=== PATIENT | female | born 1935 | race Caucasian/White ===

== ENCOUNTER 2018-05-24 20:20 | Inpatient (IN) | payer MEDICARE, OTHER ==
[~2018-05-24] VITALS: Ht 170.2 cm; Wt 75.3 kg
[~2018-05-24 20:20] MED LIST: ACET500T33 PO; ACIDOPHILUS PROB1 MG PO; CHOL10003 PO; COLE1TAB2 PO; CYAN10002 PO; CYAN10005 PO; DIVA500T2 PO; DONE10TA61 PO; EFIN4SOL TP; FAMO20TA5 PO; HYDR-963 PO; HYDR4TAB45 PO; LEXAPRO20 MG PO; MAG30ORA2 PO; MAGN2400 PO; MENT1ADH29 TP; METH57CR8 TP; MULT-471 PO; ONDA4TAB10 PO; ONDA4TAB7 PO; QUET50TA5 PO; SERT25TA PO; TRAZ-85 PO; VIT1TABL8 PO
[2018-05-24] MEDS ORDERED: MAG HYDROX/AL HYDROX/SIMETH 30 ML ORAL.SUSP PO PRN (21:45)
[2018-05-24] MEDS ORDERED: MAGNESIUM HYDROXIDE 2,400 MG/30 ML ORAL.SUSP. PO PRN ×2 (21:45→22:15)
[2018-05-24] MEDS ORDERED: ACETAMINOPHEN 325 MG TABLET PO PRN (21:45)
[2018-05-24 21:52] VITALS: BP 129/81
[2018-05-24] MEDS ORDERED: MEMA7CAP PO (22:02)
[2018-05-24] MEDS ORDERED: RIVA1PAT23 TD (22:02)
[2018-05-24] MEDS ORDERED: CLON0.5T PO (22:02)
[2018-05-24] MEDS ORDERED: MAGN400O7 PO (22:02)
[2018-05-24] MEDS ORDERED: LACT1TAB18 PO (22:02)
[2018-05-24 22:14] LABS: BASO % 0 % (0-3); EOS # 0.2 x10^3/uL (0.0-0.7); EOS % 2 % (0-3); HEMATOCRIT 35.5 % (36.0-47.0); HEMOGLOBIN 11.7 g/dL (12.0-15.5); LYMPH # 2.4 x10^3/uL (1.0-4.8); LYMPH % 24 % (24-48); MEAN CORPUSCULAR HEMOGLOBIN 28 pg (25-35); MEAN CORPUSCULAR HGB CONC 33 g/dL (31-37); MEAN CORPUSCULAR VOLUME 83 fL (79-100); MONO # 0.7 x10^3/uL (0.0-1.1); MONO % 7 % (0-9); NEUT # 6.7 x10^3uL (1.8-7.7); NEUT % 67 % (31-73); PLATELET COUNT 292 x10^3/uL (140-400); RED BLOOD COUNT 4.26 x10^6/uL (3.50-5.40); RED CELL DISTRIBUTION WIDTH 15.5 % (11.5-14.5)
[2018-05-24] MEDS ORDERED: ACETAMINOPHEN 500 MG TABLET PO PRN (22:15)
[2018-05-24] MEDS ORDERED: METHYL SALICYLATE/MENTHOL TOPICAL OINTMENT 29GM TUBE. TP PRN (22:15)
[2018-05-24 22:38] LABS: ALBUMIN 2.8 g/dL (3.4-5.0); ALBUMIN/GLOBULIN RATIO 0.8 (1.0-1.7); CALCIUM 8.2 mg/dL (8.5-10.1); CREATININE 1.2 mg/dL (0.6-1.0); GFR 42.9; MAGNESIUM 1.9 mg/dL (1.8-2.4); POTASSIUM 4.2 mmol/L (3.5-5.1); TOTAL BILIRUBIN 0.3 mg/dL (0.2-1.0); TOTAL PROTEIN 6.5 g/dL (6.4-8.2)
--- NOTE | 2018-05-25 01:47 | NUR ---
Admission Note with Justification for Admission to [facility] Patient admitted to [facility] for protective oversight for emergency stabilization of acute psychiatric crisis. Pt admitted from: SNF Mode of arrival: EMS Accompanied By: EMS Precipitating behaviors that initiated intake and admission:Threatening to harm others, verbally abusive, resistive to cares Description of failure of out patient attempts at stabilization in previous setting list behavior and medication trials:Med changes Behaviors and assessment findings upon admission: Patient arrived on unit with EMS. Patient calm and cooperative with assessment and vital signs. Patient pleasant during interaction. Patient drowsy upon arrival. Patient alert and oriented to self and that she is in [facility] only. Patient belongings inventoried. Patient lung sounds clear, heart regular and bowels active. Skin assessment shows no wounds or rashes upon admission. Skin turgor is elastic. Patient currently in patient room. Plan: Admit for protective oversight for adjustment and stabilization of medications, behaviors and mood. Intense treatment regimen including groups, medication adjustments, therapy, consistent regimen for ADL's, self care, and sleep hygiene. Daily monitoring by Inpatient staff, Psychiatry, and Medical Physician.
[2018-05-25 06:19] VITALS: BP 151/64
--- NOTE | 2018-05-25 08:00 | NUR ---
Per conversation last night prior to patient's admission, the DPOA has the following requests and conditions: -No pain medications except Tylenol -Call before changing any medications -Call before adding any medications -Call before discharging patient -Med changes need to be explained to DPOA by a qualified psychiatrist at time of change -No Depakote, patient has reacted badly before -No NSAIDs, Aspirin, narcotics, or tramadol
[2018-05-25] MEDS ORDERED: SERTRALINE 25 MG TABLET. PO SCH (09:00)
[2018-05-25] MEDS: LACTOBACILLUS RHAMNOSUS GG 1 CAPSULE. PO SCH ×2 (09:03→20:26)
[2018-05-25] MEDS: MEMANTINE 5 MG TABLET. PO SCH (09:03)
[2018-05-25] MEDS: RIVASTIGMINE 9.5MG PATCH. TD SCH (09:04)
--- NOTE | 2018-05-25 09:26 | NUR ---
Met with Usha to support related to recent admit and to complete psychosocial assessment. Usha was sitting in the day room. She was calm and without s/s of distress. She was pleasant and agreeable to visit with this worker. Usha is alert and oriented to herself. She was confused to year, month, day of week, and place. Usha is verbal and able to make her needs and preferences known. Usha was born and raised in [place]. She was the oldest of two children. Her brother Bon lives in [place], [place]. 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 Usha Guilherme Talley and had three children. Usha's daughters Kayla and Kelly are living. She reported that her son Guilherme at 16 years old of pneumonia. Lisa has enjoyed playing [employer], card games, country music, and gardening. She is of the Islam becca. Usha has lived at [facility] for the past couple years and reports she likes it there. 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 Call placed to Kayla, daughter/POA, to invite to participate in treatment team meeting on 05/31/19. Voice message left, awaiting return phone call.
--- NOTE | 2018-05-25 10:21 | EKG ---
[address] [address] Test Date: 2018-05-25 Test Time: 09:45:53 Pat Name: JOSÉ MIGUEL COLINDRES Department: Room: [address] [place] [address] Gender: F Certified Medical Transcriptionist: : 1935 Requested By: DUGLAS SMALL Order Number: [id number] Reading MD: Ryan Jones MD Measurements Intervals [place] Rate: 71 P: 23 MD: 166 QRS: -13 QRSD: 70 T: 28 QT: 356 QTc: 391 Interpretive Statements SINUS RHYTHM Electronically Signed On 05-29-2018 11:15:30 CDT by Ryan Jones MD
[2018-05-25 12:30] LABS: THYROID STIM HORMONE (TSH) 3.825 uIU/mL (0.358-3.740)
--- NOTE | 2018-05-25 12:40 | NUR ---
Pt has been up in Day Room sitting quietly, watching TV. She has been pleasant & cooperative all morning. Compliant with meds taken whole with water. When asked, she stated that she "doesn't need anything." She is currently sitting up in the lunch room earing lunch. No signs of hallucinations or delusions noted. No inappropriate behaviors so far this shift. Will continue to monitor and assist pt toward reaching her treatment plan goals.
--- NOTE | 2018-05-25 13:55 | NUR ---
Kayla, daughter, returned this worker's phone call. She provided additional psychosocial information including Usha's highest level of education being 10th grade as Usha dropped out of school to get . Usha's first marriage ended in an annulment after six months. She then Guilherme. Usha's son Guilherme at age 32 from AIDS. Usha is a former smoker and family reports she has been addicted to prescription pain pills in the past. Family expressed they feel that Usha may have some type of undiagnosed personality disorder. Kayla accepted invite to participate by phone in the treatment team meeting to be held on 05/31/18.
[2018-05-25] MEDS: CHOLECALCIFEROL (VITAMIN D3) 50,000 UNIT CAPSULE PO SCH (15:44)
[2018-05-25 16:48] VITALS: BP 143/81
[2018-05-25] MEDS: clonazePAM 0.5 MG TABLET PO SCH (20:26)
[2018-05-25 21:13] LABS: THYROXINE 7.3 ug/dL (4.5-12.0)
--- NOTE | 2018-05-25 22:55 | CONS ---
DATE OF CONSULTATION: 05/25/2018 REASON FOR CONSULTATION: Consult for medical management. HISTORY OF PRESENT ILLNESS: The patient is an 82-year-old female patient who apparently was admitted on account of threatening other residents, refusing care, verbally abusive. All this on a background of vascular dementia. She is here for inpatient psychiatric stabilization. Apparently, she did threaten other residents last night and refused her medication, but has been very cooperative and compliant with care and medication today and denied any complaint. PAST MEDICAL HISTORY: Significant for gastroesophageal reflux disease, chronic constipation, anemia, chronic kidney disease. PAST SURGICAL HISTORY: Significant for appendectomy, cholecystectomy, total abdominal hysterectomy, bilateral salpingo-oophorectomy. ALLERGIES: She is allergic to NONSTEROIDAL ANTI-INFLAMMATORY MEDICATION. MEDICATIONS: She is currently on the following medications: Rivastigmine for Exelon 9.5 mg at 24 hours transdermal patch once a day, Bengay ultra strength cream applied topically to 4 times a day, Tylenol 500 mg every 4 hours, clonazepam 0.5 mg at bedtime, sertraline 25 mg daily, trazodone 50 mg at bedtime, Namenda XR 7 mg daily, lactobacillus acidophilus 1 twice a day, and magnesium hydroxide for milk of magnesia 30 mL p.o. daily p.r.n. for constipation. FAMILY HISTORY: Unremarkable. 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 She currently lives at [facility]. She has two daughters and one son. She has never smoked, does not drink alcohol or use recreational drugs. REVIEW OF SYSTEMS: As per history of present illness. PHYSICAL EXAMINATION GENERAL: When I examined her, she was sitting comfortably in her chair in no apparent respiratory distress, slightly pale, no jaundice, cyanosis, or thyromegaly. No jugular venous distension. No lower limb edema. VITAL SIGNS: Her heart rate was 70, blood pressure was 151/64, temperature was 98.2, respiratory rate was 16, and oxygen saturation was 98% on room air. HEAD, EYES, EARS, NOSE, AND THROAT: Showed normocephalic, atraumatic. NECK: Supple. HEART: Showed normal first and second heart sounds. No gallop, rub, or murmur. CHEST: Clear to auscultation. No crepitation or rhonchi. ABDOMEN: Distended, soft, nontender. No guarding or rigidity. No organomegaly. All hernial orifice intact. Bowel sounds normal. NEUROLOGIC: She was awake, alert, responding appropriately. Cranial nerves intact. EXTREMITIES: She moves extremities without difficulty. She ambulates with a walker. LABORATORY DATA: Her lab work this morning showed a white cell count of 10,000, hemoglobin 11.7, hematocrit 35.5, MCV 83, and platelet count of 292,000 with normal manual differential. Her chemistry showed a serum sodium 139, potassium 4.2, chloride 103, bicarbonate 27, anion gap of 9, BUN 18, creatinine 1.2, estimated GFR was 42 mL per minute. Her glucose was 92, calcium was 8.2, magnesium was 1.9. Her serum iron was 54, TIBC was and percent saturation was 16%. Her total bilirubin, AST, ALT, alkaline phosphatase were normal. Total protein 6.5, albumin was 2.8. Her serum triglycerides 142, total cholesterol was 200, LDL cholesterol was 119, VLDL was 28, HDL was 53, and the ratio was 3. Her vitamin B12 was 205 pg/mL, 25-hydroxyvitamin D3 was 13.6 and TSH was slightly high at 3.825. Her treponema pallidum antibodies were nonreactive. IMPRESSION: So in summary, this is an 82-year-old female patient, a resident at [facility], who was admitted on account of threatening other residents, refusing care, verbally abusive. All this in a background of vascular dementia and she is here for inpatient psychiatric stabilization. Medically, she has multiple medical problems including vitamin B12 deficiency, vitamin D deficiency, hypothyroidism, chronic kidney disease, hypochromic microcytic anemia, gastroesophageal reflux disease, and chronic constipation. PLAN: My plan is to replenish her vitamin B12, vitamin D, and given her elevated TIBC, I will start her on some ferrous sulfate and ascorbic acid. I will also check her T3, T4, free T4 as her TSH slightly elevated to make sure that she has compensated hypothyroidism. Thank you Dr. Arriaga for allowing me to participate in the care of this patient. DAV THAYER MD DR: EPI/anna JOB#: [id number] / [id number]
--- NOTE | 2018-05-25 23:11 | PDOC ---
Exam Note: Carlos Note: Please also refer to the separate dictated note~for this date of service dictated separately.~Patient seen individually. Discussed the patient with Nursing staff reviewed the chart.~Reviewed interim history and current functioning. Reviewed vital signs,~Labs/ Radiology~and current medications noted below. Continue current treatment with the changes noted in the dictated addendum note Assessment: Vital Signs: Vital Signs Date Time Temp Pulse Resp B/P (MAP) Pulse Ox O2 Delivery O2 Flow Rate FiO2 05/25/18 16:48 98.0 68 20 143/81 (101) 95 I&O Intake and Output 05/25/18 07:00 Intake Total 200 ml Balance 200 ml Intake Oral 200 ml Current Medications: Meds: Current Medications Acetaminophen (Tylenol) 650 mg PRN Q6HRS PRN PO PAIN / TEMP; Start 05/24/18 at 21:45; Stop 05/24/18 at 22:14; Status DC Al Hydroxide/Mg Hydroxide (Mylanta Plus Xs) 15 ml PRN AFTMEALHC PRN PO DYSPEPSIA; Start 05/24/18 at 21:45 Magnesium Hydroxide (Milk Of Magnesia) 2,400 mg PRN QHS PRN PO CONSTIPATION; Start 05/24/18 at 21:45; Stop 05/24/18 at 22:13; Status DC Clonazepam (KlonoPIN) 0.25 mg QHS PO Last administered on 05/25/18at 20:26; Start 05/25/18 at 21:00 Memantine (Namenda) 5 mg DAILY PO Last administered on 05/25/18at 09:03; Start 05/25/18 at 09:00 Rivastigmine (Exelon) 1 patch DAILY TD Last administered on 05/25/18at 09:04; Start 05/25/18 at 09:00 Sertraline HCl (Zoloft) 25 mg DAILY PO Last administered on 05/25/18at 09:03; Start 05/25/18 at 09:00; Stop 05/25/18 at 18:41; Status DC Trazodone HCl (Desyrel) 50 mg PRN QHS PRN PO INSOMNIA; Start 05/24/18 at 22:30 Magnesium Hydroxide (Milk Of Magnesia) 800 mg PRN QHS PRN PO DIARRHEA; Start at 22:15 Acetaminophen (Tylenol) 500 mg PRN Q4HRS PRN PO PAIN / TEMP; Start 05/24/18 at 22:15 Lactobacillus Rhamnosus (Culturelle) 1 cap BID PO Last administered on at 20:26; Start 05/25/18 at 09:00 Multi-Ingredient Ointment (Analgesic [place]) 1 hector PRN QID PRN TP MUSCLE PAIN; Start 05/24/18 at 22:15 Olanzapine (ZyPREXA ZYDIS) 2.5 mg PRN Q2HR PRN PO PSYCHOSIS; Start 05/25/18 at 03:00 Vitamin D (Vitamin D3) 50,000 unit WEEKLY PO Last administered on 05/25/18at 15: 44; Start 05/25/18 at 15:30 Cyanocobalamin (Vitamin B-12) 1,000 mcg WEEKLY IM ; Start 06/01/18 at 09:00 Ferrous Sulfate (Feosol) 325 mg DAILYWBKFT PO ; Start 05/26/18 at 08:00 Ascorbic Acid (Vitamin C) 500 mg DAILY PO ; Start 05/26/18 at 09:00 Sertraline HCl (Zoloft) 50 mg DAILY PO ; Start 05/26/18 at 09:00 Active Scripts Active Reported Namenda Xr (Memantine Hcl) 7 Mg Cap.spr.24 7 Mg PO DAILY Klonopin (Clonazepam) 0.5 Mg Tablet 0.25 Mg PO QHS Acidophilus (Lactobacillus Acidophilus) 1 Each Tablet 1 Each PO BID EXELON 9.5mg/24hr (Rivastigmine) 1 Each Patch.td24 1 Patch TD DAILY Milk Of Magnesia (Magnesium Hydroxide) 400 Mg/5 Ml Oral.susp 800 Mg PO PRN QHS PRN Bengay Ultra Strength Crm (Methyl Salicylate/Menth/Camph) 57 Gm Cream..g. 1 Applic TP PRN QID PRN Trazodone Hcl 50 Mg Tablet 50 Mg PO PRN QHS PRN Zoloft (Sertraline Hcl) 25 Mg Tablet 25 Mg PO DAILY Tylenol Extra Strength (Acetaminophen) 500 Mg Tablet 500 Mg PO PRN Q4HRS PRN Max Acetaminophen dose is 4000mg/24 hours from all sources for adults I have reviewed the current psychotropics carefully including drug interactions. Risk benefit ratio favors no change other than as noted in my dictated progress note. Diagnosis: Problems: (1) Dementia with behavioral disturbance (2) Dementia (3) Impulse control disorder (4) Dementia, vascular, with depression (5) Anxiety disorder DUGLAS SMALL MD May 25, 2018 23:11
[2018-05-25 23:13] LABS: HEMOGLOBIN A1C 5.4 % (4.8-5.6)
[2018-05-26] MEDS: traZODone 50 MG TABLET. PO PRN ×2 (01:51→19:56)
--- NOTE | 2018-05-26 02:23 | NUR ---
Nursing Note Patient located in day room for shift assessment and medication pass. Patient alert and oriented to self and that she is in the hospital. Patient interactive and pleasant during assessment. Patient took medications whole. Patient is currently in day room area talking with staff. Patient requested PRN medication for insomnia and was given PRN Trazodone at 0151.
[2018-05-26 05:53] VITALS: BP 116/63
[2018-05-26] MEDS: MEMANTINE 5 MG TABLET. PO SCH (09:05)
[2018-05-26] MEDS: LACTOBACILLUS RHAMNOSUS GG 1 CAPSULE. PO SCH ×2 (09:06→19:56)
[2018-05-26] MEDS: RIVASTIGMINE 9.5MG PATCH. TD SCH (09:06)
[2018-05-26] MEDS: ASCORBIC ACID 500 MG TABLET PO SCH (09:12)
[2018-05-26] MEDS: FERROUS SULFATE 325 MG TABLET. PO SCH (09:12)
[2018-05-26] MEDS: SERTRALINE 50 MG TABLET. PO SCH (09:12)
--- NOTE | 2018-05-26 09:30 | NUR ---
Behavior Intervention Response and Plan: BIRP Note: Behavior: Assumed Care of patient, patient located in Patient Room at shift change. Patient exhibited the following behavior Calm, Disorganized, Withdrawn. Brief assessment on rounds of vital signs, medication needs, lab studies, and pain. Treatment plan problems 1 & 2. Intervention: Patient assessed and the following interventions initiated safety checks 15 Minute Checks Cognitive Assessment , Head to toe Assessment , Medications. Response: After interactions and interventions patient responded in the following manner, Calm , Appropriate ,Compliant. Continue to assess behaviors and condition will continue to monitor throughout the shift as needed. Patient educated on ADL's, and hand hygiene. Plan: Continue to monitor Master Treatment Plan for patient's progress toward short term goals of Decreased Agitation, Medication Compliance, juvenile officer goals to return to previous living setting vs placement. Continue to assess patient for changes in above assessment. Monitor for medication needs, pain, and safety concerns. Hourly rounding performed to ensure safe environment.
[2018-05-26 16:02] VITALS: BP 137/77
--- NOTE | 2018-05-26 18:44 | HP ---
ADMIT DATE: 05/25/2018 The patient is being admitted by her power of assistant county attorney. This is a late entry 05/25/2018, covers the elements not covered in my initial note, SUBJECTIVE: I met with the patient evening of 05/25/2018, had previously discussed with nursing staff on 2 or 3 occasions on 05/24/2018, and earlier on 05/25/2018, to evaluate the referral back from [facility] from a primary care physician on account of the patient threatening other residents, refusing care, being verbally abusive within the context of her vascular dementia with delusion, depression, and behavioral disturbance. The patient has been an inpatient here in the past and has failed outpatient psychiatric interventions. CHIEF COMPLAINT: "I do not do those things." HISTORY OF PRESENT ILLNESS: The patient has a history of major neurocognitive disorder, vascular with delusion, depression. She has been an inpatient here with us in the past, but for quite some time, she has been back at [facility] doing reasonably well. Over the last few days, she has been increasingly agitated, threatening other residents, refusing cares. Her behaviors have been deemed dangerous, unmanageable resulting in this referral back to us. No clear history of bipolar disorder, suicidal or homicidal ideation. The patient was admitted 05/24/2018, and the night of 05/24/2018, she was threatening staff and quite agitated, aggressive and delusional here after she arrived at the hospital. PAST PSYCHIATRIC HISTORY: As above. MEDICAL HISTORY: Positive for hyperkalemia, vascular dementia, psychosis, GERD. DIET: Regular. CODE STATUS: Full code. ALLERGIES: NONSTEROIDAL ANTI-INFLAMMATORY MEDICATIONS. CURRENT PSYCHOTROPICS: Exelon patch 9.5 mg a day, Zoloft 25 mg a day, Klonopin 0.25 mg at bedtime, Namenda XR 7 mg daily. We will change to Namenda 5 mg b.i.d. along with trazodone 50 mg at bedtime p.r.n. FAMILY HISTORY: Noncontributory. SOCIAL HISTORY: No history of alcohol, drug abuse, physical, sexual or elder abuse. Not known to be a perpetrator. REACTION TO HOSPITALIZATION: The patient accepting of it. MENTAL STATUS EXAM: The patient was seen individually the evening of 05/24/2018. She was seen in her room, oriented to herself, and felt she had been here about "5 days." She said she remembered me from the past, but as I questioned her closely, she did not in fact remember me, might have had some recognition. Otherwise, with me, she was cooperative, pleasant, smiling. Insight, judgment, recent memory is impaired. Language function intact. Attention span short. Mood and affect remain somewhat anxious, labile, and somewhat paranoid. No active suicidal or homicidal ideation. LABORATORY DATA: Reviewed. IMPRESSION: Major neurocognitive disorder, vascular with delusion, depression, behavioral disturbance; anxiety disorder, unspecified; impulse control disorder, unspecified. Rest as above. PLAN: Admit to Geropsychiatry Unit at [facility]. I will see the patient daily individually from a psychiatric standpoint, medical followup per Dr. Butterfield/Dr. Chan. Continue current psychotropics, increase Zoloft to 50 mg a day. Consider adding low-dose Seroquel as a mood stabilizer. Estimated length of stay 10-12 days. DISPOSITION: Plans back to [place], [place]. MAN Tonie SMALL MD DR: NICKI/anna JOB#: [id number] / [id number]
[2018-05-26] MEDS: clonazePAM 0.5 MG TABLET PO SCH (19:56)
--- NOTE | 2018-05-26 23:06 | PDOC ---
Exam Note: Carlos Note: Please also refer to the separate dictated note~for this date of service dictated separately.~Patient seen individually. Discussed the patient with Nursing staff reviewed the chart.~Reviewed interim history and current functioning. Reviewed vital signs,~Labs/ Radiology~and current medications noted below. Continue current treatment with the changes noted in the dictated addendum note Assessment: Vital Signs: Vital Signs Date Time Temp Pulse Resp B/P (MAP) Pulse Ox O2 Delivery O2 Flow Rate FiO2 05/26/18 16:02 98.1 64 18 137/77 (97) 98 I&O Intake and Output 05/26/18 06:59 Intake Total 920 ml Balance 920 ml Intake Oral 920 ml # Voids 1 Current Medications: Meds: Current Medications Acetaminophen (Tylenol) 650 mg PRN Q6HRS PRN PO PAIN / TEMP; Start 05/24/18 at 21:45; Stop 05/24/18 at 22:14; Status DC Al Hydroxide/Mg Hydroxide (Mylanta Plus Xs) 15 ml PRN AFTMEALHC PRN PO DYSPEPSIA; Start 05/24/18 at 21:45 Magnesium Hydroxide (Milk Of Magnesia) 2,400 mg PRN QHS PRN PO CONSTIPATION; Start 05/24/18 at 21:45; Stop 05/24/18 at 22:13; Status DC Clonazepam (KlonoPIN) 0.25 mg QHS PO Last administered on 05/26/18at 19:56; Start 05/25/18 at 21:00 Memantine (Namenda) 5 mg DAILY PO Last administered on 05/26/18at 09:05; Start 05/25/18 at 09:00 Rivastigmine (Exelon) 1 patch DAILY TD Last administered on 05/26/18at 09:06; Start 05/25/18 at 09:00 Sertraline HCl (Zoloft) 25 mg DAILY PO Last administered on 05/25/18at 09:03; Start 05/25/18 at 09:00; Stop 05/25/18 at 18:41; Status DC Trazodone HCl (Desyrel) 50 mg PRN QHS PRN PO INSOMNIA Last administered on 05/26at 19:56; Start 05/24/18 at 22:30 Magnesium Hydroxide (Milk Of Magnesia) 800 mg PRN QHS PRN PO DIARRHEA; Start at 22:15 Acetaminophen (Tylenol) 500 mg PRN Q4HRS PRN PO PAIN / TEMP; Start 05/24/18 at 22:15 Lactobacillus Rhamnosus (Culturelle) 1 cap BID PO Last administered on at 19:56; Start 05/25/18 at 09:00 Multi-Ingredient Ointment (Analgesic [place]) 1 hector PRN QID PRN TP MUSCLE PAIN; Start 05/24/18 at 22:15 Olanzapine (ZyPREXA ZYDIS) 2.5 mg PRN Q2HR PRN PO PSYCHOSIS; Start 05/25/18 at 03:00 Vitamin D (Vitamin D3) 50,000 unit WEEKLY PO Last administered on 05/25/18at 15: 44; Start 05/25/18 at 15:30 Cyanocobalamin (Vitamin B-12) 1,000 mcg WEEKLY IM ; Start 06/01/18 at 09:00 Ferrous Sulfate (Feosol) 325 mg DAILYWBKFT PO Last administered on 05/26/18at 09 :12; Start 05/26/18 at 08:00 Ascorbic Acid (Vitamin C) 500 mg DAILY PO Last administered on 05/26/18at 09:12 ; Start 05/26/18 at 09:00 Sertraline HCl (Zoloft) 50 mg DAILY PO Last administered on 05/26/18at 09:12; Start 05/26/18 at 09:00 Melatonin 3 mg QHS PO ; Start 05/27/18 at 21:00 Active Scripts Active Reported Namenda Xr (Memantine Hcl) 7 Mg Cap.spr.24 7 Mg PO DAILY Klonopin (Clonazepam) 0.5 Mg Tablet 0.25 Mg PO QHS Acidophilus (Lactobacillus Acidophilus) 1 Each Tablet 1 Each PO BID EXELON 9.5mg/24hr (Rivastigmine) 1 Each Patch.td24 1 Patch TD DAILY Milk Of Magnesia (Magnesium Hydroxide) 400 Mg/5 Ml Oral.susp 800 Mg PO PRN QHS PRN Bengay Ultra Strength Crm (Methyl Salicylate/Menth/Camph) 57 Gm Cream..g. 1 Applic TP PRN QID PRN Trazodone Hcl 50 Mg Tablet 50 Mg PO PRN QHS PRN Zoloft (Sertraline Hcl) 25 Mg Tablet 25 Mg PO DAILY Tylenol Extra Strength (Acetaminophen) 500 Mg Tablet 500 Mg PO PRN Q4HRS PRN Max Acetaminophen dose is 4000mg/24 hours from all sources for adults I have reviewed the current psychotropics carefully including drug interactions. Risk benefit ratio favors no change other than as noted in my dictated progress note. Diagnosis: Problems: (1) Dementia with behavioral disturbance (2) Dementia (3) Impulse control disorder (4) Dementia, vascular, with depression (5) Anxiety disorder DUGLAS SMALL MD May 26, 2018 23:06
--- NOTE | 2018-05-26 23:16 | NUR ---
Nursing Note Patient located in hallway and day room for shift assessment and medication pass. patient is alert and oriented to self and hospital. Patient is calm and cooperative with assessment and medications. Patient took medications whole. Patient withdrawn but appropriate during interaction. Patient is located in patient room laying in bed.
[2018-05-27 05:57] VITALS: BP 127/38
[2018-05-27] MEDS: LACTOBACILLUS RHAMNOSUS GG 1 CAPSULE. PO SCH ×2 (08:28→19:47)
[2018-05-27] MEDS: MEMANTINE 5 MG TABLET. PO SCH (08:28)
[2018-05-27] MEDS: FERROUS SULFATE 325 MG TABLET. PO SCH (08:28)
[2018-05-27] MEDS: ASCORBIC ACID 500 MG TABLET PO SCH (08:29)
[2018-05-27] MEDS: SERTRALINE 50 MG TABLET. PO SCH (08:29)
[2018-05-27] MEDS: RIVASTIGMINE 9.5MG PATCH. TD SCH (08:29)
--- NOTE | 2018-05-27 14:16 | NUR ---
Pt has been pleasant & cooperative so far this shift. Compliant with meds taken whole with water. No inappropriate behaviors noted. No signs of hallucinations or delusions noted. Pt napped earlier this shift - currently sitting up in the Day Room, socializing appropriately with other patients & staff. No needs voiced at this time. Will continue to monitor and assist pt towards reaching treatment goals.
[2018-05-27 16:04] VITALS: BP 100/66
--- NOTE | 2018-05-27 17:58 | PN ---
DATE: 05/26/2018 PSYCHIATRIC PROGRESS NOTE This is a late entry 05/26/2018, covers elements not covered in my initial note of 05/26/2018. SUBJECTIVE: I met with the patient in the evening. The patient slept 2-3/4 hours previous evening, was quite irritable in the morning, better in the evening. REVIEW OF SYSTEMS: Complains of feeling cold. In fact, her room temperature was set at 71.5 and nursing staff did get her extra blankets and will raise the temperature on the thermostat as well at my request, No CV, , pulmonary, eye, ENT system symptoms on review. Reliability poor. MENTAL STATUS EXAM: Oriented to herself. Insight, judgment, recent and remote memory, attention, concentration, fund of knowledge poor, consistent with her diagnoses. IMPRESSION: Major neurocognitive disorder, Alzheimer, vascular with delusion, depression, behavioral disturbance. Rest unchanged. PLAN: Continue psychotropics from initial note, start melatonin 3 mg at bedtime to help with insomnia. Continue trazodone p.r.n., may need to increase this. Maintain Zoloft 50 mg a day, Klonopin 0.25 mg at bedtime, but we will try and taper this. DUGLAS SMALL MD DR: NICKI/nana JOB#: [id number] / [id number]
[2018-05-27] MEDS: traZODone 50 MG TABLET. PO PRN (19:47)
[2018-05-27] MEDS: MELATONIN 3 MG TABLET PO SCH (19:50)
[2018-05-27] MEDS: clonazePAM 0.5 MG TABLET PO SCH (19:50)
--- NOTE | 2018-05-27 21:02 | PDOC ---
Exam Note: Carlos Note: Please also refer to the separate dictated note~for this date of service dictated separately.~Patient seen individually. Discussed the patient with Nursing staff reviewed the chart.~Reviewed interim history and current functioning. Reviewed vital signs,~Labs/ Radiology~and current medications noted below. Continue current treatment with the changes noted in the dictated addendum note Assessment: Vital Signs: Vital Signs Date Time Temp Pulse Resp B/P (MAP) Pulse Ox O2 Delivery O2 Flow Rate FiO2 05/27/18 16:04 98.1 85 16 100/66 (77) 97 I&O Intake and Output 05/27/18 06:59 Intake Total 960 ml Balance 960 ml Intake Oral 960 ml # Voids 1 # Bowel Movements 1 Current Medications: Meds: Current Medications Acetaminophen (Tylenol) 650 mg PRN Q6HRS PRN PO PAIN / TEMP; Start 05/24/18 at 21:45; Stop 05/24/18 at 22:14; Status DC Al Hydroxide/Mg Hydroxide (Mylanta Plus Xs) 15 ml PRN AFTMEALHC PRN PO DYSPEPSIA; Start 05/24/18 at 21:45 Magnesium Hydroxide (Milk Of Magnesia) 2,400 mg PRN QHS PRN PO CONSTIPATION; Start 05/24/18 at 21:45; Stop 05/24/18 at 22:13; Status DC Clonazepam (KlonoPIN) 0.25 mg QHS PO Last administered on 05/27/18at 19:50; Start 05/25/18 at 21:00 Memantine (Namenda) 5 mg DAILY PO Last administered on 05/27/18at 08:28; Start 05/25/18 at 09:00 Rivastigmine (Exelon) 1 patch DAILY TD Last administered on 05/27/18at 08:29; Start 05/25/18 at 09:00 Sertraline HCl (Zoloft) 25 mg DAILY PO Last administered on 05/25/18at 09:03; Start 05/25/18 at 09:00; Stop 05/25/18 at 18:41; Status DC Trazodone HCl (Desyrel) 50 mg PRN QHS PRN PO INSOMNIA Last administered on 05/27at 19:47; Start 05/24/18 at 22:30 Magnesium Hydroxide (Milk Of Magnesia) 800 mg PRN QHS PRN PO DIARRHEA; Start at 22:15 Acetaminophen (Tylenol) 500 mg PRN Q4HRS PRN PO PAIN / TEMP; Start 05/24/18 at 22:15 Lactobacillus Rhamnosus (Culturelle) 1 cap BID PO Last administered on at 19:47; Start 05/25/18 at 09:00 Multi-Ingredient Ointment (Analgesic [place]) 1 hector PRN QID PRN TP MUSCLE PAIN; Start 05/24/18 at 22:15 Olanzapine (ZyPREXA ZYDIS) 2.5 mg PRN Q2HR PRN PO PSYCHOSIS; Start 05/25/18 at 03:00 Vitamin D (Vitamin D3) 50,000 unit WEEKLY PO Last administered on 05/25/18at 15: 44; Start 05/25/18 at 15:30 Cyanocobalamin (Vitamin B-12) 1,000 mcg WEEKLY IM ; Start 06/01/18 at 09:00 Ferrous Sulfate (Feosol) 325 mg DAILYWBKFT PO Last administered on 05/27/18at 08 :28; Start 05/26/18 at 08:00 Ascorbic Acid (Vitamin C) 500 mg DAILY PO Last administered on 05/27/18at 08:29 ; Start 05/26/18 at 09:00 Sertraline HCl (Zoloft) 50 mg DAILY PO Last administered on 05/27/18at 08:29; Start 05/26/18 at 09:00 Melatonin 3 mg QHS PO Last administered on 05/27/18at 19:50; Start 05/27/18 at 21:00 Active Scripts Active Reported Namenda Xr (Memantine Hcl) 7 Mg Cap.spr.24 7 Mg PO DAILY Klonopin (Clonazepam) 0.5 Mg Tablet 0.25 Mg PO QHS Acidophilus (Lactobacillus Acidophilus) 1 Each Tablet 1 Each PO BID EXELON 9.5mg/24hr (Rivastigmine) 1 Each Patch.td24 1 Patch TD DAILY Milk Of Magnesia (Magnesium Hydroxide) 400 Mg/5 Ml Oral.susp 800 Mg PO PRN QHS PRN [place] Ultra Strength Crm (Methyl Salicylate/Menth/Camph) 57 Gm Cream..g. 1 Applic TP PRN QID PRN Trazodone Hcl 50 Mg Tablet 50 Mg PO PRN QHS PRN Zoloft (Sertraline Hcl) 25 Mg Tablet 25 Mg PO DAILY Tylenol Extra Strength (Acetaminophen) 500 Mg Tablet 500 Mg PO PRN Q4HRS PRN Max Acetaminophen dose is 4000mg/24 hours from all sources for adults I have reviewed the current psychotropics carefully including drug interactions. Risk benefit ratio favors no change other than as noted in my dictated progress note. Diagnosis: Problems: (1) Dementia with behavioral disturbance (2) Dementia (3) Impulse control disorder (4) Dementia, vascular, with depression (5) Anxiety disorder DUGLAS SMALL MD May 27, 2018 21:02
[2018-05-28 06:13] VITALS: BP 139/83
[2018-05-28] MEDS ORDERED: MEMANTINE 5 MG TABLET. PO SCH (09:00)
[2018-05-28] MEDS: SERTRALINE 50 MG TABLET. PO SCH (10:29)
[2018-05-28] MEDS: FERROUS SULFATE 325 MG TABLET. PO SCH (10:29)
[2018-05-28] MEDS: LACTOBACILLUS RHAMNOSUS GG 1 CAPSULE. PO SCH ×2 (10:29→19:23)
[2018-05-28] MEDS: ASCORBIC ACID 500 MG TABLET PO SCH (10:29)
[2018-05-28] MEDS: QUEtiapine 25 MG TABLET. PO SCH ×2 (10:29→17:27)
[2018-05-28] MEDS: RIVASTIGMINE 9.5MG PATCH. TD SCH (10:29)
[2018-05-28] MEDS: MEMANTINE 5 MG TABLET. PO SCH ×2 (10:31→17:27)
--- NOTE | 2018-05-28 10:35 | NUR ---
Behavior Intervention Response and Plan: BIRP Note: Behavior: Assumed Care of patient, patient located in Patient Room at shift change. Patient exhibited the following behavior Withdrawn, Disorganized, Interactive. Brief assessment on rounds of vital signs, medication needs, lab studies, and pain. Treatment plan problems 1 & 2. Intervention: Patient assessed and the following interventions initiated safety checks 15 Minute Checks Cognitive Assessment , Head to toe Assessment , Medications. Response: After interactions and interventions patient responded in the following manner, Calm , Appropriate ,Compliant. Continue to assess behaviors and condition will continue to monitor throughout the shift as needed. Patient educated on ADL's, and hand hygiene. 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 Continue to assess patient for changes in above assessment. Monitor for medication needs, pain, and safety concerns. Hourly rounding performed to ensure safe environment.
--- NOTE | 2018-05-28 13:45 | NUR ---
ACTIVITY THERAPY ASSESSMENT Completed based on observation and interview. Pt. was agreeable and pleasant to talk to. She was able to recall the name of the hospital and facts about her leisure interest and some about her family. She stated she is from [place] and lives next door to her daughter. She enjoys Bingo, reading, poker, napping, coffee with neighbors/ friends and gossiping. Pt. stated she was here because she has problems with her back and the disks. She denied trouble/ issues with depression/ anxiety. She spends most of her time in her room, resting and occasionally sits in the day room with others but has little interaction with them. [employer] discussed goal setting with Pt. and suggested Pt. participate in at least three groups per week or one a day. Pt. agreed with one group per day. Initial goal aimed to increase socialization and engagement: Pt. will participate in at least one group per day.
[2018-05-28 16:06] VITALS: BP 135/56
[2018-05-28] MEDS: MELATONIN 3 MG TABLET PO SCH (19:23)
[2018-05-28] MEDS: clonazePAM 0.5 MG TABLET PO SCH (19:25)
--- NOTE | 2018-05-28 19:40 | NUR ---
Phoned patient's DPOA per MD orders. No answer to call, voicemail message left to call for updates. Will report to oncoming shift.
--- NOTE | 2018-05-28 20:31 | PDOC ---
Exam Note: Carlos Note: Please also refer to the separate dictated note~for this date of service dictated separately.~Patient seen individually. Discussed the patient with Nursing staff reviewed the chart.~Reviewed interim history and current functioning. Reviewed vital signs,~Labs/ Radiology~and current medications noted below. Continue current treatment with the changes noted in the dictated addendum note Assessment: Vital Signs: Vital Signs Date Time Temp Pulse Resp B/P (MAP) Pulse Ox O2 Delivery O2 Flow Rate FiO2 05/28/18 16:06 97.1 85 18 135/56 (82) 98 05/28/18 06:13 Room Air I&O Intake and Output 05/28/18 06:59 Intake Total 480 ml Balance 480 ml Intake Oral 480 ml # Bowel Movements 2 Current Medications: Meds: Current Medications Acetaminophen (Tylenol) 650 mg PRN Q6HRS PRN PO PAIN / TEMP; Start 05/24/18 at 21:45; Stop 05/24/18 at 22:14; Status DC Al Hydroxide/Mg Hydroxide (Mylanta Plus Xs) 15 ml PRN AFTMEALHC PRN PO DYSPEPSIA; Start 05/24/18 at 21:45 Magnesium Hydroxide (Milk Of Magnesia) 2,400 mg PRN QHS PRN PO CONSTIPATION; Start 05/24/18 at 21:45; Stop 05/24/18 at 22:13; Status DC Clonazepam (KlonoPIN) 0.25 mg QHS PO Last administered on 05/28/18at 19:25; Start 05/25/18 at 21:00 Memantine (Namenda) 5 mg DAILY PO Last administered on 05/27/18at 08:28; Start 05/25/18 at 09:00; Stop 05/27/18 at 22:47; Status DC Rivastigmine (Exelon) 1 patch DAILY TD Last administered on 05/28/18at 10:29; Start 05/25/18 at 09:00 Sertraline HCl (Zoloft) 25 mg DAILY PO Last administered on 05/25/18at 09:03; Start 05/25/18 at 09:00; Stop 05/25/18 at 18:41; Status DC Trazodone HCl (Desyrel) 50 mg PRN QHS PRN PO INSOMNIA Last administered on 05/27at 19:47; Start 05/24/18 at 22:30 Magnesium Hydroxide (Milk Of Magnesia) 800 mg PRN QHS PRN PO DIARRHEA; Start at 22:15 Acetaminophen (Tylenol) 500 mg PRN Q4HRS PRN PO PAIN / TEMP; Start 05/24/18 at 22:15 Lactobacillus Rhamnosus (Culturelle) 1 cap BID PO Last administered on at 19:23; Start 05/25/18 at 09:00 Multi-Ingredient Ointment (Analgesic [place]) 1 hector PRN QID PRN TP MUSCLE PAIN; Start 05/24/18 at 22:15 Olanzapine (ZyPREXA ZYDIS) 2.5 mg PRN Q2HR PRN PO PSYCHOSIS; Start 05/25/18 at 03:00 Vitamin D (Vitamin D3) 50,000 unit WEEKLY PO Last administered on 05/25/18at 15: 44; Start 05/25/18 at 15:30 Cyanocobalamin (Vitamin B-12) 1,000 mcg WEEKLY IM ; Start 06/01/18 at 09:00 Ferrous Sulfate (Feosol) 325 mg DAILYWBKFT PO Last administered on 05/28/18at 10 :29; Start 05/26/18 at 08:00 Ascorbic Acid (Vitamin C) 500 mg DAILY PO Last administered on 05/28/18at 10:29 ; Start 05/26/18 at 09:00 Sertraline HCl (Zoloft) 50 mg DAILY PO Last administered on 05/28/18at 10:29; Start 05/26/18 at 09:00 Melatonin 3 mg QHS PO Last administered on 05/28/18at 19:23; Start 05/27/18 at 21:00 Memantine (Namenda) 5 mg BID PO ; Start 05/28/18 at 09:00; Stop 05/28/18 at 09: 00; Status DC Quetiapine Fumarate (SEROquel) 25 mg BID94 PO Last administered on 05/28/18at 17 :27; Start 05/28/18 at 09:00 Memantine (Namenda) 5 mg BID@0900,1700 PO Last administered on 05/28/18at 17:27 ; Start 05/28/18 at 09:00 Active Scripts Active Reported Namenda Xr (Memantine Hcl) 7 Mg Cap.spr.24 7 Mg PO DAILY Klonopin (Clonazepam) 0.5 Mg Tablet 0.25 Mg PO QHS Acidophilus (Lactobacillus Acidophilus) 1 Each Tablet 1 Each PO BID EXELON 9.5mg/24hr (Rivastigmine) 1 Each Patch.td24 1 Patch TD DAILY Milk Of Magnesia (Magnesium Hydroxide) 400 Mg/5 Ml Oral.susp 800 Mg PO PRN QHS PRN [place] Ultra Strength Crm (Methyl Salicylate/Menth/Camph) 57 Gm Cream..g. 1 Applic TP PRN QID PRN Trazodone Hcl 50 Mg Tablet 50 Mg PO PRN QHS PRN Zoloft (Sertraline Hcl) 25 Mg Tablet 25 Mg PO DAILY Tylenol Extra Strength (Acetaminophen) 500 Mg Tablet 500 Mg PO PRN Q4HRS PRN Max Acetaminophen dose is 4000mg/24 hours from all sources for adults I have reviewed the current psychotropics carefully including drug interactions. Risk benefit ratio favors no change other than as noted in my dictated progress note. Diagnosis: Problems: (1) Dementia with behavioral disturbance (2) Dementia (3) Impulse control disorder (4) Dementia, vascular, with depression (5) Anxiety disorder DUGLAS SMALL MD May 28, 2018 20:31
--- NOTE | 2018-05-28 20:47 | PN ---
DATE: 05/27/2018 PSYCHIATRIC PROGRESS NOTE This is a late entry 05/27/2018, covers elements not covered in my initial note. SUBJECTIVE: I met with the patient in the evening. The patient slept 6-1/4 hours previous evening, was quite irritable in the morning, vitamin D is low, we started supplements. Need a UA which will be repeated, then she may need to be straight catheterized. REVIEW OF SYSTEMS: No CV, , pulmonary, eye, ENT system symptoms on review. MENTAL STATUS EXAM: Oriented to herself. Insight, judgment, recent and remote memory, fund of knowledge poor, consistent with her diagnosis mentioned in my initial note. IMPRESSION: Major neurocognitive disorder, Alzheimer, vascular with delusion, depression, behavioral disturbance; anxiety disorder, unspecified; impulse control disorder, unspecified. PLAN: We will start Seroquel 12.5 mg 9 a.m., 5 p.m. as a mood stabilizer, antianxiety medication. Namenda is at 5 mg twice a day and we are increasing that to reach a therapeutic level, adjust further as clinically indicated. Rest unchanged. MAN Tonie SMALL MD DR: NICKI/anna JOB#: [id number] / [id number]
--- NOTE | 2018-05-29 00:19 | NUR ---
Pt withdrawn to room at shift change this evening. Pt A/O to self, , place, time with confusion to situation noted. Pt calm, cooperative, and pleasant, compliant with medications taken whole.
[2018-05-29 06:36] VITALS: BP 163/59
[2018-05-29] MEDS: FERROUS SULFATE 325 MG TABLET. PO SCH (08:21)
[2018-05-29] MEDS: MEMANTINE 5 MG TABLET. PO SCH ×2 (08:22→15:51)
[2018-05-29] MEDS: QUEtiapine 25 MG TABLET. PO SCH ×2 (08:22→15:50)
[2018-05-29] MEDS: LACTOBACILLUS RHAMNOSUS GG 1 CAPSULE. PO SCH ×2 (08:22→20:22)
[2018-05-29] MEDS: ASCORBIC ACID 500 MG TABLET PO SCH (08:22)
[2018-05-29] MEDS: RIVASTIGMINE 9.5MG PATCH. TD SCH (08:23)
[2018-05-29] MEDS: SERTRALINE 50 MG TABLET. PO SCH (08:23)
--- NOTE | 2018-05-29 10:40 | NUR ---
Pt has been pleasant & cooperative so far this shift. She was compliant with AM meds taken whole with water. Was up in dining room, quiet & withdrawn. Is currently sleeping in bed. No inappropriate behaviors, hallucinations or delusions noted. Will continue to monitor and assist pt towards reaching her treatment plan goals.
[2018-05-29 16:54] VITALS: BP 123/77
[2018-05-29 19:09] LABS: BILIRUBIN,URINE NEG (NEG); CLARITY,URINE CLEAR; COLOR,URINE YELLOW; GLUCOSE,URINE NEG (NEG)
[2018-05-29 19:10] LABS: BACTERIA,URINE 0 /HPF (0-FEW); NITRITE,URINE NEG (NEG); SQUAMOUS EPITHELIAL CELL,UR MANY /LPF; UROBILINOGEN,URINE 2 mg/dL (0.2 mg/dL)
--- NOTE | 2018-05-29 19:53 | PN ---
DATE: 05/28/2018 PSYCHIATRIC PROGRESS NOTE This is a late entry for 05/28/2018, covers elements not covered in my initial note. SUBJECTIVE: I met with the patient in the evening. The patient slept 7-1/2 hours previous evening. The patient refused lunch and dinner, did have some breakfast. She is quite withdrawn to her room. REVIEW OF SYSTEMS: Positive for low back pain. No CV, , pulmonary, eye system symptoms on review. MENTAL STATUS EXAM: Oriented to herself and situation. Speech has some latency, coherent. Abstraction fair, computation impaired, language function intact, attention span short. Mood and affect remain somewhat withdrawn. LABORATORY DATA: Reviewed. IMPRESSION: Major neurocognitive disorder, vascular with depression, delusions. Rest unchanged. PLAN: Continue psychotropics mentioned in my initial note. We may consider changing Zoloft to Wellbutrin as an activating antidepressant. Maintain Exelon patch, Klonopin, Namenda, melatonin along with Seroquel and trazodone as p.r.n. for insomnia. MAN Tonie SMALL MD DR: NICKI/anna JOB#: [id number] / [id number]
[2018-05-29] MEDS: MELATONIN 3 MG TABLET PO SCH (20:22)
[2018-05-29] MEDS: clonazePAM 0.5 MG TABLET PO SCH (20:25)
--- NOTE | 2018-05-29 21:02 | PDOC ---
Exam Note: Carlos Note: Please also refer to the separate dictated note~for this date of service dictated separately.~Patient seen individually. Discussed the patient with Nursing staff reviewed the chart.~Reviewed interim history and current functioning. Reviewed vital signs,~Labs/ Radiology~and current medications noted below. Continue current treatment with the changes noted in the dictated addendum note Assessment: Vital Signs: Vital Signs Date Time Temp Pulse Resp B/P (MAP) Pulse Ox O2 Delivery O2 Flow Rate FiO2 05/29/18 16:54 97.6 75 18 123/77 (92) 95 05/28/18 06:13 Room Air I&O Intake and Output 05/29/18 06:59 Intake Total 240 ml Balance 240 ml Intake Oral 240 ml Labs: Laboratory Tests Test 05/29/18 17:25 Urine Collection Type Unknown Urine Color Yellow Urine Clarity Clear Urine pH 6.0 Urine Specific [place] 1.015 Urine Protein Neg (NEG-TRACE) Urine Glucose (UA) Neg mg/dL (NEG) Urine Ketones (Stick) Neg mg/dL (NEG) Urine Blood Neg (NEG) Urine Nitrite Neg (NEG) Urine Bilirubin Neg (NEG) Urine Urobilinogen Dipstick 2 mg/dL (0.2 mg/dL) Urine Leukocyte Esterase Neg (NEG) Urine RBC 1-2 /HPF (0-2) Urine WBC 1-4 /HPF (0-4) Urine Squamous Epithelial Cells Many /LPF Urine Transitional Epithelial Cells Few /LPF Urine Bacteria 0 /HPF (0-FEW) Urine Mucus Slight /LPF Current Medications: Meds: Current Medications Acetaminophen (Tylenol) 650 mg PRN Q6HRS PRN PO PAIN / TEMP; Start 05/24/18 at 21:45; Stop 05/24/18 at 22:14; Status DC Al Hydroxide/Mg Hydroxide (Mylanta Plus Xs) 15 ml PRN AFTMEALHC PRN PO DYSPEPSIA; Start 05/24/18 at 21:45 Magnesium Hydroxide (Milk Of Magnesia) 2,400 mg PRN QHS PRN PO CONSTIPATION; Start 05/24/18 at 21:45; Stop 05/24/18 at 22:13; Status DC Clonazepam (KlonoPIN) 0.25 mg QHS PO Last administered on 05/29/18at 20:25; Start 05/25/18 at 21:00 Memantine (Namenda) 5 mg DAILY PO Last administered on 05/27/18 08:28; Start 05/25/18 at 09:00; Stop 05/27/18 at 22:47; Status DC Rivastigmine (Exelon) 1 patch DAILY TD Last administered on 05/29/18at 08:23; Start 05/25/18 at 09:00 Sertraline HCl (Zoloft) 25 mg DAILY PO Last administered on 05/25/18at 09:03; Start 05/25/18 at 09:00; Stop 05/25/18 at 18:41; Status DC Trazodone HCl (Desyrel) 50 mg PRN QHS PRN PO INSOMNIA Last administered on 05/27at 19:47; Start 05/24/18 at 22:30 Magnesium Hydroxide (Milk Of Magnesia) 800 mg PRN QHS PRN PO DIARRHEA; Start at 22:15 Acetaminophen (Tylenol) 500 mg PRN Q4HRS PRN PO PAIN / TEMP; Start 05/24/18 at 22:15 Lactobacillus Rhamnosus (Culturelle) 1 cap BID PO Last administered on at 20:22; Start 05/25/18 at 09:00 Multi-Ingredient Ointment (Analgesic [place]) 1 hector PRN QID PRN TP MUSCLE PAIN; Start 05/24/18 at 22:15 Olanzapine (ZyPREXA ZYDIS) 2.5 mg PRN Q2HR PRN PO PSYCHOSIS; Start 05/25/18 at 03:00 Vitamin D (Vitamin D3) 50,000 unit WEEKLY PO Last administered on 05/25/18at 15: 44; Start 05/25/18 at 15:30 Cyanocobalamin (Vitamin B-12) 1,000 mcg WEEKLY IM ; Start 06/01/18 at 09:00 Ferrous Sulfate (Feosol) 325 mg DAILYWBKFT PO Last administered on 05/29/18at 08 :21; Start 05/26/18 at 08:00 Ascorbic Acid (Vitamin C) 500 mg DAILY PO Last administered on 05/29/18at 08:22 ; Start 05/26/18 at 09:00 Sertraline HCl (Zoloft) 50 mg DAILY PO Last administered on 05/29/18at 08:23; Start 7/14/18 at 09:00 Melatonin 3 mg QHS PO Last administered on 05/29/18at 20:22; Start 05/27/18 at 21:00 Memantine (Namenda) 5 mg BID PO ; Start 05/28/18 at 09:00; Stop 05/28/18 at 09: 00; Status DC Quetiapine Fumarate (SEROquel) 25 mg BID94 PO Last administered on 05/29/18at 15 :50; Start 05/28/18 at 09:00 Memantine (Namenda) 5 mg BID@0900,1700 PO Last administered on 05/29/18at 15:51 ; Start 05/28/18 at 09:00 Active Scripts Active Reported Namenda Xr (Memantine Hcl) 7 Mg Cap.spr.24 7 Mg PO DAILY Klonopin (Clonazepam) 0.5 Mg Tablet 0.25 Mg PO QHS Acidophilus (Lactobacillus Acidophilus) 1 Each Tablet 1 Each PO BID EXELON 9.5mg/24hr (Rivastigmine) 1 Each Patch.td24 1 Patch TD DAILY Milk Of Magnesia (Magnesium Hydroxide) 400 Mg/5 Ml Oral.susp 800 Mg PO PRN QHS PRN [place] Ultra Strength Crm (Methyl Salicylate/Menth/Camph) 57 Gm Cream..g. 1 Applic TP PRN QID PRN Trazodone Hcl 50 Mg Tablet 50 Mg PO PRN QHS PRN Zoloft (Sertraline Hcl) 25 Mg Tablet 25 Mg PO DAILY Tylenol Extra Strength (Acetaminophen) 500 Mg Tablet 500 Mg PO PRN Q4HRS PRN Max Acetaminophen dose is 4000mg/24 hours from all sources for adults I have reviewed the current psychotropics carefully including drug interactions. Risk benefit ratio favors no change other than as noted in my dictated progress note. Diagnosis: Problems: (1) Dementia with behavioral disturbance (2) Dementia (3) Impulse control disorder (4) Dementia, vascular, with depression (5) Anxiety disorder DUGLAS SMALL MD May 29, 2018 21:02
--- NOTE | 2018-05-30 02:58 | NUR ---
Nursing Note Patient found in day room for shift assessment and medication pass. Patient alert and oriented to self, hospital and date. Patient calm and compliant with assessment and medications. Patient took medications whole. Patient was very resistive with cares. Patient was very irritable with shower and became combative during shower. Patient currently sleeping in patient room.
[2018-05-30 06:06] VITALS: BP 122/63
[2018-05-30] MEDS: LACTOBACILLUS RHAMNOSUS GG 1 CAPSULE. PO SCH ×2 (07:36→19:38)
[2018-05-30] MEDS: FERROUS SULFATE 325 MG TABLET. PO SCH (07:36)
[2018-05-30] MEDS: RIVASTIGMINE 9.5MG PATCH. TD SCH (07:36)
[2018-05-30] MEDS: ASCORBIC ACID 500 MG TABLET PO SCH (07:37)
[2018-05-30] MEDS: SERTRALINE 50 MG TABLET. PO SCH (07:37)
[2018-05-30] MEDS: QUEtiapine 25 MG TABLET. PO SCH ×2 (07:37→16:08)
[2018-05-30] MEDS: MEMANTINE 5 MG TABLET. PO SCH ×2 (07:37→16:08)
--- NOTE | 2018-05-30 10:13 | NUR ---
Behavior Intervention Response and Plan: BIRP Note: Behavior: Assumed Care of patient, patient located in Day Room at shift change. Patient exhibited the following behavior Interactive, Calm, Disorganized. Brief assessment on rounds of vital signs, medication needs, lab studies, and pain. Treatment plan problems 1-2. Intervention: Patient assessed and the following interventions initiated safety checks 15 Minute Checks Cognitive Assessment , Head to toe Assessment , Medications. Response: After interactions and interventions patient responded in the following manner, Interactive , Calm ,Appropriate. Continue to assess behaviors and condition will continue to monitor throughout the shift as needed. Patient educated on ADL's, and hand hygiene. 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 Continue to assess patient for changes in above assessment. Monitor for medication needs, pain, and safety concerns. Hourly rounding performed to ensure safe environment.
--- NOTE | 2018-05-30 11:02 | NUR ---
Behavior Intervention Response and Plan: BIRP Note: Behavior: Assumed Care of patient, patient located in Day Room at shift change. Patient exhibited the following behavior Interactive, Calm, Appropriate. Brief assessment on rounds of vital signs, medication needs, lab studies, and pain. Treatment plan problems 1-2. Intervention: Patient assessed and the following interventions initiated safety checks 15 Minute Checks Cognitive Assessment , Head to toe Assessment , Medications. Response: After interactions and interventions patient responded in the following manner, Calm , Appropriate ,Compliant. Continue to assess behaviors and condition will continue to monitor throughout the shift as needed. Patient educated on ADL's, and hand hygiene. 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 Continue to assess patient for changes in above assessment. Monitor for medication needs, pain, and safety concerns. Hourly rounding performed to ensure safe environment.
--- NOTE | 2018-05-30 15:00 | NUR ---
WEEKLY ACTIVITY THERAPY NOTE Date of Admission: 05/25/2018 Date of AT Assessment: 05/28/2018 Goal aimed: to increase socialization and engagement Initial goal: Pt. will participate in at least one group per day. Weekly progress towards goal: did not achieve Group participation level: zero to minimal Behaviors observed: minimal interaction/ observations, Pt. is usually sleeping in her room. Spends time in the day room in the afternoons, usually sits away from group, often closing her eyes. 05/25-social time: mod Plan: remind Pt. of goal each day (Pt. set this goal herself), no change at this time.
[2018-05-30 15:55] VITALS: BP 92/53
[2018-05-30] MEDS: clonazePAM 0.5 MG TABLET PO SCH (19:38)
[2018-05-30] MEDS: MELATONIN 3 MG TABLET PO SCH (19:38)
--- NOTE | 2018-05-30 20:48 | PDOC ---
Exam Note: Carlos Note: Please also refer to the separate dictated note~for this date of service dictated separately.~Patient seen individually. Discussed the patient with Nursing staff reviewed the chart.~Reviewed interim history and current functioning. Reviewed vital signs,~Labs/ Radiology~and current medications noted below. Continue current treatment with the changes noted in the dictated addendum note Assessment: Vital Signs: Vital Signs Date Time Temp Pulse Resp B/P (MAP) Pulse Ox O2 Delivery O2 Flow Rate FiO2 05/30/18 15:55 97.8 86 20 92/53 (66) 96 05/28/18 06:13 Room Air I&O Intake and Output 05/30/18 06:59 Intake Total 840 ml Balance 840 ml Intake Oral 840 ml Current Medications: Meds: Current Medications Acetaminophen (Tylenol) 650 mg PRN Q6HRS PRN PO PAIN / TEMP; Start 05/24/18 at 21:45; Stop 05/24/18 at 22:14; Status DC Al Hydroxide/Mg Hydroxide (Mylanta Plus Xs) 15 ml PRN AFTMEALHC PRN PO DYSPEPSIA; Start 05/24/18 at 21:45 Magnesium Hydroxide (Milk Of Magnesia) 2,400 mg PRN QHS PRN PO CONSTIPATION; Start 05/24/18 at 21:45; Stop 05/24/18 at 22:13; Status DC Clonazepam (KlonoPIN) 0.25 mg QHS PO Last administered on 05/30/18at 19:38; Start 05/25/18 at 21:00 Memantine (Namenda) 5 mg DAILY PO Last administered on 05/27/18at 08:28; Start 05/25/18 at 09:00; Stop 05/27/18 at 22:47; Status DC Rivastigmine (Exelon) 1 patch DAILY TD Last administered on 05/30/18at 07:36; Start 05/25/18 at 09:00 Sertraline HCl (Zoloft) 25 mg DAILY PO Last administered on 05/25/18at 09:03; Start 05/25/18 at 09:00; Stop 05/25/18 at 18:41; Status DC Trazodone HCl (Desyrel) 50 mg PRN QHS PRN PO INSOMNIA Last administered on 05/27at 19:47; Start 05/24/18 at 22:30 Magnesium Hydroxide (Milk Of Magnesia) 800 mg PRN QHS PRN PO DIARRHEA; Start at 22:15 Acetaminophen (Tylenol) 500 mg PRN Q4HRS PRN PO PAIN / TEMP; Start 05/24/18 at 22:15 Lactobacillus Rhamnosus (Culturelle) 1 cap BID PO Last administered on at 19:38; Start 05/25/18 at 09:00 Multi-Ingredient Ointment (Analgesic [place]) 1 hector PRN QID PRN TP MUSCLE PAIN; Start 05/24/18 at 22:15 Olanzapine (ZyPREXA ZYDIS) 2.5 mg PRN Q2HR PRN PO PSYCHOSIS; Start 05/25/18 at 03:00 Vitamin D (Vitamin D3) 50,000 unit WEEKLY PO Last administered on 05/25/18at 15: 44; Start 05/25/18 at 15:30 Cyanocobalamin (Vitamin B-12) 1,000 mcg WEEKLY IM ; Start 06/01/18 at 09:00 Ferrous Sulfate (Feosol) 325 mg DAILYWBKFT PO Last administered on 05/30/18at 07 :36; Start 05/26/18 at 08:00 Ascorbic Acid (Vitamin C) 500 mg DAILY PO Last administered on 05/30/18at 07:37 ; Start 05/26/18 at 09:00 Sertraline HCl (Zoloft) 50 mg DAILY PO Last administered on 05/30/18at 07:37; Start 05/26/18 at 09:00 Melatonin 3 mg QHS PO Last administered on 05/30/18at 19:38; Start 05/27/18 at 21:00 Memantine (Namenda) 5 mg BID PO ; Start 05/28/18 at 09:00; Stop 05/28/18 at 09: 00; Status DC Quetiapine Fumarate (SEROquel) 25 mg BID94 PO Last administered on 05/30/18at 16 :08; Start 05/28/18 at 09:00 Memantine (Namenda) 5 mg BID@0900,1700 PO Last administered on 05/30/18at 16:08 ; Start 05/28/18 at 09:00 Active Scripts Active Reported Namenda Xr (Memantine Hcl) 7 Mg Cap.spr.24 7 Mg PO DAILY Klonopin (Clonazepam) 0.5 Mg Tablet 0.25 Mg PO QHS Acidophilus (Lactobacillus Acidophilus) 1 Each Tablet 1 Each PO BID EXELON 9.5mg/24hr (Rivastigmine) 1 Each Patch.td24 1 Patch TD DAILY Milk Of Magnesia (Magnesium Hydroxide) 400 Mg/5 Ml Oral.susp 800 Mg PO PRN QHS PRN [place] Ultra Strength Crm (Methyl Salicylate/Menth/Camph) 57 Gm Cream..g. 1 Applic TP PRN QID PRN Trazodone Hcl 50 Mg Tablet 50 Mg PO PRN QHS PRN Zoloft (Sertraline Hcl) 25 Mg Tablet 25 Mg PO DAILY Tylenol Extra Strength (Acetaminophen) 500 Mg Tablet 500 Mg PO PRN Q4HRS PRN Max Acetaminophen dose is 4000mg/24 hours from all sources for adults I have reviewed the current psychotropics carefully including drug interactions. Risk benefit ratio favors no change other than as noted in my dictated progress note. Diagnosis: Problems: (1) Dementia with behavioral disturbance (2) Dementia (3) Impulse control disorder (4) Dementia, vascular, with depression (5) Anxiety disorder DUGLAS SMALL MD May 30, 2018 20:48
--- NOTE | 2018-05-30 22:26 | PN ---
DATE: 05/29/2018 PSYCHIATRIC PROGRESS NOTE This is a late entry 05/29/2018, covers elements not covered in my initial note. SUBJECTIVE: I met with the patient in the evening. The patient slept 9-1/2 hours previous evening, remains somewhat confused, forgetful, but pleasant. UA has been done and we will await the results. Appetite little better. REVIEW OF SYSTEMS: No CV, , pulmonary, eye, ENT system symptoms on review. Reliability poor. MENTAL STATUS EXAM: Oriented to herself. Insight, judgment, recent and remote memory, attention, concentration, fund of knowledge poor, consistent with her diagnoses mentioned in my initial note. PLAN: Continue current psychotropics. Await UA. Adjust further as clinically indicated. MAN Tonie SMALL MD DR: NICKI/anna JOB#: [id number] / [id number]
--- NOTE | 2018-05-31 00:05 | NUR ---
Nursing Note Patient located in patient room sleeping for shift assessment and medication pass. Patient drowsy but appropriate during interaction. Patient alert to self, hospital and date. Patient took medications whole. Patient is currently eating a snack in day room area.
[2018-05-31 05:43] VITALS: BP 134/60
[2018-05-31] MEDS: FERROUS SULFATE 325 MG TABLET. PO SCH (08:50)
[2018-05-31] MEDS: LACTOBACILLUS RHAMNOSUS GG 1 CAPSULE. PO SCH ×2 (08:50→19:43)
[2018-05-31] MEDS: ASCORBIC ACID 500 MG TABLET PO SCH (08:51)
[2018-05-31] MEDS: QUEtiapine 25 MG TABLET. PO SCH ×2 (08:51→16:45)
[2018-05-31] MEDS: MEMANTINE 5 MG TABLET. PO SCH ×2 (08:51→16:45)
[2018-05-31] MEDS: RIVASTIGMINE 9.5MG PATCH. TD SCH (08:51)
[2018-05-31] MEDS: SERTRALINE 50 MG TABLET. PO SCH (08:51)
[2018-05-31 09:41] LABS: BASO % 0 % (0-3); EOS # 0.2 x10^3/uL (0.0-0.7); EOS % 2 % (0-3); HEMATOCRIT 37.3 % (36.0-47.0); HEMOGLOBIN 12.3 g/dL (12.0-15.5); LYMPH # 1.5 x10^3/uL (1.0-4.8); LYMPH % 21 % (24-48); MEAN CORPUSCULAR HEMOGLOBIN 28 pg (25-35); MEAN CORPUSCULAR HGB CONC 33 g/dL (31-37); MEAN CORPUSCULAR VOLUME 84 fL (79-100); MONO # 0.5 x10^3/uL (0.0-1.1); MONO % 8 % (0-9); NEUT # 5.1 x10^3uL (1.8-7.7); NEUT % 69 % (31-73); PLATELET COUNT 317 x10^3/uL (140-400); RED BLOOD COUNT 4.43 x10^6/uL (3.50-5.40); RED CELL DISTRIBUTION WIDTH 15.6 % (11.5-14.5); WHITE BLOOD COUNT 7.3 x10^3/uL (4.0-11.0)
[2018-05-31 09:59] LABS: ALBUMIN/GLOBULIN RATIO 0.8 (1.0-1.7); CALCIUM 8.8 mg/dL (8.5-10.1); CREATININE 1.2 mg/dL (0.6-1.0); GFR 42.9; POTASSIUM 4.6 mmol/L (3.5-5.1); TOTAL BILIRUBIN 0.3 mg/dL (0.2-1.0); TOTAL PROTEIN 6.8 g/dL (6.4-8.2)
--- NOTE | 2018-05-31 13:00 | NUR ---
assumed care of patient at 1300. Patient located in day room having just eaten lunch. Patient ate about 25% of meal. Patient states she is going to take a nap.
[2018-05-31 16:21] VITALS: BP 134/78
[2018-05-31] MEDS: MELATONIN 3 MG TABLET PO SCH (19:43)
[2018-05-31] MEDS: clonazePAM 0.5 MG TABLET PO SCH (19:45)
--- NOTE | 2018-05-31 20:44 | PDOC ---
Exam Note: Carlos Note: Please also refer to the separate dictated note~for this date of service dictated separately.~Patient seen individually. Discussed the patient with Nursing staff reviewed the chart.~Reviewed interim history and current functioning. Reviewed vital signs,~Labs/ Radiology~and current medications noted below. Continue current treatment with the changes noted in the dictated addendum note Assessment: Vital Signs: Vital Signs Date Time Temp Pulse Resp B/P (MAP) Pulse Ox O2 Delivery O2 Flow Rate FiO2 05/31/18 16:21 98.6 96 22 134/78 (96) 97 Room Air I&O Intake and Output 05/31/18 06:59 Intake Total 720 ml Balance 720 ml Intake Oral 720 ml # Voids 1 Labs: Laboratory Tests Test 05/31/18 09:32 White Blood Count 7.3 x10^3/uL (4.0-11.0) Red Blood Count 4.43 x10^6/uL (3.50-5.40) Hemoglobin 12.3 g/dL (12.0-15.5) Hematocrit 37.3 % (36.0-47.0) Mean Corpuscular Volume 84 fL (79-100) Mean Corpuscular Hemoglobin 28 pg (25-35) Mean Corpuscular Hemoglobin Concent 33 g/dL (31-37) Red Cell Distribution Width 15.6 % (11.5-14.5) H Platelet Count 317 x10^3/uL (140-400) Neutrophils (%) (Auto) 69 % (31-73) Lymphocytes (%) (Auto) 21 % (24-48) L Monocytes (%) (Auto) 8 % (0-9) Eosinophils (%) (Auto) 2 % (0-3) Basophils (%) (Auto) 0 % (0-3) Neutrophils # (Auto) 5.1 x10^3uL (1.8-7.7) Lymphocytes # (Auto) 1.5 x10^3/uL (1.0-4.8) Monocytes # (Auto) 0.5 x10^3/uL (0.0-1.1) Eosinophils # (Auto) 0.2 x10^3/uL (0.0-0.7) Basophils # (Auto) 0.0 x10^3/uL (0.0-0.2) Sodium Level 142 mmol/L (136-145) Potassium Level 4.6 mmol/L (3.5-5.1) Chloride Level 106 mmol/L (98-107) Carbon Dioxide Level 30 mmol/L (21-32) Anion Gap 6 (6-14) Blood Urea Nitrogen 19 mg/dL (7-20) Creatinine 1.2 mg/dL (0.6-1.0) H Estimated GFR (Cockcroft-Gault) 42.9 BUN/Creatinine Ratio 16 (6-20) Glucose Level 115 mg/dL (70-99) H Calcium Level 8.8 mg/dL (8.5-10.1) Total Bilirubin 0.3 mg/dL (0.2-1.0) Aspartate Amino Transferase (AST) 16 U/L (15-37) Alanine Aminotransferase (ALT) 12 U/L (14-59) L Alkaline Phosphatase 92 U/L (46-116) Total Protein 6.8 g/dL (6.4-8.2) Albumin 3.0 g/dL (3.4-5.0) L Albumin/Globulin Ratio 0.8 (1.0-1.7) L Current Medications: Meds: Current Medications Acetaminophen (Tylenol) 650 mg PRN Q6HRS PRN PO PAIN / TEMP; Start 05/24/18 at 21:45; Stop 05/24/18 at 22:14; Status DC Al Hydroxide/Mg Hydroxide (Mylanta Plus Xs) 15 ml PRN AFTMEALHC PRN PO DYSPEPSIA; Start 05/24/18 at 21:45 Magnesium Hydroxide (Milk Of Magnesia) 2,400 mg PRN QHS PRN PO CONSTIPATION; Start 05/24/18 at 21:45; Stop 05/24/18 at 22:13; Status DC Clonazepam (KlonoPIN) 0.25 mg QHS PO Last administered on 05/31/18at 19:45; Start 05/25/18 at 21:00 Memantine (Namenda) 5 mg DAILY PO Last administered on 05/27/18at 08:28; Start 05/25/18 at 09:00; Stop 05/27/18 at 22:47; Status DC Rivastigmine (Exelon) 1 patch DAILY TD Last administered on 05/31/18at 08:51; Start 05/25/18 at 09:00 Sertraline HCl (Zoloft) 25 mg DAILY PO Last administered on 05/25/18at 09:03; Start 05/25/18 at 09:00; Stop 05/25/18 at 18:41; Status DC Trazodone HCl (Desyrel) 50 mg PRN QHS PRN PO INSOMNIA Last administered on 05/27at 19:47; Start 05/24/18 at 22:30 Magnesium Hydroxide (Milk Of Magnesia) 800 mg PRN QHS PRN PO DIARRHEA; Start at 22:15 Acetaminophen (Tylenol) 500 mg PRN Q4HRS PRN PO PAIN / TEMP; Start 05/24/18 at 22:15 Lactobacillus Rhamnosus (Culturelle) 1 cap BID PO Last administered on at 19:43; Start 05/25/18 at 09:00 Multi-Ingredient Ointment (Analgesic [place]) 1 hector PRN QID PRN TP MUSCLE PAIN; Start 05/24/18 at 22:15 Olanzapine (ZyPREXA ZYDIS) 2.5 mg PRN Q2HR PRN PO PSYCHOSIS; Start 05/25/18 at 03:00; Stop 05/31/18 at 14:21; Status DC Vitamin D (Vitamin D3) 50,000 unit WEEKLY PO Last administered on 05/25/18at 15: 44; Start 05/25/18 at 15:30 Cyanocobalamin (Vitamin B-12) 1,000 mcg WEEKLY IM ; Start 06/01/18 at 09:00 Ferrous Sulfate (Feosol) 325 mg DAILYWBKFT PO Last administered on 05/31/18at 08 :50; Start 05/26/18 at 08:00 Ascorbic Acid (Vitamin C) 500 mg DAILY PO Last administered on 05/31/18at 08:51 ; Start 05/26/18 at 09:00 Sertraline HCl (Zoloft) 50 mg DAILY PO Last administered on 05/31/18at 08:51; Start 05/26/18 at 09:00 Melatonin 3 mg QHS PO Last administered on 05/31/18at 19:43; Start 05/27/18 at 21:00 Memantine (Namenda) 5 mg BID PO ; Start 05/28/18 at 09:00; Stop 05/28/18 at 09: 00; Status DC Quetiapine Fumarate (SEROquel) 25 mg BID94 PO Last administered on 05/31/18at 16 :45; Start 05/28/18 at 09:00 Memantine (Namenda) 5 mg BID@0900,1700 PO Last administered on 05/31/18at 16:45 ; Start 05/28/18 at 09:00 Olanzapine (ZyPREXA ZYDIS) 1.25 mg PRN Q2HR PRN PO PSYCHOSIS; Start 05/31/18 at 14:30 Active Scripts Active Reported Namenda Xr (Memantine Hcl) 7 Mg Cap.spr.24 7 Mg PO DAILY Klonopin (Clonazepam) 0.5 Mg Tablet 0.25 Mg PO QHS Acidophilus (Lactobacillus Acidophilus) 1 Each Tablet 1 Each PO BID EXELON 9.5mg/24hr (Rivastigmine) 1 Each Patch.td24 1 Patch TD DAILY Milk Of Magnesia (Magnesium Hydroxide) 400 Mg/5 Ml Oral.susp 800 Mg PO PRN QHS PRN [place] Ultra Strength Crm (Methyl Salicylate/Menth/Camph) 57 Gm Cream..g. 1 Applic TP PRN QID PRN Trazodone Hcl 50 Mg Tablet 50 Mg PO PRN QHS PRN Zoloft (Sertraline Hcl) 25 Mg Tablet 25 Mg PO DAILY Tylenol Extra Strength (Acetaminophen) 500 Mg Tablet 500 Mg PO PRN Q4HRS PRN Max Acetaminophen dose is 4000mg/24 hours from all sources for adults I have reviewed the current psychotropics carefully including drug interactions. Risk benefit ratio favors no change other than as noted in my dictated progress note. Diagnosis: Problems: (1) Dementia with behavioral disturbance (2) Dementia (3) Impulse control disorder (4) Dementia, vascular, with depression (5) Anxiety disorder DUGLAS SMALL MD May 31, 2018 20:44
--- NOTE | 2018-06-01 01:02 | NUR ---
Nursing Note Patient located in day room for shift assessment and medication pass. Patient is alert and oriented to self, hospital and year. Patient compliant with medications and assessment. patient resistive and combative with cares. Patient aggressive and combative with staff during shower. patient given PRN Zyprexa at 2100. Patient is currently sleeping in patient room.
[2018-06-01 06:27] VITALS: BP 100/95
[2018-06-01] MEDS: QUEtiapine 25 MG TABLET. PO SCH ×2 (07:25→16:35)
[2018-06-01] MEDS: FERROUS SULFATE 325 MG TABLET. PO SCH (07:25)
[2018-06-01] MEDS: MEMANTINE 5 MG TABLET. PO SCH ×2 (07:25→16:34)
[2018-06-01] MEDS: ASCORBIC ACID 500 MG TABLET PO SCH (07:25)
[2018-06-01] MEDS: SERTRALINE 50 MG TABLET. PO SCH (07:25)
[2018-06-01] MEDS: LACTOBACILLUS RHAMNOSUS GG 1 CAPSULE. PO SCH ×2 (07:25→19:58)
[2018-06-01] MEDS: RIVASTIGMINE 9.5MG PATCH. TD SCH (07:26)
[2018-06-01] MEDS: CHOLECALCIFEROL (VITAMIN D3) 50,000 UNIT CAPSULE PO SCH (07:28)
[2018-06-01] MEDS ORDERED: CYANOCOBALAMIN (VITAMIN B-12) 1,000 MCG/ML VIAL IM SCH (09:00)
--- NOTE | 2018-06-01 13:57 | NUR ---
Shift note The pt has been compliant all shift. Tolerated all meals well, but did not eat but maybe a few bites of lunch. The pt stated, "I'm just not hungry." Will provide snacks later this shift for the pt. The pt has been ambulating in the halls and in the day room most of the shift. Currently, the pt is in the day room watching T.V. No behaviors noted thus far in the shift. Will CTM.
[2018-06-01 15:58] VITALS: BP 123/70
[2018-06-01] MEDS: clonazePAM 0.5 MG TABLET PO SCH (19:59)
[2018-06-01] MEDS: MELATONIN 3 MG TABLET PO SCH (19:59)
--- NOTE | 2018-06-01 20:51 | PDOC ---
Exam Note: Carlos Note: Please also refer to the separate dictated note~for this date of service dictated separately.~Patient seen individually. Discussed the patient with Nursing staff reviewed the chart.~Reviewed interim history and current functioning. Reviewed vital signs,~Labs/ Radiology~and current medications noted below. Continue current treatment with the changes noted in the dictated addendum note Assessment: Vital Signs: Vital Signs Date Time Temp Pulse Resp B/P (MAP) Pulse Ox O2 Delivery O2 Flow Rate FiO2 06/01/18 15:58 97.0 67 16 123/70 (87) 98 05/31/18 16:21 Room Air I&O Intake and Output 06/01/18 07:00 Intake Total 600 ml Balance 600 ml Intake Oral 600 ml # Voids 1 Current Medications: Meds: Current Medications Acetaminophen (Tylenol) 650 mg PRN Q6HRS PRN PO PAIN / TEMP; Start 05/24/18 at 21:45; Stop 05/24/18 at 22:14; Status DC Al Hydroxide/Mg Hydroxide (Mylanta Plus Xs) 15 ml PRN AFTMEALHC PRN PO DYSPEPSIA; Start 05/24/18 at 21:45 Magnesium Hydroxide (Milk Of Magnesia) 2,400 mg PRN QHS PRN PO CONSTIPATION; Start 05/24/18 at 21:45; Stop 05/24/18 at 22:13; Status DC Clonazepam (KlonoPIN) 0.25 mg QHS PO Last administered on 06/01/18at 19:59; Start 05/25/18 at 21:00 Memantine (Namenda) 5 mg DAILY PO Last administered on 05/27/18at 08:28; Start 05/25/18 at 09:00; Stop 05/27/18 at 22:47; Status DC Rivastigmine (Exelon) 1 patch DAILY TD Last administered on 06/01/18at 07:26; Start 05/25/18 at 09:00 Sertraline HCl (Zoloft) 25 mg DAILY PO Last administered on 05/25/18at 09:03; Start 05/25/18 at 09:00; Stop 05/25/18 at 18:41; Status DC Trazodone HCl (Desyrel) 50 mg PRN QHS PRN PO INSOMNIA Last administered on 05/27at 19:47; Start 05/24/18 at 22:30 Magnesium Hydroxide (Milk Of Magnesia) 800 mg PRN QHS PRN PO DIARRHEA; Start at 22:15 Acetaminophen (Tylenol) 500 mg PRN Q4HRS PRN PO PAIN / TEMP; Start 05/24/18 at 22:15 Lactobacillus Rhamnosus (Culturelle) 1 cap BID PO Last administered on at 19:58; Start 05/25/18 at 09:00 Multi-Ingredient Ointment (Analgesic [place]) 1 hector PRN QID PRN TP MUSCLE PAIN; Start 05/24/18 at 22:15 Olanzapine (ZyPREXA ZYDIS) 2.5 mg PRN Q2HR PRN PO PSYCHOSIS; Start 05/25/18 at 03:00; Stop 05/31/18 at 14:21; Status DC Vitamin D (Vitamin D3) 50,000 unit WEEKLY PO Last administered on 06/01/18at 07: 28; Start 05/25/18 at 15:30 Cyanocobalamin (Vitamin B-12) 1,000 mcg WEEKLY IM Last administered on at 10:32; Start 06/01/18 at 09:00 Ferrous Sulfate (Feosol) 325 mg DAILYWBKFT PO Last administered on 06/01/18 07 :25; Start 05/26/18 at 08:00 Ascorbic Acid (Vitamin C) 500 mg DAILY PO Last administered on 06/01/18at 07:25 ; Start 05/26/18 at 09:00 Sertraline HCl (Zoloft) 50 mg DAILY PO Last administered on 06/01/18at 07:25; Start 05/26/18 at 09:00 Melatonin 3 mg QHS PO Last administered on 06/01/18at 19:59; Start 05/27/18 at 21:00 Memantine (Namenda) 5 mg BID PO ; Start 05/28/18 at 09:00; Stop 05/28/18 at 09: 00; Status DC Quetiapine Fumarate (SEROquel) 25 mg BID94 PO Last administered on 06/01/18at 16 :35; Start 05/28/18 at 09:00 Memantine (Namenda) 5 mg BID@0900,1700 PO Last administered on 06/01/18at 16:34 ; Start 05/28/18 at 09:00 Olanzapine (ZyPREXA ZYDIS) 1.25 mg PRN Q2HR PRN PO PSYCHOSIS Last administered on 05/31/18at 21:00; Start 05/31/18 at 14:30 Active Scripts Active Reported Namenda Xr (Memantine Hcl) 7 Mg Cap.spr.24 7 Mg PO DAILY Klonopin (Clonazepam) 0.5 Mg Tablet 0.25 Mg PO QHS Acidophilus (Lactobacillus Acidophilus) 1 Each Tablet 1 Each PO BID EXELON 9.5mg/24hr (Rivastigmine) 1 Each Patch.td24 1 Patch TD DAILY Milk Of Magnesia (Magnesium Hydroxide) 400 Mg/5 Ml Oral.susp 800 Mg PO PRN QHS PRN [place] Ultra Strength Crm (Methyl Salicylate/Menth/Camph) 57 Gm Cream..g. 1 Applic TP PRN QID PRN Trazodone Hcl 50 Mg Tablet 50 Mg PO PRN QHS PRN Zoloft (Sertraline Hcl) 25 Mg Tablet 25 Mg PO DAILY Tylenol Extra Strength (Acetaminophen) 500 Mg Tablet 500 Mg PO PRN Q4HRS PRN Max Acetaminophen dose is 4000mg/24 hours from all sources for adults I have reviewed the current psychotropics carefully including drug interactions. Risk benefit ratio favors no change other than as noted in my dictated progress note. Diagnosis: Problems: (1) Dementia with behavioral disturbance (2) Dementia (3) Impulse control disorder (4) Dementia, vascular, with depression (5) Anxiety disorder DUGLAS SMALL MD Jun 01, 2018 20:51
--- NOTE | 2018-06-01 21:06 | NUR ---
Behavior Intervention Response and Plan: BIRP Note: Behavior: Assumed Care of patient, patient located in Patient Room at shift change. Patient exhibited the following behavior Interactive, Calm, Social. Brief assessment on rounds of vital signs, medication needs, lab studies, and pain. Treatment plan problems 1. Intervention: Patient assessed and the following interventions initiated safety checks 15 Minute Checks Personal Alarm in place , Head to toe Assessment , Cognitive Assessment. Response: After interactions and interventions patient responded in the following manner, Interactive , Calm ,Social. Continue to assess behaviors and condition will continue to monitor throughout the shift as needed. Patient educated on ADL's, and hand hygiene. 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 Continue to assess patient for changes in above assessment. Monitor for medication needs, pain, and safety concerns. Hourly rounding performed to ensure safe environment.
--- NOTE | 2018-06-02 00:03 | PN ---
DATE: 05/30/2018 This late entry 05/30/2018 covers elements not covered in my initial note. SUBJECTIVE: I met with the patient in the evening. The patient is compliant with her medication, somewhat withdrawn, slept 6 hours, comes out for meals. REVIEW OF SYSTEMS: No CV, , pulmonary, eye, ENT system symptoms on review. Reliability poor. MENTAL STATUS EXAM: Oriented to herself. Insight, judgment, recent and remote memory, attention, concentration, fund of knowledge poor, consistent with her diagnosis mentioned in my initial note. PLAN: Continue current psychotropics. Adjust further as clinically indicated. MAN Tonie SMALL MD DR: NICKI/anna JOB#: [id number] / [id number]
--- NOTE | 2018-06-02 00:03 | PN ---
DATE: 05/31/2018 This is a late entry for 05/31/2018 and the covers elements not covered in my initial note. SUBJECTIVE: I met with the patient in the evening, staffed at a treatment team meeting with the entire team in the morning. The patient's daughter, Kayla, attended the conference. Lengthy discussion about the patient's progress at treatment team meeting. She likes bingo and likes to play cards. She has been withdrawn, less irritable. REVIEW OF SYSTEMS: No CV, , pulmonary, eye, ENT system symptoms on review. Reliability poor. MENTAL STATUS EXAM: Oriented to herself. Insight, judgment, recent and remote memory, attention, concentration, fund of knowledge poor, consistent with her diagnosis mentioned in my initial note. PLAN: No change from initial note. MAN Tonie SMALL MD DR: NICKI/anna JOB#: [id number] / [id number]
[2018-06-02 05:50] VITALS: BP 134/61
[2018-06-02] MEDS: LACTOBACILLUS RHAMNOSUS GG 1 CAPSULE. PO SCH ×2 (08:05→19:51)
[2018-06-02] MEDS: QUEtiapine 25 MG TABLET. PO SCH ×2 (08:05→16:48)
[2018-06-02] MEDS: FERROUS SULFATE 325 MG TABLET. PO SCH (08:05)
[2018-06-02] MEDS: MEMANTINE 5 MG TABLET. PO SCH ×2 (08:05→16:48)
[2018-06-02] MEDS: ASCORBIC ACID 500 MG TABLET PO SCH (08:06)
[2018-06-02] MEDS: SERTRALINE 50 MG TABLET. PO SCH (08:06)
[2018-06-02] MEDS: RIVASTIGMINE 9.5MG PATCH. TD SCH (08:06)
--- NOTE | 2018-06-02 10:53 | NUR ---
Pt is calm, cooperative, and compliant during breakfast. Pt is compliant with medication and assessment. During pts shower pt became aggressive-scratching staff, slapping, and yelling. 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
[2018-06-02 16:01] VITALS: BP 155/65
[2018-06-02] MEDS: MELATONIN 3 MG TABLET PO SCH (19:50)
[2018-06-02] MEDS: clonazePAM 0.5 MG TABLET PO SCH (19:56)
--- NOTE | 2018-06-02 20:51 | NUR ---
Behavior Intervention Response and Plan: BIRP Note: Behavior: Assumed Care of patient, patient located in Day Room at shift change. Patient exhibited the following behavior Interactive, Calm, Compliant. Pt is very pleasant and takes medications. Pt states, "I feel much better." Brief assessment on rounds of vital signs, medication needs, lab studies, and pain. Treatment plan problems 1. Intervention: Patient assessed and the following interventions initiated safety checks 15 Minute Checks Cognitive Assessment , Head to toe Assessment , Medications. Response: After interactions and interventions patient responded in the following manner, Interactive , Calm ,Compliant. Continue to assess behaviors and condition will continue to monitor throughout the shift as needed. Patient educated on ADL's, and hand hygiene. 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 Continue to assess patient for changes in above assessment. Monitor for medication needs, pain, and safety concerns. Hourly rounding performed to ensure safe environment.
--- NOTE | 2018-06-02 23:06 | PDOC ---
Exam Note: Carlos Note: Please also refer to the separate dictated note~for this date of service dictated separately.~Patient seen individually. Discussed the patient with Nursing staff reviewed the chart.~Reviewed interim history and current functioning. Reviewed vital signs,~Labs/ Radiology~and current medications noted below. Continue current treatment with the changes noted in the dictated addendum note Assessment: Vital Signs: Vital Signs Date Time Temp Pulse Resp B/P (MAP) Pulse Ox O2 Delivery O2 Flow Rate FiO2 06/02/18 16:01 97.3 92 17 155/65 (95) 96 Room Air I&O Intake and Output 06/02/18 06:59 Intake Total 600 ml Balance 600 ml Intake Oral 600 ml Current Medications: Meds: Current Medications Acetaminophen (Tylenol) 650 mg PRN Q6HRS PRN PO PAIN / TEMP; Start 05/24/18 at 21:45; Stop 05/24/18 at 22:14; Status DC Al Hydroxide/Mg Hydroxide (Mylanta Plus Xs) 15 ml PRN AFTMEALHC PRN PO DYSPEPSIA; Start 05/24/18 at 21:45 Magnesium Hydroxide (Milk Of Magnesia) 2,400 mg PRN QHS PRN PO CONSTIPATION; Start 05/24/18 at 21:45; Stop 05/24/18 at 22:13; Status DC Clonazepam (KlonoPIN) 0.25 mg QHS PO Last administered on 06/02/18at 19:56; Start 05/25/18 at 21:00 Memantine (Namenda) 5 mg DAILY PO Last administered on 05/27/18at 08:28; Start 05/25/18 at 09:00; Stop 05/27/18 at 22:47; Status DC Rivastigmine (Exelon) 1 patch DAILY TD Last administered on 06/02/18at 08:06; Start 05/25/18 at 09:00 Sertraline HCl (Zoloft) 25 mg DAILY PO Last administered on 05/25/18at 09:03; Start 05/25/18 at 09:00; Stop 05/25/18 at 18:41; Status DC Trazodone HCl (Desyrel) 50 mg PRN QHS PRN PO INSOMNIA Last administered on 05/27at 19:47; Start 05/24/18 at 22:30 Magnesium Hydroxide (Milk Of Magnesia) 800 mg PRN QHS PRN PO DIARRHEA; Start at 22:15 Acetaminophen (Tylenol) 500 mg PRN Q4HRS PRN PO PAIN / TEMP; Start 05/24/18 at 22:15 Lactobacillus Rhamnosus (Culturelle) 1 cap BID PO Last administered on at 19:51; Start 05/25/18 at 09:00 Multi-Ingredient Ointment (Analgesic [place]) 1 hector PRN QID PRN TP MUSCLE PAIN; Start 05/24/18 at 22:15 Olanzapine (ZyPREXA ZYDIS) 2.5 mg PRN Q2HR PRN PO PSYCHOSIS; Start 05/25/18 at 03:00; Stop 05/31/18 at 14:21; Status DC Vitamin D (Vitamin D3) 50,000 unit WEEKLY PO Last administered on 06/01/18at 07: 28; Start 05/25/18 at 15:30 Cyanocobalamin (Vitamin B-12) 1,000 mcg WEEKLY IM Last administered on at 10:32; Start 06/01/18 at 09:00 Ferrous Sulfate (Feosol) 325 mg DAILYWBKFT PO Last administered on 06/02/18at 08 :05; Start 05/26/18 at 08:00 Ascorbic Acid (Vitamin C) 500 mg DAILY PO Last administered on 06/02/18at 08:06 ; Start 05/26/18 at 09:00 Sertraline HCl (Zoloft) 50 mg DAILY PO Last administered on 06/02/18at 08:06; Start 05/26/18 at 09:00 Melatonin 3 mg QHS PO Last administered on 06/02/18at 19:50; Start 05/27/18 at 21:00 Memantine (Namenda) 5 mg BID PO ; Start 05/28/18 at 09:00; Stop 05/28/18 at 09: 00; Status DC Quetiapine Fumarate (SEROquel) 25 mg BID94 PO Last administered on 06/02/18at 16 :48; Start 05/28/18 at 09:00 Memantine (Namenda) 5 mg BID@0900,1700 PO Last administered on 06/02/18at 16:48 ; Start 05/28/18 at 09:00 Olanzapine (ZyPREXA ZYDIS) 1.25 mg PRN Q2HR PRN PO PSYCHOSIS Last administered on 05/31/18at 21:00; Start 05/31/18 at 14:30; Stop 06/02/18 at 13:51; Status DC Olanzapine (ZyPREXA ZYDIS) 2.5 mg PRN Q2HR PRN PO PSYCHOSIS; Start 06/02/18 at 14:00 Active Scripts Active Reported Namenda Xr (Memantine Hcl) 7 Mg Cap.spr.24 7 Mg PO DAILY Klonopin (Clonazepam) 0.5 Mg Tablet 0.25 Mg PO QHS Acidophilus (Lactobacillus Acidophilus) 1 Each Tablet 1 Each PO BID EXELON 9.5mg/24hr (Rivastigmine) 1 Each Patch.td24 1 Patch TD DAILY Milk Of Magnesia (Magnesium Hydroxide) 400 Mg/5 Ml Oral.susp 800 Mg PO PRN QHS PRN [place] Ultra Strength Crm (Methyl Salicylate/Menth/Camph) 57 Gm Cream..g. 1 Applic TP PRN QID PRN Trazodone Hcl 50 Mg Tablet 50 Mg PO PRN QHS PRN Zoloft (Sertraline Hcl) 25 Mg Tablet 25 Mg PO DAILY Tylenol Extra Strength (Acetaminophen) 500 Mg Tablet 500 Mg PO PRN Q4HRS PRN Max Acetaminophen dose is 4000mg/24 hours from all sources for adults I have reviewed the current psychotropics carefully including drug interactions. Risk benefit ratio favors no change other than as noted in my dictated progress note. Diagnosis: Problems: (1) Dementia with behavioral disturbance (2) Dementia (3) Impulse control disorder (4) Dementia, vascular, with depression (5) Anxiety disorder DUGLAS SMALL MD Jun 02, 2018 23:06
[2018-06-03 05:43] VITALS: BP 160/62
[2018-06-03] MEDS: MEMANTINE 5 MG TABLET. PO SCH ×2 (08:34→17:30)
[2018-06-03] MEDS: FERROUS SULFATE 325 MG TABLET. PO SCH (08:34)
[2018-06-03] MEDS: ASCORBIC ACID 500 MG TABLET PO SCH (08:34)
[2018-06-03] MEDS: SERTRALINE 50 MG TABLET. PO SCH (08:34)
[2018-06-03] MEDS: QUEtiapine 25 MG TABLET. PO SCH ×2 (08:34→17:30)
[2018-06-03] MEDS: LACTOBACILLUS RHAMNOSUS GG 1 CAPSULE. PO SCH ×2 (08:34→19:55)
[2018-06-03] MEDS: RIVASTIGMINE 9.5MG PATCH. TD SCH (08:35)
--- NOTE | 2018-06-03 10:49 | NUR ---
Pt is calm, cooperative, and compliant. Pt has had no agitation or aggression thus far this shift.
[2018-06-03 16:08] VITALS: BP 119/66
--- NOTE | 2018-06-03 17:48 | PN ---
DATE: 06/01/2018 PSYCHIATRIC PROGRESS NOTE This late entry 06/01/2018 covers elements not covered in my initial note. SUBJECTIVE: Met with the patient in the evening. Overall, the patient slept 6 hours previous evening, remains somewhat withdrawn at times, but not aggressive. REVIEW OF SYSTEMS: No CV, , pulmonary, eye, ENT system symptoms on review. Reliability poor. MENTAL STATUS EXAM: Oriented to herself, situation. Speech moderate latency, coherent. Abstraction fair, computation impaired, language function intact, attention span short. Mood and affect remain somewhat withdrawn. LABORATORY DATA: Reviewed. IMPRESSION: Unchanged from initial note. PLAN: No change from initial note for now. DUGLAS SMALL MD DR: NICKI/anna JOB#: [id number] / [id number]
--- NOTE | 2018-06-03 17:58 | PN ---
DATE: 06/02/2018 This is a late entry, 06/02/2018, covers the elements not covered in my initial note. SUBJECTIVE: I met with the patient in the afternoon. The patient slept 5-1/2 hours the previous evening, did well the previous night, was making rather sarcastic comments to a nursing staff who had some tattoos. She gets quite agitated prior to showers and was hitting at the staff. She was striking out. We will add Zyprexa 2.5 mg q.2 hours p.r.n. psychosis, agitation, max 7.5 in 24 hours and give her one dosage half hour prior to showers, to help with this. REVIEW OF SYSTEMS: No CV, , pulmonary, eye, ENT system symptoms on review. Reliability varies. MENTAL STATUS EXAM: Oriented to herself. Insight, judgment, recent and remote memory, attention, concentration, fund of knowledge poor, consistent with her diagnosis as mentioned in my initial note. PLAN: No change from a psychiatric standpoint other than above. DUGLAS SMALL MD DR: NICKI/anna JOB#: [id number] / [id number]
[2018-06-03] MEDS: clonazePAM 0.5 MG TABLET PO SCH (19:55)
[2018-06-03] MEDS: MELATONIN 3 MG TABLET PO SCH (19:55)
--- NOTE | 2018-06-03 20:16 | PDOC ---
Exam Note: Carlos Note: Please also refer to the separate dictated note~for this date of service dictated separately.~Patient seen individually. Discussed the patient with Nursing staff reviewed the chart.~Reviewed interim history and current functioning. Reviewed vital signs,~Labs/ Radiology~and current medications noted below. Continue current treatment with the changes noted in the dictated addendum note Assessment: Vital Signs: Vital Signs Date Time Temp Pulse Resp B/P (MAP) Pulse Ox O2 Delivery O2 Flow Rate FiO2 06/03/18 16:08 97.2 85 20 119/66 (83) 98 06/02/18 16:01 Room Air I&O Intake and Output 06/03/18 06:59 Intake Total 1320 ml Balance 1320 ml Intake Oral 1320 ml # Bowel Movements 1 Current Medications: Meds: Current Medications Acetaminophen (Tylenol) 650 mg PRN Q6HRS PRN PO PAIN / TEMP; Start 05/24/18 at 21:45; Stop 05/24/18 at 22:14; Status DC Al Hydroxide/Mg Hydroxide (Mylanta Plus Xs) 15 ml PRN AFTMEALHC PRN PO DYSPEPSIA; Start 05/24/18 at 21:45 Magnesium Hydroxide (Milk Of Magnesia) 2,400 mg PRN QHS PRN PO CONSTIPATION; Start 05/24/18 at 21:45; Stop 05/24/18 at 22:13; Status DC Clonazepam (KlonoPIN) 0.25 mg QHS PO Last administered on 06/03/18at 19:55; Start 05/25/18 at 21:00 Memantine (Namenda) 5 mg DAILY PO Last administered on 05/27/18at 08:28; Start 05/25/18 at 09:00; Stop 05/27/18 at 22:47; Status DC Rivastigmine (Exelon) 1 patch DAILY TD Last administered on 06/03/18at 08:35; Start 05/25/18 at 09:00 Sertraline HCl (Zoloft) 25 mg DAILY PO Last administered on 05/25/18at 09:03; Start 05/25/18 at 09:00; Stop 05/25/18 at 18:41; Status DC Trazodone HCl (Desyrel) 50 mg PRN QHS PRN PO INSOMNIA Last administered on 05/27at 19:47; Start 05/24/18 at 22:30 Magnesium Hydroxide (Milk Of Magnesia) 800 mg PRN QHS PRN PO DIARRHEA; Start at 22:15 Acetaminophen (Tylenol) 500 mg PRN Q4HRS PRN PO PAIN / TEMP; Start 05/24/18 at 22:15 Lactobacillus Rhamnosus (Culturelle) 1 cap BID PO Last administered on at 19:55; Start 05/25/18 at 09:00 Multi-Ingredient Ointment (Analgesic [place]) 1 hector PRN QID PRN TP MUSCLE PAIN; Start 05/24/18 at 22:15 Olanzapine (ZyPREXA ZYDIS) 2.5 mg PRN Q2HR PRN PO PSYCHOSIS; Start 05/25/18 at 03:00; Stop 05/31/18 at 14:21; Status DC Vitamin D (Vitamin D3) 50,000 unit WEEKLY PO Last administered on 06/01/18at 07: 28; Start 05/25/18 at 15:30 Cyanocobalamin (Vitamin B-12) 1,000 mcg WEEKLY IM Last administered on at 10:32; Start 06/01/18 at 09:00 Ferrous Sulfate (Feosol) 325 mg DAILYWBKFT PO Last administered on 06/03/18 08 :34; Start 05/26/18 at 08:00 Ascorbic Acid (Vitamin C) 500 mg DAILY PO Last administered on 06/03/18at 08:34 ; Start 05/26/18 at 09:00 Sertraline HCl (Zoloft) 50 mg DAILY PO Last administered on 06/03/18at 08:34; Start 05/26/18 at 09:00 Melatonin 3 mg QHS PO Last administered on 06/03/18 19:55; Start 05/27/18 at 21:00 Memantine (Namenda) 5 mg BID PO ; Start 05/28/18 at 09:00; Stop 05/28/18 at 09: 00; Status DC Quetiapine Fumarate (SEROquel) 25 mg BID94 PO Last administered on 06/03/18at 17 :30; Start 05/28/18 at 09:00 Memantine (Namenda) 5 mg BID@0900,1700 PO Last administered on 06/03/18at 17:30 ; Start 05/28/18 at 09:00 Olanzapine (ZyPREXA ZYDIS) 1.25 mg PRN Q2HR PRN PO PSYCHOSIS Last administered on 05/31/18at 21:00; Start 05/31/18 at 14:30; Stop 06/02/18 at 13:51; Status DC Olanzapine (ZyPREXA ZYDIS) 2.5 mg PRN Q2HR PRN PO PSYCHOSIS; Start 06/02/18 at 14:00 Active Scripts Active Reported Namenda Xr (Memantine Hcl) 7 Mg Cap.spr.24 7 Mg PO DAILY Klonopin (Clonazepam) 0.5 Mg Tablet 0.25 Mg PO QHS Acidophilus (Lactobacillus Acidophilus) 1 Each Tablet 1 Each PO BID EXELON 9.5mg/24hr (Rivastigmine) 1 Each Patch.td24 1 Patch TD DAILY Milk Of Magnesia (Magnesium Hydroxide) 400 Mg/5 Ml Oral.susp 800 Mg PO PRN QHS PRN [place] Ultra Strength Crm (Methyl Salicylate/Menth/Camph) 57 Gm Cream..g. 1 Applic TP PRN QID PRN Trazodone Hcl 50 Mg Tablet 50 Mg PO PRN QHS PRN Zoloft (Sertraline Hcl) 25 Mg Tablet 25 Mg PO DAILY Tylenol Extra Strength (Acetaminophen) 500 Mg Tablet 500 Mg PO PRN Q4HRS PRN Max Acetaminophen dose is 4000mg/24 hours from all sources for adults I have reviewed the current psychotropics carefully including drug interactions. Risk benefit ratio favors no change other than as noted in my dictated progress note. Diagnosis: Problems: (1) Dementia with behavioral disturbance (2) Dementia (3) Impulse control disorder (4) Dementia, vascular, with depression (5) Anxiety disorder DUGLAS SMALL MD Jun 03, 2018 20:16
--- NOTE | 2018-06-04 00:04 | NUR ---
Patient in bed at shift change. She denies pain and was compliant with medications taken whole with water. Pleasant and cooperative at this time.
[2018-06-04 06:22] VITALS: BP 109/61
[2018-06-04] MEDS: FERROUS SULFATE 325 MG TABLET. PO SCH (08:49)
[2018-06-04] MEDS: QUEtiapine 25 MG TABLET. PO SCH ×2 (08:49→17:13)
[2018-06-04] MEDS: ASCORBIC ACID 500 MG TABLET PO SCH (08:49)
[2018-06-04] MEDS: LACTOBACILLUS RHAMNOSUS GG 1 CAPSULE. PO SCH ×2 (08:49→19:04)
[2018-06-04] MEDS: MEMANTINE 5 MG TABLET. PO SCH ×2 (08:49→17:13)
[2018-06-04] MEDS: SERTRALINE 50 MG TABLET. PO SCH (08:49)
[2018-06-04] MEDS: RIVASTIGMINE 9.5MG PATCH. TD SCH (08:49)
--- NOTE | 2018-06-04 09:41 | NUR ---
Pt is cooperative, compliant, and requested to sleep in today.
[2018-06-04 16:06] VITALS: BP 148/72
[2018-06-04] MEDS: clonazePAM 0.5 MG TABLET PO SCH (19:04)
[2018-06-04] MEDS: MELATONIN 3 MG TABLET PO SCH (19:04)
--- NOTE | 2018-06-04 20:38 | PDOC ---
Exam Note: Carlos Note: Please also refer to the separate dictated note~for this date of service dictated separately.~Patient seen individually. Discussed the patient with Nursing staff reviewed the chart.~Reviewed interim history and current functioning. Reviewed vital signs,~Labs/ Radiology~and current medications noted below. Continue current treatment with the changes noted in the dictated addendum note Assessment: Vital Signs: Vital Signs Date Time Temp Pulse Resp B/P (MAP) Pulse Ox O2 Delivery O2 Flow Rate FiO2 06/04/18 16:06 97.1 75 18 148/72 (97) 98 06/02/18 16:01 Room Air I&O Intake and Output 06/04/18 07:00 Intake Total 845 ml Balance 845 ml Intake Oral 845 ml Current Medications: Meds: Current Medications Acetaminophen (Tylenol) 650 mg PRN Q6HRS PRN PO PAIN / TEMP; Start 05/24/18 at 21:45; Stop 05/24/18 at 22:14; Status DC Al Hydroxide/Mg Hydroxide (Mylanta Plus Xs) 15 ml PRN AFTMEALHC PRN PO DYSPEPSIA; Start 05/24/18 at 21:45 Magnesium Hydroxide (Milk Of Magnesia) 2,400 mg PRN QHS PRN PO CONSTIPATION; Start 05/24/18 at 21:45; Stop 05/24/18 at 22:13; Status DC Clonazepam (KlonoPIN) 0.25 mg QHS PO Last administered on 06/04/18at 19:04; Start 05/25/18 at 21:00 Memantine (Namenda) 5 mg DAILY PO Last administered on 05/27/18at 08:28; Start 05/25/18 at 09:00; Stop 05/27/18 at 22:47; Status DC Rivastigmine (Exelon) 1 patch DAILY TD Last administered on 06/04/18at 08:49; Start 05/25/18 at 09:00 Sertraline HCl (Zoloft) 25 mg DAILY PO Last administered on 05/25/18at 09:03; Start 05/25/18 at 09:00; Stop 05/25/18 at 18:41; Status DC Trazodone HCl (Desyrel) 50 mg PRN QHS PRN PO INSOMNIA Last administered on 05/27at 19:47; Start 05/24/18 at 22:30 Magnesium Hydroxide (Milk Of Magnesia) 800 mg PRN QHS PRN PO DIARRHEA; Start at 22:15 Acetaminophen (Tylenol) 500 mg PRN Q4HRS PRN PO PAIN / TEMP; Start 05/24/18 at 22:15 Lactobacillus Rhamnosus (Culturelle) 1 cap BID PO Last administered on at 19:04; Start 05/25/18 at 09:00 Multi-Ingredient Ointment (Analgesic [place]) 1 hector PRN QID PRN TP MUSCLE PAIN; Start 05/24/18 at 22:15 Olanzapine (ZyPREXA ZYDIS) 2.5 mg PRN Q2HR PRN PO PSYCHOSIS; Start 05/25/18 at 03:00; Stop 05/31/18 at 14:21; Status DC Vitamin D (Vitamin D3) 50,000 unit WEEKLY PO Last administered on 06/01/18at 07: 28; Start 05/25/18 at 15:30 Cyanocobalamin (Vitamin B-12) 1,000 mcg WEEKLY IM Last administered on at 10:32; Start 06/01/18 at 09:00 Ferrous Sulfate (Feosol) 325 mg DAILYWBKFT PO Last administered on 06/04/18 08 :49; Start 05/26/18 at 08:00 Ascorbic Acid (Vitamin C) 500 mg DAILY PO Last administered on 06/04/18at 08:49 ; Start 05/26/18 at 09:00 Sertraline HCl (Zoloft) 50 mg DAILY PO Last administered on 06/04/18at 08:49; Start 05/26/18 at 09:00 Melatonin 3 mg QHS PO Last administered on 06/04/18 19:04; Start 05/27/18 at 21:00 Memantine (Namenda) 5 mg BID PO ; Start 05/28/18 at 09:00; Stop 05/28/18 at 09: 00; Status DC Quetiapine Fumarate (SEROquel) 25 mg BID94 PO Last administered on 06/04/18 17 :13; Start 05/28/18 at 09:00 Memantine (Namenda) 5 mg BID@0900,1700 PO Last administered on 06/04/18 17:13 ; Start 05/28/18 at 09:00 Olanzapine (ZyPREXA ZYDIS) 1.25 mg PRN Q2HR PRN PO PSYCHOSIS Last administered on 05/31/18at 21:00; Start 05/31/18 at 14:30; Stop 06/02/18 at 13:51; Status DC Olanzapine (ZyPREXA ZYDIS) 2.5 mg PRN Q2HR PRN PO PSYCHOSIS; Start 06/02/18 at 14:00 Active Scripts Active Reported Namenda Xr (Memantine Hcl) 7 Mg Cap.spr.24 7 Mg PO DAILY Klonopin (Clonazepam) 0.5 Mg Tablet 0.25 Mg PO QHS Acidophilus (Lactobacillus Acidophilus) 1 Each Tablet 1 Each PO BID EXELON 9.5mg/24hr (Rivastigmine) 1 Each Patch.td24 1 Patch TD DAILY Milk Of Magnesia (Magnesium Hydroxide) 400 Mg/5 Ml Oral.susp 800 Mg PO PRN QHS PRN [place] Ultra Strength Crm (Methyl Salicylate/Menth/Camph) 57 Gm Cream..g. 1 Applic TP PRN QID PRN Trazodone Hcl 50 Mg Tablet 50 Mg PO PRN QHS PRN Zoloft (Sertraline Hcl) 25 Mg Tablet 25 Mg PO DAILY Tylenol Extra Strength (Acetaminophen) 500 Mg Tablet 500 Mg PO PRN Q4HRS PRN Max Acetaminophen dose is 4000mg/24 hours from all sources for adults I have reviewed the current psychotropics carefully including drug interactions. Risk benefit ratio favors no change other than as noted in my dictated progress note. Diagnosis: Problems: (1) Dementia with behavioral disturbance (2) Dementia (3) Impulse control disorder (4) Dementia, vascular, with depression (5) Anxiety disorder DUGLAS SMALL MD Jun 04, 2018 20:38
--- NOTE | 2018-06-04 21:36 | PN ---
DATE: 06/03/2018 PSYCHIATRIC PROGRESS NOTE This late entry 06/03/2018 covers elements not covered in my initial note. SUBJECTIVE: Met with the patient in the evening. She slept 6-1/2 hours. Remains somewhat withdrawn, calm, pleasant, cooperative. No aggression during showers which is an improvement. REVIEW OF SYSTEMS: No CV, , pulmonary, eye, ENT system symptoms on review. Reliability poor. MENTAL STATUS EXAM: Oriented to herself. Insight, judgment, recent, remote memory, attention, concentration, fund of knowledge is poor, consistent with her diagnoses mentioned in my initial note. PLAN: No change from a psychiatric standpoint. MAN Tonie SMALL MD DR: NICKI/anna JOB#: [id number] / [id number]
--- NOTE | 2018-06-05 01:15 | NUR ---
Nursing Note Pt was agitated with ADL's this PM. Escorted staff X2 down the storm to her room to change her pants. Fighting and arguing with staff. Was calm and cooperative before and after that. Now resting well.
[2018-06-05 05:51] VITALS: BP 131/52
[2018-06-05] MEDS: QUEtiapine 25 MG TABLET. PO SCH ×2 (08:05→17:16)
[2018-06-05] MEDS: LACTOBACILLUS RHAMNOSUS GG 1 CAPSULE. PO SCH ×2 (08:05→21:04)
[2018-06-05] MEDS: ASCORBIC ACID 500 MG TABLET PO SCH (08:05)
[2018-06-05] MEDS: SERTRALINE 50 MG TABLET. PO SCH (08:05)
[2018-06-05] MEDS: FERROUS SULFATE 325 MG TABLET. PO SCH (08:05)
[2018-06-05] MEDS: RIVASTIGMINE 9.5MG PATCH. TD SCH (08:05)
[2018-06-05] MEDS: MEMANTINE 5 MG TABLET. PO SCH ×2 (08:05→17:16)
--- NOTE | 2018-06-05 09:00 | NUR ---
Behavior Intervention Response and Plan: BIRP Note: Behavior: Assumed Care of patient, patient located in Patient Room at shift change. Patient exhibited the following behavior Disorganized, Interactive, Withdrawn. Brief assessment on rounds of vital signs, medication needs, lab studies, and pain. Treatment plan problems 1 & 2. Intervention: Patient assessed and the following interventions initiated safety checks 15 Minute Checks Cognitive Assessment , Head to toe Assessment , Medications. Response: After interactions and interventions patient responded in the following manner, Calm , Appropriate ,Compliant. Continue to assess behaviors and condition will continue to monitor throughout the shift as needed. Patient educated on ADL's, and hand hygiene. 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 Continue to assess patient for changes in above assessment. Monitor for medication needs, pain, and safety concerns. Hourly rounding performed to ensure safe environment.
--- NOTE | 2018-06-05 10:52 | NUR ---
Call placed to [facility], spoke to Rosy (executive cyber leader) as social media designer was unavailable. Provided Rosy with update and notified that Usha would be discharging from [facility] on 06/06/18. Faxed updated health records to Rosy for review. Requested Rosy phone this worker back with transport time on 06/06/18, Awaiting return phone call. Call placed to Kayla, daughter/POA, to inform of discharge plan and arrangements. Left detailed message with request for return phone call to confirm she received the message.
--- NOTE | 2018-06-05 10:58 | NUR ---
[facility] Social Work Discharge Planning Form Patient Name JOSÉ MIGUEL COLINDRES Admit Date: 05/24/2018 DISCHARGE PLAN Discharge Destination: [facility] Care Assessment: previously completed Transportation: [facility] to transport, awaiting call back with transport time. Special Instructions/Notes: Arrange for follow up with Dr. Peraza and Dr. العلي in 7-10 days. DISCHARGE TO FACILITY Facility: [facility] Address: [address] [place] [address] Contact Name: PETE Cherry Contact Name: MELISSA Celis PCP: Dr. Peraza [phone] Psychiatrist: Dr. العلي [phone]
--- NOTE | 2018-06-05 14:45 | NUR ---
[facility] [employer] [facility] will transport Usha on 06/06/18 at 11am. Reviewed with Usha who expressed that she is glad to be returning to her detention.
[2018-06-05 16:01] VITALS: BP 123/62
[2018-06-05] MEDS ORDERED: FERR325T14 PO (16:30)
[2018-06-05] MEDS ORDERED: OLAN5TAB9 PO (16:33)
[2018-06-05] MEDS ORDERED: MEMA10TA PO (16:37)
[2018-06-05] MEDS ORDERED: CYAN10002 IJ (16:39)
[2018-06-05] MEDS ORDERED: CHOL500016 PO (16:41)
[2018-06-05] MEDS ORDERED: MELA3TAB2 PO (16:44)
[2018-06-05] MEDS ORDERED: ASCO500T3 PO (16:44)
[2018-06-05] MEDS ORDERED: QUET25TA5 PO (16:45)
[2018-06-05] MEDS ORDERED: MAG30ORA PO (16:47)
[2018-06-05] MEDS: MELATONIN 3 MG TABLET PO SCH (21:04)
--- NOTE | 2018-06-05 21:21 | PDOC ---
Exam Note: Carlos Note: Please also refer to the separate dictated note~for this date of service dictated separately.~Patient seen individually. Discussed the patient with Nursing staff reviewed the chart.~Reviewed interim history and current functioning. Reviewed vital signs,~Labs/ Radiology~and current medications noted below. Continue current treatment with the changes noted in the dictated addendum note Assessment: Vital Signs: Vital Signs Date Time Temp Pulse Resp B/P (MAP) Pulse Ox O2 Delivery O2 Flow Rate FiO2 06/05/18 16:01 98.0 77 20 123/62 (82) 96 06/02/18 16:01 Room Air I&O Intake and Output 06/05/18 07:00 Intake Total 860 ml Balance 860 ml Intake Oral 860 ml # Voids 1 Current Medications: Meds: Current Medications Acetaminophen (Tylenol) 650 mg PRN Q6HRS PRN PO PAIN / TEMP; Start 05/24/18 at 21:45; Stop 05/24/18 at 22:14; Status DC Al Hydroxide/Mg Hydroxide (Mylanta Plus Xs) 15 ml PRN AFTMEALHC PRN PO DYSPEPSIA; Start 05/24/18 at 21:45 Magnesium Hydroxide (Milk Of Magnesia) 2,400 mg PRN QHS PRN PO CONSTIPATION; Start 05/24/18 at 21:45; Stop 05/24/18 at 22:13; Status DC Clonazepam (KlonoPIN) 0.25 mg QHS PO Last administered on 06/04/18at 19:04; Start 05/25/18 at 21:00; Stop 06/05/18 at 18:43; Status DC Memantine (Namenda) 5 mg DAILY PO Last administered on 05/27/18at 08:28; Start 05/25/18 at 09:00; Stop 05/27/18 at 22:47; Status DC Rivastigmine (Exelon) 1 patch DAILY TD Last administered on 06/05/18at 08:05; Start 05/25/18 at 09:00 Sertraline HCl (Zoloft) 25 mg DAILY PO Last administered on 05/25/18at 09:03; Start 05/25/18 at 09:00; Stop 05/25/18 at 18:41; Status DC Trazodone HCl (Desyrel) 50 mg PRN QHS PRN PO INSOMNIA Last administered on 05/27at 19:47; Start 05/24/18 at 22:30 Magnesium Hydroxide (Milk Of Magnesia) 800 mg PRN QHS PRN PO DIARRHEA; Start at 22:15 Acetaminophen (Tylenol) 500 mg PRN Q4HRS PRN PO PAIN / TEMP; Start 05/24/18 at 22:15 Lactobacillus Rhamnosus (Culturelle) 1 cap BID PO Last administered on at 21:04; Start 05/25/18 at 09:00 Multi-Ingredient Ointment (Analgesic [place]) 1 hector PRN QID PRN TP MUSCLE PAIN; Start 05/24/18 at 22:15 Olanzapine (ZyPREXA ZYDIS) 2.5 mg PRN Q2HR PRN PO PSYCHOSIS; Start 05/25/18 at 03:00; Stop 05/31/18 at 14:21; Status DC Vitamin D (Vitamin D3) 50,000 unit WEEKLY PO Last administered on 06/01/18at 07: 28; Start 05/25/18 at 15:30 Cyanocobalamin (Vitamin B-12) 1,000 mcg WEEKLY IM Last administered on at 10:32; Start 06/01/18 at 09:00 Ferrous Sulfate (Feosol) 325 mg DAILYWBKFT PO Last administered on 06/05/18at 08 :05; Start 05/26/18 at 08:00 Ascorbic Acid (Vitamin C) 500 mg DAILY PO Last administered on 06/05/18at 08:05 ; Start 05/26/18 at 09:00 Sertraline HCl (Zoloft) 50 mg DAILY PO Last administered on 06/05/18at 08:05; Start 05/26/18 at 09:00 Melatonin 3 mg QHS PO Last administered on 06/05/18at 21:04; Start 05/27/18 at 21:00 Memantine (Namenda) 5 mg BID PO ; Start 05/28/18 at 09:00; Stop 05/28/18 at 09: 00; Status DC Quetiapine Fumarate (SEROquel) 25 mg BID94 PO Last administered on 06/05/18at 17 :16; Start 05/28/18 at 09:00 Memantine (Namenda) 5 mg BID@0900,1700 PO Last administered on 06/05/18at 17:16 ; Start 05/28/18 at 09:00 Olanzapine (ZyPREXA ZYDIS) 1.25 mg PRN Q2HR PRN PO PSYCHOSIS Last administered on 05/31/18at 21:00; Start 05/31/18 at 14:30; Stop 06/02/18 at 13:51; Status DC Olanzapine (ZyPREXA ZYDIS) 2.5 mg PRN Q2HR PRN PO PSYCHOSIS; Start 06/02/18 at 14:00 Active Scripts Active Reported Mag-Al Plus Suspension (Mag Hydrox/Al Hydrox/Simeth) 30 Ml Oral.susp 15 Ml PO PRN QHS PRN Seroquel (Quetiapine Fumarate) 25 Mg Tablet 25 Mg PO BID94 Melatonin 3 Mg Tablet 3 Mg PO QHS Ascorbic Acid 500 Mg Tablet 500 Mg PO DAILY Vitamin D3 (Cholecalciferol (Vitamin D3)) 5,000 Unit Tablet 5,000 Unit PO WEEKLY Cyanocobalamin Injection (Cyanocobalamin (Vitamin B-12)) 1,000 Mcg/1 Ml Vial 1, 000 Mcg IJ WEEKLY Namenda (Memantine Hcl) 10 Mg Tablet 5 Mg PO BID@0900,1700 Olanzapine 5 Mg Tablet 2.5 Mg PO PRN Q2HR PRN Ferrous Sulfate 325 Mg Tablet 325 Mg PO DAILYWBKFT Namenda Xr (Memantine Hcl) 7 Mg Cap.spr.24 7 Mg PO DAILY Klonopin (Clonazepam) 0.5 Mg Tablet 0.25 Mg PO QHS Acidophilus (Lactobacillus Acidophilus) 1 Each Tablet 1 Each PO BID EXELON 9.5mg/24hr (Rivastigmine) 1 Each Patch.td24 1 Patch TD DAILY Milk Of Magnesia (Magnesium Hydroxide) 400 Mg/5 Ml Oral.susp 800 Mg PO PRN QHS PRN Bengay Ultra Strength Crm (Methyl Salicylate/Menth/Camph) 57 Gm Cream..g. 1 Applic TP PRN QID PRN Trazodone Hcl 50 Mg Tablet 50 Mg PO PRN QHS PRN Zoloft (Sertraline Hcl) 25 Mg Tablet 25 Mg PO DAILY Tylenol Extra Strength (Acetaminophen) 500 Mg Tablet 500 Mg PO PRN Q4HRS PRN Max Acetaminophen dose is 4000mg/24 hours from all sources for adults I have reviewed the current psychotropics carefully including drug interactions. Risk benefit ratio favors no change other than as noted in my dictated progress note. Diagnosis: Problems: (1) Dementia with behavioral disturbance (2) Dementia (3) Impulse control disorder (4) Dementia, vascular, with depression (5) Anxiety disorder DUGLAS SMALL MD Jun 05, 2018 21:20
--- NOTE | 2018-06-05 23:19 | PN ---
DATE: 06/04/2018 PSYCHIATRIC PROGRESS NOTE This is a late entry 06/04/2018 covers elements not covered in my initial note. SUBJECTIVE: I met with the patient in the evening. The patient slept 6-3/4 hours previous evening. She has been fairly pleasant, calm, and cooperative with medications, at times a little irritable with showers. I processed this with her individually. REVIEW OF SYSTEMS: No CV, , pulmonary, eye, ENT system symptoms on review. Reliability poor. MENTAL STATUS EXAM: Oriented to herself. Insight, judgment, recent and remote memory, attention, concentration, fund of knowledge poor, consistent with her diagnosis mentioned in my initial note. PLAN: No change from a psychiatric standpoint from initial note. MAN Tonie SMALL MD DR: NICKI/anna JOB#: [id number] / [id number]
[2018-06-05] MEDS: traZODone 50 MG TABLET. PO PRN (23:23)
[2018-06-06 06:08] VITALS: BP 155/79
[2018-06-06] MEDS: SERTRALINE 50 MG TABLET. PO SCH (08:14)
[2018-06-06] MEDS: MEMANTINE 5 MG TABLET. PO SCH (08:14)
[2018-06-06] MEDS: LACTOBACILLUS RHAMNOSUS GG 1 CAPSULE. PO SCH (08:14)
[2018-06-06] MEDS: FERROUS SULFATE 325 MG TABLET. PO SCH (08:14)
[2018-06-06] MEDS: QUEtiapine 25 MG TABLET. PO SCH (08:14)
[2018-06-06] MEDS: ASCORBIC ACID 500 MG TABLET PO SCH (08:14)
[2018-06-06] MEDS: RIVASTIGMINE 9.5MG PATCH. TD SCH (08:15)
--- NOTE | 2018-06-06 09:33 | NUR ---
Received voice mail from Kayla Briggs, Usha's daughter/POA, indicating she received this worker's message that Usha will return to [facility] this date. Kayla expressed thankfulness to the staff for the assistance provided with Usha's care.
--- NOTE | 2018-06-06 11:00 | NUR ---
Patient in good mood, states she is excited to be going back to [facility]. Patient calm, pleasant and cooperative with medications, taken whole with water. Patient returned to bed after breakfast, but then was in day room later in the morning.
--- NOTE | 2018-06-06 11:00 | NUR ---
Transition Record was faxed to follow-up provider with the following elements: Reason for admission, procedures, tests, principal diagnosis, pending studies, patient instructions, 05/06 contact information for unit, phone number to obtain pending test results, plan for follow-up care, physician follow-up, advanced directive information, and medication list with dose, duration and instructions. This information was included in the following documents: History and physical, lab results, study results, progress notes, social work planning form, DC instruction form, patient visit summary, and medication reconciliation form. Date & time record faxed: 06/06/18 1100 Record faxed to: Deep Scott Culbertson [phone] Record discussed with/ report given to: YANICK Doshi
--- NOTE | 2018-06-06 19:31 | PN ---
DATE: 06/05/2018 PSYCHIATRIC PROGRESS NOTE This late entry 06/05/2018 covers elements not covered in my initial note. SUBJECTIVE: I met with the patient in the evening in her room. The patient slept 3-1/2 hours previous evening, gets a little agitated with cares at night sometimes. During the day, she remains somewhat withdrawn, bent back to bed after breakfast. REVIEW OF SYSTEMS: No CV, , pulmonary, eye, ENT system symptoms on review. MENTAL STATUS EXAM: Oriented to herself. Insight, judgment, recent and remote memory, attention, concentration, fund of knowledge poor, consistent with her diagnosis mentioned in my initial note. PLAN: Discontinue Klonopin 0.25 mg p.o. at bedtime. Continue rest unchanged per initial note. Possible transition back to [facility] 06/06/2018. MAN Tonie SMALL MD DR: NICKI/anna JOB#: [id number] / [id number]
--- NOTE | 2018-06-07 17:20 | DS ---
DATE OF DISCHARGE: 06/06/2018 DISCHARGE SUMMARY AND PSYCHIATRIC PROGRESS NOTE This is a late entry for 06/06/2018 and covers elements not covered in my initial note. REASON FOR ADMISSION: Please refer to the admission history for details. Briefly, the patient is an 82-year-old female who is referred back to us from [facility] in [place], [place] on account of threatening other residents, worsening confusion, refusing cares, being verbally abusive. She had failed outpatient psychiatric interventions, behaviors deemed dangerous, unmanageable at the facility. SIGNIFICANT FINDINGS AND CLINICAL COURSE: Following admission, the patient was seen daily individually by myself, followed medically per Dr. Butterfield/Dr. Chan. She was quite withdrawn, anxious at times, irritable, paranoid and behaviors were much worse when she had to be showered or otherwise assisted. Adjustments were made in her psychotropics. She seemed to respond to a combination of Exelon patch 9.5 mg a day, Zoloft 50 mg a day. Klonopin was stopped, Namenda 5 mg b.i.d., trazodone 50 mg p.r.n., at bedtime, melatonin 3 mg at bedtime, Seroquel 25 mg 0900 hours and 1600 hours, Zyprexa p.r.n. and prior to shower. REVIEW OF SYSTEMS: Prior to discharge on 06/06/2018, no CV, , pulmonary, eye, ENT system symptoms on review. Reliability poor. MENTAL STATUS EXAM: Oriented to herself. Insight, judgment, recent and remote memory, attention, concentration, fund of knowledge poor, consistent with her diagnosis as mentioned in my initial note. CONDITION AT DISCHARGE: Improved. Time for discharge day management greater than 30 minutes. DISCHARGE MEDICATIONS: Please refer to the EMRAD. DISCHARGE INSTRUCTIONS: Outpatient psychiatric and medical followup at the [facility]. DUGLAS SMALL MD DR: NICKI/anna JOB#: [id number] / [id number]
--- NOTE | 2018-06-07 20:29 | PDOC ---
Exam Note: Carlos Note: Late entry for date of service June 06, 2018. Please also refer to the separate dictated note~for this date of service dictated separately.~Patient seen individually. Discussed the patient with Nursing staff reviewed the chart.~ Reviewed interim history and current functioning. Reviewed vital signs,~Labs/ Radiology~and current medications noted below. Continue current treatment with the changes noted in the dictated addendum note Assessment: Vital Signs: VS - Last 72 Hours, by Label Date Time Temp Pulse Resp B/P (MAP) Pulse Ox O2 Delivery O2 Flow Rate FiO2 06/06/18 06:08 98.2 94 22 155/79 (104) 98 06/05/18 16:01 98.0 77 20 123/62 (82) 96 06/05/18 05:51 97.0 77 18 131/52 (78) 99 Vital Signs Date Time Temp Pulse Resp B/P (MAP) Pulse Ox O2 Delivery O2 Flow Rate FiO2 06/06/18 06:08 98.2 94 22 155/79 (104) 98 06/02/18 16:01 Room Air I&O Intake and Output 06/07/18 06:59 Intake Total 360 ml Balance 360 ml Intake Oral 360 ml Current Medications: Meds: Current Medications Acetaminophen (Tylenol) 650 mg PRN Q6HRS PRN PO PAIN / TEMP; Start 05/24/18 at 21:45; Stop 05/24/18 at 22:14; Status DC Al Hydroxide/Mg Hydroxide (Mylanta Plus Xs) 15 ml PRN AFTMEALHC PRN PO DYSPEPSIA; Start 05/24/18 at 21:45; Stop 06/06/18 at 12:13; Status DC Magnesium Hydroxide (Milk Of Magnesia) 2,400 mg PRN QHS PRN PO CONSTIPATION; Start 05/24/18 at 21:45; Stop 05/24/18 at 22:13; Status DC Clonazepam (KlonoPIN) 0.25 mg QHS PO Last administered on 06/04/18at 19:04; Start 05/25/18 at 21:00; Stop 06/05/18 at 18:43; Status DC Memantine (Namenda) 5 mg DAILY PO Last administered on 05/27/18at 08:28; Start 05/25/18 at 09:00; Stop 05/27/18 at 22:47; Status DC Rivastigmine (Exelon) 1 patch DAILY TD Last administered on 06/06/18at 08:15; Start 05/25/18 at 09:00; Stop 06/06/18 at 12:13; Status DC Sertraline HCl (Zoloft) 25 mg DAILY PO Last administered on 05/25/18at 09:03; Start 05/25/18 at 09:00; Stop 05/25/18 at 18:41; Status DC Trazodone HCl (Desyrel) 50 mg PRN QHS PRN PO INSOMNIA Last administered on 06/05at 23:23; Start 05/24/18 at 22:30; Stop 06/06/18 at 12:13; Status DC Magnesium Hydroxide (Milk Of Magnesia) 800 mg PRN QHS PRN PO DIARRHEA; Start at 22:15; Stop 06/06/18 at 12:13; Status DC Acetaminophen (Tylenol) 500 mg PRN Q4HRS PRN PO PAIN / TEMP Last administered on 06/05/18at 23:23; Start 05/24/18 at 22:15; Stop 06/06/18 at 12:13; Status DC Lactobacillus Rhamnosus (Culturelle) 1 cap BID PO Last administered on at 08:14; Start 05/25/18 at 09:00; Stop 06/06/18 at 12:13; Status DC Multi-Ingredient Ointment (Analgesic [place]) 1 hector PRN QID PRN TP MUSCLE PAIN; Start 05/24/18 at 22:15; Stop 06/06/18 at 12:13; Status DC Olanzapine (ZyPREXA ZYDIS) 2.5 mg PRN Q2HR PRN PO PSYCHOSIS; Start 05/25/18 at 03:00; Stop 05/31/18 at 14:21; Status DC Vitamin D (Vitamin D3) 50,000 unit WEEKLY PO Last administered on 06/01/18at 07: 28; Start 05/25/18 at 15:30; Stop 06/06/18 at 12:13; Status DC Cyanocobalamin (Vitamin B-12) 1,000 mcg WEEKLY IM Last administered on at 10:32; Start 06/01/18 at 09:00; Stop 06/06/18 at 12:13; Status DC Ferrous Sulfate (Feosol) 325 mg DAILYWBKFT PO Last administered on 06/06/18at 08 :14; Start 05/26/18 at 08:00; Stop 06/06/18 at 12:13; Status DC Ascorbic Acid (Vitamin C) 500 mg DAILY PO Last administered on 06/06/18at 08:14 ; Start 05/26/18 at 09:00; Stop 06/06/18 at 12:13; Status DC Sertraline HCl (Zoloft) 50 mg DAILY PO Last administered on 06/06/18at 08:14; Start 05/26/18 at 09:00; Stop 06/06/18 at 12:13; Status DC Melatonin 3 mg QHS PO Last administered on 06/05/18at 21:04; Start 05/27/18 at 21:00; Stop 06/06/18 at 12:13; Status DC Memantine (Namenda) 5 mg BID PO ; Start 05/28/18 at 09:00; Stop 05/28/18 at 09: 00; Status DC Quetiapine Fumarate (SEROquel) 25 mg BID94 PO Last administered on 06/06/18at 08 :14; Start 05/28/18 at 09:00; Stop 06/06/18 at 12:13; Status DC Memantine (Namenda) 5 mg BID@0900,1700 PO Last administered on 06/06/18at 08:14 ; Start 05/28/18 at 09:00; Stop 06/06/18 at 12:13; Status DC Olanzapine (ZyPREXA ZYDIS) 1.25 mg PRN Q2HR PRN PO PSYCHOSIS Last administered on 05/31/18at 21:00; Start 05/31/18 at 14:30; Stop 06/02/18 at 13:51; Status DC Olanzapine (ZyPREXA ZYDIS) 2.5 mg PRN Q2HR PRN PO PSYCHOSIS; Start 06/02/18 at 14:00; Stop 06/06/18 at 12:13; Status DC Active Scripts Active Reported Mag-Al Plus Suspension (Mag Hydrox/Al Hydrox/Simeth) 30 Ml Oral.susp 15 Ml PO PRN QHS PRN Seroquel (Quetiapine Fumarate) 25 Mg Tablet 25 Mg PO BID94 Melatonin 3 Mg Tablet 3 Mg PO QHS Ascorbic Acid 500 Mg Tablet 500 Mg PO DAILY Vitamin D3 (Cholecalciferol (Vitamin D3)) 5,000 Unit Tablet 5,000 Unit PO WEEKLY Give weekly on Fridays. Cyanocobalamin Injection (Cyanocobalamin (Vitamin B-12)) 1,000 Mcg/1 Ml Vial 1, 000 Mcg IJ WEEKLY Give weekly for 4 weeks on Fridays. Give monthly starting June 22 and continue indefinitely. Namenda (Memantine Hcl) 10 Mg Tablet 5 Mg PO BID@0900,1700 Olanzapine 5 Mg Tablet 2.5 Mg PO PRN Q2HR PRN Ferrous Sulfate 325 Mg Tablet 325 Mg PO DAILYWBKFT Acidophilus (Lactobacillus Acidophilus) 1 Each Tablet 1 Each PO BID EXELON 9.5mg/24hr (Rivastigmine) 1 Each Patch.td24 1 Patch TD DAILY Milk Of Magnesia (Magnesium Hydroxide) 400 Mg/5 Ml Oral.susp 800 Mg PO PRN QHS PRN Bengay Ultra Strength Crm (Methyl Salicylate/Menth/Camph) 57 Gm Cream..g. 1 Applic TP PRN QID PRN Trazodone Hcl 50 Mg Tablet 50 Mg PO PRN QHS PRN Zoloft (Sertraline Hcl) 25 Mg Tablet 50 Mg PO DAILY Tylenol Extra Strength (Acetaminophen) 500 Mg Tablet 500 Mg PO PRN Q4HRS PRN Max Acetaminophen dose is 4000mg/24 hours from all sources for adults I have reviewed the current psychotropics carefully including drug interactions. Risk benefit ratio favors no change other than as noted in my dictated progress note. Diagnosis: Problems: (1) Dementia with behavioral disturbance (2) Dementia (3) Impulse control disorder (4) Dementia, vascular, with depression (5) Anxiety disorder DUGLAS SMALL MD Jun 07, 2018 20:29
== END 2018-06-06 11:15 | DRG 56 ==
LOC: GEROPSY 20:20
PROVIDERS: ADMIT Psychiatry & Neurology Psychiatry; ATTEND Psychiatry & Neurology Psychiatry
DX: G30.9 Alzheimer's disease, unspecified (principal); E43 Unspecified severe protein-calorie malnutrition; F01.51 Vascular dementia, unspecified severity, with behavioral disturbance; F02.81 Dementia in other diseases classified elsewhere, unspecified severity, with behavioral disturbance; D50.9 Iron deficiency anemia, unspecified; D63.1 Anemia in chronic kidney disease; E03.9 Hypothyroidism, unspecified; F32.9 Major depressive disorder, single episode, unspecified; F41.9 Anxiety disorder, unspecified; F63.9 Impulse disorder, unspecified; K21.9 Gastro-esophageal reflux disease without esophagitis; K59.09 Other constipation; N18.9 Chronic kidney disease, unspecified; Z79.899 Other long term (current) drug therapy; Z90.710 Acquired absence of both cervix and uterus; Z68.26 Body mass index [BMI] 26.0-26.9, adult; Z90.49 Acquired absence of other specified parts of digestive tract; Z90.722 Acquired absence of ovaries, bilateral; Z88.8 Allergy status to other drugs, medicaments and biological substances
CPT/HCPCS: 36415; 80053; 80061; 81001; 82306; 82607; 83036; 83540; 83550; 83735; 84436; 84443; 84480; 85025; 86592; 93005; J3420

== ENCOUNTER 2021-02-26 15:32 | Inpatient (IN) | payer MEDICARE, OTHER ==
[~2021-02-26] VITALS: Ht 170.2 cm; Wt 80.1 kg
[~2021-02-26 15:32] MED LIST changes: +ASCO500T3 PO; +CHOL500016 PO; +CLON0.5T PO; +CYAN-25 PO; +CYAN10002 IJ; -CYAN10005 PO; +FERR325T14 PO; +HYDR-3136 PO; -HYDR-963 PO; +LACT1TAB18 PO; +MAG30ORA PO; -MAGN2400 PO; +MAGN24003 PO; +MAGN400O7 PO; +MELA3TAB4 PO; +MEMA10TA PO; +MEMA7CAP PO; +OLAN5TAB9 PO; +QUET25TA5 PO; +RIVA1PAT23 TD; +TRAZ-120 PO; -TRAZ-85 PO
[2021-02-26] MEDS ORDERED: MIRT7.5T8 PO (19:52)
[2021-02-26] MEDS ORDERED: FAMO20TA5 PO (19:52)
[2021-02-26] MEDS ORDERED: ONDA-84 PO (19:52)
[2021-02-26] MEDS ORDERED: DOCU100C28 PO (19:52)
[2021-02-26] MEDS ORDERED: [UNRECOGNIZED DRUG - CODE] PO (19:52)
[2021-02-26] MEDS ORDERED: ENOX40DI SQ (19:52)
[2021-02-26] MEDS ORDERED: LEVO25TA4 PO (19:52)
[2021-02-26] MEDS ORDERED: GABA-585 PO (19:52)
[2021-02-26] MEDS ORDERED: HYDR12.572 PO (19:52)
[2021-02-26] MEDS ORDERED: RIVA4.5C5 PO (19:52)
[2021-02-26] MEDS ORDERED: BISA10SU4 RC (19:52)
[2021-02-26] MEDS ORDERED: ACET325T21 PO (19:52)
[2021-02-26] MEDS ORDERED: OXYC1TAB22 PO (20:00)
[2021-02-26 20:21] VITALS: BP 119/70
[2021-02-26] MEDS ORDERED: CEPH750C9 PO (21:59)
[2021-02-26] MEDS ORDERED: SIMETH PO PRN (22:00)
[2021-02-26] MEDS ORDERED: AL HYDROX PO PRN (22:00)
[2021-02-26] MEDS ORDERED: ACETAMINOPHEN 325 MG TABLET PO PRN ×2 (22:00→22:15)
[2021-02-26] MEDS ORDERED: BISACODYL 10 MG SUPP.RECT RC PRN (22:00)
[2021-02-26] MEDS ORDERED: MAG HYDROX PO PRN (22:00)
--- NOTE | 2021-02-26 22:13 | PDOC ---
Exam Note: Carlos Note: Please also refer to the separate dictated note~for this date of service dictated separately.~Patient seen individually. Discussed the patient with Nursing staff reviewed the chart.~Reviewed interim history and current functioning. Reviewed vital signs,~Labs/ Radiology~and current medications noted below. Continue current treatment with the changes noted in the dictated addendum note Assessment: Vital Signs/I&O: Vital Signs Date Time Temp Pulse Resp B/P (MAP) Pulse Ox O2 Delivery O2 Flow Rate FiO2 02/26/21 20:21 98.3 87 18 119/70 (86) 95 Current Medications: Meds: Current Medications Medications (Trade) Dose Ordered Sig/Magdalena Route PRN Reason Start Time Stop Time Status Last Admin Dose Admin Acetaminophen (Tylenol) 650 mg PRN Q6HRS PRN PO MILD PAIN / TEMP > 100.3'F 02/26/21 22:00 UNV Bisacodyl (Dulcolax Supp) 10 mg PRN DAILY PRN RC CONSTIPATION 02/26/21 22:00 UNV Docusate Sodium (Colace) 100 mg DAILY PO 02/27/21 09:00 UNV Famotidine (Pepcid) 20 mg QHS PO 02/27/21 21:00 UNV Gabapentin (Neurontin) 100 mg QHS PO 02/27/21 21:00 UNV Lactase (Lactaid) 3,000 unit TID PO 02/27/21 09:00 UNV Levothyroxine Sodium (Synthroid) 25 mcg DAILYAC PO 02/27/21 07:30 UNV Melatonin (Melatonin) 3 mg QHS PO 02/27/21 21:00 UNV Memantine (Namenda) 5 mg BID PO 02/27/21 09:00 UNV Mirtazapine (Remeron) 7.5 mg QHS PO 02/27/21 21:00 UNV Oxycodone/ Acetaminophen (Percocet 10/325) 1 tab PRN Q6HRS PRN PO PAIN 02/26/21 22:00 UNV Quetiapine Fumarate (SEROquel) 25 mg TID PO 02/27/21 09:00 UNV Non-Formulary Medication (Cephalexin (Keflex)) 250 mg TID PO 02/27/21 09:00 UNV Non-Formulary Medication (Mag Hydrox/Al Hydrox/Simeth (Mag-Al Plus Suspension)) 15 ml PRN QHS PRN PO DYSPEPSIA 02/26/21 22:00 UNV Non-Formulary Medication (Methyl Salicylate/Menth/ Camph (Bengay Ultra Strength Crm)) 1 applic PRN QID PRN TP PAIN 02/26/21 22:00 UNV Non-Formulary Medication (Ondansetron Hcl ) 4 mg PRN Q8HRS PRN PO NAUSEA 02/26/21 22:00 UNV Non-Formulary Medication (Rivastigmine Tartrate (Rivastigmine)) 4.5 mg BID PO 02/27/21 09:00 UNV Acetaminophen (Tylenol) 650 mg PRN Q6HRS PRN PO MILD PAIN / TEMP > 100.3'F 02/26/21 22:15 UNV Al Hydroxide/Mg Hydroxide (Mylanta Plus Xs) 15 ml PRN AFTMEALHC PRN PO DYSPEPSIA 02/26/21 22:15 UNV Magnesium Hydroxide (Milk Of Magnesia) 2,400 mg PRN QHS PRN PO CONSTIPATION 02/26/21 22:15 UNV I have reviewed the current psychotropics carefully including drug interactions. Risk benefit ratio favors no change other than as noted in my dictated progress note. Diagnosis: Problems: (1) Dementia with behavioral disturbance (2) Impulse control disorder (3) Dementia, vascular, with depression (4) Anxiety disorder DUGLAS SMALL MD Feb 26, 2021 22:13
[2021-02-26] MEDS ORDERED: MAG HYDROX/AL HYDROX/SIMETH 30 ML ORAL.SUSP PO PRN (22:15)
[2021-02-26] MEDS ORDERED: MAGNESIUM HYDROXIDE 2,400 MG/30 ML ORAL.SUSP. PO PRN (22:15)
[2021-02-26] MEDS ORDERED: ONDANSETRON ODT 4 MG TAB.RAPDIS PO PRN (22:30)
[2021-02-26] MEDS ORDERED: METHYL SALICYLATE/MENTHOL TOPICAL OINTMENT 57GM TUBE. TP PRN (22:30)
[2021-02-26] MEDS: oxyCODONE/APAP 10/325 1 TAB TABLET PO PRN (23:58)
[2021-02-27 06:35] VITALS: BP 123/61
[2021-02-27 07:27] LABS: BASO # 0.1 x10^3/uL (0.0-0.2); BASO % 1 % (0-3); EOS # 0.4 x10^3/uL (0.0-0.7); EOS % 3 % (0-3); HEMATOCRIT 37.4 % (36.0-47.0); HEMOGLOBIN 11.6 g/dL (12.0-15.5); LYMPH # 3.1 x10^3/uL (1.0-4.8); LYMPH % 25 % (24-48); MEAN CORPUSCULAR HEMOGLOBIN 26 pg (25-35); MEAN CORPUSCULAR HGB CONC 31 g/dL (31-37); MEAN CORPUSCULAR VOLUME 84 fL (79-100); MONO # 1.1 x10^3/uL (0.0-1.1); MONO % 9 % (0-9); NEUT # 7.6 x10^3uL (1.8-7.7); NEUT % 62 % (31-73); PLATELET COUNT 481 x10^3/uL (140-400); RED BLOOD COUNT 4.43 x10^6/uL (3.50-5.40); RED CELL DISTRIBUTION WIDTH 19.1 % (11.5-14.5); WHITE BLOOD COUNT 12.3 x10^3/uL (4.0-11.0)
[2021-02-27 07:47] LABS: ALBUMIN 2.2 g/dL (3.4-5.0); ALBUMIN/GLOBULIN RATIO 0.5 (1.0-1.7); CALCIUM 8.6 mg/dL (8.5-10.1); CREATININE 0.8 mg/dL (0.6-1.0); MAGNESIUM 1.8 mg/dL (1.8-2.4); POTASSIUM 4.5 mmol/L (3.5-5.1); TOTAL BILIRUBIN 0.4 mg/dL (0.2-1.0); TOTAL PROTEIN 6.6 g/dL (6.4-8.2)
[2021-02-27] MEDS: CEPHALEXIN 250 MG CAPSULE PO SCH ×3 (09:23→19:41)
[2021-02-27] MEDS: MEMANTINE 5 MG TABLET. PO SCH ×2 (09:23→20:23)
[2021-02-27] MEDS: LACTASE 3,000 UNIT TABLET PO SCH ×3 (09:23→20:23)
[2021-02-27] MEDS: QUEtiapine 25 MG TABLET. PO SCH ×3 (09:23→19:40)
[2021-02-27] MEDS: LEVOTHYROXINE 25 MCG TABLET. PO SCH (09:23)
[2021-02-27] MEDS: LACTOBACILLUS RHAMNOSUS GG 1 CAPSULE. PO SCH ×2 (09:23→20:23)
[2021-02-27] MEDS: DOCUSATE SODIUM 100 MG CAPSULE PO SCH (09:24)
[2021-02-27] MEDS: RIVASTIGMINE. 1.5 MG CAPSULE. PO SCH ×2 (09:28→16:49)
[2021-02-27 10:49] LABS: THYROID STIM HORMONE (TSH) 3.627 uIU/mL (0.358-3.740)
[2021-02-27 16:16] VITALS: BP 117/63
[2021-02-27] MEDS: MIRTAZAPINE 7.5 MG TABLET. PO SCH (19:40)
[2021-02-27] MEDS: traZODone 50 MG TABLET. PO PRN (19:41)
[2021-02-27] MEDS: MELATONIN 3 MG TABLET PO SCH (19:41)
[2021-02-27] MEDS: FAMOTIDINE 20 MG TABLET PO SCH (20:23)
[2021-02-27] MEDS: GABAPENTIN 100 MG CAPSULE. PO SCH (20:23)
--- NOTE | 2021-02-27 21:14 | HP ---
ADMIT DATE: 02/27/2021 PSYCHIATRIC ADMISSION HISTORY/EVALUATION I met with the patient in the evening of 02/27/2021 for this evaluation and previously discussed with nursing staff earlier in the day today and early this morning as the patient slept very poorly last night for a total of 3-1/4 hours. IDENTIFYING DATA: The patient is an 85-year-old female referred to us from [facility] with a diagnosis of major neurocognitive disorder, vascular Alzheimer's with delusion, depression, behavioral disturbance; anxiety disorder, unspecified; impulse control disorder, unspecified. Additionally, the patient has a diagnosis of bipolar disorder. Recently, she has been increasingly agitated, refusing to eat, drink or take her medications, irritable, uncooperative, labile mood, yelling out. The yelling has persisted all night and she has been loud, disruptive, persistent in her yelling, creating a significant turmoil with the entire unit here at the hospital. She does have a UTI, treated on Keflex, but has been on that for the past several days and behaviors are persisted. They have been unmanageable, extremely disruptive, and nonresponsive to treatment at the nursing facility resulting in this referral. CHIEF COMPLAINT: "I have been here 2 or 3 days. No, I don't know where I came from." HISTORY OF PRESENT ILLNESS: The patient has a history of dementia, Alzheimer's vascular in addition to a history of bipolar disorder. She has been extremely angry, irritable, labile, paranoid, yelling, screaming with sleep and appetite changes and has failed outpatient psychiatric interventions. No active suicidal or homicidal ideation. PAST PSYCHIATRIC HISTORY: As above. MEDICAL HISTORY: Positive for anemia, hypertension, hypothyroidism, GERD, COVID positive status in 10/2020. ACCU-CHEKS: None. CODE STATUS: Full code. ALLERGIES: ASPIRIN, NONSTEROIDAL ANTI-INFLAMMATORY MEDICATIONS. DIET: Mechanical soft, thin liquids. MEDICATIONS: She takes it is syringed. Ambulates with wheelchair. Does have a UTI. CURRENT PSYCHOTROPICS: Namenda 5 mg b.i.d., Seroquel 25 mg t.i.d., Remeron 7.5 mg at bedtime, Neurontin 100 mg at bedtime, Exelon capsules 4.5 mg b.i.d., melatonin 3 mg at bedtime and we have added Zyprexa 2.5 mg q. 2 hours p.r.n. psychosis, agitation, max 15 mg in 24 hours, and trazodone 50 mg at bedtime p.r.n., may repeat x 2 p.r.n. for insomnia. After the staff called me initially middle of last night and I talked to them this morning. FAMILY HISTORY: Noncontributory. SOCIAL HISTORY: No history of alcohol, drug abuse, physical, sexual or elder abuse. She is not known to be a perpetrator. REACTION TO HOSPITALIZATION: The patient reluctantly accepting of it. ASSETS: Supportive living at the above facility. REVIEW OF SYSTEMS: No CV, , pulmonary, eye, ENT system symptoms on review. MENTAL STATUS EXAMINATION: The patient is oriented to herself, situation. She was unaware of the year or the date. Speech is coherent, rapid, loud at times, but during the individual visit, she was fairly calm, smiling at me. Insight, judgment, recent memory is impaired. Language function intact. Attention span short. Mood and affect remains quite labile. LABORATORY DATA: Reviewed. IMPRESSION: Bipolar disorder, mixed with psychotic features; major neurocognitive disorder, Alzheimer, vascular with delusion, depression, behavioral disturbance; anxiety disorder, unspecified; impulse control disorder, unspecified; urinary tract infection. Rest diagnoses as above. PLAN: Admit to Geropsychiatry Unit at [facility]. I will see the patient daily individually from a psychiatric standpoint. Medical followup with Dr. Butterfield/Dr. Santa. Continue the patient on her current psychotropics. Observe baseline, add the Zyprexa p.r.n., trazodone p.r.n. Consider Depakote as a mood stabilizer, especially given a history of bipolar disorder and if symptoms persist despite resolution of UTI. Make further adjustments as clinically indicated. ESTIMATED LENGTH OF STAY: 10-12 days. DISPOSITION: Plans back to shelter when stable. MAN Tonie SMALL MD DR: NICKI/anna JOB#: [id number] / [id number]
--- NOTE | 2021-02-27 22:00 | PDOC ---
Exam Note: Carlos Note: Please also refer to the separate dictated note~for this date of service dictated separately.~Patient seen individually. Discussed the patient with Nursing staff reviewed the chart.~Reviewed interim history and current functioning. Reviewed vital signs,~Labs/ Radiology~and current medications noted below. Continue current treatment with the changes noted in the dictated addendum note Assessment: Vital Signs/I&O: Vital Signs Date Time Temp Pulse Resp B/P (MAP) Pulse Ox O2 Delivery O2 Flow Rate FiO2 02/27/21 16:16 98.1 90 20 117/63 (81) 97 Room Air I & O 02/26/21 02/26/21 02/27/21 15:00 23:00 07:00 Intake Total 0 ml Balance 0 ml Labs: Laboratory Tests Test 02/27/21 06:40 White Blood Count 12.3 x10^3/uL (4.0-11.0) H Red Blood Count 4.43 x10^6/uL (3.50-5.40) Hemoglobin 11.6 g/dL (12.0-15.5) L Hematocrit 37.4 % (36.0-47.0) Mean Corpuscular Volume 84 fL (79-100) Mean Corpuscular Hemoglobin 26 pg (25-35) Mean Corpuscular Hemoglobin Concent 31 g/dL (31-37) Red Cell Distribution Width 19.1 % (11.5-14.5) H Platelet Count 481 x10^3/uL (140-400) H Neutrophils (%) (Auto) 62 % (31-73) Lymphocytes (%) (Auto) 25 % (24-48) Monocytes (%) (Auto) 9 % (0-9) Eosinophils (%) (Auto) 3 % (0-3) Basophils (%) (Auto) 1 % (0-3) Neutrophils # (Auto) 7.6 x10^3uL (1.8-7.7) Lymphocytes # (Auto) 3.1 x10^3/uL (1.0-4.8) Monocytes # (Auto) 1.1 x10^3/uL (0.0-1.1) Eosinophils # (Auto) 0.4 x10^3/uL (0.0-0.7) Basophils # (Auto) 0.1 x10^3/uL (0.0-0.2) D-Dimer (Candace) 1.76 mg/L (0.00-0.50) H Sodium Level 137 mmol/L (136-145) Potassium Level 4.5 mmol/L (3.5-5.1) Chloride Level 104 mmol/L (98-107) Carbon Dioxide Level 25 mmol/L (21-32) Anion Gap 8 (6-14) Blood Urea Nitrogen 9 mg/dL (7-20) Creatinine 0.8 mg/dL (0.6-1.0) Estimated GFR (Cockcroft-Gault) 68.0 BUN/Creatinine Ratio 11 (6-20) Glucose Level 92 mg/dL (70-99) Calcium Level 8.6 mg/dL (8.5-10.1) Magnesium Level 1.8 mg/dL (1.8-2.4) Iron Level 24 ug/dL (50-170) L Total Iron Binding Capacity 151 ug/dL (250-450) L Iron Saturation 16 % (15-34) Total Bilirubin 0.4 mg/dL (0.2-1.0) Aspartate Amino Transferase (AST) 14 U/L (15-37) L Alanine Aminotransferase (ALT) 6 U/L (14-59) L Alkaline Phosphatase 95 U/L (46-116) Total Protein 6.6 g/dL (6.4-8.2) Albumin 2.2 g/dL (3.4-5.0) L Albumin/Globulin Ratio 0.5 (1.0-1.7) L Triglycerides Level 107 mg/dL (0-150) Cholesterol Level 141 mg/dL (0-200) LDL Cholesterol, Calculated 90 mg/dL (0-100) VLDL Cholesterol, Calculated 21 mg/dL (0-40) Non-HDL Cholesterol Calculated 111 mg/dL (0-129) HDL Cholesterol 30 mg/dL (40-60) L Cholesterol/HDL Ratio 4.0 Thyroid Stimulating Hormone (TSH) 3.627 uIU/mL (0.358-3.740) Current Medications: Meds: Current Medications Medications (Trade) Dose Ordered Sig/Magdalena Route PRN Reason Start Time Stop Time Status Last Admin Dose Admin Docusate Sodium (Colace) 100 mg DAILY PO 02/27/21 09:00 02/27/21 09:24 Lactase (Lactaid) 3,000 unit TID PO 02/27/21 09:00 02/27/21 15:29 Levothyroxine Sodium (Synthroid) 25 mcg DAILY06 PO 02/27/21 06:00 02/27/21 09:23 Melatonin (Melatonin) 3 mg QHS PO 02/27/21 21:00 02/27/21 19:41 Memantine (Namenda) 5 mg BID PO 02/27/21 09:00 02/27/21 09:23 Mirtazapine (Remeron) 7.5 mg QHS PO 02/27/21 21:00 02/27/21 19:40 Oxycodone/ Acetaminophen (Percocet 10/325) 1 tab PRN Q6HRS PRN PO PAIN 02/26/21 22:00 02/26/21 23:58 Quetiapine Fumarate (SEROquel) 25 mg TID PO 02/27/21 09:00 02/27/21 19:40 Cephalexin HCl (Keflex) 250 mg TID PO 02/27/21 09:00 02/27/21 19:41 Rivastigmine Tartrate (Exelon) 4.5 mg BIDWMEALS PO 02/27/21 08:00 02/27/21 16:49 Olanzapine (ZyPREXA ZYDIS) 2.5 mg PRN Q2HR PRN PO PSYCHOSIS 02/27/21 07:30 02/27/21 16:49 Trazodone HCl (Desyrel) 50 mg PRN QHS PRN PO INSOMNIA 02/27/21 07:30 02/27/21 19:41 Lactobacillus Rhamnosus (Culturelle) 1 cap BID PO 02/27/21 09:00 02/27/21 09:23 I have reviewed the current psychotropics carefully including drug interactions. Risk benefit ratio favors no change other than as noted in my dictated progress note. Diagnosis: Problems: (1) Bipolar disorder, current episode mixed, severe, with psychotic features (2) Major neurocognitive disorder (3) Dementia in Alzheimer's disease with delusions (4) Dementia in Alzheimer's disease with depression (5) Dementia in Alzheimer's disease with early onset with behavioral disturbance (6) Dementia, vascular, with delusions (7) Dementia, vascular, with depression (8) Anxiety disorder (9) Impulse control disorder (10) UTI (urinary tract infection) GEOVANNY,MAN M MD Feb 27, 2021 22:00
--- NOTE | 2021-02-27 22:30 | CONS ---
DATE OF CONSULTATION: 02/27/2021 ATTENDING PHYSICIAN: Dr. Arriaga; Dr. Bhatt. REASON FOR CONSULTATION: We are asked to see this patient for medical consultation. HISTORY OF PRESENT ILLNESS: The patient is an 85-year-old female who has been resident at [facility]. She has profound dementia with a longstanding history of drug abuse in the past. She has been quite agitated. She has a history of dementia, agitation, behavioral issues, screaming. She has been previously here at [facility] 3 years ago. PAST MEDICAL HISTORY: Also significant for chronic anemia, dementia, depression, hypertension, hypothyroidism, gastroesophageal reflux disease, significant drug abuse, bipolar disorder. ALLERGIES: SHE HAS ALLERGIES TO NSAIDS, EXACT REACTIONS UNCLEAR. CURRENT MEDICATIONS: Reviewed. She was taking Tylenol, cephalexin, docusate, famotidine, Neurontin, ____, Synthroid, magnesium hydroxide, melatonin, Namenda, Remeron, ondansetron, oxycodone, Seroquel and rivastigmine. SOCIAL HISTORY: She was a heavy smoker with drug use in the past, alcohol use in the past. FAMILY HISTORY: Unobtainable. REVIEW OF SYSTEMS: Unobtainable due to the patient's agitation. PHYSICAL EXAMINATION: GENERAL: When I saw her, this is an agitated female who was screaming and uncooperative. She was pleasant when I went in there. INITIAL VITAL SIGNS: Showed a blood pressure of 123/81, pulse is 80 and regular, temperature 97.3 degrees Fahrenheit, oxygen saturation 96% on room air. HEENT: Head is without trauma. Pupils are reactive. Sclerae are nonicteric. The oropharynx is clear. NECK: Supple. LUNGS: Good breath sounds. CARDIOVASCULAR: Showed regular heart tones. No gallops. ABDOMEN: Soft. EXTREMITIES: Showed degenerative arthritis, more prominent on the right knee. She is nonambulatory at this time. NEUROLOGIC: Profoundly confused with agitation. SKIN: Warm and dry. PERTINENT LABORATORY STUDIES: On admission, her hemoglobin was 11.6 g/dL with white count of 12,300. Electrolytes all within normal range. Creatinine 0.8 mg/dL. Transaminases and liver panel all within normal range. ASSESSMENT: This 85-year-old female has: 1. Profound dementia with agitation and behavioral issues. 2. She is stable from a medical standpoint. 3. Underlying agitation. 4. History of anemia. 5. Degenerative arthritis of both knees. 6. Chronic obstructive pulmonary disease features. 7. She has a history of significant drug use in the past. RECOMMENDATIONS: 1. I reviewed all the medications. We will encourage her to take these medications as schedule. She has been refusing. 2. No changes on meds. Thank you so much for asking me to see the patient for medical consultation. We should gladly follow along during her inpatient course. WILLIAM BHATT MD DR: KEESHA/anna JOB#: [id number] / [id number] DUGLAS Nuñez MD
[2021-02-28 03:09] LABS: THYROXINE 7.7 ug/dL (4.5-12.0)
[2021-02-28] MEDS: LEVOTHYROXINE 25 MCG TABLET. PO SCH (05:33)
[2021-02-28 05:39] LABS: HEMOGLOBIN A1C 5.1 % (4.8-5.6)
[2021-02-28 06:47] VITALS: BP 114/74
[2021-02-28] MEDS: CEPHALEXIN 250 MG CAPSULE PO SCH (08:13)
[2021-02-28] MEDS: RIVASTIGMINE. 1.5 MG CAPSULE. PO SCH ×2 (08:13→17:19)
[2021-02-28] MEDS: MEMANTINE 5 MG TABLET. PO SCH ×2 (08:13→19:46)
[2021-02-28] MEDS: LACTOBACILLUS RHAMNOSUS GG 1 CAPSULE. PO SCH ×2 (08:14→19:53)
[2021-02-28] MEDS: DOCUSATE SODIUM 100 MG CAPSULE PO SCH (08:14)
[2021-02-28] MEDS: LACTASE 3,000 UNIT TABLET PO SCH ×3 (08:14→19:53)
[2021-02-28] MEDS: QUEtiapine 25 MG TABLET. PO SCH ×3 (08:14→19:46)
[2021-02-28 16:09] VITALS: BP 110/69
[2021-02-28] MEDS: MELATONIN 3 MG TABLET PO SCH (19:46)
[2021-02-28] MEDS: MIRTAZAPINE 7.5 MG TABLET. PO SCH (19:46)
[2021-02-28] MEDS: traZODone 50 MG TABLET. PO PRN (19:47)
[2021-02-28] MEDS: GABAPENTIN 100 MG CAPSULE. PO SCH (19:53)
[2021-02-28] MEDS: FAMOTIDINE 20 MG TABLET PO SCH (19:53)
--- NOTE | 2021-02-28 22:05 | PDOC ---
Exam Note: Carlos Note: Please also refer to the separate dictated note~for this date of service dictated separately.~Patient seen individually. Discussed the patient with Nursing staff reviewed the chart.~Reviewed interim history and current functioning. Reviewed vital signs,~Labs/ Radiology~and current medications noted below. Continue current treatment with the changes noted in the dictated addendum note Assessment: Vital Signs/I&O: Vital Signs Date Time Temp Pulse Resp B/P (MAP) Pulse Ox O2 Delivery O2 Flow Rate FiO2 02/28/21 16:09 97.8 98 20 110/69 (83) 96 02/27/21 16:16 Room Air I & O 02/27/21 02/27/21 02/28/21 15:00 23:00 07:00 Intake Total 120 ml 120 ml Balance 120 ml 120 ml Current Medications: Meds: Current Medications Medications (Trade) Dose Ordered Sig/Magdalena Route PRN Reason Start Time Stop Time Status Last Admin Dose Admin Acetaminophen (Tylenol) 650 mg PRN Q6HRS PRN PO MILD PAIN / TEMP > 100.3'F 02/26/21 22:00 Bisacodyl (Dulcolax Supp) 10 mg PRN DAILY PRN RC CONSTIPATION 02/26/21 22:00 Docusate Sodium (Colace) 100 mg DAILY PO 02/27/21 09:00 02/28/21 08:14 Famotidine (Pepcid) 20 mg QHS PO 02/27/21 21:00 Gabapentin (Neurontin) 100 mg QHS PO 02/27/21 21:00 Lactase (Lactaid) 3,000 unit TID PO 02/27/21 09:00 02/28/21 14:31 Levothyroxine Sodium (Synthroid) 25 mcg DAILY06 PO 02/27/21 06:00 02/28/21 05:33 Melatonin (Melatonin) 3 mg QHS PO 02/27/21 21:00 02/28/21 19:46 Memantine (Namenda) 5 mg BID PO 02/27/21 09:00 02/28/21 19:46 Mirtazapine (Remeron) 7.5 mg QHS PO 02/27/21 21:00 02/28/21 19:46 Oxycodone/ Acetaminophen (Percocet 10/325) 1 tab PRN Q6HRS PRN PO PAIN 02/26/21 22:00 02/26/21 23:58 Quetiapine Fumarate (SEROquel) 25 mg TID PO 02/27/21 09:00 02/28/21 17:34 DC 02/28/21 14:31 Cephalexin HCl (Keflex) 250 mg TID PO 02/27/21 09:00 02/28/21 10:12 DC 02/28/21 08:13 Non-Formulary Medication (Mag Hydrox/Al Hydrox/Simeth (Mag-Al Plus Suspension)) 15 ml PRN QHS PRN PO DYSPEPSIA 02/26/21 22:00 UNV Multi-Ingredient Ointment (Analgesic [place]) 1 hector PRN QID PRN TP MUSCLE PAIN 02/26/21 22:30 Ondansetron HCl (Zofran Odt) 4 mg PRN Q8HRS PRN PO NAUSEA 02/26/21 22:30 Rivastigmine Tartrate (Exelon) 4.5 mg BIDWMEALS PO 02/27/21 08:00 02/28/21 17:19 Acetaminophen (Tylenol) 650 mg PRN Q6HRS PRN PO MILD PAIN / TEMP > 100.3'F 02/26/21 22:15 UNV Al Hydroxide/Mg Hydroxide (Mylanta Plus Xs) 15 ml PRN AFTMEALHC PRN PO DYSPEPSIA 02/26/21 22:15 Magnesium Hydroxide (Milk Of Magnesia) 2,400 mg PRN QHS PRN PO CONSTIPATION 02/26/21 22:15 Olanzapine (ZyPREXA ZYDIS) 2.5 mg PRN Q2HR PRN PO PSYCHOSIS 02/27/21 07:30 02/27/21 16:49 Trazodone HCl (Desyrel) 50 mg PRN QHS PRN PO INSOMNIA 02/27/21 07:30 02/28/21 19:47 Lactobacillus Rhamnosus (Culturelle) 1 cap BID PO 02/27/21 09:00 02/28/21 08:14 Quetiapine Fumarate (SEROquel) 37.5 mg TID PO 02/28/21 21:00 02/28/21 19:46 Current Medications Medications (Trade) Dose Ordered Sig/Magdalena Route PRN Reason Start Time Stop Time Status Last Admin Dose Admin Quetiapine Fumarate (SEROquel) 37.5 mg TID PO 02/28/21 21:00 02/28/21 19:46 I have reviewed the current psychotropics carefully including drug interactions. Risk benefit ratio favors no change other than as noted in my dictated progress note. Diagnosis: Problems: (1) Dementia, vascular, with delusions (2) Bipolar disorder, current episode mixed, severe, with psychotic features (3) Dementia in Alzheimer's disease with depression (4) Dementia in Alzheimer's disease with delusions (5) Major neurocognitive disorder (6) Dementia in Alzheimer's disease with early onset with behavioral disturbance (7) Impulse control disorder (8) Dementia, vascular, with depression (9) Anxiety disorder DUGLAS SMALL MD Feb 28, 2021 22:05
[2021-03-01] MEDS: LEVOTHYROXINE 25 MCG TABLET. PO SCH (05:56)
--- NOTE | 2021-03-01 06:36 | PDOC ---
Exam Note: Carlos Note: This note is a late entry for 02/28/2021 covers elements not covered in my initial note. Subjective: The patient was seen individually in the evening of 02/28/2021 with Jhoana HERNDON, discussed and reviewed the chart. The patient slept 6 hours previous night. She has had some complaints of stomach ache and quite somatic per nursing report. She was having nausea and back pain. She was yelling in the morning, calmer later in the day. Review of Systems: I met with her in her room, lying in bed, does complain the above. No eye, , pulminary, eye, ENT system symptoms on review. Mental Status Exam: The patient is oriented to herself and situation. Speech has some latency, coherent. Often response is monosyllabic. Abstraction is fair. Computation is impaired. Language function intact. Attention span is short. Mood and affect somewhat withdrawn. Laboratory Data: Reviewed. Impression: Bipolar disorder, mixed. Major neurocognitive disorder Alzheimer vascular with delusion, depression, behavioral disturbance. Impulse control disorder unspecified. Anxiety disorder unspecified. Status post UTI. Plan: Change Seroquel from 25 mg t.i.d. to 37.5 mg t.i.d. maintain Namenda 5 mg b.i.d., Remeron 7.5 mg h.s., Neurontin 100 mg h.s., Exelon capsule 4.5 mg b.i.d., melatonin 3 mg h.s., trazodone 50 mg h.s. p.r.n. Adjust further as clinically indicated. Assessment: Vital Signs/I&O: Vital Signs Date Time Temp Pulse Resp B/P (MAP) Pulse Ox O2 Delivery O2 Flow Rate FiO2 03/01/21 06:31 97.1 82 17 99 02/28/21 16:09 110/69 (83) 02/27/21 16:16 Room Air I & O 02/28/21 02/28/21 03/01/21 15:00 23:00 07:00 Intake Total 120 ml Balance 120 ml Current Medications: Meds: Current Medications Medications (Trade) Dose Ordered Sig/Magdalena Route PRN Reason Start Time Stop Time Status Last Admin Dose Admin Acetaminophen (Tylenol) 650 mg PRN Q6HRS PRN PO MILD PAIN / TEMP > 100.3'F 02/26/21 22:00 Bisacodyl (Dulcolax Supp) 10 mg PRN DAILY PRN RC CONSTIPATION 02/26/21 22:00 Docusate Sodium (Colace) 100 mg DAILY PO 02/27/21 09:00 02/28/21 08:14 Famotidine (Pepcid) 20 mg QHS PO 02/27/21 21:00 Gabapentin (Neurontin) 100 mg QHS PO 02/27/21 21:00 Lactase (Lactaid) 3,000 unit TID PO 02/27/21 09:00 02/28/21 14:31 Levothyroxine Sodium (Synthroid) 25 mcg DAILY06 PO 02/27/21 06:00 03/01/21 05:56 Melatonin (Melatonin) 3 mg QHS PO 02/27/21 21:00 02/28/21 19:46 Memantine (Namenda) 5 mg BID PO 02/27/21 09:00 02/28/21 19:46 Mirtazapine (Remeron) 7.5 mg QHS PO 02/27/21 21:00 02/28/21 19:46 Oxycodone/ Acetaminophen (Percocet 10/325) 1 tab PRN Q6HRS PRN PO PAIN 02/26/21 22:00 02/26/21 23:58 Quetiapine Fumarate (SEROquel) 25 mg TID PO 02/27/21 09:00 02/28/21 17:34 DC 02/28/21 14:31 Cephalexin HCl (Keflex) 250 mg TID PO 02/27/21 09:00 02/28/21 10:12 DC 02/28/21 08:13 Non-Formulary Medication (Mag Hydrox/Al Hydrox/Simeth (Mag-Al Plus Suspension)) 15 ml PRN QHS PRN PO DYSPEPSIA 02/26/21 22:00 UNV Multi-Ingredient Ointment (Analgesic [place]) 1 hector PRN QID PRN TP MUSCLE PAIN 02/26/21 22:30 Ondansetron HCl (Zofran Odt) 4 mg PRN Q8HRS PRN PO NAUSEA 02/26/21 22:30 Rivastigmine Tartrate (Exelon) 4.5 mg BIDWMEALS PO 02/27/21 08:00 02/28/21 17:19 Acetaminophen (Tylenol) 650 mg PRN Q6HRS PRN PO MILD PAIN / TEMP > 100.3'F 02/26/21 22:15 UNV Al Hydroxide/Mg Hydroxide (Mylanta Plus Xs) 15 ml PRN AFTMEALHC PRN PO DYSPEPSIA 02/26/21 22:15 Magnesium Hydroxide (Milk Of Magnesia) 2,400 mg PRN QHS PRN PO CONSTIPATION 02/26/21 22:15 Olanzapine (ZyPREXA ZYDIS) 2.5 mg PRN Q2HR PRN PO PSYCHOSIS 02/27/21 07:30 02/27/21 16:49 Trazodone HCl (Desyrel) 50 mg PRN QHS PRN PO INSOMNIA 02/27/21 07:30 02/28/21 19:47 Lactobacillus Rhamnosus (Culturelle) 1 cap BID PO 02/27/21 09:00 02/28/21 08:14 Quetiapine Fumarate (SEROquel) 37.5 mg TID PO 02/28/21 21:00 02/28/21 19:46 Current Medications Medications (Trade) Dose Ordered Sig/Magdalena Route PRN Reason Start Time Stop Time Status Last Admin Dose Admin Quetiapine Fumarate (SEROquel) 37.5 mg TID PO 02/28/21 21:00 02/28/21 19:46 I have reviewed the current psychotropics carefully including drug interactions. Risk benefit ratio favors no change other than as noted in my dictated progress note. Diagnosis: Problems: (1) Dementia, vascular, with delusions (2) Bipolar disorder, current episode mixed, severe, with psychotic features (3) Dementia in Alzheimer's disease with depression (4) Dementia in Alzheimer's disease with delusions (5) Major neurocognitive disorder (6) Dementia in Alzheimer's disease with early onset with behavioral disturbance (7) Dementia with behavioral disturbance (8) Impulse control disorder (9) Dementia, vascular, with depression DUGLAS SMALL MD Mar 01, 2021 06:36
[2021-03-01] MEDS: LACTOBACILLUS RHAMNOSUS GG 1 CAPSULE. PO SCH ×2 (07:59→21:45)
[2021-03-01] MEDS: LACTASE 3,000 UNIT TABLET PO SCH ×3 (07:59→21:45)
[2021-03-01] MEDS: RIVASTIGMINE. 1.5 MG CAPSULE. PO SCH ×2 (07:59→17:02)
[2021-03-01] MEDS: DOCUSATE SODIUM 100 MG CAPSULE PO SCH (08:00)
[2021-03-01] MEDS: QUEtiapine 25 MG TABLET. PO SCH ×2 (08:00→14:23)
[2021-03-01] MEDS: MEMANTINE 5 MG TABLET. PO SCH ×2 (08:00→21:45)
[2021-03-01 15:52] VITALS: BP 107/68
[2021-03-01] MEDS: MELATONIN 3 MG TABLET PO SCH (21:44)
[2021-03-01] MEDS: GABAPENTIN 100 MG CAPSULE. PO SCH (21:44)
[2021-03-01] MEDS: FAMOTIDINE 20 MG TABLET PO SCH (21:44)
[2021-03-01] MEDS: MIRTAZAPINE 7.5 MG TABLET. PO SCH (21:44)
--- NOTE | 2021-03-01 22:02 | PDOC ---
Exam Note: Carlos Note: Please also refer to the separate dictated note~for this date of service dictated separately.~Patient seen individually. Discussed the patient with Nursing staff reviewed the chart.~Reviewed interim history and current functioning. Reviewed vital signs,~Labs/ Radiology~and current medications noted below. Continue current treatment with the changes noted in the dictated addendum note Assessment: Vital Signs/I&O: Vital Signs Date Time Temp Pulse Resp B/P (MAP) Pulse Ox O2 Delivery O2 Flow Rate FiO2 03/01/21 15:52 97.5 88 16 107/68 (81) 99 02/27/21 16:16 Room Air I & O 02/28/21 02/28/21 03/01/21 15:00 23:00 07:00 Intake Total 120 ml Balance 120 ml Current Medications: Meds: Current Medications Medications (Trade) Dose Ordered Sig/Magdalena Route PRN Reason Start Time Stop Time Status Last Admin Dose Admin Acetaminophen (Tylenol) 650 mg PRN Q6HRS PRN PO MILD PAIN / TEMP > 100.3'F 02/26/21 22:00 Bisacodyl (Dulcolax Supp) 10 mg PRN DAILY PRN RC 2nd CHOICE CONSTIPATION 02/26/21 22:00 Docusate Sodium (Colace) 100 mg DAILY PO 02/27/21 09:00 03/01/21 08:00 Famotidine (Pepcid) 20 mg QHS PO 02/27/21 21:00 03/01/21 21:44 Gabapentin (Neurontin) 100 mg QHS PO 02/27/21 21:00 03/01/21 21:44 Lactase (Lactaid) 3,000 unit TID PO 02/27/21 09:00 03/01/21 21:45 Levothyroxine Sodium (Synthroid) 25 mcg DAILY06 PO 02/27/21 06:00 03/01/21 05:56 Melatonin (Melatonin) 3 mg QHS PO 02/27/21 21:00 03/01/21 21:44 Memantine (Namenda) 5 mg BID PO 02/27/21 09:00 03/01/21 21:45 Mirtazapine (Remeron) 7.5 mg QHS PO 02/27/21 21:00 03/01/21 21:44 Oxycodone/ Acetaminophen (Percocet 10/325) 1 tab PRN Q6HRS PRN PO PAIN 02/26/21 22:00 02/26/21 23:58 Quetiapine Fumarate (SEROquel) 25 mg TID PO 02/27/21 09:00 02/28/21 17:34 DC 02/28/21 14:31 Cephalexin HCl (Keflex) 250 mg TID PO 02/27/21 09:00 02/28/21 10:12 DC 02/28/21 08:13 Non-Formulary Medication (Mag Hydrox/Al Hydrox/Simeth (Mag-Al Plus Suspension)) 15 ml PRN QHS PRN PO DYSPEPSIA 02/26/21 22:00 UNV Multi-Ingredient Ointment (Analgesic [place]) 1 hector PRN QID PRN TP MUSCLE PAIN 02/26/21 22:30 Ondansetron HCl (Zofran Odt) 4 mg PRN Q8HRS PRN PO NAUSEA 02/26/21 22:30 Rivastigmine Tartrate (Exelon) 4.5 mg BIDWMEALS PO 02/27/21 08:00 03/01/21 17:02 Acetaminophen (Tylenol) 650 mg PRN Q6HRS PRN PO MILD PAIN / TEMP > 100.3'F 02/26/21 22:15 UNV Al Hydroxide/Mg Hydroxide (Mylanta Plus Xs) 15 ml PRN AFTMEALHC PRN PO DYSPEPSIA 02/26/21 22:15 Magnesium Hydroxide (Milk Of Magnesia) 2,400 mg PRN QHS PRN PO 1ST CHOICE CONSTIPATION 02/26/21 22:15 Olanzapine (ZyPREXA ZYDIS) 2.5 mg PRN Q2HR PRN PO PSYCHOSIS 02/27/21 07:30 02/27/21 16:49 Trazodone HCl (Desyrel) 50 mg PRN QHS PRN PO INSOMNIA 02/27/21 07:30 02/28/21 19:47 Lactobacillus Rhamnosus (Culturelle) 1 cap BID PO 02/27/21 09:00 03/01/21 21:45 Quetiapine Fumarate (SEROquel) 37.5 mg TID PO 02/28/21 21:00 03/01/21 19:04 DC 03/01/21 14:23 Olanzapine (ZyPREXA) 2.5 mg 0900,1300,1700 PO 03/02/21 09:00 I have reviewed the current psychotropics carefully including drug interactions. Risk benefit ratio favors no change other than as noted in my dictated progress note. Diagnosis: Problems: (1) Dementia, vascular, with delusions (2) Bipolar disorder, current episode mixed, severe, with psychotic features (3) Dementia in Alzheimer's disease with depression (4) Dementia in Alzheimer's disease with delusions (5) Major neurocognitive disorder (6) Dementia in Alzheimer's disease with early onset with behavioral disturbance (7) Impulse control disorder (8) Dementia, vascular, with depression (9) Anxiety disorder DUGLAS SMALL MD Mar 01, 2021 22:02
[2021-03-01] MEDS: traZODone 50 MG TABLET. PO PRN (22:11)
[2021-03-02] MEDS: LEVOTHYROXINE 25 MCG TABLET. PO SCH (05:57)
[2021-03-02 06:05] VITALS: BP 106/69
--- NOTE | 2021-03-02 06:50 | PDOC ---
Exam Note: Carlos Note: This note is a late entry for 03/01/2021 covers elements not covered in my initial note. Subjective: The patient was seen individually in the evening of 03/01/2021 with Jhoana HERNDON, discussed and reviewed the chart. The patient slept 8 hours previous night. She at times yells out. She does complain of ongoing pain. She has completed Keflex for her UTI. Review of Systems: No CV, , pulmonary, eye, ENT system symptoms on review. The patient does have poor appetite. Mental Status Exam: The patient is oriented to herself and situation. Speech has some latency, coherent. Abstraction is fair. Computation is impaired. Language function intact. Attention span is short. Mood and affect lability improved. Laboratory Data: Reviewed. Impression: Bipolar disorder, mixed. Major neurocognitive disorder Alzheimer vascular with delusion, depression, behavioral disturbance. Impulse control disorder unspecified. Anxiety disorder unspecified. Plan: Since the patient has poor appetite we will change the Seroquel 37.5 mg t.i.d. to Zyprexa 2.5 mg 9 a.m., 1 p.m. and 5 p.m. Continue rest of the psychotropics unchanged. Adjust further as clinically indicated. Assessment: Vital Signs/I&O: Vital Signs Date Time Temp Pulse Resp B/P (MAP) Pulse Ox O2 Delivery O2 Flow Rate FiO2 03/02/21 06:05 97.3 91 18 106/69 (81) 94 Room Air I & O 03/01/21 03/01/21 03/02/21 15:00 23:00 07:00 Intake Total 720 ml 360 ml 120 ml Balance 720 ml 360 ml 120 ml Current Medications: Meds: Current Medications Medications (Trade) Dose Ordered Sig/Magdalena Route PRN Reason Start Time Stop Time Status Last Admin Dose Admin Acetaminophen (Tylenol) 650 mg PRN Q6HRS PRN PO MILD PAIN / TEMP > 100.3'F 02/26/21 22:00 Bisacodyl (Dulcolax Supp) 10 mg PRN DAILY PRN RC 2nd CHOICE CONSTIPATION 02/26/21 22:00 Docusate Sodium (Colace) 100 mg DAILY PO 02/27/21 09:00 03/01/21 08:00 Famotidine (Pepcid) 20 mg QHS PO 02/27/21 21:00 03/01/21 21:44 Gabapentin (Neurontin) 100 mg QHS PO 02/27/21 21:00 03/01/21 21:44 Lactase (Lactaid) 3,000 unit TID PO 02/27/21 09:00 03/01/21 21:45 Levothyroxine Sodium (Synthroid) 25 mcg DAILY06 PO 02/27/21 06:00 03/02/21 05:57 Melatonin (Melatonin) 3 mg QHS PO 02/27/21 21:00 03/01/21 21:44 Memantine (Namenda) 5 mg BID PO 02/27/21 09:00 03/01/21 21:45 Mirtazapine (Remeron) 7.5 mg QHS PO 02/27/21 21:00 03/01/21 21:44 Oxycodone/ Acetaminophen (Percocet 10/325) 1 tab PRN Q6HRS PRN PO PAIN 02/26/21 22:00 02/26/21 23:58 Quetiapine Fumarate (SEROquel) 25 mg TID PO 02/27/21 09:00 02/28/21 17:34 DC 02/28/21 14:31 Cephalexin HCl (Keflex) 250 mg TID PO 02/27/21 09:00 02/28/21 10:12 DC 02/28/21 08:13 Non-Formulary Medication (Mag Hydrox/Al Hydrox/Simeth (Mag-Al Plus Suspension)) 15 ml PRN QHS PRN PO DYSPEPSIA 02/26/21 22:00 UNV Multi-Ingredient Ointment (Analgesic [place]) 1 hector PRN QID PRN TP MUSCLE PAIN 02/26/21 22:30 Ondansetron HCl (Zofran Odt) 4 mg PRN Q8HRS PRN PO NAUSEA 02/26/21 22:30 Rivastigmine Tartrate (Exelon) 4.5 mg BIDWMEALS PO 02/27/21 08:00 03/01/21 17:02 Acetaminophen (Tylenol) 650 mg PRN Q6HRS PRN PO MILD PAIN / TEMP > 100.3'F 02/26/21 22:15 UNV Al Hydroxide/Mg Hydroxide (Mylanta Plus Xs) 15 ml PRN AFTMEALHC PRN PO DYSPEPSIA 02/26/21 22:15 Magnesium Hydroxide (Milk Of Magnesia) 2,400 mg PRN QHS PRN PO 1ST CHOICE CONSTIPATION 02/26/21 22:15 Olanzapine (ZyPREXA ZYDIS) 2.5 mg PRN Q2HR PRN PO PSYCHOSIS 02/27/21 07:30 02/27/21 16:49 Trazodone HCl (Desyrel) 50 mg PRN QHS PRN PO INSOMNIA 02/27/21 07:30 03/01/21 22:11 Lactobacillus Rhamnosus (Culturelle) 1 cap BID PO 02/27/21 09:00 03/01/21 21:45 Quetiapine Fumarate (SEROquel) 37.5 mg TID PO 02/28/21 21:00 03/01/21 19:04 DC 03/01/21 14:23 Olanzapine (ZyPREXA) 2.5 mg 0900,1300,1700 PO 03/02/21 09:00 I have reviewed the current psychotropics carefully including drug interactions. Risk benefit ratio favors no change other than as noted in my dictated progress note. Diagnosis: Problems: (1) Dementia, vascular, with delusions (2) Bipolar disorder, current episode mixed, severe, with psychotic features (3) Dementia in Alzheimer's disease with depression (4) Dementia in Alzheimer's disease with delusions (5) Major neurocognitive disorder (6) Dementia in Alzheimer's disease with early onset with behavioral disturbance (7) Impulse control disorder (8) Dementia, vascular, with depression (9) Anxiety disorder DUGLAS SMALL MD Mar 02, 2021 06:50
[2021-03-02] MEDS: RIVASTIGMINE. 1.5 MG CAPSULE. PO SCH ×2 (08:00→17:05)
[2021-03-02] MEDS: DOCUSATE SODIUM 100 MG CAPSULE PO SCH (08:59)
[2021-03-02] MEDS: LACTOBACILLUS RHAMNOSUS GG 1 CAPSULE. PO SCH ×2 (08:59→19:43)
[2021-03-02] MEDS: MEMANTINE 5 MG TABLET. PO SCH ×2 (08:59→19:43)
[2021-03-02] MEDS: LACTASE 3,000 UNIT TABLET PO SCH ×3 (08:59→19:43)
[2021-03-02] MEDS: OLANZapine 2.5 MG TABLET PO SCH ×3 (08:59→17:05)
--- NOTE | 2021-03-02 15:22 | TX PLAN ---
Interdisciplinary Tx Plan Admission Information Feb 26, 2021 at 19:52 Legal Status (on Admission): Voluntary DPOA/Guardian Name: Kayla Briggs Contact Other Contact Name: MELISSA Alas Other Contact Verified Code Status: Full Code Allergies: Coded Allergies: NSAIDS (Non-Steroidal Anti-Inflamma (Verified Allergy, Intermediate, gi upset-peptic ulcer dx, 08/27/15) aspirin (Verified Allergy, Intermediate, gi upset/hx ulcers, 08/27/15) Diagnoses Primary Diagnosis: (1) Dementia, vascular, with delusions (2) Bipolar disorder, current episode mixed, severe, with psychotic features (3) Dementia in Alzheimer's disease with depression (4) Dementia in Alzheimer's disease with delusions (5) Major neurocognitive disorder (6) Dementia in Alzheimer's disease with early onset with behavioral disturbance (7) Impulse control disorder (8) Dementia, vascular, with depression (9) Anxiety disorder Reasons for Admission: Aggressive, Agitated, Sig. Change Appetite, Angry, Confusion/Disoriented, Poor impulse control Problem in Patient's Words: Per dtr/DPOA, Kayla, pt has started yelling out at her facility following her hospitalizations for UTIs. She never has had this behavior before, but she does have an extensive history in her younger days of being very attention seeking and telling multiple fabricated stories for reasons unknown. Also, per Kayla, pt has been on Tramadol and she believes that she is addicted and that it is like a narcotic to Usha. Kayla feels that Usha craves it. She would like to see her off of the Tramadol. Further, Kayla believes that pt does not drink enough water and that she has muscle spasms that could be some of the cause to her yelling out. Kayla believes that she needs to drink more water or ice chips and possibly be prescribed Quinine. Additional Admission Comments: Per intake record, pt has increased agitation, refusing to eat/drink/take medications, irritable, uncooperative, labile mood, yelling out. Problems Active Problems: Yelling out, agitation, confusion, poor impulse control, angry Inactive Problems: None noted at this time. Pt Strengths/Limitations Ability for Chitina: Poor Cognitive Functioning/Ability: Poor Communication Skills/Ability: Fair Financial Resources: Fair Insight/Judgement: Poor Intellectual Ability: Poor Physical Health: Poor Social Skills: Fair Stability in Family: Fair Stability in School/Work: Fair Verbal Skills: Fair Discharge Criteria Discharge Criteria: Adequate arrangements @DC, Verbal commit med comply, Improved behavior, Improved mood/thought Other Discharge Comments: None noted at this time. Preliminary Discharge Plan Preliminary DC Plan: Current Living Arrange. Special Precautions Fall Risk: High Initial D/C Plan Plan is to return to [facility]. Identified Discharge Needs: None noted at this time. Currently Utilized Resources Currently Utilized Resources/P: PCP is Dr. Peraza Psychiatry is Nurse Practitioner, Peter Facility is [facility] SW at [facility] is [place] Referrals Community Resources: None noted at this time. Identified Problems/Hx/Goals Objectives/Short-Term Goals Short Term Goals: Control abnormal behavior, Improved Social Skills, Medication Stabilization, Monitor Med Effects, Promote Coping Skill Short Term Goals in Patient's: To feel better. Per Jayar/Kayla FLORES, she would like for pt to be off of Tramadol. Also, Kayla states that pt has muscle spasms that could contribute to her yelling out. She feels that Quinine could possibly be beneficial, but at the minimum pt should be requested to drink plenty of water. Kayla feels that these things could help prevent her from calling out in an attention seeking way that she was doing at her facility. Interventions/Frequency Staff Interventions/Frequency&: Psychiatry to assess pt three times per week for medication maagement. Nursing to assess pt behaviors, monitor medications, and complete 15 minute checks daily. Social work to see pt at least two times weekly to aid in return to placement. Activities to encourage pt to participate in group activities daily. 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 She was then caught for extorting money from a pt and lost her job. Education: Usha dropped out of high school in the 10th grade to get . Community Follow-up PCP Psychiatry Community Provider/Family Inpu: Jayar/MARK, Kayla, is aware of pt hospitalization. Kayla provided pt inforamation and is available for further input as needed. Treatment Plan Explained Patient/Corporate Health Consultant had this treatment plan explained to him/her as indicated by the signature below and has been given the opportunity to ask questions and make suggestions: Date: Patient/Corporate Health Consultant Signature: ASIA WAY Mar 02, 2021 15:22
[2021-03-02 16:12] VITALS: BP 111/72
[2021-03-02] MEDS: FAMOTIDINE 20 MG TABLET PO SCH (19:43)
[2021-03-02] MEDS: MELATONIN 3 MG TABLET PO SCH (19:43)
[2021-03-02] MEDS: GABAPENTIN 100 MG CAPSULE. PO SCH (19:43)
[2021-03-02] MEDS: MIRTAZAPINE 7.5 MG TABLET. PO SCH (19:43)
--- NOTE | 2021-03-02 23:07 | PDOC ---
Exam Note: Carlos Note: Please also refer to the separate dictated note~for this date of service dictated separately.~Patient seen individually. Discussed the patient with Nursing staff reviewed the chart.~Reviewed interim history and current functioning. Reviewed vital signs,~Labs/ Radiology~and current medications noted below. Continue current treatment with the changes noted in the dictated addendum note Assessment: Vital Signs/I&O: Vital Signs Date Time Temp Pulse Resp B/P (MAP) Pulse Ox O2 Delivery O2 Flow Rate FiO2 03/02/21 16:12 97.8 78 16 111/72 (85) 99 03/02/21 06:05 Room Air I & O 03/01/21 03/01/21 03/02/21 15:00 23:00 07:00 Intake Total 720 ml 360 ml 120 ml Balance 720 ml 360 ml 120 ml Current Medications: Meds: Current Medications Medications (Trade) Dose Ordered Sig/Magdalena Route PRN Reason Start Time Stop Time Status Last Admin Dose Admin Acetaminophen (Tylenol) 650 mg PRN Q6HRS PRN PO MILD PAIN / TEMP > 100.3'F 02/26/21 22:00 Bisacodyl (Dulcolax Supp) 10 mg PRN DAILY PRN RC 2nd CHOICE CONSTIPATION 02/26/21 22:00 Docusate Sodium (Colace) 100 mg DAILY PO 02/27/21 09:00 03/02/21 08:59 Famotidine (Pepcid) 20 mg QHS PO 02/27/21 21:00 03/02/21 19:43 Gabapentin (Neurontin) 100 mg QHS PO 02/27/21 21:00 03/02/21 19:43 Lactase (Lactaid) 3,000 unit TID PO 02/27/21 09:00 03/02/21 19:43 Levothyroxine Sodium (Synthroid) 25 mcg DAILY06 PO 02/27/21 06:00 03/02/21 05:57 Melatonin (Melatonin) 3 mg QHS PO 02/27/21 21:00 03/02/21 19:43 Memantine (Namenda) 5 mg BID PO 02/27/21 09:00 03/02/21 19:43 Mirtazapine (Remeron) 7.5 mg QHS PO 02/27/21 21:00 03/02/21 19:43 Oxycodone/ Acetaminophen (Percocet 10/325) 1 tab PRN Q6HRS PRN PO PAIN 02/26/21 22:00 02/26/21 23:58 Quetiapine Fumarate (SEROquel) 25 mg TID PO 02/27/21 09:00 02/28/21 17:34 DC 02/28/21 14:31 Cephalexin HCl (Keflex) 250 mg TID PO 02/27/21 09:00 02/28/21 10:12 DC 02/28/21 08:13 Non-Formulary Medication (Mag Hydrox/Al Hydrox/Simeth (Mag-Al Plus Suspension)) 15 ml PRN QHS PRN PO DYSPEPSIA 02/26/21 22:00 UNV Multi-Ingredient Ointment (Analgesic [place]) 1 hector PRN QID PRN TP MUSCLE PAIN 02/26/21 22:30 Ondansetron HCl (Zofran Odt) 4 mg PRN Q8HRS PRN PO NAUSEA 02/26/21 22:30 Rivastigmine Tartrate (Exelon) 4.5 mg BIDWMEALS PO 02/27/21 08:00 03/02/21 17:05 Acetaminophen (Tylenol) 650 mg PRN Q6HRS PRN PO MILD PAIN / TEMP > 100.3'F 02/26/21 22:15 UNV Al Hydroxide/Mg Hydroxide (Mylanta Plus Xs) 15 ml PRN AFTMEALHC PRN PO DYSPEPSIA 02/26/21 22:15 Magnesium Hydroxide (Milk Of Magnesia) 2,400 mg PRN QHS PRN PO 1ST CHOICE CONSTIPATION 02/26/21 22:15 Olanzapine (ZyPREXA ZYDIS) 2.5 mg PRN Q2HR PRN PO PSYCHOSIS 02/27/21 07:30 02/27/21 16:49 Trazodone HCl (Desyrel) 50 mg PRN QHS PRN PO INSOMNIA 02/27/21 07:30 03/01/21 22:11 Lactobacillus Rhamnosus (Culturelle) 1 cap BID PO 02/27/21 09:00 03/02/21 19:43 Quetiapine Fumarate (SEROquel) 37.5 mg TID PO 02/28/21 21:00 03/01/21 19:04 DC 03/01/21 14:23 Olanzapine (ZyPREXA) 2.5 mg 0900,1300,1700 PO 03/02/21 09:00 03/02/21 17:05 Current Medications Medications (Trade) Dose Ordered Sig/Magdalena Route PRN Reason Start Time Stop Time Status Last Admin Dose Admin Olanzapine (ZyPREXA) 2.5 mg 0900,1300,1700 PO 03/02/21 09:00 03/02/21 17:05 I have reviewed the current psychotropics carefully including drug interactions. Risk benefit ratio favors no change other than as noted in my dictated progress note. Diagnosis: Problems: (1) Dementia, vascular, with delusions (2) Bipolar disorder, current episode mixed, severe, with psychotic features (3) Dementia in Alzheimer's disease with depression (4) Dementia in Alzheimer's disease with delusions (5) Major neurocognitive disorder (6) Dementia in Alzheimer's disease with early onset with behavioral disturbance (7) Impulse control disorder (8) Dementia, vascular, with depression (9) Anxiety disorder DUGLAS SMALL MD Mar 02, 2021 23:06
[2021-03-03 05:58] VITALS: BP 112/58
[2021-03-03] MEDS: LEVOTHYROXINE 25 MCG TABLET. PO SCH (06:00)
[2021-03-03] MEDS: MEMANTINE 5 MG TABLET. PO SCH (08:13)
[2021-03-03] MEDS: DOCUSATE SODIUM 100 MG CAPSULE PO SCH (08:13)
[2021-03-03] MEDS: OLANZapine 2.5 MG TABLET PO SCH ×3 (08:13→17:15)
[2021-03-03] MEDS: RIVASTIGMINE. 1.5 MG CAPSULE. PO SCH ×2 (08:13→17:15)
[2021-03-03] MEDS: LACTASE 3,000 UNIT TABLET PO SCH ×3 (08:13→21:46)
[2021-03-03] MEDS: LACTOBACILLUS RHAMNOSUS GG 1 CAPSULE. PO SCH ×2 (08:13→21:46)
[2021-03-03] MEDS: oxyCODONE/APAP 10/325 1 TAB TABLET PO PRN (13:55)
[2021-03-03 15:43] VITALS: BP 119/71
[2021-03-03] MEDS: FAMOTIDINE 20 MG TABLET PO SCH (21:45)
[2021-03-03] MEDS: MEMANTINE 10 MG TABLET. PO SCH (21:45)
[2021-03-03] MEDS: GABAPENTIN 100 MG CAPSULE. PO SCH (21:45)
[2021-03-03] MEDS: MIRTAZAPINE 7.5 MG TABLET. PO SCH (21:45)
[2021-03-03] MEDS: MELATONIN 3 MG TABLET PO SCH (21:45)
--- NOTE | 2021-03-03 22:09 | PDOC ---
Exam Note: Carlos Note: Please also refer to the separate dictated note~for this date of service dictated separately.~Patient seen individually. Discussed the patient with Nursing staff reviewed the chart.~Reviewed interim history and current functioning. Reviewed vital signs,~Labs/ Radiology~and current medications noted below. Continue current treatment with the changes noted in the dictated addendum note Assessment: Vital Signs/I&O: Vital Signs Date Time Temp Pulse Resp B/P (MAP) Pulse Ox O2 Delivery O2 Flow Rate FiO2 03/03/21 15:43 97.4 80 18 119/71 (87) 100 03/02/21 06:05 Room Air I & O 03/02/21 03/02/21 03/03/21 15:00 23:00 07:00 Intake Total 660 ml 480 ml Balance 660 ml 480 ml Current Medications: Meds: Current Medications Medications (Trade) Dose Ordered Sig/Magdalena Route PRN Reason Start Time Stop Time Status Last Admin Dose Admin Acetaminophen (Tylenol) 650 mg PRN Q6HRS PRN PO MILD PAIN / TEMP > 100.3'F 02/26/21 22:00 Bisacodyl (Dulcolax Supp) 10 mg PRN DAILY PRN RC 2nd CHOICE CONSTIPATION 02/26/21 22:00 Docusate Sodium (Colace) 100 mg DAILY PO 02/27/21 09:00 03/03/21 08:13 Famotidine (Pepcid) 20 mg QHS PO 02/27/21 21:00 03/03/21 21:45 Gabapentin (Neurontin) 100 mg QHS PO 02/27/21 21:00 03/03/21 21:45 Lactase (Lactaid) 3,000 unit TID PO 02/27/21 09:00 03/03/21 21:46 Levothyroxine Sodium (Synthroid) 25 mcg DAILY06 PO 02/27/21 06:00 03/02/21 05:57 Melatonin (Melatonin) 3 mg QHS PO 02/27/21 21:00 03/03/21 21:45 Memantine (Namenda) 5 mg BID PO 02/27/21 09:00 03/03/21 16:00 DC 03/03/21 08:13 Mirtazapine (Remeron) 7.5 mg QHS PO 02/27/21 21:00 03/03/21 21:45 Oxycodone/ Acetaminophen (Percocet 10/325) 1 tab PRN Q6HRS PRN PO PAIN 02/26/21 22:00 03/03/21 13:55 Quetiapine Fumarate (SEROquel) 25 mg TID PO 02/27/21 09:00 02/28/21 17:34 DC 02/28/21 14:31 Cephalexin HCl (Keflex) 250 mg TID PO 02/27/21 09:00 02/28/21 10:12 DC 02/28/21 08:13 Non-Formulary Medication (Mag Hydrox/Al Hydrox/Simeth (Mag-Al Plus Suspension)) 15 ml PRN QHS PRN PO DYSPEPSIA 02/26/21 22:00 UNV Multi-Ingredient Ointment (Analgesic [place]) 1 hector PRN QID PRN TP MUSCLE PAIN 02/26/21 22:30 Ondansetron HCl (Zofran Odt) 4 mg PRN Q8HRS PRN PO NAUSEA 02/26/21 22:30 Rivastigmine Tartrate (Exelon) 4.5 mg BIDWMEALS PO 02/27/21 08:00 03/03/21 17:15 Acetaminophen (Tylenol) 650 mg PRN Q6HRS PRN PO MILD PAIN / TEMP > 100.3'F 02/26/21 22:15 UNV Al Hydroxide/Mg Hydroxide (Mylanta Plus Xs) 15 ml PRN AFTMEALHC PRN PO DYSPEPSIA 02/26/21 22:15 Magnesium Hydroxide (Milk Of Magnesia) 2,400 mg PRN QHS PRN PO 1ST CHOICE CONSTIPATION 02/26/21 22:15 Olanzapine (ZyPREXA ZYDIS) 2.5 mg PRN Q2HR PRN PO PSYCHOSIS 02/27/21 07:30 02/27/21 16:49 Trazodone HCl (Desyrel) 50 mg PRN QHS PRN PO INSOMNIA 02/27/21 07:30 03/01/21 22:11 Lactobacillus Rhamnosus (Culturelle) 1 cap BID PO 02/27/21 09:00 03/03/21 21:46 Quetiapine Fumarate (SEROquel) 37.5 mg TID PO 02/28/21 21:00 03/01/21 19:04 DC 03/01/21 14:23 Olanzapine (ZyPREXA) 2.5 mg 0900,1300,1700 PO 03/02/21 09:00 03/03/21 17:15 Memantine (Namenda) 10 mg BID PO 03/03/21 21:00 03/03/21 21:45 Sertraline HCl (Zoloft) 25 mg DAILY PO 03/04/21 09:00 03/06/21 12:00 Sertraline HCl (Zoloft) 50 mg DAILY PO 03/07/21 09:00 Current Medications Medications (Trade) Dose Ordered Sig/Magdalena Route PRN Reason Start Time Stop Time Status Last Admin Dose Admin Memantine (Namenda) 10 mg BID PO 03/03/21 21:00 03/03/21 21:45 I have reviewed the current psychotropics carefully including drug interactions. Risk benefit ratio favors no change other than as noted in my dictated progress note. Diagnosis: Problems: (1) Dementia, vascular, with delusions (2) Bipolar disorder, current episode mixed, severe, with psychotic features (3) Dementia in Alzheimer's disease with depression (4) Dementia in Alzheimer's disease with delusions (5) Major neurocognitive disorder (6) Dementia in Alzheimer's disease with early onset with behavioral disturbance (7) Impulse control disorder (8) Dementia, vascular, with depression (9) Anxiety disorder DUGLAS SMALL MD Mar 03, 2021 22:09
[2021-03-04 05:48] VITALS: BP 119/62
[2021-03-04] MEDS: LEVOTHYROXINE 25 MCG TABLET. PO SCH (06:08)
[2021-03-04] MEDS: OLANZapine 2.5 MG TABLET PO SCH ×3 (12:29→17:32)
[2021-03-04] MEDS: SERTRALINE 25 MG TABLET. PO SCH (12:29)
[2021-03-04] MEDS: LACTOBACILLUS RHAMNOSUS GG 1 CAPSULE. PO SCH ×2 (12:29→20:00)
[2021-03-04] MEDS: RIVASTIGMINE. 1.5 MG CAPSULE. PO SCH ×2 (12:29→17:32)
[2021-03-04] MEDS: MEMANTINE 10 MG TABLET. PO SCH ×2 (12:30→20:00)
[2021-03-04] MEDS: LACTASE 3,000 UNIT TABLET PO SCH ×3 (12:30→20:00)
[2021-03-04] MEDS: DOCUSATE SODIUM 100 MG CAPSULE PO SCH (12:30)
[2021-03-04 16:10] VITALS: BP 120/75
[2021-03-04] MEDS: FAMOTIDINE 20 MG TABLET PO SCH (20:00)
[2021-03-04] MEDS: MIRTAZAPINE 7.5 MG TABLET. PO SCH (20:00)
[2021-03-04] MEDS: MELATONIN 3 MG TABLET PO SCH (20:00)
[2021-03-04] MEDS: GABAPENTIN 100 MG CAPSULE. PO SCH (20:01)
--- NOTE | 2021-03-04 21:56 | PDOC ---
Exam Note: Carlos Note: Please also refer to the separate dictated note~for this date of service dictated separately.~Patient seen individually. Discussed the patient with Nursing staff reviewed the chart.~Reviewed interim history and current functioning. Reviewed vital signs,~Labs/ Radiology~and current medications noted below. Continue current treatment with the changes noted in the dictated addendum note Assessment: Vital Signs/I&O: Vital Signs Date Time Temp Pulse Resp B/P (MAP) Pulse Ox O2 Delivery O2 Flow Rate FiO2 03/04/21 16:10 97.3 83 16 120/75 (90) 94 03/02/21 06:05 Room Air I & O 03/03/21 03/03/21 03/04/21 14:59 22:59 06:59 Intake Total 600 ml 360 ml Balance 600 ml 360 ml Current Medications: Meds: Current Medications Medications (Trade) Dose Ordered Sig/Magdalena Route PRN Reason Start Time Stop Time Status Last Admin Dose Admin Acetaminophen (Tylenol) 650 mg PRN Q6HRS PRN PO MILD PAIN / TEMP > 100.3'F 02/26/21 22:00 Bisacodyl (Dulcolax Supp) 10 mg PRN DAILY PRN RC 2nd CHOICE CONSTIPATION 02/26/21 22:00 Docusate Sodium (Colace) 100 mg DAILY PO 02/27/21 09:00 03/04/21 12:30 Famotidine (Pepcid) 20 mg QHS PO 02/27/21 21:00 03/04/21 20:00 Gabapentin (Neurontin) 100 mg QHS PO 02/27/21 21:00 03/04/21 20:01 Lactase (Lactaid) 3,000 unit TID PO 02/27/21 09:00 03/04/21 20:00 Levothyroxine Sodium (Synthroid) 25 mcg DAILY06 PO 02/27/21 06:00 03/04/21 06:08 Melatonin (Melatonin) 3 mg QHS PO 02/27/21 21:00 03/04/21 20:00 Memantine (Namenda) 5 mg BID PO 02/27/21 09:00 03/03/21 16:00 DC 03/03/21 08:13 Mirtazapine (Remeron) 7.5 mg QHS PO 02/27/21 21:00 03/04/21 20:00 Oxycodone/ Acetaminophen (Percocet 10/325) 1 tab PRN Q6HRS PRN PO PAIN 02/26/21 22:00 03/03/21 13:55 Quetiapine Fumarate (SEROquel) 25 mg TID PO 02/27/21 09:00 02/28/21 17:34 DC 02/28/21 14:31 Cephalexin HCl (Keflex) 250 mg TID PO 02/27/21 09:00 02/28/21 10:12 DC 02/28/21 08:13 Non-Formulary Medication (Mag Hydrox/Al Hydrox/Simeth (Mag-Al Plus Suspension)) 15 ml PRN QHS PRN PO DYSPEPSIA 02/26/21 22:00 UNV Multi-Ingredient Ointment (Analgesic [place]) 1 hector PRN QID PRN TP MUSCLE PAIN 02/26/21 22:30 Ondansetron HCl (Zofran Odt) 4 mg PRN Q8HRS PRN PO NAUSEA 02/26/21 22:30 Rivastigmine Tartrate (Exelon) 4.5 mg BIDWMEALS PO 02/27/21 08:00 03/04/21 17:32 Acetaminophen (Tylenol) 650 mg PRN Q6HRS PRN PO MILD PAIN / TEMP > 100.3'F 02/26/21 22:15 UNV Al Hydroxide/Mg Hydroxide (Mylanta Plus Xs) 15 ml PRN AFTMEALHC PRN PO DYSPEPSIA 02/26/21 22:15 Magnesium Hydroxide (Milk Of Magnesia) 2,400 mg PRN QHS PRN PO 1ST CHOICE CONSTIPATION 02/26/21 22:15 Olanzapine (ZyPREXA ZYDIS) 2.5 mg PRN Q2HR PRN PO PSYCHOSIS 02/27/21 07:30 02/27/21 16:49 Trazodone HCl (Desyrel) 50 mg PRN QHS PRN PO INSOMNIA 02/27/21 07:30 03/01/21 22:11 Lactobacillus Rhamnosus (Culturelle) 1 cap BID PO 02/27/21 09:00 03/04/21 20:00 Quetiapine Fumarate (SEROquel) 37.5 mg TID PO 02/28/21 21:00 03/01/21 19:04 DC 03/01/21 14:23 Olanzapine (ZyPREXA) 2.5 mg 0900,1300,1700 PO 03/02/21 09:00 03/04/21 17:32 Memantine (Namenda) 10 mg BID PO 03/03/21 21:00 03/04/21 20:00 Sertraline HCl (Zoloft) 25 mg DAILY PO 03/04/21 09:00 03/06/21 12:00 03/04/21 12:29 Sertraline HCl (Zoloft) 50 mg DAILY PO 03/07/21 09:00 Current Medications Medications (Trade) Dose Ordered Sig/Magdalena Route PRN Reason Start Time Stop Time Status Last Admin Dose Admin Sertraline HCl (Zoloft) 25 mg DAILY PO 03/04/21 09:00 03/06/21 12:00 03/04/21 12:29 I have reviewed the current psychotropics carefully including drug interactions. Risk benefit ratio favors no change other than as noted in my dictated progress note. Diagnosis: Problems: (1) Dementia, vascular, with delusions (2) Bipolar disorder, current episode mixed, severe, with psychotic features (3) Dementia in Alzheimer's disease with depression (4) Dementia in Alzheimer's disease with delusions (5) Major neurocognitive disorder (6) Dementia in Alzheimer's disease with early onset with behavioral disturbance (7) Impulse control disorder (8) Dementia, vascular, with depression (9) Anxiety disorder DUGLAS SMALL MD Mar 04, 2021 21:56
[2021-03-05 05:53] VITALS: BP 130/71
[2021-03-05] MEDS: LEVOTHYROXINE 25 MCG TABLET. PO SCH (06:02)
[2021-03-05 06:51] LABS: BASO # 0.2 x10^3/uL (0.0-0.2); BASO % 2 % (0-3); EOS # 0.4 x10^3/uL (0.0-0.7); EOS % 3 % (0-3); HEMATOCRIT 31.9 % (36.0-47.0); HEMOGLOBIN 10.4 g/dL (12.0-15.5); LYMPH # 3.9 x10^3/uL (1.0-4.8); LYMPH % 28 % (24-48); MEAN CORPUSCULAR HEMOGLOBIN 26 pg (25-35); MEAN CORPUSCULAR HGB CONC 33 g/dL (31-37); MEAN CORPUSCULAR VOLUME 80 fL (79-100); MONO # 0.7 x10^3/uL (0.0-1.1); MONO % 5 % (0-9); NEUT # 8.9 x10^3uL (1.8-7.7); NEUT % 63 % (31-73); PLATELET COUNT 471 x10^3/uL (140-400); RED BLOOD COUNT 3.97 x10^6/uL (3.50-5.40); RED CELL DISTRIBUTION WIDTH 18.8 % (11.5-14.5); WHITE BLOOD COUNT 14.1 x10^3/uL (4.0-11.0)
--- NOTE | 2021-03-05 06:56 | PDOC ---
Exam Note: Carlos Note: This note is a late entry for 03/02/2021 covers elements not covered in my initial note. Subjective: The patient was seen individually in the evening of 03/02/2021 with Nani HERNDON, discussed and reviewed the chart. The patient slept 5 hours previous night. She has been fairly compliant, somewhat hesitant about taking her medications at times yelling at night. She has done better during the day today. She has been in the dayroom and goes to the dining room appropriately. She did receive trazodone last night to help her sleep. The daughter does not want her to get narcotics since she gets addicted to it. Review of Systems: No CV, , pulmonary, eye, ENT system symptoms on review. S he does complain of some chronic pain. Mental Status Exam: The patient is oriented to herself and situation. Speech is coherent, has some latency. Abstraction is fair. Computation is impaired. Language function intact. Attention span is short. Mood and affect withdrawn. Laboratory Data: Reviewed. Impression: Bipolar disorder, mixed. Major neurocognitive disorder Alzheimer vascular with delusion, depression, behavioral disturbance. Impulse control disorder unspecified. Anxiety disorder unspecified. Plan: No change from initial note. Continue psychotropics mentioned in my initial note. UTI has been treated. Assessment: Vital Signs/I&O: Vital Signs Date Time Temp Pulse Resp B/P (MAP) Pulse Ox O2 Delivery O2 Flow Rate FiO2 03/05/21 05:53 97.5 92 20 130/71 (90) 96 03/02/21 06:05 Room Air I & O 03/04/21 03/04/21 03/05/21 15:00 23:00 07:00 Intake Total 0 ml 360 ml Balance 0 ml 360 ml Current Medications: Meds: Current Medications Medications (Trade) Dose Ordered Sig/Magdalena Route PRN Reason Start Time Stop Time Status Last Admin Dose Admin Acetaminophen (Tylenol) 650 mg PRN Q6HRS PRN PO MILD PAIN / TEMP > 100.3'F 02/26/21 22:00 Bisacodyl (Dulcolax Supp) 10 mg PRN DAILY PRN RC 2nd CHOICE CONSTIPATION 02/26/21 22:00 Docusate Sodium (Colace) 100 mg DAILY PO 02/27/21 09:00 03/04/21 12:30 Famotidine (Pepcid) 20 mg QHS PO 02/27/21 21:00 03/04/21 20:00 Gabapentin (Neurontin) 100 mg QHS PO 02/27/21 21:00 03/04/21 20:01 Lactase (Lactaid) 3,000 unit TID PO 02/27/21 09:00 03/04/21 20:00 Levothyroxine Sodium (Synthroid) 25 mcg DAILY06 PO 02/27/21 06:00 03/05/21 06:02 Melatonin (Melatonin) 3 mg QHS PO 02/27/21 21:00 03/04/21 20:00 Memantine (Namenda) 5 mg BID PO 02/27/21 09:00 03/03/21 16:00 DC 03/03/21 08:13 Mirtazapine (Remeron) 7.5 mg QHS PO 02/27/21 21:00 03/04/21 20:00 Oxycodone/ Acetaminophen (Percocet 10/325) 1 tab PRN Q6HRS PRN PO PAIN 02/26/21 22:00 03/03/21 13:55 Quetiapine Fumarate (SEROquel) 25 mg TID PO 02/27/21 09:00 02/28/21 17:34 DC 02/28/21 14:31 Cephalexin HCl (Keflex) 250 mg TID PO 02/27/21 09:00 02/28/21 10:12 DC 02/28/21 08:13 Non-Formulary Medication (Mag Hydrox/Al Hydrox/Simeth (Mag-Al Plus Suspension)) 15 ml PRN QHS PRN PO DYSPEPSIA 02/26/21 22:00 UNV Multi-Ingredient Ointment (Analgesic [place]) 1 hector PRN QID PRN TP MUSCLE PAIN 02/26/21 22:30 Ondansetron HCl (Zofran Odt) 4 mg PRN Q8HRS PRN PO NAUSEA 02/26/21 22:30 Rivastigmine Tartrate (Exelon) 4.5 mg BIDWMEALS PO 02/27/21 08:00 03/04/21 17:32 Acetaminophen (Tylenol) 650 mg PRN Q6HRS PRN PO MILD PAIN / TEMP > 100.3'F 02/26/21 22:15 UNV Al Hydroxide/Mg Hydroxide (Mylanta Plus Xs) 15 ml PRN AFTMEALHC PRN PO DYSPEPSIA 02/26/21 22:15 Magnesium Hydroxide (Milk Of Magnesia) 2,400 mg PRN QHS PRN PO 1ST CHOICE CONSTIPATION 02/26/21 22:15 Olanzapine (ZyPREXA ZYDIS) 2.5 mg PRN Q2HR PRN PO PSYCHOSIS 02/27/21 07:30 02/27/21 16:49 Trazodone HCl (Desyrel) 50 mg PRN QHS PRN PO INSOMNIA 02/27/21 07:30 03/01/21 22:11 Lactobacillus Rhamnosus (Culturelle) 1 cap BID PO 02/27/21 09:00 03/04/21 20:00 Quetiapine Fumarate (SEROquel) 37.5 mg TID PO 02/28/21 21:00 03/01/21 19:04 DC 03/01/21 14:23 Olanzapine (ZyPREXA) 2.5 mg 0900,1300,1700 PO 03/02/21 09:00 03/04/21 17:32 Memantine (Namenda) 10 mg BID PO 03/03/21 21:00 03/04/21 20:00 Sertraline HCl (Zoloft) 25 mg DAILY PO 03/04/21 09:00 03/06/21 12:00 03/04/21 12:29 Sertraline HCl (Zoloft) 50 mg DAILY PO 03/07/21 09:00 Current Medications Medications (Trade) Dose Ordered Sig/[place]dalena Route PRN Reason Start Time Stop Time Status Last Admin Dose Admin Sertraline HCl (Zoloft) 25 mg DAILY PO 03/04/21 09:00 03/06/21 12:00 03/04/21 12:29 I have reviewed the current psychotropics carefully including drug interactions. Risk benefit ratio favors no change other than as noted in my dictated progress note. Diagnosis: Problems: (1) Dementia, vascular, with delusions (2) Dementia in Alzheimer's disease with depression (3) Dementia in Alzheimer's disease with delusions (4) Major neurocognitive disorder (5) Dementia in Alzheimer's disease with early onset with behavioral disturbance (6) Dementia with behavioral disturbance (7) Impulse control disorder (8) Dementia, vascular, with depression (9) Anxiety disorder (10) Bipolar disorder, current episode mixed, severe, with psychotic features DUGLAS SMALL MD Mar 05, 2021 06:56
[2021-03-05 07:05] LABS: ALBUMIN 2.1 g/dL (3.4-5.0); ALBUMIN/GLOBULIN RATIO 0.5 (1.0-1.7); CREATININE 0.7 mg/dL (0.6-1.0); GFR 79.3; POTASSIUM 4.4 mmol/L (3.5-5.1); TOTAL BILIRUBIN 0.1 mg/dL (0.2-1.0)
--- NOTE | 2021-03-05 07:17 | PDOC ---
Exam Note: Carlos Note: This note is a late entry for 03/03/2021 covers elements not covered in my initial note. Subjective: The patient was seen individually in the evening of 03/03/2021 with Elaine HERNDON, discussed and reviewed the chart. The patient slept 7-1/4 hours previous night. She is resistive at times to cares but yelling at times, less than before. She is compliant with medications. Review of Systems: Ambulation impaired in wheelchair. No CV, , pulmonary, eye, ENT system symptoms on review. Mental Status Exam: The patient is oriented to herself and situation. I met with her outside the dining hallway. She was ready to enter around 5 p.m. She said she was hungry, pleasant, smiling. Speech is coherent, has some latency. Abstraction is fair. Computation is impaired. Language function intact. Attention span is short. Mood and affect withdrawn. Laboratory Data: Reviewed. Impression: Bipolar disorder, mixed. Major neurocognitive disorder Alzheimer vascular with delusion, depression, behavioral disturbance. Impulse control disorder unspecified. Anxiety disorder unspecified. Plan: No change from initial note. Increase Namenda from 5 mg b.i.d. to 10 mg b.i.d. Start Zoloft 25 mg a day for 3 days, then 50 mg a day for her mood and anxiety symptoms and should help her irritability and yelling as well. Continue rest of the psychotropics unchanged including Remeron, Exelon, melatonin, trazodone and Zyprexa p.r.n. Assessment: Vital Signs/I&O: Vital Signs Date Time Temp Pulse Resp B/P (MAP) Pulse Ox O2 Delivery O2 Flow Rate FiO2 03/05/21 05:53 97.5 92 20 130/71 (90) 96 03/02/21 06:05 Room Air I & O 03/04/21 03/04/21 03/05/21 15:00 23:00 07:00 Intake Total 0 ml 360 ml Balance 0 ml 360 ml Labs: Laboratory Tests Test 03/05/21 06:20 White Blood Count 14.1 x10^3/uL (4.0-11.0) H Red Blood Count 3.97 x10^6/uL (3.50-5.40) Hemoglobin 10.4 g/dL (12.0-15.5) L Hematocrit 31.9 % (36.0-47.0) L Mean Corpuscular Volume 80 fL (79-100) Mean Corpuscular Hemoglobin 26 pg (25-35) Mean Corpuscular Hemoglobin Concent 33 g/dL (31-37) Red Cell Distribution Width 18.8 % (11.5-14.5) H Platelet Count 471 x10^3/uL (140-400) H Neutrophils (%) (Auto) 63 % (31-73) Lymphocytes (%) (Auto) 28 % (24-48) Monocytes (%) (Auto) 5 % (0-9) Eosinophils (%) (Auto) 3 % (0-3) Basophils (%) (Auto) 2 % (0-3) Neutrophils # (Auto) 8.9 x10^3uL (1.8-7.7) H Lymphocytes # (Auto) 3.9 x10^3/uL (1.0-4.8) Monocytes # (Auto) 0.7 x10^3/uL (0.0-1.1) Eosinophils # (Auto) 0.4 x10^3/uL (0.0-0.7) Basophils # (Auto) 0.2 x10^3/uL (0.0-0.2) Platelet Estimate Pending Sodium Level 142 mmol/L (136-145) Potassium Level 4.4 mmol/L (3.5-5.1) Chloride Level 108 mmol/L (98-107) H Carbon Dioxide Level 28 mmol/L (21-32) Anion Gap 6 (6-14) Blood Urea Nitrogen 10 mg/dL (7-20) Creatinine 0.7 mg/dL (0.6-1.0) Estimated GFR (Cockcroft-Gault) 79.3 BUN/Creatinine Ratio 14 (6-20) Glucose Level 83 mg/dL (70-99) Calcium Level 8.0 mg/dL (8.5-10.1) L Total Bilirubin 0.1 mg/dL (0.2-1.0) L Aspartate Amino Transferase (AST) 12 U/L (15-37) L Alanine Aminotransferase (ALT) 9 U/L (14-59) L Alkaline Phosphatase 74 U/L (46-116) Total Protein 6.0 g/dL (6.4-8.2) L Albumin 2.1 g/dL (3.4-5.0) L Albumin/Globulin Ratio 0.5 (1.0-1.7) L Current Medications: Meds: Laboratory Tests Test 03/05/21 06:20 White Blood Count 14.1 x10^3/uL Red Blood Count 3.97 x10^6/uL Hemoglobin 10.4 g/dL Hematocrit 31.9 % Mean Corpuscular Volume 80 fL Mean Corpuscular Hemoglobin 26 pg Mean Corpuscular Hemoglobin Concent 33 g/dL Red Cell Distribution Width 18.8 % Platelet Count 471 x10^3/uL Neutrophils (%) (Auto) 63 % Lymphocytes (%) (Auto) 28 % Monocytes (%) (Auto) 5 % Eosinophils (%) (Auto) 3 % Basophils (%) (Auto) 2 % Neutrophils # (Auto) 8.9 x10^3uL Lymphocytes # (Auto) 3.9 x10^3/uL Monocytes # (Auto) 0.7 x10^3/uL Eosinophils # (Auto) 0.4 x10^3/uL Basophils # (Auto) 0.2 x10^3/uL Platelet Estimate Pending Sodium Level 142 mmol/L Potassium Level 4.4 mmol/L Chloride Level 108 mmol/L Carbon Dioxide Level 28 mmol/L Anion Gap 6 Blood Urea Nitrogen 10 mg/dL Creatinine 0.7 mg/dL Estimated GFR (Cockcroft-Gault) 79.3 BUN/Creatinine Ratio 14 Glucose Level 83 mg/dL Calcium Level 8.0 mg/dL Total Bilirubin 0.1 mg/dL Aspartate Amino Transf (AST/SGOT) 12 U/L Alanine Aminotransferase (ALT/SGPT) 9 U/L Alkaline Phosphatase 74 U/L Total Protein 6.0 g/dL Albumin 2.1 g/dL Albumin/Globulin Ratio 0.5 Current Medications Medications (Trade) Dose Ordered Sig/Magdalena Route PRN Reason Start Time Stop Time Status Last Admin Dose Admin Acetaminophen (Tylenol) 650 mg PRN Q6HRS PRN PO MILD PAIN / TEMP > 100.3'F 02/26/21 22:00 Bisacodyl (Dulcolax Supp) 10 mg PRN DAILY PRN RC 2nd CHOICE CONSTIPATION 02/26/21 22:00 Docusate Sodium (Colace) 100 mg DAILY PO 02/27/21 09:00 03/04/21 12:30 Famotidine (Pepcid) 20 mg QHS PO 02/27/21 21:00 03/04/21 20:00 Gabapentin (Neurontin) 100 mg QHS PO 02/27/21 21:00 03/04/21 20:01 Lactase (Lactaid) 3,000 unit TID PO 02/27/21 09:00 03/04/21 20:00 Levothyroxine Sodium (Synthroid) 25 mcg DAILY06 PO 02/27/21 06:00 03/05/21 06:02 Melatonin (Melatonin) 3 mg QHS PO 02/27/21 21:00 03/04/21 20:00 Memantine (Namenda) 5 mg BID PO 02/27/21 09:00 03/03/21 16:00 DC 03/03/21 08:13 Mirtazapine (Remeron) 7.5 mg QHS PO 02/27/21 21:00 03/04/21 20:00 Oxycodone/ Acetaminophen (Percocet 10/325) 1 tab PRN Q6HRS PRN PO PAIN 02/26/21 22:00 03/03/21 13:55 Quetiapine Fumarate (SEROquel) 25 mg TID PO 02/27/21 09:00 02/28/21 17:34 DC 02/28/21 14:31 Cephalexin HCl (Keflex) 250 mg TID PO 02/27/21 09:00 02/28/21 10:12 DC 02/28/21 08:13 Non-Formulary Medication (Mag Hydrox/Al Hydrox/Simeth (Mag-Al Plus Suspension)) 15 ml PRN QHS PRN PO DYSPEPSIA 02/26/21 22:00 UNV Multi-Ingredient Ointment (Analgesic [place]) 1 hector PRN QID PRN TP MUSCLE PAIN 02/26/21 22:30 Ondansetron HCl (Zofran Odt) 4 mg PRN Q8HRS PRN PO NAUSEA 02/26/21 22:30 Rivastigmine Tartrate (Exelon) 4.5 mg BIDWMEALS PO 02/27/21 08:00 03/04/21 17:32 Acetaminophen (Tylenol) 650 mg PRN Q6HRS PRN PO MILD PAIN / TEMP > 100.3'F 4/16/21 22:15 UNV Al Hydroxide/Mg Hydroxide (Mylanta Plus Xs) 15 ml PRN AFTMEALHC PRN PO DYSPEPSIA 02/26/21 22:15 Magnesium Hydroxide (Milk Of Magnesia) 2,400 mg PRN QHS PRN PO 1ST CHOICE CONSTIPATION 02/26/21 22:15 Olanzapine (ZyPREXA ZYDIS) 2.5 mg PRN Q2HR PRN PO PSYCHOSIS 02/27/21 07:30 02/27/21 16:49 Trazodone HCl (Desyrel) 50 mg PRN QHS PRN PO INSOMNIA 02/27/21 07:30 03/01/21 22:11 Lactobacillus Rhamnosus (Culturelle) 1 cap BID PO 02/27/21 09:00 03/04/21 20:00 Quetiapine Fumarate (SEROquel) 37.5 mg TID PO 02/28/21 21:00 03/01/21 19:04 DC 03/01/21 14:23 Olanzapine (ZyPREXA) 2.5 mg 0900,1300,1700 PO 03/02/21 09:00 03/04/21 17:32 Memantine (Namenda) 10 mg BID PO 03/03/21 21:00 03/04/21 20:00 Sertraline HCl (Zoloft) 25 mg DAILY PO 03/04/21 09:00 03/06/21 12:00 03/04/21 12:29 Sertraline HCl (Zoloft) 50 mg DAILY PO 03/07/21 09:00 Current Medications Medications (Trade) Dose Ordered Sig/[place] Route PRN Reason Start Time Stop Time Status Last Admin Dose Admin Sertraline HCl (Zoloft) 25 mg DAILY PO 03/04/21 09:00 03/06/21 12:00 03/04/21 12:29 I have reviewed the current psychotropics carefully including drug interactions. Risk benefit ratio favors no change other than as noted in my dictated progress note. Diagnosis: Problems: (1) Dementia, vascular, with delusions (2) Bipolar disorder, current episode mixed, severe, with psychotic features (3) Dementia in Alzheimer's disease with depression (4) Dementia in Alzheimer's disease with delusions (5) Major neurocognitive disorder (6) Dementia in Alzheimer's disease with early onset with behavioral disturbance (7) Dementia with behavioral disturbance (8) Impulse control disorder (9) Dementia, vascular, with depression (10) Anxiety disorder DUGLAS SMALL MD Mar 05, 2021 07:17
--- NOTE | 2021-03-05 07:40 | PDOC ---
Exam Note: Carlos Note: This note is a late entry for 03/04/2021 covers elements not covered in my initial note. Subjective: The patient was seen individually in the evening of 03/04/2021 with Cliff HERNDON, discussed and reviewed the chart. The patient slept 6-3/4 hours previous night. She slept reasonably previous night, slept in, this morning, resistive at times to medications, frequently wanting to be put to bed. Review of Systems: Ambulation impaired in wheelchair. No CV, , pulmonary, eye, ENT system symptoms on review. Mental Status Exam: The patient is oriented to herself and situation. Speech is coherent, has some latency. Abstraction is fair. Computation is impaired. Language function intact. Attention span is short. Mood and affect withdrawn. Laboratory Data: Reviewed. Impression: Bipolar disorder, mixed. Major neurocognitive disorder Alzheimer vascular with delusion, depression, behavioral disturbance. Impulse control disorder unspecified. Anxiety disorder unspecified. Plan: We will make further adjustments in her psychotropics as clinically indicated. Assessment: Vital Signs/I&O: Vital Signs Date Time Temp Pulse Resp B/P (MAP) Pulse Ox O2 Delivery O2 Flow Rate FiO2 03/05/21 05:53 97.5 92 20 130/71 (90) 96 03/02/21 06:05 Room Air I & O 03/04/21 03/04/21 03/05/21 15:00 23:00 07:00 Intake Total 0 ml 360 ml Balance 0 ml 360 ml Labs: Laboratory Tests Test 03/05/21 06:20 White Blood Count 14.1 x10^3/uL (4.0-11.0) H Red Blood Count 3.97 x10^6/uL (3.50-5.40) Hemoglobin 10.4 g/dL (12.0-15.5) L Hematocrit 31.9 % (36.0-47.0) L Mean Corpuscular Volume 80 fL (79-100) Mean Corpuscular Hemoglobin 26 pg (25-35) Mean Corpuscular Hemoglobin Concent 33 g/dL (31-37) Red Cell Distribution Width 18.8 % (11.5-14.5) H Platelet Count 471 x10^3/uL (140-400) H Neutrophils (%) (Auto) 63 % (31-73) Lymphocytes (%) (Auto) 28 % (24-48) Monocytes (%) (Auto) 5 % (0-9) Eosinophils (%) (Auto) 3 % (0-3) Basophils (%) (Auto) 2 % (0-3) Neutrophils # (Auto) 8.9 x10^3uL (1.8-7.7) H Lymphocytes # (Auto) 3.9 x10^3/uL (1.0-4.8) Monocytes # (Auto) 0.7 x10^3/uL (0.0-1.1) Eosinophils # (Auto) 0.4 x10^3/uL (0.0-0.7) Basophils # (Auto) 0.2 x10^3/uL (0.0-0.2) Platelet Estimate Pending Sodium Level 142 mmol/L (136-145) Potassium Level 4.4 mmol/L (3.5-5.1) Chloride Level 108 mmol/L (98-107) H Carbon Dioxide Level 28 mmol/L (21-32) Anion Gap 6 (6-14) Blood Urea Nitrogen 10 mg/dL (7-20) Creatinine 0.7 mg/dL (0.6-1.0) Estimated GFR (Cockcroft-Gault) 79.3 BUN/Creatinine Ratio 14 (6-20) Glucose Level 83 mg/dL (70-99) Calcium Level 8.0 mg/dL (8.5-10.1) L Total Bilirubin 0.1 mg/dL (0.2-1.0) L Aspartate Amino Transferase (AST) 12 U/L (15-37) L Alanine Aminotransferase (ALT) 9 U/L (14-59) L Alkaline Phosphatase 74 U/L (46-116) Total Protein 6.0 g/dL (6.4-8.2) L Albumin 2.1 g/dL (3.4-5.0) L Albumin/Globulin Ratio 0.5 (1.0-1.7) L Current Medications: Meds: Laboratory Tests Test 03/05/21 06:20 White Blood Count 14.1 x10^3/uL Red Blood Count 3.97 x10^6/uL Hemoglobin 10.4 g/dL Hematocrit 31.9 % Mean Corpuscular Volume 80 fL Mean Corpuscular Hemoglobin 26 pg Mean Corpuscular Hemoglobin Concent 33 g/dL Red Cell Distribution Width 18.8 % Platelet Count 471 x10^3/uL Neutrophils (%) (Auto) 63 % Lymphocytes (%) (Auto) 28 % Monocytes (%) (Auto) 5 % Eosinophils (%) (Auto) 3 % Basophils (%) (Auto) 2 % Neutrophils # (Auto) 8.9 x10^3uL Lymphocytes # (Auto) 3.9 x10^3/uL Monocytes # (Auto) 0.7 x10^3/uL Eosinophils # (Auto) 0.4 x10^3/uL Basophils # (Auto) 0.2 x10^3/uL Platelet Estimate Pending Sodium Level 142 mmol/L Potassium Level 4.4 mmol/L Chloride Level 108 mmol/L Carbon Dioxide Level 28 mmol/L Anion Gap 6 Blood Urea Nitrogen 10 mg/dL Creatinine 0.7 mg/dL Estimated GFR (Cockcroft-Gault) 79.3 BUN/Creatinine Ratio 14 Glucose Level 83 mg/dL Calcium Level 8.0 mg/dL Total Bilirubin 0.1 mg/dL Aspartate Amino Transf (AST/SGOT) 12 U/L Alanine Aminotransferase (ALT/SGPT) 9 U/L Alkaline Phosphatase 74 U/L Total Protein 6.0 g/dL Albumin 2.1 g/dL Albumin/Globulin Ratio 0.5 Current Medications Medications (Trade) Dose Ordered Sig/Magdalena Route PRN Reason Start Time Stop Time Status Last Admin Dose Admin Acetaminophen (Tylenol) 650 mg PRN Q6HRS PRN PO MILD PAIN / TEMP > 100.3'F 02/26/21 22:00 Bisacodyl (Dulcolax Supp) 10 mg PRN DAILY PRN 2nd CHOICE CONSTIPATION 02/26/21 22:00 Docusate Sodium (Colace) 100 mg DAILY PO 02/27/21 09:00 03/04/21 12:30 Famotidine (Pepcid) 20 mg QHS PO 02/27/21 21:00 03/04/21 20:00 Gabapentin (Neurontin) 100 mg QHS PO 02/27/21 21:00 03/04/21 20:01 Lactase (Lactaid) 3,000 unit TID PO 02/27/21 09:00 03/04/21 20:00 Levothyroxine Sodium (Synthroid) 25 mcg DAILY06 PO 02/27/21 06:00 03/05/21 06:02 Melatonin (Melatonin) 3 mg QHS PO 02/27/21 21:00 03/04/21 20:00 Memantine (Namenda) 5 mg BID PO 02/27/21 09:00 03/03/21 16:00 DC 03/03/21 08:13 Mirtazapine (Remeron) 7.5 mg QHS PO 02/27/21 21:00 03/04/21 20:00 Oxycodone/ Acetaminophen (Percocet 10/325) 1 tab PRN Q6HRS PRN PO PAIN 02/26/21 22:00 03/03/21 13:55 Quetiapine Fumarate (SEROquel) 25 mg TID PO 02/27/21 09:00 02/28/21 17:34 DC 02/28/21 14:31 Cephalexin HCl (Keflex) 250 mg TID PO 02/27/21 09:00 02/28/21 10:12 DC 02/28/21 08:13 Non-Formulary Medication (Mag Hydrox/Al Hydrox/Simeth (Mag-Al Plus Suspension)) 15 ml PRN QHS PRN PO DYSPEPSIA 02/26/21 22:00 UNV Multi-Ingredient Ointment (Analgesic [place]) 1 hector PRN QID PRN TP MUSCLE PAIN 02/26/21 22:30 Ondansetron HCl (Zofran Odt) 4 mg PRN Q8HRS PRN PO NAUSEA 02/26/21 22:30 Rivastigmine Tartrate (Exelon) 4.5 mg BIDWMEALS PO 02/27/21 08:00 03/04/21 17:32 Acetaminophen (Tylenol) 650 mg PRN Q6HRS PRN PO MILD PAIN / TEMP > 100.3'F 02/26/21 22:15 UNV Al Hydroxide/Mg Hydroxide (Mylanta Plus Xs) 15 ml PRN AFTMEALHC PRN PO DYSPEPSIA 02/26/21 22:15 Magnesium Hydroxide (Milk Of Magnesia) 2,400 mg PRN QHS PRN PO 1ST CHOICE CONSTIPATION 02/26/21 22:15 Olanzapine (ZyPREXA ZYDIS) 2.5 mg PRN Q2HR PRN PO PSYCHOSIS 02/27/21 07:30 02/27/21 16:49 Trazodone HCl (Desyrel) 50 mg PRN QHS PRN PO INSOMNIA 02/27/21 07:30 03/01/21 22:11 Lactobacillus Rhamnosus (Culturelle) 1 cap BID PO 02/27/21 09:00 03/04/21 20:00 Quetiapine Fumarate (SEROquel) 37.5 mg TID PO 02/28/21 21:00 03/01/21 19:04 DC 03/01/21 14:23 Olanzapine (ZyPREXA) 2.5 mg 0900,1300,1700 PO 03/02/21 09:00 03/04/21 17:32 Memantine (Namenda) 10 mg BID PO 03/03/21 21:00 03/04/21 20:00 Sertraline HCl (Zoloft) 25 mg DAILY PO 03/04/21 09:00 03/06/21 12:00 03/04/21 12:29 Sertraline HCl (Zoloft) 50 mg DAILY PO 03/07/21 09:00 Current Medications Medications (Trade) Dose Ordered Sig/[place]dalena Route PRN Reason Start Time Stop Time Status Last Admin Dose Admin Sertraline HCl (Zoloft) 25 mg DAILY PO 03/04/21 09:00 03/06/21 12:00 03/04/21 12:29 I have reviewed the current psychotropics carefully including drug interactions. Risk benefit ratio favors no change other than as noted in my dictated progress note. 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
[2021-03-05 07:53] LABS: PLT ESTIMATE INCREASED (ADEQUATE)
[2021-03-05 07:57] LABS: ANISOCYTOSIS SLIGHT; PLATELET CLUMP PRESENT
[2021-03-05] MEDS: LACTASE 3,000 UNIT TABLET PO SCH ×3 (08:09→21:23)
[2021-03-05] MEDS: OLANZapine 2.5 MG TABLET PO SCH ×3 (08:09→17:29)
[2021-03-05] MEDS: LACTOBACILLUS RHAMNOSUS GG 1 CAPSULE. PO SCH ×2 (08:09→21:23)
[2021-03-05] MEDS: MEMANTINE 10 MG TABLET. PO SCH ×2 (08:09→21:23)
[2021-03-05] MEDS: RIVASTIGMINE. 1.5 MG CAPSULE. PO SCH ×2 (08:09→17:29)
[2021-03-05] MEDS: DOCUSATE SODIUM 100 MG CAPSULE PO SCH (08:09)
[2021-03-05] MEDS: SERTRALINE 25 MG TABLET. PO SCH (08:09)
[2021-03-05 15:33] VITALS: BP 162/79
[2021-03-05] MEDS: MELATONIN 3 MG TABLET PO SCH (21:23)
[2021-03-05] MEDS: MIRTAZAPINE 7.5 MG TABLET. PO SCH (21:23)
[2021-03-05] MEDS: GABAPENTIN 100 MG CAPSULE. PO SCH (21:23)
[2021-03-05] MEDS: FAMOTIDINE 20 MG TABLET PO SCH (21:24)
--- NOTE | 2021-03-05 22:04 | PDOC ---
Exam Note: Carlos Note: Please also refer to the separate dictated note~for this date of service dictated separately.~Patient seen individually. Discussed the patient with Nursing staff reviewed the chart.~Reviewed interim history and current functioning. Reviewed vital signs,~Labs/ Radiology~and current medications noted below. Continue current treatment with the changes noted in the dictated addendum note Assessment: Vital Signs/I&O: Vital Signs Date Time Temp Pulse Resp B/P (MAP) Pulse Ox O2 Delivery O2 Flow Rate FiO2 03/05/21 15:33 97.6 87 19 162/79 (106) 100 Room Air I & O 03/04/21 03/04/21 03/05/21 15:00 23:00 07:00 Intake Total 0 ml 360 ml Balance 0 ml 360 ml Labs: Laboratory Tests Test 03/05/21 06:20 White Blood Count 14.1 x10^3/uL (4.0-11.0) H Red Blood Count 3.97 x10^6/uL (3.50-5.40) Hemoglobin 10.4 g/dL (12.0-15.5) L Hematocrit 31.9 % (36.0-47.0) L Mean Corpuscular Volume 80 fL (79-100) Mean Corpuscular Hemoglobin 26 pg (25-35) Mean Corpuscular Hemoglobin Concent 33 g/dL (31-37) Red Cell Distribution Width 18.8 % (11.5-14.5) H Platelet Count 471 x10^3/uL (140-400) H Neutrophils (%) (Auto) 63 % (31-73) Lymphocytes (%) (Auto) 28 % (24-48) Monocytes (%) (Auto) 5 % (0-9) Eosinophils (%) (Auto) 3 % (0-3) Basophils (%) (Auto) 2 % (0-3) Neutrophils # (Auto) 8.9 x10^3uL (1.8-7.7) H Lymphocytes # (Auto) 3.9 x10^3/uL (1.0-4.8) Monocytes # (Auto) 0.7 x10^3/uL (0.0-1.1) Eosinophils # (Auto) 0.4 x10^3/uL (0.0-0.7) Basophils # (Auto) 0.2 x10^3/uL (0.0-0.2) Platelet Estimate Increased (ADEQUATE) Platelet Clumps, EDTA Present Anisocytosis Slight Sodium Level 142 mmol/L (136-145) Potassium Level 4.4 mmol/L (3.5-5.1) Chloride Level 108 mmol/L (98-107) H Carbon Dioxide Level 28 mmol/L (21-32) Anion Gap 6 (6-14) Blood Urea Nitrogen 10 mg/dL (7-20) Creatinine 0.7 mg/dL (0.6-1.0) Estimated GFR (Cockcroft-Gault) 79.3 BUN/Creatinine Ratio 14 (6-20) Glucose Level 83 mg/dL (70-99) Calcium Level 8.0 mg/dL (8.5-10.1) L Total Bilirubin 0.1 mg/dL (0.2-1.0) L Aspartate Amino Transferase (AST) 12 U/L (15-37) L Alanine Aminotransferase (ALT) 9 U/L (14-59) L Alkaline Phosphatase 74 U/L (46-116) Total Protein 6.0 g/dL (6.4-8.2) L Albumin 2.1 g/dL (3.4-5.0) L Albumin/Globulin Ratio 0.5 (1.0-1.7) L Current Medications: Meds: Laboratory Tests Test 03/05/21 06:20 White Blood Count 14.1 x10^3/uL Red Blood Count 3.97 x10^6/uL Hemoglobin 10.4 g/dL Hematocrit 31.9 % Mean Corpuscular Volume 80 fL Mean Corpuscular Hemoglobin 26 pg Mean Corpuscular Hemoglobin Concent 33 g/dL Red Cell Distribution Width 18.8 % Platelet Count 471 x10^3/uL Neutrophils (%) (Auto) 63 % Lymphocytes (%) (Auto) 28 % Monocytes (%) (Auto) 5 % Eosinophils (%) (Auto) 3 % Basophils (%) (Auto) 2 % Neutrophils # (Auto) 8.9 x10^3uL Lymphocytes # (Auto) 3.9 x10^3/uL Monocytes # (Auto) 0.7 x10^3/uL Eosinophils # (Auto) 0.4 x10^3/uL Basophils # (Auto) 0.2 x10^3/uL Platelet Estimate Increased Platelet Clumps, EDTA Present Anisocytosis Slight Sodium Level 142 mmol/L Potassium Level 4.4 mmol/L Chloride Level 108 mmol/L Carbon Dioxide Level 28 mmol/L Anion Gap 6 Blood Urea Nitrogen 10 mg/dL Creatinine 0.7 mg/dL Estimated GFR (Cockcroft-Gault) 79.3 BUN/Creatinine Ratio 14 Glucose Level 83 mg/dL Calcium Level 8.0 mg/dL Total Bilirubin 0.1 mg/dL Aspartate Amino Transf (AST/SGOT) 12 U/L Alanine Aminotransferase (ALT/SGPT) 9 U/L Alkaline Phosphatase 74 U/L Total Protein 6.0 g/dL Albumin 2.1 g/dL Albumin/Globulin Ratio 0.5 Current Medications Medications (Trade) Dose Ordered Sig/Magdalena Route PRN Reason Start Time Stop Time Status Last Admin Dose Admin Acetaminophen (Tylenol) 650 mg PRN Q6HRS PRN PO MILD PAIN / TEMP > 100.3'F 02/26/21 22:00 Bisacodyl (Dulcolax Supp) 10 mg PRN DAILY PRN RC 2nd CHOICE CONSTIPATION 02/26/21 22:00 Docusate Sodium (Colace) 100 mg DAILY PO 02/27/21 09:00 03/05/21 08:09 Famotidine (Pepcid) 20 mg QHS PO 02/27/21 21:00 03/05/21 21:24 Gabapentin (Neurontin) 100 mg QHS PO 02/27/21 21:00 03/05/21 21:23 Lactase (Lactaid) 3,000 unit TID PO 02/27/21 09:00 03/05/21 21:23 Levothyroxine Sodium (Synthroid) 25 mcg DAILY06 PO 02/27/21 06:00 03/05/21 06:02 Melatonin (Melatonin) 3 mg QHS PO 02/27/21 21:00 03/05/21 21:23 Memantine (Namenda) 5 mg BID PO 02/27/21 09:00 03/03/21 16:00 DC 03/03/21 08:13 Mirtazapine (Remeron) 7.5 mg QHS PO 02/27/21 21:00 03/05/21 21:23 Oxycodone/ Acetaminophen (Percocet 10/325) 1 tab PRN Q6HRS PRN PO PAIN 02/26/21 22:00 03/03/21 13:55 Quetiapine Fumarate (SEROquel) 25 mg TID PO 02/27/21 09:00 02/28/21 17:34 DC 02/28/21 14:31 Cephalexin HCl (Keflex) 250 mg TID PO 02/27/21 09:00 02/28/21 10:12 DC 02/28/21 08:13 Non-Formulary Medication (Mag Hydrox/Al Hydrox/Simeth (Mag-Al Plus Suspension)) 15 ml PRN QHS PRN PO DYSPEPSIA 02/26/21 22:00 UNV Multi-Ingredient Ointment (Analgesic [place]) 1 hector PRN QID PRN TP MUSCLE PAIN 02/26/21 22:30 Ondansetron HCl (Zofran Odt) 4 mg PRN Q8HRS PRN PO NAUSEA 02/26/21 22:30 Rivastigmine Tartrate (Exelon) 4.5 mg BIDWMEALS PO 02/27/21 08:00 03/05/21 17:29 Acetaminophen (Tylenol) 650 mg PRN Q6HRS PRN PO MILD PAIN / TEMP > 100.3'F 02/26/21 22:15 UNV Al Hydroxide/Mg Hydroxide (Mylanta Plus Xs) 15 ml PRN AFTMEALHC PRN PO DYSPEPSIA 02/26/21 22:15 Magnesium Hydroxide (Milk Of Magnesia) 2,400 mg PRN QHS PRN PO 1ST CHOICE CONSTIPATION 02/26/21 22:15 Olanzapine (ZyPREXA ZYDIS) 2.5 mg PRN Q2HR PRN PO PSYCHOSIS 02/27/21 07:30 02/27/21 16:49 Trazodone HCl (Desyrel) 50 mg PRN QHS PRN PO INSOMNIA 02/27/21 07:30 03/01/21 22:11 Lactobacillus Rhamnosus (Culturelle) 1 cap BID PO 02/27/21 09:00 03/05/21 21:23 Quetiapine Fumarate (SEROquel) 37.5 mg TID PO 02/28/21 21:00 03/01/21 19:04 DC 03/01/21 14:23 Olanzapine (ZyPREXA) 2.5 mg 0900,1300,1700 PO 03/02/21 09:00 03/05/21 17:29 Memantine (Namenda) 10 mg BID PO 03/03/21 21:00 03/05/21 21:23 Sertraline HCl (Zoloft) 25 mg DAILY PO 03/04/21 09:00 03/06/21 12:00 03/05/21 08:09 Sertraline HCl (Zoloft) 50 mg DAILY PO 03/07/21 09:00 I have reviewed the current psychotropics carefully including drug interactions. Risk benefit ratio favors no change other than as noted in my dictated progress note. 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
[2021-03-06] MEDS: LEVOTHYROXINE 25 MCG TABLET. PO SCH (05:59)
[2021-03-06 06:34] VITALS: BP 126/74
[2021-03-06] MEDS: RIVASTIGMINE. 1.5 MG CAPSULE. PO SCH ×2 (08:16→17:40)
[2021-03-06] MEDS: LACTOBACILLUS RHAMNOSUS GG 1 CAPSULE. PO SCH ×2 (08:16→20:30)
[2021-03-06] MEDS: DOCUSATE SODIUM 100 MG CAPSULE PO SCH (08:16)
[2021-03-06] MEDS: SERTRALINE 25 MG TABLET. PO SCH (08:16)
[2021-03-06] MEDS: LACTASE 3,000 UNIT TABLET PO SCH ×3 (08:16→20:30)
[2021-03-06] MEDS: MEMANTINE 10 MG TABLET. PO SCH ×2 (08:16→20:30)
[2021-03-06] MEDS: OLANZapine 2.5 MG TABLET PO SCH ×3 (08:17→17:41)
[2021-03-06 15:49] VITALS: BP 136/78
[2021-03-06] MEDS: MIRTAZAPINE 7.5 MG TABLET. PO SCH (20:30)
[2021-03-06] MEDS: MELATONIN 3 MG TABLET PO SCH (20:30)
[2021-03-06] MEDS: FAMOTIDINE 20 MG TABLET PO SCH (20:30)
[2021-03-06] MEDS: GABAPENTIN 100 MG CAPSULE. PO SCH (20:30)
--- NOTE | 2021-03-06 21:55 | PDOC ---
Exam Note: Carlos Note: Please also refer to the separate dictated note~for this date of service dictated separately.~Patient seen individually. Discussed the patient with Nursing staff reviewed the chart.~Reviewed interim history and current functioning. Reviewed vital signs,~Labs/ Radiology~and current medications noted below. Continue current treatment with the changes noted in the dictated addendum note Assessment: Vital Signs/I&O: Vital Signs Date Time Temp Pulse Resp B/P (MAP) Pulse Ox O2 Delivery O2 Flow Rate FiO2 03/06/21 15:49 97.3 58 16 136/78 (97) 95 03/05/21 15:33 Room Air I & O 03/05/21 03/05/21 03/06/21 15:00 23:00 07:00 Intake Total 480 ml 240 ml 120 ml Balance 480 ml 240 ml 120 ml Current Medications: Meds: Current Medications Medications (Trade) Dose Ordered Sig/Magdalena Route PRN Reason Start Time Stop Time Status Last Admin Dose Admin Acetaminophen (Tylenol) 650 mg PRN Q6HRS PRN PO MILD PAIN / TEMP > 100.3'F 02/26/21 22:00 Bisacodyl (Dulcolax Supp) 10 mg PRN DAILY PRN RC 2nd CHOICE CONSTIPATION 02/26/21 22:00 Docusate Sodium (Colace) 100 mg DAILY PO 02/27/21 09:00 03/06/21 08:16 Famotidine (Pepcid) 20 mg QHS PO 02/27/21 21:00 03/06/21 20:30 Gabapentin (Neurontin) 100 mg QHS PO 02/27/21 21:00 03/06/21 20:30 Lactase (Lactaid) 3,000 unit TID PO 02/27/21 09:00 03/06/21 20:30 Levothyroxine Sodium (Synthroid) 25 mcg DAILY06 PO 02/27/21 06:00 03/06/21 05:59 Melatonin (Melatonin) 3 mg QHS PO 02/27/21 21:00 03/06/21 20:30 Memantine (Namenda) 5 mg BID PO 02/27/21 09:00 03/03/21 16:00 DC 03/03/21 08:13 Mirtazapine (Remeron) 7.5 mg QHS PO 02/27/21 21:00 03/06/21 20:30 Oxycodone/ Acetaminophen (Percocet 10/325) 1 tab PRN Q6HRS PRN PO PAIN 02/26/21 22:00 03/03/21 13:55 Quetiapine Fumarate (SEROquel) 25 mg TID PO 02/27/21 09:00 02/28/21 17:34 DC 02/28/21 14:31 Cephalexin HCl (Keflex) 250 mg TID PO 02/27/21 09:00 02/28/21 10:12 DC 02/28/21 08:13 Non-Formulary Medication (Mag Hydrox/Al Hydrox/Simeth (Mag-Al Plus Suspension)) 15 ml PRN QHS PRN PO DYSPEPSIA 02/26/21 22:00 UNV Multi-Ingredient Ointment (Analgesic [place]) 1 hector PRN QID PRN TP MUSCLE PAIN 02/26/21 22:30 Ondansetron HCl (Zofran Odt) 4 mg PRN Q8HRS PRN PO NAUSEA 02/26/21 22:30 Rivastigmine Tartrate (Exelon) 4.5 mg BIDWMEALS PO 02/27/21 08:00 03/06/21 17:40 Acetaminophen (Tylenol) 650 mg PRN Q6HRS PRN PO MILD PAIN / TEMP > 100.3'F 02/26/21 22:15 UNV Al Hydroxide/Mg Hydroxide (Mylanta Plus Xs) 15 ml PRN AFTMEALHC PRN PO DYSPEPSIA 02/26/21 22:15 Magnesium Hydroxide (Milk Of Magnesia) 2,400 mg PRN QHS PRN PO 1ST CHOICE CONSTIPATION 02/26/21 22:15 Olanzapine (ZyPREXA ZYDIS) 2.5 mg PRN Q2HR PRN PO PSYCHOSIS 02/27/21 07:30 02/27/21 16:49 Trazodone HCl (Desyrel) 50 mg PRN QHS PRN PO INSOMNIA 02/27/21 07:30 03/01/21 22:11 Lactobacillus Rhamnosus (Culturelle) 1 cap BID PO 02/27/21 09:00 03/06/21 20:30 Quetiapine Fumarate (SEROquel) 37.5 mg TID PO 02/28/21 21:00 03/01/21 19:04 DC 03/01/21 14:23 Olanzapine (ZyPREXA) 2.5 mg 0900,1300,1700 PO 03/02/21 09:00 03/06/21 17:41 Memantine (Namenda) 10 mg BID PO 03/03/21 21:00 03/06/21 20:30 Sertraline HCl (Zoloft) 25 mg DAILY PO 03/04/21 09:00 03/06/21 12:00 DC 03/06/21 08:16 Sertraline HCl (Zoloft) 50 mg DAILY PO 03/07/21 09:00 I have reviewed the current psychotropics carefully including drug interactions. Risk benefit ratio favors no change other than as noted in my dictated progress note. 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
[2021-03-07] MEDS: LEVOTHYROXINE 25 MCG TABLET. PO SCH (05:38)
[2021-03-07 06:14] VITALS: BP 130/82
[2021-03-07] MEDS: RIVASTIGMINE. 1.5 MG CAPSULE. PO SCH ×2 (08:08→17:13)
[2021-03-07] MEDS: LACTOBACILLUS RHAMNOSUS GG 1 CAPSULE. PO SCH ×2 (08:08→20:36)
[2021-03-07] MEDS: DOCUSATE SODIUM 100 MG CAPSULE PO SCH (08:09)
[2021-03-07] MEDS: OLANZapine 2.5 MG TABLET PO SCH ×3 (08:09→17:15)
[2021-03-07] MEDS: MEMANTINE 10 MG TABLET. PO SCH ×2 (08:09→20:36)
[2021-03-07] MEDS: LACTASE 3,000 UNIT TABLET PO SCH ×3 (08:09→20:36)
[2021-03-07] MEDS: SERTRALINE 50 MG TABLET. PO SCH (08:09)
[2021-03-07 15:54] VITALS: BP 121/77
[2021-03-07] MEDS: FAMOTIDINE 20 MG TABLET PO SCH (20:36)
[2021-03-07] MEDS: MELATONIN 3 MG TABLET PO SCH (20:36)
[2021-03-07] MEDS: MIRTAZAPINE 7.5 MG TABLET. PO SCH (20:36)
[2021-03-07] MEDS: GABAPENTIN 100 MG CAPSULE. PO SCH (20:36)
--- NOTE | 2021-03-07 22:04 | PDOC ---
Exam Note: Carlos Note: Please also refer to the separate dictated note~for this date of service dictated separately.~Patient seen individually. Discussed the patient with Nursing staff reviewed the chart.~Reviewed interim history and current functioning. Reviewed vital signs,~Labs/ Radiology~and current medications noted below. Continue current treatment with the changes noted in the dictated addendum note Assessment: Vital Signs/I&O: Vital Signs Date Time Temp Pulse Resp B/P (MAP) Pulse Ox O2 Delivery O2 Flow Rate FiO2 03/07/21 15:54 97.3 67 16 121/77 (92) 99 03/05/21 15:33 Room Air I & O 03/06/21 03/06/21 03/07/21 15:00 23:00 07:00 Intake Total 600 ml 480 ml Balance 600 ml 480 ml Current Medications: Meds: Current Medications Medications (Trade) Dose Ordered Sig/Magdalena Route PRN Reason Start Time Stop Time Status Last Admin Dose Admin Acetaminophen (Tylenol) 650 mg PRN Q6HRS PRN PO MILD PAIN / TEMP > 100.3'F 02/26/21 22:00 Bisacodyl (Dulcolax Supp) 10 mg PRN DAILY PRN RC 2nd CHOICE CONSTIPATION 02/26/21 22:00 Docusate Sodium (Colace) 100 mg DAILY PO 02/27/21 09:00 03/07/21 08:09 Famotidine (Pepcid) 20 mg QHS PO 02/27/21 21:00 03/07/21 20:36 Gabapentin (Neurontin) 100 mg QHS PO 02/27/21 21:00 03/07/21 20:36 Lactase (Lactaid) 3,000 unit TID PO 02/27/21 09:00 03/07/21 20:36 Levothyroxine Sodium (Synthroid) 25 mcg DAILY06 PO 02/27/21 06:00 03/07/21 05:38 Melatonin (Melatonin) 3 mg QHS PO 02/27/21 21:00 03/07/21 20:36 Memantine (Namenda) 5 mg BID PO 02/27/21 09:00 03/03/21 16:00 DC 03/03/21 08:13 Mirtazapine (Remeron) 7.5 mg QHS PO 02/27/21 21:00 03/07/21 20:36 Oxycodone/ Acetaminophen (Percocet 10/325) 1 tab PRN Q6HRS PRN PO PAIN 02/26/21 22:00 03/03/21 13:55 Quetiapine Fumarate (SEROquel) 25 mg TID PO 02/27/21 09:00 02/28/21 17:34 DC 02/28/21 14:31 Cephalexin HCl (Keflex) 250 mg TID PO 02/27/21 09:00 02/28/21 10:12 DC 02/28/21 08:13 Non-Formulary Medication (Mag Hydrox/Al Hydrox/Simeth (Mag-Al Plus Suspension)) 15 ml PRN QHS PRN PO DYSPEPSIA 02/26/21 22:00 UNV Multi-Ingredient Ointment (Analgesic [place]) 1 hector PRN QID PRN TP MUSCLE PAIN 02/26/21 22:30 Ondansetron HCl (Zofran Odt) 4 mg PRN Q8HRS PRN PO NAUSEA 02/26/21 22:30 Rivastigmine Tartrate (Exelon) 4.5 mg BIDWMEALS PO 02/27/21 08:00 03/07/21 17:13 Acetaminophen (Tylenol) 650 mg PRN Q6HRS PRN PO MILD PAIN / TEMP > 100.3'F 02/26/21 22:15 UNV Al Hydroxide/Mg Hydroxide (Mylanta Plus Xs) 15 ml PRN AFTMEALHC PRN PO DYSPEPSIA 02/26/21 22:15 Magnesium Hydroxide (Milk Of Magnesia) 2,400 mg PRN QHS PRN PO 1ST CHOICE CONSTIPATION 02/26/21 22:15 Olanzapine (ZyPREXA ZYDIS) 2.5 mg PRN Q2HR PRN PO PSYCHOSIS 02/27/21 07:30 02/27/21 16:49 Trazodone HCl (Desyrel) 50 mg PRN QHS PRN PO INSOMNIA 02/27/21 07:30 03/01/21 22:11 Lactobacillus Rhamnosus (Culturelle) 1 cap BID PO 02/27/21 09:00 03/07/21 20:36 Quetiapine Fumarate (SEROquel) 37.5 mg TID PO 02/28/21 21:00 03/01/21 19:04 DC 03/01/21 14:23 Olanzapine (ZyPREXA) 2.5 mg 0900,1300,1700 PO 03/02/21 09:00 03/07/21 17:15 Memantine (Namenda) 10 mg BID PO 03/03/21 21:00 03/07/21 20:36 Sertraline HCl (Zoloft) 25 mg DAILY PO 03/04/21 09:00 03/06/21 12:00 DC 03/06/21 08:16 Sertraline HCl (Zoloft) 50 mg DAILY PO 03/07/21 09:00 03/07/21 08:09 Current Medications Medications (Trade) Dose Ordered Sig/Magdalena Route PRN Reason Start Time Stop Time Status Last Admin Dose Admin Sertraline HCl (Zoloft) 50 mg DAILY PO 03/07/21 09:00 03/07/21 08:09 I have reviewed the current psychotropics carefully including drug interactions. Risk benefit ratio favors no change other than as noted in my dictated progress note. Diagnosis: Problems: (1) Dementia, vascular, with delusions (2) Bipolar disorder, current episode mixed, severe, with psychotic features (3) Dementia in Alzheimer's disease with depression (4) Dementia in Alzheimer's disease with delusions (5) Major neurocognitive disorder (6) Dementia in Alzheimer's disease with early onset with behavioral disturbance (7) Impulse control disorder (8) Dementia, vascular, with depression (9) Anxiety disorder DUGLAS SMALL MD Mar 07, 2021 22:04
[2021-03-08] MEDS: LEVOTHYROXINE 25 MCG TABLET. PO SCH (06:11)
[2021-03-08 06:31] VITALS: BP 107/66
--- NOTE | 2021-03-08 06:34 | PDOC ---
Exam Note: Carlos Note: This note is a late entry for 03/05/2021 covers elements not covered in my initial note. Subjective: The patient was seen individually in the evening of 03/05/2021 with nursing staff, discussed and reviewed the chart. The patient slept 7-1/2 hours previous night. Review of Systems: Ambulation impaired in wheelchair. No CV, , pulmonary, eye, ENT system symptoms on review. Mental Status Exam: The patient is oriented to herself and situation. I met with her in her room in the evening. She is often wanting to stay in bed, gets tired, much less irritable if she is able to do this. Speech is coherent, has some latency. Abstraction is fair. Computation is impaired. Language function intact. Attention span is short. Mood and affect withdrawn. Laboratory Data: Reviewed. Impression: Bipolar disorder, mixed. Major neurocognitive disorder Alzheimer vascular with delusion, depression, behavioral disturbance. Impulse control disorder unspecified. Anxiety disorder unspecified. Plan: We will make further adjustments in her psychotropics as clinically dillon cated. Assessment: Vital Signs/I&O: Vital Signs Date Time Temp Pulse Resp B/P (MAP) Pulse Ox O2 Delivery O2 Flow Rate FiO2 03/08/21 06:31 97.2 63 18 107/66 (80) 98 03/05/21 15:33 Room Air I & O 03/07/21 03/07/21 03/08/21 15:00 23:00 07:00 Intake Total 480 ml 720 ml Balance 480 ml 720 ml Current Medications: Meds: Current Medications Medications (Trade) Dose Ordered Sig/Magdalena Route PRN Reason Start Time Stop Time Status Last Admin Dose Admin Acetaminophen (Tylenol) 650 mg PRN Q6HRS PRN PO MILD PAIN / TEMP > 100.3'F 02/26/21 22:00 Bisacodyl (Dulcolax Supp) 10 mg PRN DAILY PRN RC 2nd CHOICE CONSTIPATION 02/26/21 22:00 Docusate Sodium (Colace) 100 mg DAILY PO 02/27/21 09:00 03/07/21 08:09 Famotidine (Pepcid) 20 mg QHS PO 02/27/21 21:00 03/07/21 20:36 Gabapentin (Neurontin) 100 mg QHS PO 02/27/21 21:00 03/07/21 20:36 Lactase (Lactaid) 3,000 unit TID PO 02/27/21 09:00 03/07/21 20:36 Levothyroxine Sodium (Synthroid) 25 mcg DAILY06 PO 02/27/21 06:00 03/08/21 06:11 Melatonin (Melatonin) 3 mg QHS PO 02/27/21 21:00 03/07/21 20:36 Memantine (Namenda) 5 mg BID PO 02/27/21 09:00 03/03/21 16:00 DC 03/03/21 08:13 Mirtazapine (Remeron) 7.5 mg QHS PO 02/27/21 21:00 03/07/21 20:36 Oxycodone/ Acetaminophen (Percocet 10/325) 1 tab PRN Q6HRS PRN PO PAIN 02/26/21 22:00 03/03/21 13:55 Quetiapine Fumarate (SEROquel) 25 mg TID PO 02/27/21 09:00 02/28/21 17:34 DC 02/28/21 14:31 Cephalexin HCl (Keflex) 250 mg TID PO 02/27/21 09:00 02/28/21 10:12 DC 02/28/21 08:13 Non-Formulary Medication (Mag Hydrox/Al Hydrox/Simeth (Mag-Al Plus Suspension)) 15 ml PRN QHS PRN PO DYSPEPSIA 02/26/21 22:00 UNV Multi-Ingredient Ointment (Analgesic [place]) 1 hector PRN QID PRN TP MUSCLE PAIN 02/26/21 22:30 Ondansetron HCl (Zofran Odt) 4 mg PRN Q8HRS PRN PO NAUSEA 02/26/21 22:30 Rivastigmine Tartrate (Exelon) 4.5 mg BIDWMEALS PO 02/27/21 08:00 03/07/21 17:13 Acetaminophen (Tylenol) 650 mg PRN Q6HRS PRN PO MILD PAIN / TEMP > 100.3'F 02/26/21 22:15 UNV Al Hydroxide/Mg Hydroxide (Mylanta Plus Xs) 15 ml PRN AFTMEALHC PRN PO DYSPEPSIA 02/26/21 22:15 Magnesium Hydroxide (Milk Of Magnesia) 2,400 mg PRN QHS PRN PO 1ST CHOICE CONSTIPATION 02/26/21 22:15 Olanzapine (ZyPREXA ZYDIS) 2.5 mg PRN Q2HR PRN PO PSYCHOSIS 02/27/21 07:30 02/27/21 16:49 Trazodone HCl (Desyrel) 50 mg PRN QHS PRN PO INSOMNIA 02/27/21 07:30 03/01/21 22:11 Lactobacillus Rhamnosus (Culturelle) 1 cap BID PO 02/27/21 09:00 03/07/21 20:36 Quetiapine Fumarate (SEROquel) 37.5 mg TID PO 02/28/21 21:00 03/01/21 19:04 DC 03/01/21 14:23 Olanzapine (ZyPREXA) 2.5 mg 0900,1300,1700 PO 03/02/21 09:00 03/07/21 17:15 Memantine (Namenda) 10 mg BID PO 03/03/21 21:00 03/07/21 20:36 Sertraline HCl (Zoloft) 25 mg DAILY PO 03/04/21 09:00 03/06/21 12:00 DC 03/06/21 08:16 Sertraline HCl (Zoloft) 50 mg DAILY PO 03/07/21 09:00 03/07/21 08:09 Current Medications Medications (Trade) Dose Ordered Sig/Magdalena Route PRN Reason Start Time Stop Time Status Last Admin Dose Admin Sertraline HCl (Zoloft) 50 mg DAILY PO 03/07/21 09:00 03/07/21 08:09 I have reviewed the current psychotropics carefully including drug interactions. Risk benefit ratio favors no change other than as noted in my dictated progress note. 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
--- NOTE | 2021-03-08 07:14 | PDOC ---
Exam Note: Carlos Note: This note is a late entry for 03/06/2021 covers elements not covered in my initial note. Subjective: The patient was seen individually in the evening of 03/06/2021 with Elaine HERNDON, discussed and reviewed the chart. The patient slept 8 hours previous night. I met with her in her room. She was lying in bed, was pleasant, smiling as I met with her. Review of Systems: Ambulation impaired in wheelchair. She needs 2-person transfer. No CV, , pulmonary, eye, ENT system symptoms on review. Mental Status Exam: The patient is oriented to herself and situation. She has not been yelling. Mood lability is better other than when she wants to get to bed and someone is not available to do it quickly for her. Speech is coherent, has some latency. Abstraction is fair. Computation is impaired. Language function intact. Attention span is short. Laboratory Data: Reviewed. Impression: Bipolar disorder, mixed. Major neurocognitive disorder Alzheimer vascular with delusion, depression, behavioral disturbance. Impulse control disorder unspecified. Anxiety disorder unspecified. Plan: Continue rest psychotropics unchanged. Assessment: Vital Signs/I&O: Vital Signs Date Time Temp Pulse Resp B/P (MAP) Pulse Ox O2 Delivery O2 Flow Rate FiO2 03/08/21 06:31 97.2 63 18 107/66 (80) 98 03/05/21 15:33 Room Air I & O 03/07/21 03/07/21 03/08/21 15:00 23:00 07:00 Intake Total 480 ml 720 ml Balance 480 ml 720 ml Current Medications: Meds: Current Medications Medications (Trade) Dose Ordered Sig/Magdalena Route PRN Reason Start Time Stop Time Status Last Admin Dose Admin Acetaminophen (Tylenol) 650 mg PRN Q6HRS PRN PO MILD PAIN / TEMP > 100.3'F 02/26/21 22:00 Bisacodyl (Dulcolax Supp) 10 mg PRN DAILY PRN RC 2nd CHOICE CONSTIPATION 02/26/21 22:00 Docusate Sodium (Colace) 100 mg DAILY PO 02/27/21 09:00 03/07/21 08:09 Famotidine (Pepcid) 20 mg QHS PO 02/27/21 21:00 03/07/21 20:36 Gabapentin (Neurontin) 100 mg QHS PO 02/27/21 21:00 03/07/21 20:36 Lactase (Lactaid) 3,000 unit TID PO 02/27/21 09:00 03/07/21 20:36 Levothyroxine Sodium (Synthroid) 25 mcg DAILY06 PO 02/27/21 06:00 03/08/21 06:11 Melatonin (Melatonin) 3 mg QHS PO 02/27/21 21:00 03/07/21 20:36 Memantine (Namenda) 5 mg BID PO 02/27/21 09:00 03/03/21 16:00 DC 03/03/21 08:13 Mirtazapine (Remeron) 7.5 mg QHS PO 02/27/21 21:00 03/07/21 20:36 Oxycodone/ Acetaminophen (Percocet 10/325) 1 tab PRN Q6HRS PRN PO PAIN 02/26/21 22:00 03/03/21 13:55 Quetiapine Fumarate (SEROquel) 25 mg TID PO 02/27/21 09:00 02/28/21 17:34 DC 02/28/21 14:31 Cephalexin HCl (Keflex) 250 mg TID PO 02/27/21 09:00 02/28/21 10:12 DC 02/28/21 08:13 Non-Formulary Medication (Mag Hydrox/Al Hydrox/Simeth (Mag-Al Plus Suspension)) 15 ml PRN QHS PRN PO DYSPEPSIA 02/26/21 22:00 UNV Multi-Ingredient Ointment (Analgesic [place]) 1 hector PRN QID PRN TP MUSCLE PAIN 02/26/21 22:30 Ondansetron HCl (Zofran Odt) 4 mg PRN Q8HRS PRN PO NAUSEA 02/26/21 22:30 Rivastigmine Tartrate (Exelon) 4.5 mg BIDWMEALS PO 02/27/21 08:00 03/07/21 17:13 Acetaminophen (Tylenol) 650 mg PRN Q6HRS PRN PO MILD PAIN / TEMP > 100.3'F 02/26/21 22:15 UNV Al Hydroxide/Mg Hydroxide (Mylanta Plus Xs) 15 ml PRN AFTMEALHC PRN PO DYSPEPSIA 02/26/21 22:15 Magnesium Hydroxide (Milk Of Magnesia) 2,400 mg PRN QHS PRN PO 1ST CHOICE CONSTIPATION 02/26/21 22:15 Olanzapine (ZyPREXA ZYDIS) 2.5 mg PRN Q2HR PRN PO PSYCHOSIS 02/27/21 07:30 02/27/21 16:49 Trazodone HCl (Desyrel) 50 mg PRN QHS PRN PO INSOMNIA 02/27/21 07:30 03/01/21 22:11 Lactobacillus Rhamnosus (Culturelle) 1 cap BID PO 02/27/21 09:00 03/07/21 20:36 Quetiapine Fumarate (SEROquel) 37.5 mg TID PO 02/28/21 21:00 03/01/21 19:04 DC 03/01/21 14:23 Olanzapine (ZyPREXA) 2.5 mg 0900,1300,1700 PO 03/02/21 09:00 03/07/21 17:15 Memantine (Namenda) 10 mg BID PO 03/03/21 21:00 03/07/21 20:36 Sertraline HCl (Zoloft) 25 mg DAILY PO 03/04/21 09:00 03/06/21 12:00 DC 03/06/21 08:16 Sertraline HCl (Zoloft) 50 mg DAILY PO 03/07/21 09:00 03/07/21 08:09 Current Medications Medications (Trade) Dose Ordered Sig/[place]dalena Route PRN Reason Start Time Stop Time Status Last Admin Dose Admin Sertraline HCl (Zoloft) 50 mg DAILY PO 03/07/21 09:00 03/07/21 08:09 I have reviewed the current psychotropics carefully including drug interactions. Risk benefit ratio favors no change other than as noted in my dictated progress note. Diagnosis: Problems: (1) Dementia, vascular, with delusions (2) Bipolar disorder, current episode mixed, severe, with psychotic features (3) Dementia in Alzheimer's disease with depression (4) Dementia in Alzheimer's disease with early onset with behavioral disturbance (5) Impulse control disorder (6) Dementia, vascular, with depression (7) Anxiety disorder DUGLAS SMALL MD Mar 08, 2021 07:14
--- NOTE | 2021-03-08 08:02 | PDOC ---
Exam Note: Carlos Note: This note is a late entry for 03/07/2021 covers elements not covered in my initial note. Subjective: The patient was seen individually in the evening of 03/07/2021 with Rebekah HERNDON, discussed and reviewed the chart. The patient slept 6-1/2 hours previous night. She has been refusing medications. At times she takes it later. I found her in her room of a male patient and she was confused, felt that was a room. I helped her down to her room and she was appreciative of this. Yelling has been better. Review of Systems: Ambulation impaired in wheelchair. No CV, , pulmonary, eye, ENT system symptoms on review. Mental Status Exam: The patient is oriented to herself and situation. Speech is coherent. Abstraction is fair. Computation is impaired. Language function intact. Attention span is short. Mood and affect withdrawn. Laboratory Data: Reviewed. Impression: Bipolar disorder, mixed. Major neurocognitive disorder Alzheimer vascular with delusion, depression, behavioral disturbance. Impulse control disorder unspecified. Anxiety disorder unspecified. Plan: Continue rest psychotropics unchanged. Assessment: Vital Signs/I&O: Vital Signs Date Time Temp Pulse Resp B/P (MAP) Pulse Ox O2 Delivery O2 Flow Rate FiO2 03/08/21 06:31 97.2 63 18 107/66 (80) 98 03/05/21 15:33 Room Air I & O 03/07/21 03/07/21 03/08/21 15:00 23:00 07:00 Intake Total 480 ml 720 ml Balance 480 ml 720 ml Current Medications: Meds: Current Medications Medications (Trade) Dose Ordered Sig/[place]dal[place] Route PRN Reason Start Time Stop Time Status Last Admin Dose Admin Acetaminophen (Tylenol) 650 mg PRN Q6HRS PRN PO MILD PAIN / TEMP > 100.3'F 02/26/21 22:00 Bisacodyl (Dulcolax Supp) 10 mg PRN DAILY PRN RC 2nd CHOICE CONSTIPATION 02/26/21 22:00 Docusate Sodium (Colace) 100 mg DAILY PO 02/27/21 09:00 03/07/21 08:09 Famotidine (Pepcid) 20 mg QHS PO 02/27/21 21:00 03/07/21 20:36 Gabapentin (Neurontin) 100 mg QHS PO 02/27/21 21:00 03/07/21 20:36 Lactase (Lactaid) 3,000 unit TID PO 02/27/21 09:00 03/07/21 20:36 Levothyroxine Sodium (Synthroid) 25 mcg DAILY06 PO 02/27/21 06:00 03/08/21 06:11 Melatonin (Melatonin) 3 mg QHS PO 02/27/21 21:00 03/07/21 20:36 Memantine (Namenda) 5 mg BID PO 02/27/21 09:00 03/03/21 16:00 DC 03/03/21 08:13 Mirtazapine (Remeron) 7.5 mg QHS PO 02/27/21 21:00 03/07/21 20:36 Oxycodone/ Acetaminophen (Percocet 10/325) 1 tab PRN Q6HRS PRN PO PAIN 02/26/21 22:00 03/03/21 13:55 Quetiapine Fumarate (SEROquel) 25 mg TID PO 02/27/21 09:00 02/28/21 17:34 DC 02/28/21 14:31 Cephalexin HCl (Keflex) 250 mg TID PO 02/27/21 09:00 02/28/21 10:12 DC 02/28/21 08:13 Non-Formulary Medication (Mag Hydrox/Al Hydrox/Simeth (Mag-Al Plus Suspension)) 15 ml PRN QHS PRN PO DYSPEPSIA 02/26/21 22:00 UNV Multi-Ingredient Ointment (Analgesic [place]) 1 hector PRN QID PRN TP MUSCLE PAIN 02/26/21 22:30 Ondansetron HCl (Zofran Odt) 4 mg PRN Q8HRS PRN PO NAUSEA 02/26/21 22:30 Rivastigmine Tartrate (Exelon) 4.5 mg BIDWMEALS PO 02/27/21 08:00 03/07/21 17:13 Acetaminophen (Tylenol) 650 mg PRN Q6HRS PRN PO MILD PAIN / TEMP > 100.3'F 02/26/21 22:15 UNV Al Hydroxide/Mg Hydroxide (Mylanta Plus Xs) 15 ml PRN AFTMEALHC PRN PO DYSPEPSIA 02/26/21 22:15 Magnesium Hydroxide (Milk Of Magnesia) 2,400 mg PRN QHS PRN PO 1ST CHOICE CONSTIPATION 02/26/21 22:15 Olanzapine (ZyPREXA ZYDIS) 2.5 mg PRN Q2HR PRN PO PSYCHOSIS 02/27/21 07:30 02/27/21 16:49 Trazodone HCl (Desyrel) 50 mg PRN QHS PRN PO INSOMNIA 02/27/21 07:30 03/01/21 22:11 Lactobacillus Rhamnosus (Culturelle) 1 cap BID PO 02/27/21 09:00 03/07/21 20:36 Quetiapine Fumarate (SEROquel) 37.5 mg TID PO 02/28/21 21:00 03/01/21 19:04 DC 03/01/21 14:23 Olanzapine (ZyPREXA) 2.5 mg 0900,1300,1700 PO 03/02/21 09:00 03/07/21 17:15 Memantine (Namenda) 10 mg BID PO 03/03/21 21:00 03/07/21 20:36 Sertraline HCl (Zoloft) 25 mg DAILY PO 03/04/21 09:00 03/06/21 12:00 DC 03/06/21 08:16 Sertraline HCl (Zoloft) 50 mg DAILY PO 03/07/21 09:00 03/07/21 08:09 Current Medications Medications (Trade) Dose Ordered Sig/[place] Route PRN Reason Start Time Stop Time Status Last Admin Dose Admin Sertraline HCl (Zoloft) 50 mg DAILY PO 03/07/21 09:00 03/07/21 08:09 I have reviewed the current psychotropics carefully including drug interactions. Risk benefit ratio favors no change other than as noted in my dictated progress note. Diagnosis: Problems: (1) Dementia, vascular, with delusions (2) Bipolar disorder, current episode mixed, severe, with psychotic features (3) Dementia in Alzheimer's disease with depression (4) Dementia in Alzheimer's disease with delusions (5) Major neurocognitive disorder (6) Dementia in Alzheimer's disease with early onset with behavioral disturbance (7) Impulse control disorder (8) Dementia, vascular, with depression (9) Anxiety disorder DUGLAS SMALL MD Mar 08, 2021 08:02
[2021-03-08] MEDS: RIVASTIGMINE. 1.5 MG CAPSULE. PO SCH ×2 (08:12→17:15)
[2021-03-08] MEDS: MEMANTINE 10 MG TABLET. PO SCH ×2 (08:13→19:58)
[2021-03-08] MEDS: LACTASE 3,000 UNIT TABLET PO SCH ×3 (08:13→19:58)
[2021-03-08] MEDS: OLANZapine 2.5 MG TABLET PO SCH ×3 (08:13→17:15)
[2021-03-08] MEDS: DOCUSATE SODIUM 100 MG CAPSULE PO SCH (08:13)
[2021-03-08] MEDS: SERTRALINE 50 MG TABLET. PO SCH (08:13)
[2021-03-08] MEDS: LACTOBACILLUS RHAMNOSUS GG 1 CAPSULE. PO SCH ×2 (08:13→19:58)
--- NOTE | 2021-03-08 13:43 | TX PLAN ---
Interdisciplinary Tx Plan Admission Information Feb 26, 2021 at 19:52 Legal Status (on Admission): Voluntary DPOA/Guardian Name: Kayla Briggs Contact Other Contact Name: MELISSA Alas Other Contact Verified Code Status: Full Code Allergies: Coded Allergies: NSAIDS (Non-Steroidal Anti-Inflamma (Verified Allergy, Intermediate, gi upset-peptic ulcer dx, 08/27/15) aspirin (Verified Allergy, Intermediate, gi upset/hx ulcers, 08/27/15) Diagnoses Primary Diagnosis: (1) Dementia, vascular, with delusions (2) Bipolar disorder, current episode mixed, severe, with psychotic features (3) Dementia in Alzheimer's disease with depression (4) Dementia in Alzheimer's disease with delusions (5) Major neurocognitive disorder (6) Dementia in Alzheimer's disease with early onset with behavioral disturbance (7) Impulse control disorder (8) Dementia, vascular, with depression (9) Anxiety disorder Reasons for Admission: Aggressive, Agitated, Sig. Change Appetite, Angry, Confusion/Disoriented, Poor impulse control Problem in Patient's Words: Per dtr/DPOA, Kayla, pt has started yelling out at her facility following her hospitalizations for UTIs. She never has had this behavior before, but she does have an extensive history in her younger days of being very attention seeking and telling multiple fabricated stories for reasons unknown. Also, per Kayla, pt has been on Tramadol and she believes that she is addicted and that it is like a narcotic to Usha. Kayla feels that Usha craves it. She would like to see her off of the Tramadol. Further, Kayla believes that pt does not drink enough water and that she has muscle spasms that could be some of the cause to her yelling out. Kayla believes that she needs to drink more water or ice chips and possibly be prescribed Quinine. Additional Admission Comments: Per intake record, pt has increased agitation, refusing to eat/drink/take medications, irritable, uncooperative, labile mood, yelling out. Problems Active Problems: Yelling out, agitation, confusion, poor impulse control, angry Inactive Problems: None noted at this time. Pt Strengths/Limitations Ability for [place]: Poor Cognitive Functioning/Ability: Poor Communication Skills/Ability: Fair Financial Resources: Fair Insight/Judgement: Poor Intellectual Ability: Poor Physical Health: Poor Social Skills: Fair Stability in Family: Fair Stability in School/Work: Fair Verbal Skills: Fair Discharge Criteria Discharge Criteria: Adequate arrangements @DC, Verbal commit med comply, Improved behavior, Improved mood/thought Other Discharge Comments: None noted at this time. Preliminary Discharge Plan Preliminary DC Plan: Current Living Arrange. Special Precautions Fall Risk: High Initial D/C Plan Plan is to return to [facility]. Identified Discharge Needs: None noted at this time. Currently Utilized Resources Currently Utilized Resources/P: PCP is Dr. Peraza Psychiatry is Nurse Practitioner, Peter Facility is [facility] at [facility] is [place] Referrals Community Resources: None noted at this time. Identified Problems/Hx/Goals Objectives/Short-Term Goals Short Term Goals: Control abnormal behavior, Improved Social Skills, Medication Stabilization, Monitor Med Effects, Promote Coping Skill Short Term Goals in Patient's: To feel better. Per Jayar/Kayla FLORES, she would like for pt to be off of Tramadol. Also, Kayla states that pt has muscle spasms that could contribute to her yelling out. She feels that Quinine could possibly be beneficial, but at the minimum pt should be requested to drink plenty of water. Kayla feels that these things could help prevent her from calling out in an attention seeking way that she was doing at her facility. Interventions/Frequency Staff Interventions/Frequency&: Psychiatry to assess pt three times per week for medication maagement. Nursing to assess pt behaviors, monitor medications, and complete 15 minute checks daily. Social work to see pt at least two times weekly to aid in return to placement. Activities to encourage pt to participate in group activities daily. 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 She was then caught for extorting money from a pt and lost her job. Education: Usha dropped out of high school in the 10th grade to get . Community Follow-up PCP Psychiatry Community Provider/Family Inpu: Jayar/MARK, Kayla, is aware of pt hospitalization. Kayla provided pt inforamation and is available for further input as needed. Treatment Plan Explained Patient/Product Grader had this treatment plan explained to him/her as indicated by the signature below and has been given the opportunity to ask questions and make suggestions: Date: Patient/Product Grader Signature: Status Update Update Pt is sleeping an average of 6.5 hours at night. She had not been eating very well initially, but there have been some slight improvements as she is now eating about 50% of her meals. Pt yells out regularly that she is hungry, but then she doesn't eat much at all. It is believed that she is a very picky eater and staff are noting things that she seems to like. It has been observed that pt seems to yell out more when she is in the hallway or in her room. She yells less if she is occupied in groups or in the dayroom. Pt has been pleasantly confused. She does engage somewhat during groups by tapping her feet and singing along. Pt does feed herself, is a two person transfer from , and tries to help a little bit when changing clothes. ASIA WAY Mar 08, 2021 13:42
[2021-03-08 15:50] VITALS: BP 148/87
[2021-03-08] MEDS: MELATONIN 3 MG TABLET PO SCH (19:58)
[2021-03-08] MEDS: FAMOTIDINE 20 MG TABLET PO SCH (19:58)
[2021-03-08] MEDS: GABAPENTIN 100 MG CAPSULE. PO SCH (19:58)
[2021-03-08] MEDS: MIRTAZAPINE 7.5 MG TABLET. PO SCH (19:58)
--- NOTE | 2021-03-08 21:57 | PDOC ---
Exam Note: Carlos Note: Please also refer to the separate dictated note~for this date of service dictated separately.~Patient seen individually. Discussed the patient with Nursing staff reviewed the chart.~Reviewed interim history and current functioning. Reviewed vital signs,~Labs/ Radiology~and current medications noted below. Continue current treatment with the changes noted in the dictated addendum note Assessment: Vital Signs/I&O: Vital Signs Date Time Temp Pulse Resp B/P (MAP) Pulse Ox O2 Delivery O2 Flow Rate FiO2 03/08/21 15:50 97.5 68 19 148/87 (107) 98 Room Air I & O 03/07/21 03/07/21 03/08/21 15:00 23:00 07:00 Intake Total 480 ml 720 ml Balance 480 ml 720 ml Current Medications: Meds: Current Medications Medications (Trade) Dose Ordered Sig/Magdalena Route PRN Reason Start Time Stop Time Status Last Admin Dose Admin Acetaminophen (Tylenol) 650 mg PRN Q6HRS PRN PO MILD PAIN / TEMP > 100.3'F 02/26/21 22:00 Bisacodyl (Dulcolax Supp) 10 mg PRN DAILY PRN RC 2nd CHOICE CONSTIPATION 02/26/21 22:00 Docusate Sodium (Colace) 100 mg DAILY PO 02/27/21 09:00 03/08/21 08:13 Famotidine (Pepcid) 20 mg QHS PO 02/27/21 21:00 03/08/21 19:58 Gabapentin (Neurontin) 100 mg QHS PO 02/27/21 21:00 03/08/21 19:58 Lactase (Lactaid) 3,000 unit TID PO 02/27/21 09:00 03/08/21 19:58 Levothyroxine Sodium (Synthroid) 25 mcg DAILY06 PO 02/27/21 06:00 03/08/21 06:11 Melatonin (Melatonin) 3 mg QHS PO 02/27/21 21:00 03/08/21 19:58 Memantine (Namenda) 5 mg BID PO 02/27/21 09:00 03/03/21 16:00 DC 03/03/21 08:13 Mirtazapine (Remeron) 7.5 mg QHS PO 02/27/21 21:00 03/08/21 19:58 Oxycodone/ Acetaminophen (Percocet 10/325) 1 tab PRN Q6HRS PRN PO PAIN 02/26/21 22:00 03/03/21 13:55 Quetiapine Fumarate (SEROquel) 25 mg TID PO 02/27/21 09:00 02/28/21 17:34 DC 02/28/21 14:31 Cephalexin HCl (Keflex) 250 mg TID PO 02/27/21 09:00 02/28/21 10:12 DC 02/28/21 08:13 Non-Formulary Medication (Mag Hydrox/Al Hydrox/Simeth (Mag-Al Plus Suspension)) 15 ml PRN QHS PRN PO DYSPEPSIA 02/26/21 22:00 UNV Multi-Ingredient Ointment (Analgesic [place]) 1 hector PRN QID PRN TP MUSCLE PAIN 02/26/21 22:30 Ondansetron HCl (Zofran Odt) 4 mg PRN Q8HRS PRN PO NAUSEA 02/26/21 22:30 Rivastigmine Tartrate (Exelon) 4.5 mg BIDWMEALS PO 02/27/21 08:00 03/08/21 17:15 Acetaminophen (Tylenol) 650 mg PRN Q6HRS PRN PO MILD PAIN / TEMP > 100.3'F 02/26/21 22:15 UNV Al Hydroxide/Mg Hydroxide (Mylanta Plus Xs) 15 ml PRN AFTMEALHC PRN PO DYSPEPSIA 02/26/21 22:15 Magnesium Hydroxide (Milk Of Magnesia) 2,400 mg PRN QHS PRN PO 1ST CHOICE CONSTIPATION 02/26/21 22:15 Olanzapine (ZyPREXA ZYDIS) 2.5 mg PRN Q2HR PRN PO PSYCHOSIS 02/27/21 07:30 02/27/21 16:49 Trazodone HCl (Desyrel) 50 mg PRN QHS PRN PO INSOMNIA 02/27/21 07:30 03/01/21 22:11 Lactobacillus Rhamnosus (Culturelle) 1 cap BID PO 02/27/21 09:00 03/08/21 19:58 Quetiapine Fumarate (SEROquel) 37.5 mg TID PO 02/28/21 21:00 03/01/21 19:04 DC 03/01/21 14:23 Olanzapine (ZyPREXA) 2.5 mg 0900,1300,1700 PO 03/02/21 09:00 03/08/21 17:15 Memantine (Namenda) 10 mg BID PO 03/03/21 21:00 03/08/21 19:58 Sertraline HCl (Zoloft) 25 mg DAILY PO 03/04/21 09:00 03/06/21 12:00 DC 03/06/21 08:16 Sertraline HCl (Zoloft) 50 mg DAILY PO 03/07/21 09:00 03/08/21 08:13 I have reviewed the current psychotropics carefully including drug interactions. Risk benefit ratio favors no change other than as noted in my dictated progress note. Diagnosis: Problems: (1) Dementia, vascular, with delusions (2) Bipolar disorder, current episode mixed, severe, with psychotic features (3) Dementia in Alzheimer's disease with depression (4) Dementia in Alzheimer's disease with delusions (5) Major neurocognitive disorder (6) Dementia in Alzheimer's disease with early onset with behavioral disturbance (7) Impulse control disorder (8) Dementia, vascular, with depression (9) Anxiety disorder DUGLAS SMALL MD Mar 08, 2021 21:57
[2021-03-09] MEDS: LEVOTHYROXINE 25 MCG TABLET. PO SCH (05:58)
[2021-03-09 06:27] VITALS: BP 133/75
[2021-03-09] MEDS: OLANZapine 2.5 MG TABLET PO SCH ×3 (09:13→16:35)
[2021-03-09] MEDS: LACTOBACILLUS RHAMNOSUS GG 1 CAPSULE. PO SCH ×2 (09:13→20:01)
[2021-03-09] MEDS: RIVASTIGMINE. 1.5 MG CAPSULE. PO SCH ×2 (09:13→16:35)
[2021-03-09] MEDS: MEMANTINE 10 MG TABLET. PO SCH ×2 (09:13→20:01)
[2021-03-09] MEDS: DOCUSATE SODIUM 100 MG CAPSULE PO SCH (09:13)
[2021-03-09] MEDS: SERTRALINE 50 MG TABLET. PO SCH (09:13)
[2021-03-09] MEDS: LACTASE 3,000 UNIT TABLET PO SCH ×3 (09:13→20:01)
[2021-03-09 15:18] VITALS: BP 131/85
[2021-03-09] MEDS: GABAPENTIN 100 MG CAPSULE. PO SCH (20:00)
[2021-03-09] MEDS: MIRTAZAPINE 7.5 MG TABLET. PO SCH (20:00)
[2021-03-09] MEDS: FAMOTIDINE 20 MG TABLET PO SCH (20:00)
[2021-03-09] MEDS: MELATONIN 3 MG TABLET PO SCH (20:01)
--- NOTE | 2021-03-09 21:49 | PDOC ---
Exam Note: Carlos Note: Please also refer to the separate dictated note~for this date of service dictated separately.~Patient seen individually. Discussed the patient with Nursing staff reviewed the chart.~Reviewed interim history and current functioning. Reviewed vital signs,~Labs/ Radiology~and current medications noted below. Continue current treatment with the changes noted in the dictated addendum note Assessment: Vital Signs/I&O: Vital Signs Date Time Temp Pulse Resp B/P (MAP) Pulse Ox O2 Delivery O2 Flow Rate FiO2 03/09/21 15:18 98.1 85 18 131/85 (100) 100 03/09/21 06:27 Room Air I & O 03/08/21 03/08/21 03/09/21 15:00 23:00 07:00 Intake Total 720 ml 240 ml Balance 720 ml 240 ml Current Medications: Meds: Current Medications Medications (Trade) Dose Ordered Sig/Magdalena Route PRN Reason Start Time Stop Time Status Last Admin Dose Admin Acetaminophen (Tylenol) 650 mg PRN Q6HRS PRN PO MILD PAIN / TEMP > 100.3'F 02/26/21 22:00 Bisacodyl (Dulcolax Supp) 10 mg PRN DAILY PRN RC 2nd CHOICE CONSTIPATION 02/26/21 22:00 Docusate Sodium (Colace) 100 mg DAILY PO 02/27/21 09:00 03/09/21 09:13 Famotidine (Pepcid) 20 mg QHS PO 02/27/21 21:00 03/09/21 20:00 Gabapentin (Neurontin) 100 mg QHS PO 02/27/21 21:00 03/09/21 20:00 Lactase (Lactaid) 3,000 unit TID PO 02/27/21 09:00 03/09/21 20:01 Levothyroxine Sodium (Synthroid) 25 mcg DAILY06 PO 02/27/21 06:00 03/09/21 05:58 Melatonin (Melatonin) 3 mg QHS PO 02/27/21 21:00 03/09/21 20:01 Memantine (Namenda) 5 mg BID PO 02/27/21 09:00 03/03/21 16:00 DC 03/03/21 08:13 Mirtazapine (Remeron) 7.5 mg QHS PO 02/27/21 21:00 03/09/21 20:00 Oxycodone/ Acetaminophen (Percocet 10/325) 1 tab PRN Q6HRS PRN PO MOD-SEV PAIN 02/26/21 22:00 03/03/21 13:55 Quetiapine Fumarate (SEROquel) 25 mg TID PO 02/27/21 09:00 02/28/21 17:34 DC 02/28/21 14:31 Cephalexin HCl (Keflex) 250 mg TID PO 02/27/21 09:00 02/28/21 10:12 DC 02/28/21 08:13 Non-Formulary Medication (Mag Hydrox/Al Hydrox/Simeth (Mag-Al Plus Suspension)) 15 ml PRN QHS PRN PO DYSPEPSIA 02/26/21 22:00 UNV Multi-Ingredient Ointment (Analgesic [place]) 1 hector PRN QID PRN TP MUSCLE PAIN 02/26/21 22:30 Ondansetron HCl (Zofran Odt) 4 mg PRN Q8HRS PRN PO NAUSEA 02/26/21 22:30 Rivastigmine Tartrate (Exelon) 4.5 mg BIDWMEALS PO 02/27/21 08:00 03/09/21 16:35 Acetaminophen (Tylenol) 650 mg PRN Q6HRS PRN PO MILD PAIN / TEMP > 100.3'F 02/26/21 22:15 UNV Al Hydroxide/Mg Hydroxide (Mylanta Plus Xs) 15 ml PRN AFTMEALHC PRN PO DYSPEPSIA 02/26/21 22:15 Magnesium Hydroxide (Milk Of Magnesia) 2,400 mg PRN QHS PRN PO 1ST CHOICE CONSTIPATION 02/26/21 22:15 Olanzapine (ZyPREXA ZYDIS) 2.5 mg PRN Q2HR PRN PO PSYCHOSIS 02/27/21 07:30 02/27/21 16:49 Trazodone HCl (Desyrel) 50 mg PRN QHS PRN PO INSOMNIA 02/27/21 07:30 03/01/21 22:11 Lactobacillus Rhamnosus (Culturelle) 1 cap BID PO 02/27/21 09:00 03/09/21 20:01 Quetiapine Fumarate (SEROquel) 37.5 mg TID PO 02/28/21 21:00 03/01/21 19:04 DC 03/01/21 14:23 Olanzapine (ZyPREXA) 2.5 mg 0900,1300,1700 PO 03/02/21 09:00 03/09/21 16:35 Memantine (Namenda) 10 mg BID PO 03/03/21 21:00 03/09/21 20:01 Sertraline HCl (Zoloft) 25 mg DAILY PO 03/04/21 09:00 03/06/21 12:00 DC 03/06/21 08:16 Sertraline HCl (Zoloft) 50 mg DAILY PO 03/07/21 09:00 03/09/21 17:09 DC 03/09/21 09:13 Sertraline HCl (Zoloft) 75 mg DAILY PO 03/10/21 09:00 I have reviewed the current psychotropics carefully including drug interactions. Risk benefit ratio favors no change other than as noted in my dictated progress note. Diagnosis: Problems: (1) Dementia, vascular, with delusions (2) Bipolar disorder, current episode mixed, severe, with psychotic features (3) Dementia in Alzheimer's disease with depression (4) Dementia in Alzheimer's disease with delusions (5) Major neurocognitive disorder (6) Dementia in Alzheimer's disease with early onset with behavioral disturbance (7) Impulse control disorder (8) Dementia, vascular, with depression (9) Anxiety disorder DUGLAS SMALL MD Mar 09, 2021 21:49
[2021-03-10] MEDS: LEVOTHYROXINE 25 MCG TABLET. PO SCH (05:27)
[2021-03-10 05:49] VITALS: BP 111/69
--- NOTE | 2021-03-10 06:39 | PDOC ---
Exam Note: Carlos Note: This note is a late entry for 03/08/2021 covers elements not covered in my initial note. Subjective: The patient was seen individually in the evening of 03/08/2021 with Luis Fernando HERNDON, discussed and reviewed the chart. The patient slept 7 hours previous night. She at times is resistive with medications, later doing alright. Review of Systems: Ambulation impaired in wheelchair. No CV, , pulmonary, eye, ENT system symptoms on review. Mental Status Exam: The patient is oriented to herself and situation. Speech is coherent. Abstraction is fair. Computation is impaired. Language function intact. Attention span is short. Mood and affect withdrawn. Laboratory Data: Reviewed. Impression: Bipolar disorder, mixed. Major neurocognitive disorder Alzheimer vascular with delusion, depression, behavioral disturbance. Impulse control disorder unspecified. Anxiety disorder unspecified. Plan: Continue rest psychotropics unchanged. Assessment: Vital Signs/I&O: Vital Signs Date Time Temp Pulse Resp B/P (MAP) Pulse Ox O2 Delivery O2 Flow Rate FiO2 03/10/21 05:49 98.1 79 18 111/69 (83) 97 Room Air I & O 03/09/21 03/09/21 03/10/21 15:00 23:00 07:00 Intake Total 60 ml 240 ml Balance 60 ml 240 ml Current Medications: Meds: Current Medications Medications (Trade) Dose Ordered Sig/Magdalena Route PRN Reason Start Time Stop Time Status Last Admin Dose Admin Acetaminophen (Tylenol) 650 mg PRN Q6HRS PRN PO MILD PAIN / TEMP > 100.3'F 02/26/21 22:00 Bisacodyl (Dulcolax Supp) 10 mg PRN DAILY PRN RC 2nd CHOICE CONSTIPATION 02/26/21 22:00 Docusate Sodium (Colace) 100 mg DAILY PO 02/27/21 09:00 03/09/21 09:13 Famotidine (Pepcid) 20 mg QHS PO 02/27/21 21:00 03/09/21 20:00 Gabapentin (Neurontin) 100 mg QHS PO 02/27/21 21:00 03/09/21 20:00 Lactase (Lactaid) 3,000 unit TID PO 02/27/21 09:00 03/09/21 20:01 Levothyroxine Sodium (Synthroid) 25 mcg DAILY06 PO 02/27/21 06:00 03/10/21 05:27 Melatonin (Melatonin) 3 mg QHS PO 02/27/21 21:00 03/09/21 20:01 Memantine (Namenda) 5 mg BID PO 02/27/21 09:00 03/03/21 16:00 DC 03/03/21 08:13 Mirtazapine (Remeron) 7.5 mg QHS PO 02/27/21 21:00 03/09/21 20:00 Oxycodone/ Acetaminophen (Percocet 10/325) 1 tab PRN Q6HRS PRN PO MOD-SEV PAIN 02/26/21 22:00 03/03/21 13:55 Quetiapine Fumarate (SEROquel) 25 mg TID PO 02/27/21 09:00 02/28/21 17:34 DC 02/28/21 14:31 Cephalexin HCl (Keflex) 250 mg TID PO 02/27/21 09:00 02/28/21 10:12 DC 02/28/21 08:13 Non-Formulary Medication (Mag Hydrox/Al Hydrox/Simeth (Mag-Al Plus Suspension)) 15 ml PRN QHS PRN PO DYSPEPSIA 02/26/21 22:00 UNV Multi-Ingredient Ointment (Analgesic [place]) 1 hector PRN QID PRN TP MUSCLE PAIN 02/26/21 22:30 Ondansetron HCl (Zofran Odt) 4 mg PRN Q8HRS PRN PO NAUSEA 02/26/21 22:30 Rivastigmine Tartrate (Exelon) 4.5 mg BIDWMEALS PO 02/27/21 08:00 03/09/21 16:35 Acetaminophen (Tylenol) 650 mg PRN Q6HRS PRN PO MILD PAIN / TEMP > 100.3'F 02/26/21 22:15 UNV Al Hydroxide/Mg Hydroxide (Mylanta Plus Xs) 15 ml PRN AFTMEALHC PRN PO DYSPEPSIA 02/26/21 22:15 Magnesium Hydroxide (Milk Of Magnesia) 2,400 mg PRN QHS PRN PO 1ST CHOICE CONSTIPATION 02/26/21 22:15 Olanzapine (ZyPREXA ZYDIS) 2.5 mg PRN Q2HR PRN PO PSYCHOSIS 02/27/21 07:30 02/27/21 16:49 Trazodone HCl (Desyrel) 50 mg PRN QHS PRN PO INSOMNIA 02/27/21 07:30 03/01/21 22:11 Lactobacillus Rhamnosus (Culturelle) 1 cap BID PO 02/27/21 09:00 03/09/21 20:01 Quetiapine Fumarate (SEROquel) 37.5 mg TID PO 02/28/21 21:00 03/01/21 19:04 DC 03/01/21 14:23 Olanzapine (ZyPREXA) 2.5 mg 0900,1300,1700 PO 03/02/21 09:00 03/09/21 16:35 Memantine (Namenda) 10 mg BID PO 03/03/21 21:00 03/09/21 20:01 Sertraline HCl (Zoloft) 25 mg DAILY PO 03/04/21 09:00 03/06/21 12:00 DC 03/06/21 08:16 Sertraline HCl (Zoloft) 50 mg DAILY PO 03/07/21 09:00 03/09/21 17:09 DC 03/09/21 09:13 Sertraline HCl (Zoloft) 75 mg DAILY PO 03/10/21 09:00 I have reviewed the current psychotropics carefully including drug interactions. Risk benefit ratio favors no change other than as noted in my dictated progress note. Diagnosis: Problems: (1) Dementia, vascular, with delusions (2) Bipolar disorder, current episode mixed, severe, with psychotic features (3) Dementia in Alzheimer's disease with depression (4) Dementia in Alzheimer's disease with delusions (5) Major neurocognitive disorder (6) Dementia in Alzheimer's disease with early onset with behavioral disturbance (7) Impulse control disorder (8) Dementia, vascular, with depression (9) Anxiety disorder DUGLAS SMALL MD Mar 10, 2021 06:39
--- NOTE | 2021-03-10 07:16 | PDOC ---
Exam Note: Carlos Note: This note is a late entry for 03/09/2021 covers elements not covered in my initial note. Subjective: The patient was seen individually in the evening of 03/09/2021 with Jhoana HERNDON, discussed and reviewed the chart. The patient slept 7 hours previous night. She at times is resistive to medications, but patient resents being given the extra medications in the morning. She takes medications in juice. Review of Systems: Ambulation impaired in wheelchair. No CV, , pulmonary, eye, ENT system symptoms on review. Mental Status Exam: The patient is oriented to herself and situation. Speech is coherent. Abstraction is fair. Computation is impaired. Language function intact. Attention span is short. Mood and affect withdrawn. Laboratory Data: Reviewed. Impression: Bipolar disorder, mixed. Major neurocognitive disorder Alzheimer vascular with delusion, depression, behavioral disturbance. Impulse control disorder unspecified. Anxiety disorder unspecified. Plan: Continue rest psychotropics unchanged. After the patient has been on Zoloft 50 mg for 3 days, we will increase to 75 mg a day. Assessment: Vital Signs/I&O: Vital Signs Date Time Temp Pulse Resp B/P (MAP) Pulse Ox O2 Delivery O2 Flow Rate FiO2 03/10/21 05:49 98.1 79 18 111/69 (83) 97 Room Air I & O 03/09/21 03/09/21 03/10/21 15:00 23:00 07:00 Intake Total 60 ml 240 ml Balance 60 ml 240 ml Current Medications: Meds: Current Medications Medications (Trade) Dose Ordered Sig/Magdalena Route PRN Reason Start Time Stop Time Status Last Admin Dose Admin Acetaminophen (Tylenol) 650 mg PRN Q6HRS PRN PO MILD PAIN / TEMP > 100.3'F 02/26/21 22:00 Bisacodyl (Dulcolax Supp) 10 mg PRN DAILY PRN RC 2nd CHOICE CONSTIPATION 02/26/21 22:00 Docusate Sodium (Colace) 100 mg DAILY PO 02/27/21 09:00 03/09/21 09:13 Famotidine (Pepcid) 20 mg QHS PO 02/27/21 21:00 03/09/21 20:00 Gabapentin (Neurontin) 100 mg QHS PO 02/27/21 21:00 03/09/21 20:00 Lactase (Lactaid) 3,000 unit TID PO 02/27/21 09:00 03/09/21 20:01 Levothyroxine Sodium (Synthroid) 25 mcg DAILY06 PO 02/27/21 06:00 03/10/21 05:27 Melatonin (Melatonin) 3 mg QHS PO 02/27/21 21:00 03/09/21 20:01 Memantine (Namenda) 5 mg BID PO 02/27/21 09:00 03/03/21 16:00 DC 03/03/21 08:13 Mirtazapine (Remeron) 7.5 mg QHS PO 02/27/21 21:00 03/09/21 20:00 Oxycodone/ Acetaminophen (Percocet 10/325) 1 tab PRN Q6HRS PRN PO MOD-SEV PAIN 02/26/21 22:00 03/03/21 13:55 Quetiapine Fumarate (SEROquel) 25 mg TID PO 02/27/21 09:00 02/28/21 17:34 DC 02/28/21 14:31 Cephalexin HCl (Keflex) 250 mg TID PO 02/27/21 09:00 02/28/21 10:12 DC 02/28/21 08:13 Non-Formulary Medication (Mag Hydrox/Al Hydrox/Simeth (Mag-Al Plus Suspension)) 15 ml PRN QHS PRN PO DYSPEPSIA 02/26/21 22:00 UNV Multi-Ingredient Ointment (Analgesic [place]) 1 hector PRN QID PRN TP MUSCLE PAIN 02/26/21 22:30 Ondansetron HCl (Zofran Odt) 4 mg PRN Q8HRS PRN PO NAUSEA 02/26/21 22:30 Rivastigmine Tartrate (Exelon) 4.5 mg BIDWMEALS PO 02/27/21 08:00 03/09/21 16:35 Acetaminophen (Tylenol) 650 mg PRN Q6HRS PRN PO MILD PAIN / TEMP > 100.3'F 02/26/21 22:15 UNV Al Hydroxide/Mg Hydroxide (Mylanta Plus Xs) 15 ml PRN AFTMEALHC PRN PO DYSPEPSIA 02/26/21 22:15 Magnesium Hydroxide (Milk Of Magnesia) 2,400 mg PRN QHS PRN PO 1ST CHOICE CONSTIPATION 02/26/21 22:15 Olanzapine (ZyPREXA ZYDIS) 2.5 mg PRN Q2HR PRN PO PSYCHOSIS 02/27/21 07:30 02/27/21 16:49 Trazodone HCl (Desyrel) 50 mg PRN QHS PRN PO INSOMNIA 02/27/21 07:30 03/01/21 22:11 Lactobacillus Rhamnosus (Culturelle) 1 cap BID PO 02/27/21 09:00 03/09/21 20:01 Quetiapine Fumarate (SEROquel) 37.5 mg TID PO 02/28/21 21:00 03/01/21 19:04 DC 03/01/21 14:23 Olanzapine (ZyPREXA) 2.5 mg 0900,1300,1700 PO 03/02/21 09:00 03/09/21 16:35 Memantine (Namenda) 10 mg BID PO 03/03/21 21:00 03/09/21 20:01 Sertraline HCl (Zoloft) 25 mg DAILY PO 03/04/21 09:00 03/06/21 12:00 DC 03/06/21 08:16 Sertraline HCl (Zoloft) 50 mg DAILY PO 03/07/21 09:00 03/09/21 17:09 DC 03/09/21 09:13 Sertraline HCl (Zoloft) 75 mg DAILY PO 03/10/21 09:00 I have reviewed the current psychotropics carefully including drug interactions. Risk benefit ratio favors no change other than as noted in my dictated progress note. Diagnosis: Problems: (1) Dementia, vascular, with delusions (2) Bipolar disorder, current episode mixed, severe, with psychotic features (3) Dementia in Alzheimer's disease with depression (4) Dementia in Alzheimer's disease with delusions (5) Major neurocognitive disorder (6) Dementia in Alzheimer's disease with early onset with behavioral disturbance (7) Impulse control disorder (8) Dementia, vascular, with depression (9) Anxiety disorder DUGLAS SMALL MD Mar 10, 2021 07:16
[2021-03-10] MEDS: DOCUSATE SODIUM 100 MG CAPSULE PO SCH (07:51)
[2021-03-10] MEDS: SERTRALINE 50 MG TABLET. PO SCH (07:51)
[2021-03-10] MEDS: RIVASTIGMINE. 1.5 MG CAPSULE. PO SCH ×2 (07:51→17:41)
[2021-03-10] MEDS: LACTOBACILLUS RHAMNOSUS GG 1 CAPSULE. PO SCH ×2 (07:51→20:50)
[2021-03-10] MEDS: OLANZapine 2.5 MG TABLET PO SCH ×3 (07:51→17:41)
[2021-03-10] MEDS: MEMANTINE 10 MG TABLET. PO SCH ×2 (07:51→20:50)
[2021-03-10] MEDS: LACTASE 3,000 UNIT TABLET PO SCH ×3 (07:51→20:49)
[2021-03-10 09:12] LABS: BASO # 0.1 x10^3/uL (0.0-0.2); BASO % 1 % (0-3); EOS # 0.3 x10^3/uL (0.0-0.7); EOS % 3 % (0-3); HEMATOCRIT 34.3 % (36.0-47.0); HEMOGLOBIN 10.8 g/dL (12.0-15.5); LYMPH % 18 % (24-48); MEAN CORPUSCULAR HEMOGLOBIN 26 pg (25-35); MEAN CORPUSCULAR HGB CONC 32 g/dL (31-37); MEAN CORPUSCULAR VOLUME 82 fL (79-100); MONO # 0.7 x10^3/uL (0.0-1.1); MONO % 6 % (0-9); NEUT # 7.7 x10^3uL (1.8-7.7); NEUT % 72 % (31-73); PLATELET COUNT 462 x10^3/uL (140-400); RED BLOOD COUNT 4.18 x10^6/uL (3.50-5.40); RED CELL DISTRIBUTION WIDTH 18.6 % (11.5-14.5); WHITE BLOOD COUNT 10.7 x10^3/uL (4.0-11.0)
[2021-03-10 09:25] LABS: ALBUMIN 2.3 g/dL (3.4-5.0); ALBUMIN/GLOBULIN RATIO 0.6 (1.0-1.7); CALCIUM 8.5 mg/dL (8.5-10.1); CREATININE 0.8 mg/dL (0.6-1.0); POTASSIUM 4.2 mmol/L (3.5-5.1); TOTAL BILIRUBIN 0.3 mg/dL (0.2-1.0); TOTAL PROTEIN 6.3 g/dL (6.4-8.2)
[2021-03-10 15:58] VITALS: BP 145/80
[2021-03-10] MEDS: FAMOTIDINE 20 MG TABLET PO SCH (20:49)
[2021-03-10] MEDS: MIRTAZAPINE 7.5 MG TABLET. PO SCH (20:50)
[2021-03-10] MEDS: MELATONIN 3 MG TABLET PO SCH (20:50)
[2021-03-10] MEDS: GABAPENTIN 100 MG CAPSULE. PO SCH (20:51)
--- NOTE | 2021-03-10 21:59 | PDOC ---
Exam Note: Carlos Note: Please also refer to the separate dictated note~for this date of service dictated separately.~Patient seen individually. Discussed the patient with Nursing staff reviewed the chart.~Reviewed interim history and current functioning. Reviewed vital signs,~Labs/ Radiology~and current medications noted below. Continue current treatment with the changes noted in the dictated addendum note Assessment: Vital Signs/I&O: Vital Signs Date Time Temp Pulse Resp B/P (MAP) Pulse Ox O2 Delivery O2 Flow Rate FiO2 03/10/21 15:58 97.0 78 18 145/80 (101) 99 03/10/21 05:49 Room Air I & O 03/09/21 03/09/21 03/10/21 15:00 23:00 07:00 Intake Total 60 ml 240 ml Balance 60 ml 240 ml Labs: Laboratory Tests Test 03/10/21 08:59 White Blood Count 10.7 x10^3/uL (4.0-11.0) Red Blood Count 4.18 x10^6/uL (3.50-5.40) Hemoglobin 10.8 g/dL (12.0-15.5) L Hematocrit 34.3 % (36.0-47.0) L Mean Corpuscular Volume 82 fL (79-100) Mean Corpuscular Hemoglobin 26 pg (25-35) Mean Corpuscular Hemoglobin Concent 32 g/dL (31-37) Red Cell Distribution Width 18.6 % (11.5-14.5) H Platelet Count 462 x10^3/uL (140-400) H Neutrophils (%) (Auto) 72 % (31-73) Lymphocytes (%) (Auto) 18 % (24-48) L Monocytes (%) (Auto) 6 % (0-9) Eosinophils (%) (Auto) 3 % (0-3) Basophils (%) (Auto) 1 % (0-3) Neutrophils # (Auto) 7.7 x10^3uL (1.8-7.7) Lymphocytes # (Auto) 2.0 x10^3/uL (1.0-4.8) Monocytes # (Auto) 0.7 x10^3/uL (0.0-1.1) Eosinophils # (Auto) 0.3 x10^3/uL (0.0-0.7) Basophils # (Auto) 0.1 x10^3/uL (0.0-0.2) Sodium Level 143 mmol/L (136-145) Potassium Level 4.2 mmol/L (3.5-5.1) Chloride Level 106 mmol/L (98-107) Carbon Dioxide Level 29 mmol/L (21-32) Anion Gap 8 (6-14) Blood Urea Nitrogen 13 mg/dL (7-20) Creatinine 0.8 mg/dL (0.6-1.0) Estimated GFR (Cockcroft-Gault) 68.0 BUN/Creatinine Ratio 16 (6-20) Glucose Level 110 mg/dL (70-99) H Calcium Level 8.5 mg/dL (8.5-10.1) Total Bilirubin 0.3 mg/dL (0.2-1.0) Aspartate Amino Transferase (AST) 16 U/L (15-37) Alanine Aminotransferase (ALT) 13 U/L (14-59) L Alkaline Phosphatase 80 U/L (46-116) Total Protein 6.3 g/dL (6.4-8.2) L Albumin 2.3 g/dL (3.4-5.0) L Albumin/Globulin Ratio 0.6 (1.0-1.7) L Current Medications: Meds: Laboratory Tests Test 03/10/21 08:59 White Blood Count 10.7 x10^3/uL Red Blood Count 4.18 x10^6/uL Hemoglobin 10.8 g/dL Hematocrit 34.3 % Mean Corpuscular Volume 82 fL Mean Corpuscular Hemoglobin 26 pg Mean Corpuscular Hemoglobin Concent 32 g/dL Red Cell Distribution Width 18.6 % Platelet Count 462 x10^3/uL Neutrophils (%) (Auto) 72 % Lymphocytes (%) (Auto) 18 % Monocytes (%) (Auto) 6 % Eosinophils (%) (Auto) 3 % Basophils (%) (Auto) 1 % Neutrophils # (Auto) 7.7 x10^3uL Lymphocytes # (Auto) 2.0 x10^3/uL Monocytes # (Auto) 0.7 x10^3/uL Eosinophils # (Auto) 0.3 x10^3/uL Basophils # (Auto) 0.1 x10^3/uL Sodium Level 143 mmol/L Potassium Level 4.2 mmol/L Chloride Level 106 mmol/L Carbon Dioxide Level 29 mmol/L Anion Gap 8 Blood Urea Nitrogen 13 mg/dL Creatinine 0.8 mg/dL Estimated GFR (Cockcroft-Gault) 68.0 BUN/Creatinine Ratio 16 Glucose Level 110 mg/dL Calcium Level 8.5 mg/dL Total Bilirubin 0.3 mg/dL Aspartate Amino Transf (AST/SGOT) 16 U/L Alanine Aminotransferase (ALT/SGPT) 13 U/L Alkaline Phosphatase 80 U/L Total Protein 6.3 g/dL Albumin 2.3 g/dL Albumin/Globulin Ratio 0.6 Current Medications Medications (Trade) Dose Ordered Sig/Magdalena Route PRN Reason Start Time Stop Time Status Last Admin Dose Admin Acetaminophen (Tylenol) 650 mg PRN Q6HRS PRN PO MILD PAIN / TEMP > 100.3'F 02/26/21 22:00 Bisacodyl (Dulcolax Supp) 10 mg PRN DAILY PRN RC 2nd CHOICE CONSTIPATION 02/26/21 22:00 Docusate Sodium (Colace) 100 mg DAILY PO 02/27/21 09:00 03/10/21 07:51 Famotidine (Pepcid) 20 mg QHS PO 02/27/21 21:00 03/10/21 20:49 Gabapentin (Neurontin) 100 mg QHS PO 02/27/21 21:00 03/10/21 20:51 Lactase (Lactaid) 3,000 unit TID PO 02/27/21 09:00 03/10/21 20:49 Levothyroxine Sodium (Synthroid) 25 mcg DAILY06 PO 02/27/21 06:00 03/10/21 05:27 Melatonin (Melatonin) 3 mg QHS PO 02/27/21 21:00 03/10/21 20:50 Memantine (Namenda) 5 mg BID PO 02/27/21 09:00 03/03/21 16:00 DC 03/03/21 08:13 Mirtazapine (Remeron) 7.5 mg QHS PO 02/27/21 21:00 03/10/21 20:50 Oxycodone/ Acetaminophen (Percocet 10/325) 1 tab PRN Q6HRS PRN PO MOD-SEV PAIN 02/26/21 22:00 03/03/21 13:55 Quetiapine Fumarate (SEROquel) 25 mg TID PO 02/27/21 09:00 02/28/21 17:34 DC 02/28/21 14:31 Cephalexin HCl (Keflex) 250 mg TID PO 02/27/21 09:00 02/28/21 10:12 DC 02/28/21 08:13 Non-Formulary Medication (Mag Hydrox/Al Hydrox/Simeth (Mag-Al Plus Suspension)) 15 ml PRN QHS PRN PO DYSPEPSIA 02/26/21 22:00 UNV Multi-Ingredient Ointment (Analgesic [place]) 1 hector PRN QID PRN TP MUSCLE PAIN 02/26/21 22:30 Ondansetron HCl (Zofran Odt) 4 mg PRN Q8HRS PRN PO NAUSEA 02/26/21 22:30 Rivastigmine Tartrate (Exelon) 4.5 mg BIDWMEALS PO 02/27/21 08:00 03/10/21 17:41 Acetaminophen (Tylenol) 650 mg PRN Q6HRS PRN PO MILD PAIN / TEMP > 100.3'F 02/26/21 22:15 UNV Al Hydroxide/Mg Hydroxide (Mylanta Plus Xs) 15 ml PRN AFTMEALHC PRN PO DYSPEPSIA 02/26/21 22:15 Magnesium Hydroxide (Milk Of Magnesia) 2,400 mg PRN QHS PRN PO 1ST CHOICE CONSTIPATION 02/26/21 22:15 Olanzapine (ZyPREXA ZYDIS) 2.5 mg PRN Q2HR PRN PO PSYCHOSIS 02/27/21 07:30 02/27/21 16:49 Trazodone HCl (Desyrel) 50 mg PRN QHS PRN PO INSOMNIA 02/27/21 07:30 03/01/21 22:11 Lactobacillus Rhamnosus (Culturelle) 1 cap BID PO 02/27/21 09:00 03/10/21 20:50 Quetiapine Fumarate (SEROquel) 37.5 mg TID PO 02/28/21 21:00 03/01/21 19:04 DC 03/01/21 14:23 Olanzapine (ZyPREXA) 2.5 mg 0900,1300,1700 PO 03/02/21 09:00 03/10/21 17:41 Memantine (Namenda) 10 mg BID PO 03/03/21 21:00 03/10/21 20:50 Sertraline HCl (Zoloft) 25 mg DAILY PO 03/04/21 09:00 03/06/21 12:00 DC 03/06/21 08:16 Sertraline HCl (Zoloft) 50 mg DAILY PO 03/07/21 09:00 03/09/21 17:09 DC 03/09/21 09:13 Sertraline HCl (Zoloft) 75 mg DAILY PO 03/10/21 09:00 03/10/21 07:51 Current Medications Medications (Trade) Dose Ordered Sig/Magdalena Route PRN Reason Start Time Stop Time Status Last Admin Dose Admin Sertraline HCl (Zoloft) 75 mg DAILY PO 03/10/21 09:00 03/10/21 07:51 I have reviewed the current psychotropics carefully including drug interactions. Risk benefit ratio favors no change other than as noted in my dictated progress note. 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
[2021-03-11] MEDS: LEVOTHYROXINE 25 MCG TABLET. PO SCH (05:45)
[2021-03-11 06:02] VITALS: BP 113/77
[2021-03-11] MEDS: LACTOBACILLUS RHAMNOSUS GG 1 CAPSULE. PO SCH ×2 (08:23→20:49)
[2021-03-11] MEDS: SERTRALINE 50 MG TABLET. PO SCH (08:23)
[2021-03-11] MEDS: RIVASTIGMINE. 1.5 MG CAPSULE. PO SCH ×2 (08:23→17:00)
[2021-03-11] MEDS: LACTASE 3,000 UNIT TABLET PO SCH ×3 (08:23→20:50)
[2021-03-11] MEDS: MEMANTINE 10 MG TABLET. PO SCH ×2 (08:23→20:50)
[2021-03-11] MEDS: OLANZapine 2.5 MG TABLET PO SCH ×3 (08:23→17:00)
[2021-03-11] MEDS: DOCUSATE SODIUM 100 MG CAPSULE PO SCH (08:23)
[2021-03-11 18:00] VITALS: BP 104/62
[2021-03-11] MEDS: GABAPENTIN 100 MG CAPSULE. PO SCH (20:50)
[2021-03-11] MEDS: traZODone 50 MG TABLET. PO PRN (20:50)
[2021-03-11] MEDS: FAMOTIDINE 20 MG TABLET PO SCH (20:50)
[2021-03-11] MEDS: oxyCODONE/APAP 10/325 1 TAB TABLET PO PRN (20:50)
[2021-03-11] MEDS: MIRTAZAPINE 7.5 MG TABLET. PO SCH (20:50)
[2021-03-11] MEDS: MELATONIN 3 MG TABLET PO SCH (20:50)
--- NOTE | 2021-03-11 22:01 | PDOC ---
Exam Note: Carlos Note: Please also refer to the separate dictated note~for this date of service dictated separately.~Patient seen individually. Discussed the patient with Nursing staff reviewed the chart.~Reviewed interim history and current functioning. Reviewed vital signs,~Labs/ Radiology~and current medications noted below. Continue current treatment with the changes noted in the dictated addendum note Assessment: Vital Signs/I&O: Vital Signs Date Time Temp Pulse Resp B/P (MAP) Pulse Ox O2 Delivery O2 Flow Rate FiO2 03/11/21 18:00 98.0 68 20 104/62 (76) 98 03/10/21 05:49 Room Air I & O 03/10/21 03/10/21 03/11/21 15:00 23:00 07:00 Intake Total 960 ml 220 ml 240 ml Balance 960 ml 220 ml 240 ml Current Medications: Meds: Current Medications Medications (Trade) Dose Ordered Sig/Magdalena Route PRN Reason Start Time Stop Time Status Last Admin Dose Admin Acetaminophen (Tylenol) 650 mg PRN Q6HRS PRN PO MILD PAIN / TEMP > 100.3'F 02/26/21 22:00 Bisacodyl (Dulcolax Supp) 10 mg PRN DAILY PRN RC 2nd CHOICE CONSTIPATION 02/26/21 22:00 Docusate Sodium (Colace) 100 mg DAILY PO 02/27/21 09:00 03/11/21 08:23 Famotidine (Pepcid) 20 mg QHS PO 02/27/21 21:00 03/11/21 20:50 Gabapentin (Neurontin) 100 mg QHS PO 02/27/21 21:00 03/11/21 20:50 Lactase (Lactaid) 3,000 unit TID PO 02/27/21 09:00 03/11/21 20:50 Levothyroxine Sodium (Synthroid) 25 mcg DAILY06 PO 02/27/21 06:00 03/11/21 05:45 Melatonin (Melatonin) 3 mg QHS PO 02/27/21 21:00 03/11/21 20:50 Memantine (Namenda) 5 mg BID PO 02/27/21 09:00 03/03/21 16:00 DC 03/03/21 08:13 Mirtazapine (Remeron) 7.5 mg QHS PO 02/27/21 21:00 03/11/21 20:50 Oxycodone/ Acetaminophen (Percocet 10/325) 1 tab PRN Q6HRS PRN PO MOD-SEV PAIN 02/26/21 22:00 03/11/21 20:50 Quetiapine Fumarate (SEROquel) 25 mg TID PO 02/27/21 09:00 02/28/21 17:34 DC 02/28/21 14:31 Cephalexin HCl (Keflex) 250 mg TID PO 02/27/21 09:00 02/28/21 10:12 DC 02/28/21 08:13 Non-Formulary Medication (Mag Hydrox/Al Hydrox/Simeth (Mag-Al Plus Suspension)) 15 ml PRN QHS PRN PO DYSPEPSIA 02/26/21 22:00 UNV Multi-Ingredient Ointment (Analgesic [place]) 1 hector PRN QID PRN TP MUSCLE PAIN 02/26/21 22:30 Ondansetron HCl (Zofran Odt) 4 mg PRN Q8HRS PRN PO NAUSEA 02/26/21 22:30 Rivastigmine Tartrate (Exelon) 4.5 mg BIDWMEALS PO 02/27/21 08:00 03/11/21 17:00 Acetaminophen (Tylenol) 650 mg PRN Q6HRS PRN PO MILD PAIN / TEMP > 100.3'F 02/26/21 22:15 UNV Al Hydroxide/Mg Hydroxide (Mylanta Plus Xs) 15 ml PRN AFTMEALHC PRN PO DYSPEPSIA 02/26/21 22:15 Magnesium Hydroxide (Milk Of Magnesia) 2,400 mg PRN QHS PRN PO 1ST CHOICE CONSTIPATION 02/26/21 22:15 Olanzapine (ZyPREXA ZYDIS) 2.5 mg PRN Q2HR PRN PO PSYCHOSIS 02/27/21 07:30 03/11/21 20:50 Trazodone HCl (Desyrel) 50 mg PRN QHS PRN PO INSOMNIA 02/27/21 07:30 03/11/21 20:50 Lactobacillus Rhamnosus (Culturelle) 1 cap BID PO 02/27/21 09:00 03/11/21 20:49 Quetiapine Fumarate (SEROquel) 37.5 mg TID PO 02/28/21 21:00 03/01/21 19:04 DC 03/01/21 14:23 Olanzapine (ZyPREXA) 2.5 mg 0900,1300,1700 PO 03/02/21 09:00 03/11/21 17:00 Memantine (Namenda) 10 mg BID PO 03/03/21 21:00 03/11/21 20:50 Sertraline HCl (Zoloft) 25 mg DAILY PO 03/04/21 09:00 03/06/21 12:00 DC 03/06/21 08:16 Sertraline HCl (Zoloft) 50 mg DAILY PO 03/07/21 09:00 03/09/21 17:09 DC 03/09/21 09:13 Sertraline HCl (Zoloft) 75 mg DAILY PO 03/10/21 09:00 03/11/21 08:23 I have reviewed the current psychotropics carefully including drug interactions. Risk benefit ratio favors no change other than as noted in my dictated progress note. 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
[2021-03-12 05:57] LABS: BACTERIA,URINE MANY /HPF (0-FEW); BILIRUBIN,URINE NEG (NEG); CLARITY,URINE CLOUDY; COLOR,URINE YELLOW; GLUCOSE,URINE NEG (NEG); NITRITE,URINE NEG (NEG); RBC,URINE 20-40 /HPF (0-2); WBC,URINE >40 /HPF (0-4)
[2021-03-12 05:58] LABS: SQUAMOUS EPITHELIAL CELL,UR OCC /LPF
[2021-03-12 06:06] VITALS: BP 100/53
[2021-03-12] MEDS: LEVOTHYROXINE 25 MCG TABLET. PO SCH (06:15)
[2021-03-12] MEDS: DOCUSATE SODIUM 100 MG CAPSULE PO SCH (08:33)
[2021-03-12] MEDS: LACTOBACILLUS RHAMNOSUS GG 1 CAPSULE. PO SCH ×2 (08:33→20:02)
[2021-03-12] MEDS: LACTASE 3,000 UNIT TABLET PO SCH ×3 (08:33→20:02)
[2021-03-12] MEDS: MEMANTINE 10 MG TABLET. PO SCH ×2 (08:33→20:03)
[2021-03-12] MEDS: OLANZapine 2.5 MG TABLET PO SCH ×3 (08:33→17:19)
[2021-03-12] MEDS: DIVALPROEX 125 MG CAP.SPRINK PO SCH ×3 (08:33→17:19)
[2021-03-12] MEDS: RIVASTIGMINE. 1.5 MG CAPSULE. PO SCH ×2 (08:33→17:19)
[2021-03-12] MEDS: SERTRALINE 50 MG TABLET. PO SCH (08:34)
[2021-03-12 15:54] VITALS: BP 119/83
[2021-03-12] MEDS: traZODone 50 MG TABLET. PO PRN (20:02)
[2021-03-12] MEDS: GABAPENTIN 100 MG CAPSULE. PO SCH (20:03)
[2021-03-12] MEDS: FAMOTIDINE 20 MG TABLET PO SCH (20:03)
[2021-03-12] MEDS: MIRTAZAPINE 15 MG TABLET PO SCH (20:03)
[2021-03-12] MEDS: MELATONIN 3 MG TABLET PO SCH (20:03)
--- NOTE | 2021-03-12 22:17 | PDOC ---
Exam Note: Carlos Note: Please also refer to the separate dictated note~for this date of service dictated separately.~Patient seen individually. Discussed the patient with Nursing staff reviewed the chart.~Reviewed interim history and current functioning. Reviewed vital signs,~Labs/ Radiology~and current medications noted below. Continue current treatment with the changes noted in the dictated addendum note Assessment: Vital Signs/I&O: Vital Signs Date Time Temp Pulse Resp B/P (MAP) Pulse Ox O2 Delivery O2 Flow Rate FiO2 03/12/21 15:54 97.6 82 17 119/83 (95) 98 Room Air I & O 03/11/21 03/11/21 03/12/21 15:00 23:00 07:00 Intake Total 600 ml 480 ml Balance 600 ml 480 ml Labs: Laboratory Tests Test 03/12/21 05:20 Urine Collection Type Clean catch Urine Color Yellow Urine Clarity Cloudy Urine pH 7.0 Urine Specific Isabella 1.020 Urine Protein 30 mg/dl (NEG-TRACE) Urine Glucose (UA) Neg mg/dL (NEG) Urine Ketones (Stick) Trace mg/dL (NEG) Urine Blood Small (NEG) Urine Nitrite Neg (NEG) Urine Bilirubin Neg (NEG) Urine Urobilinogen Dipstick 1.0 mg/dL (0.2 mg/dL) Urine Leukocyte Esterase Small (NEG) Urine RBC 20-40 /HPF (0-2) Urine WBC >40 /HPF (0-4) Urine Squamous Epithelial Cells Occ /LPF Urine Bacteria Many /HPF (0-FEW) Current Medications: Meds: Laboratory Tests Test 03/12/21 05:20 Urine Collection Type Clean catch Urine Color Yellow Urine Clarity Cloudy Urine pH 7.0 Urine Specific Isabella 1.020 Urine Protein 30 mg/dl Urine Glucose (UA) Neg mg/dL Urine Ketones (Stick) Trace mg/dL Urine Blood Small Urine Nitrite Neg Urine Bilirubin Neg Urine Urobilinogen Dipstick 1.0 mg/dL Urine Leukocyte Esterase Small Urine RBC 20-40 /HPF Urine WBC >40 /HPF Urine Squamous Epithelial Cells Occ /LPF Urine Bacteria Many /HPF Current Medications Medications (Trade) Dose Ordered Sig/Magdalena Route PRN Reason Start Time Stop Time Status Last Admin Dose Admin Acetaminophen (Tylenol) 650 mg PRN Q6HRS PRN PO MILD PAIN / TEMP > 100.3'F 02/26/21 22:00 Bisacodyl (Dulcolax Supp) 10 mg PRN DAILY PRN RC 2nd CHOICE CONSTIPATION 02/26/21 22:00 Docusate Sodium (Colace) 100 mg DAILY PO 02/27/21 09:00 03/12/21 08:33 Famotidine (Pepcid) 20 mg QHS PO 02/27/21 21:00 03/12/21 20:03 Gabapentin (Neurontin) 100 mg QHS PO 02/27/21 21:00 03/12/21 20:03 Lactase (Lactaid) 3,000 unit TID PO 02/27/21 09:00 03/12/21 20:02 Levothyroxine Sodium (Synthroid) 25 mcg DAILY06 PO 02/27/21 06:00 03/12/21 06:15 Melatonin (Melatonin) 3 mg QHS PO 02/27/21 21:00 03/12/21 20:03 Memantine (Namenda) 5 mg BID PO 02/27/21 09:00 03/03/21 16:00 DC 03/03/21 08:13 Mirtazapine (Remeron) 7.5 mg QHS PO 02/27/21 21:00 03/12/21 18:07 DC 03/11/21 20:50 Oxycodone/ Acetaminophen (Percocet 10/325) 1 tab PRN Q6HRS PRN PO MOD-SEV PAIN 02/26/21 22:00 03/11/21 20:50 Quetiapine Fumarate (SEROquel) 25 mg TID PO 02/27/21 09:00 02/28/21 17:34 DC 02/28/21 14:31 Cephalexin HCl (Keflex) 250 mg TID PO 02/27/21 09:00 02/28/21 10:12 DC 02/28/21 08:13 Non-Formulary Medication (Mag Hydrox/Al Hydrox/Simeth (Mag-Al Plus Suspension)) 15 ml PRN QHS PRN PO DYSPEPSIA 02/26/21 22:00 UNV Multi-Ingredient Ointment (Analgesic [place]) 1 hector PRN QID PRN TP MUSCLE PAIN 02/26/21 22:30 Ondansetron HCl (Zofran Odt) 4 mg PRN Q8HRS PRN PO NAUSEA 02/26/21 22:30 Rivastigmine Tartrate (Exelon) 4.5 mg BIDWMEALS PO 02/27/21 08:00 03/12/21 17:19 Acetaminophen (Tylenol) 650 mg PRN Q6HRS PRN PO MILD PAIN / TEMP > 100.3'F 02/26/21 22:15 UNV Al Hydroxide/Mg Hydroxide (Mylanta Plus Xs) 15 ml PRN AFTMEALHC PRN PO DYSPEPSIA 02/26/21 22:15 Magnesium Hydroxide (Milk Of Magnesia) 2,400 mg PRN QHS PRN PO 1ST CHOICE CONSTIPATION 02/26/21 22:15 Olanzapine (ZyPREXA ZYDIS) 2.5 mg PRN Q2HR PRN PO PSYCHOSIS 02/27/21 07:30 03/12/21 20:02 Trazodone HCl (Desyrel) 50 mg PRN QHS PRN PO INSOMNIA 02/27/21 07:30 03/12/21 20:02 Lactobacillus Rhamnosus (Culturelle) 1 cap BID PO 02/27/21 09:00 03/12/21 20:02 Quetiapine Fumarate (SEROquel) 37.5 mg TID PO 02/28/21 21:00 03/01/21 19:04 DC 03/01/21 14:23 Olanzapine (ZyPREXA) 2.5 mg 0900,1300,1700 PO 03/02/21 09:00 03/12/21 17:19 Memantine (Namenda) 10 mg BID PO 03/03/21 21:00 03/12/21 20:03 Sertraline HCl (Zoloft) 25 mg DAILY PO 03/04/21 09:00 03/06/21 12:00 DC 03/06/21 08:16 Sertraline HCl (Zoloft) 50 mg DAILY PO 03/07/21 09:00 03/09/21 17:09 DC 03/09/21 09:13 Sertraline HCl (Zoloft) 75 mg DAILY PO 03/10/21 09:00 03/12/21 08:34 Divalproex Sodium (Depakote Sprinkles) 125 mg TIDWMEALS PO 03/12/21 08:00 03/12/21 17:19 Mirtazapine (Remeron) 15 mg QHS PO 03/12/21 21:00 03/12/21 20:03 Current Medications Medications (Trade) Dose Ordered Sig/Magdalena Route PRN Reason Start Time Stop Time Status Last Admin Dose Admin Divalproex Sodium (Depakote Sprinkles) 125 mg TIDWMEALS PO 03/12/21 08:00 03/12/21 17:19 Mirtazapine (Remeron) 15 mg QHS PO 03/12/21 21:00 03/12/21 20:03 I have reviewed the current psychotropics carefully including drug interactions. Risk benefit ratio favors no change other than as noted in my dictated progress note. 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
[2021-03-13] MEDS: LEVOTHYROXINE 25 MCG TABLET. PO SCH (05:54)
[2021-03-13 06:34] VITALS: BP 102/64
--- NOTE | 2021-03-13 07:38 | PDOC ---
Exam Note: Carlos Note: This note is a late entry for 03/10/2021 covers elements not covered in my initial note. Subjective: The patient was seen individually in the evening of 03/10/2021 with Robert HERNDON, discussed and reviewed the chart. The patient slept 7-3/4 hours previous night. Overall she remains somewhat anxious, labile in her mood, irritable at times, but less yelling. Review of Systems: Ambulation impaired in wheelchair. No CV, , pulmonary, eye, ENT system symptoms on review. Mental Status Exam: The patient is oriented to herself and situation. Speech is coherent. Abstraction is fair. Computation is impaired. Language function intact. Attention span is short. Mood and affect withdrawn. Laboratory Data: Reviewed. Impression: Bipolar disorder, mixed. Major neurocognitive disorder Alzheimer vascular with delusion, depression, behavioral disturbance. Impulse control disorder unspecified. Anxiety disorder unspecified. Plan: Continue rest psychotropics unchanged. Assessment: Vital Signs/I&O: Vital Signs Date Time Temp Pulse Resp B/P (MAP) Pulse Ox O2 Delivery O2 Flow Rate FiO2 03/13/21 06:34 97.8 85 16 102/64 (77) 95 03/12/21 15:54 Room Air I & O 03/12/21 03/12/21 03/13/21 15:00 23:00 07:00 Intake Total 360 ml 360 ml Balance 360 ml 360 ml Current Medications: Meds: Current Medications Medications (Trade) Dose Ordered Sig/Magdalena Route PRN Reason Start Time Stop Time Status Last Admin Dose Admin Acetaminophen (Tylenol) 650 mg PRN Q6HRS PRN PO MILD PAIN / TEMP > 100.3'F 02/26/21 22:00 Bisacodyl (Dulcolax Supp) 10 mg PRN DAILY PRN RC 2nd CHOICE CONSTIPATION 02/26/21 22:00 Docusate Sodium (Colace) 100 mg DAILY PO 02/27/21 09:00 03/12/21 08:33 Famotidine (Pepcid) 20 mg QHS PO 02/27/21 21:00 03/12/21 20:03 Gabapentin (Neurontin) 100 mg QHS PO 02/27/21 21:00 03/12/21 20:03 Lactase (Lactaid) 3,000 unit TID PO 02/27/21 09:00 03/12/21 20:02 Levothyroxine Sodium (Synthroid) 25 mcg DAILY06 PO 02/27/21 06:00 03/13/21 05:54 Melatonin (Melatonin) 3 mg QHS PO 02/27/21 21:00 03/12/21 20:03 Memantine (Namenda) 5 mg BID PO 02/27/21 09:00 03/03/21 16:00 DC 03/03/21 08:13 Mirtazapine (Remeron) 7.5 mg QHS PO 02/27/21 21:00 03/12/21 18:07 DC 03/11/21 20:50 Oxycodone/ Acetaminophen (Percocet 10/325) 1 tab PRN Q6HRS PRN PO MOD-SEV PAIN 02/26/21 22:00 03/11/21 20:50 Quetiapine Fumarate (SEROquel) 25 mg TID PO 02/27/21 09:00 02/28/21 17:34 DC 02/28/21 14:31 Cephalexin HCl (Keflex) 250 mg TID PO 02/27/21 09:00 02/28/21 10:12 DC 02/28/21 08:13 Non-Formulary Medication (Mag Hydrox/Al Hydrox/Simeth (Mag-Al Plus Suspension)) 15 ml PRN QHS PRN PO DYSPEPSIA 02/26/21 22:00 UNV Multi-Ingredient Ointment (Analgesic [place]) 1 hector PRN QID PRN TP MUSCLE PAIN 02/26/21 22:30 Ondansetron HCl (Zofran Odt) 4 mg PRN Q8HRS PRN PO NAUSEA 02/26/21 22:30 Rivastigmine Tartrate (Exelon) 4.5 mg BIDWMEALS PO 02/27/21 08:00 03/12/21 17:19 Acetaminophen (Tylenol) 650 mg PRN Q6HRS PRN PO MILD PAIN / TEMP > 100.3'F 02/26/21 22:15 UNV Al Hydroxide/Mg Hydroxide (Mylanta Plus Xs) 15 ml PRN AFTMEALHC PRN PO DYSPEPSIA 02/26/21 22:15 Magnesium Hydroxide (Milk Of Magnesia) 2,400 mg PRN QHS PRN PO 1ST CHOICE CONSTIPATION 02/26/21 22:15 Olanzapine (ZyPREXA ZYDIS) 2.5 mg PRN Q2HR PRN PO PSYCHOSIS 02/27/21 07:30 03/12/21 20:02 Trazodone HCl (Desyrel) 50 mg PRN QHS PRN PO INSOMNIA 02/27/21 07:30 03/12/21 20:02 Lactobacillus Rhamnosus (Culturelle) 1 cap BID PO 02/27/21 09:00 03/12/21 20:02 Quetiapine Fumarate (SEROquel) 37.5 mg TID PO 02/28/21 21:00 03/01/21 19:04 DC 03/01/21 14:23 Olanzapine (ZyPREXA) 2.5 mg 0900,1300,1700 PO 03/02/21 09:00 03/12/21 17:19 Memantine (Namenda) 10 mg BID PO 03/03/21 21:00 03/12/21 20:03 Sertraline HCl (Zoloft) 25 mg DAILY PO 03/04/21 09:00 03/06/21 12:00 DC 03/06/21 08:16 Sertraline HCl (Zoloft) 50 mg DAILY PO 03/07/21 09:00 03/09/21 17:09 DC 03/09/21 09:13 Sertraline HCl (Zoloft) 75 mg DAILY PO 03/10/21 09:00 03/12/21 08:34 Divalproex Sodium (Depakote Sprinkles) 125 mg TIDWMEALS PO 03/12/21 08:00 03/12/21 17:19 Mirtazapine (Remeron) 15 mg QHS PO 03/12/21 21:00 03/12/21 20:03 Current Medications Medications (Trade) Dose Ordered Sig/[place] Route PRN Reason Start Time Stop Time Status Last Admin Dose Admin Divalproex Sodium (Depakote Sprinkles) 125 mg TIDWMEALS PO 03/12/21 08:00 03/12/21 17:19 Mirtazapine (Remeron) 15 mg QHS PO 03/12/21 21:00 03/12/21 20:03 I have reviewed the current psychotropics carefully including drug interactions. Risk benefit ratio favors no change other than as noted in my dictated progress note. 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
--- NOTE | 2021-03-13 08:15 | PDOC ---
Exam Note: Carlos Note: This note is a late entry for 03/11/2021 covers elements not covered in my initial note. Subjective: The patient was seen individually in the evening of 03/11/2021 with Shagufta HERNDON, discussed and reviewed the chart. The patient slept 7 hours previous night. She has been yelling wanting her dinner in bed, refuses to get out of bed and refused to go for supper earlier. I met with her in her room at length. She has been screaming all last night. She complains of being cold. Review of Systems: Ambulation impaired in wheelchair. No CV, , pulmonary, eye, ENT system symptoms on review. Mental Status Exam: The patient is oriented to herself and situation. Speech is coherent. Abstraction is fair. Computation is impaired. Language function intact. Attention span is short. Mood and affect withdrawn. Laboratory Data: Reviewed. Impression: Bipolar disorder, mixed. Major neurocognitive disorder Alzheimer vascular with delusion, depression, behavioral disturbance. Impulse control disorder unspecified. Anxiety disorder unspecified. Plan: Continue rest psychotropics unchanged. We will go ahead and start Depakote Sprinkle 125 mg 9 a.m., 1 p.m. and 5 p.m. Check CBC, CMP, valproic acid level in 3 days. Assessment: Vital Signs/I&O: Vital Signs Date Time Temp Pulse Resp B/P (MAP) Pulse Ox O2 Delivery O2 Flow Rate FiO2 03/13/21 06:34 97.8 85 16 102/64 (77) 95 03/12/21 15:54 Room Air I & O 03/12/21 03/12/21 03/13/21 15:00 23:00 07:00 Intake Total 360 ml 360 ml Balance 360 ml 360 ml Current Medications: Meds: Current Medications Medications (Trade) Dose Ordered Sig/[place] Route PRN Reason Start Time Stop Time Status Last Admin Dose Admin Acetaminophen (Tylenol) 650 mg PRN Q6HRS PRN PO MILD PAIN / TEMP > 100.3'F 02/26/21 22:00 Bisacodyl (Dulcolax Supp) 10 mg PRN DAILY PRN RC 2nd CHOICE CONSTIPATION 02/26/21 22:00 Docusate Sodium (Colace) 100 mg DAILY PO 02/27/21 09:00 03/12/21 08:33 Famotidine (Pepcid) 20 mg QHS PO 02/27/21 21:00 03/12/21 20:03 Gabapentin (Neurontin) 100 mg QHS PO 02/27/21 21:00 03/12/21 20:03 Lactase (Lactaid) 3,000 unit TID PO 02/27/21 09:00 03/12/21 20:02 Levothyroxine Sodium (Synthroid) 25 mcg DAILY06 PO 02/27/21 06:00 03/13/21 05:54 Melatonin (Melatonin) 3 mg QHS PO 02/27/21 21:00 03/12/21 20:03 Memantine (Namenda) 5 mg BID PO 02/27/21 09:00 03/03/21 16:00 DC 03/03/21 08:13 Mirtazapine (Remeron) 7.5 mg QHS PO 02/27/21 21:00 03/12/21 18:07 DC 03/11/21 20:50 Oxycodone/ Acetaminophen (Percocet 10/325) 1 tab PRN Q6HRS PRN PO MOD-SEV PAIN 02/26/21 22:00 03/11/21 20:50 Quetiapine Fumarate (SEROquel) 25 mg TID PO 02/27/21 09:00 02/28/21 17:34 DC 02/28/21 14:31 Cephalexin HCl (Keflex) 250 mg TID PO 02/27/21 09:00 02/28/21 10:12 DC 02/28/21 08:13 Non-Formulary Medication (Mag Hydrox/Al Hydrox/Simeth (Mag-Al Plus Suspension)) 15 ml PRN QHS PRN PO DYSPEPSIA 02/26/21 22:00 UNV Multi-Ingredient Ointment (Analgesic [place]) 1 hector PRN QID PRN TP MUSCLE PAIN 02/26/21 22:30 Ondansetron HCl (Zofran Odt) 4 mg PRN Q8HRS PRN PO NAUSEA 02/26/21 22:30 Rivastigmine Tartrate (Exelon) 4.5 mg BIDWMEALS PO 02/27/21 08:00 03/12/21 17:19 Acetaminophen (Tylenol) 650 mg PRN Q6HRS PRN PO MILD PAIN / TEMP > 100.3'F 02/26/21 22:15 UNV Al Hydroxide/Mg Hydroxide (Mylanta Plus Xs) 15 ml PRN AFTMEALHC PRN PO DYSPEPSIA 02/26/21 22:15 Magnesium Hydroxide (Milk Of Magnesia) 2,400 mg PRN QHS PRN PO 1ST CHOICE CONSTIPATION 02/26/21 22:15 Olanzapine (ZyPREXA ZYDIS) 2.5 mg PRN Q2HR PRN PO PSYCHOSIS 02/27/21 07:30 03/12/21 20:02 Trazodone HCl (Desyrel) 50 mg PRN QHS PRN PO INSOMNIA 02/27/21 07:30 03/12/21 20:02 Lactobacillus Rhamnosus (Culturelle) 1 cap BID PO 02/27/21 09:00 03/12/21 20:02 Quetiapine Fumarate (SEROquel) 37.5 mg TID PO 02/28/21 21:00 03/01/21 19:04 DC 03/01/21 14:23 Olanzapine (ZyPREXA) 2.5 mg 0900,1300,1700 PO 03/02/21 09:00 03/12/21 17:19 Memantine (Namenda) 10 mg BID PO 03/03/21 21:00 03/12/21 20:03 Sertraline HCl (Zoloft) 25 mg DAILY PO 03/04/21 09:00 03/06/21 12:00 DC 03/06/21 08:16 Sertraline HCl (Zoloft) 50 mg DAILY PO 03/07/21 09:00 03/09/21 17:09 DC 03/09/21 09:13 Sertraline HCl (Zoloft) 75 mg DAILY PO 03/10/21 09:00 03/12/21 08:34 Divalproex Sodium (Depakote Sprinkles) 125 mg TIDWMEALS PO 03/12/21 08:00 03/12/21 17:19 Mirtazapine (Remeron) 15 mg QHS PO 03/12/21 21:00 03/12/21 20:03 Current Medications Medications (Trade) Dose Ordered Sig/[place] Route PRN Reason Start Time Stop Time Status Last Admin Dose Admin Mirtazapine (Remeron) 15 mg QHS PO 03/12/21 21:00 03/12/21 20:03 I have reviewed the current psychotropics carefully including drug interactions. Risk benefit ratio favors no change other than as noted in my dictated progress note. Diagnosis: Problems: (1) Dementia, vascular, with delusions (2) Bipolar disorder, current episode mixed, severe, with psychotic features (3) Dementia in Alzheimer's disease with depression (4) Dementia in Alzheimer's disease with delusions (5) Major neurocognitive disorder (6) Dementia in Alzheimer's disease with early onset with behavioral disturbance (7) Impulse control disorder (8) Dementia, vascular, with depression (9) Anxiety disorder DUGLAS SMALL MD March 13, 2021 08:15
[2021-03-13] MEDS: LACTASE 3,000 UNIT TABLET PO SCH ×3 (09:01→20:18)
[2021-03-13] MEDS: SERTRALINE 50 MG TABLET. PO SCH (09:01)
[2021-03-13] MEDS: OLANZapine 2.5 MG TABLET PO SCH ×3 (09:01→17:17)
[2021-03-13] MEDS: MEMANTINE 10 MG TABLET. PO SCH ×2 (09:01→20:18)
[2021-03-13] MEDS: DOCUSATE SODIUM 100 MG CAPSULE PO SCH (09:01)
[2021-03-13] MEDS: RIVASTIGMINE. 1.5 MG CAPSULE. PO SCH ×2 (09:01→17:18)
[2021-03-13] MEDS: LACTOBACILLUS RHAMNOSUS GG 1 CAPSULE. PO SCH ×2 (09:01→20:19)
[2021-03-13] MEDS: DIVALPROEX 125 MG CAP.SPRINK PO SCH ×3 (09:02→17:18)
[2021-03-13 15:49] VITALS: BP 139/81
[2021-03-13] MEDS: FAMOTIDINE 20 MG TABLET PO SCH (20:18)
[2021-03-13] MEDS: MIRTAZAPINE 15 MG TABLET PO SCH (20:18)
[2021-03-13] MEDS: traZODone 50 MG TABLET. PO PRN (20:18)
[2021-03-13] MEDS: GABAPENTIN 100 MG CAPSULE. PO SCH (20:18)
[2021-03-13] MEDS: MELATONIN 3 MG TABLET PO SCH (20:18)
--- NOTE | 2021-03-13 21:54 | PDOC ---
Exam Note: Carlos Note: Please also refer to the separate dictated note~for this date of service dictated separately.~Patient seen individually. Discussed the patient with Nursing staff reviewed the chart.~Reviewed interim history and current functioning. Reviewed vital signs,~Labs/ Radiology~and current medications noted below. Continue current treatment with the changes noted in the dictated addendum note Assessment: Vital Signs/I&O: Vital Signs Date Time Temp Pulse Resp B/P (MAP) Pulse Ox O2 Delivery O2 Flow Rate FiO2 03/13/21 15:49 97.6 90 16 139/81 (100) 97 Room Air I & O 03/12/21 03/12/21 03/13/21 15:00 23:00 07:00 Intake Total 360 ml 360 ml Balance 360 ml 360 ml Current Medications: Meds: Current Medications Medications (Trade) Dose Ordered Sig/[place] Route PRN Reason Start Time Stop Time Status Last Admin Dose Admin Acetaminophen (Tylenol) 650 mg PRN Q6HRS PRN PO MILD PAIN / TEMP > 100.3'F 02/26/21 22:00 Bisacodyl (Dulcolax Supp) 10 mg PRN DAILY PRN RC 2nd CHOICE CONSTIPATION 02/26/21 22:00 Docusate Sodium (Colace) 100 mg DAILY PO 02/27/21 09:00 03/13/21 09:01 Famotidine (Pepcid) 20 mg QHS PO 02/27/21 21:00 03/13/21 20:18 Gabapentin (Neurontin) 100 mg QHS PO 02/27/21 21:00 03/13/21 20:18 Lactase (Lactaid) 3,000 unit TID PO 02/27/21 09:00 03/13/21 20:18 Levothyroxine Sodium (Synthroid) 25 mcg DAILY06 PO 02/27/21 06:00 03/13/21 05:54 Melatonin (Melatonin) 3 mg QHS PO 02/27/21 21:00 03/13/21 20:18 Memantine (Namenda) 5 mg BID PO 02/27/21 09:00 03/03/21 16:00 DC 03/03/21 08:13 Mirtazapine (Remeron) 7.5 mg QHS PO 02/27/21 21:00 03/12/21 18:07 DC 03/11/21 20:50 Oxycodone/ Acetaminophen (Percocet 10/325) 1 tab PRN Q6HRS PRN PO MOD-SEV PAIN 02/26/21 22:00 03/11/21 20:50 Quetiapine Fumarate (SEROquel) 25 mg TID PO 02/27/21 09:00 02/28/21 17:34 DC 02/28/21 14:31 Cephalexin HCl (Keflex) 250 mg TID PO 02/27/21 09:00 02/28/21 10:12 DC 02/28/21 08:13 Non-Formulary Medication (Mag Hydrox/Al Hydrox/Simeth (Mag-Al Plus Suspension)) 15 ml PRN QHS PRN PO DYSPEPSIA 02/26/21 22:00 UNV Multi-Ingredient Ointment (Analgesic [place]) 1 hector PRN QID PRN TP MUSCLE PAIN 02/26/21 22:30 Ondansetron HCl (Zofran Odt) 4 mg PRN Q8HRS PRN PO NAUSEA 02/26/21 22:30 Rivastigmine Tartrate (Exelon) 4.5 mg BIDWMEALS PO 02/27/21 08:00 03/13/21 17:18 Acetaminophen (Tylenol) 650 mg PRN Q6HRS PRN PO MILD PAIN / TEMP > 100.3'F 02/26/21 22:15 UNV Al Hydroxide/Mg Hydroxide (Mylanta Plus Xs) 15 ml PRN AFTMEALHC PRN PO DYSPEPSIA 02/26/21 22:15 Magnesium Hydroxide (Milk Of Magnesia) 2,400 mg PRN QHS PRN PO 1ST CHOICE CONSTIPATION 02/26/21 22:15 Olanzapine (ZyPREXA ZYDIS) 2.5 mg PRN Q2HR PRN PO PSYCHOSIS 02/27/21 07:30 03/12/21 20:02 Trazodone HCl (Desyrel) 50 mg PRN QHS PRN PO INSOMNIA 02/27/21 07:30 03/13/21 20:18 Lactobacillus Rhamnosus (Culturelle) 1 cap BID PO 02/27/21 09:00 03/13/21 20:19 Quetiapine Fumarate (SEROquel) 37.5 mg TID PO 02/28/21 21:00 03/01/21 19:04 DC 03/01/21 14:23 Olanzapine (ZyPREXA) 2.5 mg 0900,1300,1700 PO 03/02/21 09:00 03/13/21 17:17 Memantine (Namenda) 10 mg BID PO 03/03/21 21:00 03/13/21 20:18 Sertraline HCl (Zoloft) 25 mg DAILY PO 03/04/21 09:00 03/06/21 12:00 DC 03/06/21 08:16 Sertraline HCl (Zoloft) 50 mg DAILY PO 03/07/21 09:00 03/09/21 17:09 DC 03/09/21 09:13 Sertraline HCl (Zoloft) 75 mg DAILY PO 03/10/21 09:00 03/13/21 09:01 Divalproex Sodium (Depakote Sprinkles) 125 mg TIDWMEALS PO 03/12/21 08:00 03/13/21 17:18 Mirtazapine (Remeron) 15 mg QHS PO 03/12/21 21:00 03/13/21 20:18 I have reviewed the current psychotropics carefully including drug interactions. Risk benefit ratio favors no change other than as noted in my dictated progress note. Diagnosis: Problems: (1) Dementia, vascular, with delusions (2) Bipolar disorder, current episode mixed, severe, with psychotic features (3) Dementia in Alzheimer's disease with depression (4) Dementia in Alzheimer's disease with delusions (5) Major neurocognitive disorder (6) Dementia in Alzheimer's disease with early onset with behavioral disturbance (7) Impulse control disorder (8) Dementia, vascular, with depression (9) Anxiety disorder DUGLAS SMALL MD March 13, 2021 21:54
[2021-03-14 06:21] VITALS: BP 96/60
[2021-03-14] MEDS: DIVALPROEX 125 MG CAP.SPRINK PO SCH ×3 (06:36→16:12)
[2021-03-14] MEDS: LEVOTHYROXINE 25 MCG TABLET. PO SCH (06:36)
[2021-03-14] MEDS: MEMANTINE 10 MG TABLET. PO SCH ×2 (06:36→20:09)
[2021-03-14] MEDS: SERTRALINE 50 MG TABLET. PO SCH (06:36)
[2021-03-14] MEDS: OLANZapine 2.5 MG TABLET PO SCH ×3 (06:36→16:12)
[2021-03-14] MEDS: RIVASTIGMINE. 1.5 MG CAPSULE. PO SCH ×2 (06:36→16:11)
[2021-03-14] MEDS: LACTASE 3,000 UNIT TABLET PO SCH ×3 (06:36→20:08)
[2021-03-14] MEDS: DOCUSATE SODIUM 100 MG CAPSULE PO SCH (06:37)
[2021-03-14] MEDS: LACTOBACILLUS RHAMNOSUS GG 1 CAPSULE. PO SCH ×2 (06:37→20:09)
[2021-03-14 16:14] VITALS: BP 121/56
[2021-03-14] MEDS: GABAPENTIN 100 MG CAPSULE. PO SCH (20:08)
[2021-03-14] MEDS: traZODone 50 MG TABLET. PO PRN (20:08)
[2021-03-14] MEDS: FAMOTIDINE 20 MG TABLET PO SCH (20:08)
[2021-03-14] MEDS: MIRTAZAPINE 15 MG TABLET PO SCH (20:09)
[2021-03-14] MEDS: MELATONIN 3 MG TABLET PO SCH (20:09)
--- NOTE | 2021-03-14 21:57 | PDOC ---
Exam Note: Carlos Note: Please also refer to the separate dictated note~for this date of service dictated separately.~Patient seen individually. Discussed the patient with Nursing staff reviewed the chart.~Reviewed interim history and current functioning. Reviewed vital signs,~Labs/ Radiology~and current medications noted below. Continue current treatment with the changes noted in the dictated addendum note Assessment: Vital Signs/I&O: Vital Signs Date Time Temp Pulse Resp B/P (MAP) Pulse Ox O2 Delivery O2 Flow Rate FiO2 03/14/21 16:14 98.2 80 16 121/56 (77) 98 03/14/21 06:21 Room Air I & O 03/13/21 03/13/21 03/14/21 15:00 23:00 07:00 Intake Total 240 ml 480 ml Balance 240 ml 480 ml Current Medications: Meds: Current Medications Medications (Trade) Dose Ordered Sig/[place] Route PRN Reason Start Time Stop Time Status Last Admin Dose Admin Acetaminophen (Tylenol) 650 mg PRN Q6HRS PRN PO MILD PAIN / TEMP > 100.3'F 02/26/21 22:00 Bisacodyl (Dulcolax Supp) 10 mg PRN DAILY PRN RC 2nd CHOICE CONSTIPATION 02/26/21 22:00 Docusate Sodium (Colace) 100 mg DAILY PO 02/27/21 09:00 03/14/21 06:37 Famotidine (Pepcid) 20 mg QHS PO 02/27/21 21:00 03/14/21 20:08 Gabapentin (Neurontin) 100 mg QHS PO 02/27/21 21:00 03/14/21 20:08 Lactase (Lactaid) 3,000 unit TID PO 02/27/21 09:00 03/14/21 20:08 Levothyroxine Sodium (Synthroid) 25 mcg DAILY06 PO 02/27/21 06:00 03/14/21 06:36 Melatonin (Melatonin) 3 mg QHS PO 02/27/21 21:00 03/14/21 20:09 Memantine (Namenda) 5 mg BID PO 02/27/21 09:00 03/03/21 16:00 DC 03/03/21 08:13 Mirtazapine (Remeron) 7.5 mg QHS PO 02/27/21 21:00 03/12/21 18:07 DC 03/11/21 20:50 Oxycodone/ Acetaminophen (Percocet 10/325) 1 tab PRN Q6HRS PRN PO MOD-SEV PAIN 02/26/21 22:00 03/11/21 20:50 Quetiapine Fumarate (SEROquel) 25 mg TID PO 02/27/21 09:00 02/28/21 17:34 DC 02/28/21 14:31 Cephalexin HCl (Keflex) 250 mg TID PO 02/27/21 09:00 02/28/21 10:12 DC 02/28/21 08:13 Non-Formulary Medication (Mag Hydrox/Al Hydrox/Simeth (Mag-Al Plus Suspension)) 15 ml PRN QHS PRN PO DYSPEPSIA 02/26/21 22:00 UNV Multi-Ingredient Ointment (Analgesic [place]) 1 hector PRN QID PRN TP MUSCLE PAIN 02/26/21 22:30 Ondansetron HCl (Zofran Odt) 4 mg PRN Q8HRS PRN PO NAUSEA 02/26/21 22:30 Rivastigmine Tartrate (Exelon) 4.5 mg BIDWMEALS PO 02/27/21 08:00 03/14/21 16:11 Acetaminophen (Tylenol) 650 mg PRN Q6HRS PRN PO MILD PAIN / TEMP > 100.3'F 02/26/21 22:15 UNV Al Hydroxide/Mg Hydroxide (Mylanta Plus Xs) 15 ml PRN AFTMEALHC PRN PO DYSPEPSIA 02/26/21 22:15 Magnesium Hydroxide (Milk Of Magnesia) 2,400 mg PRN QHS PRN PO 1ST CHOICE CONSTIPATION 02/26/21 22:15 Olanzapine (ZyPREXA ZYDIS) 2.5 mg PRN Q2HR PRN PO PSYCHOSIS 02/27/21 07:30 03/12/21 20:02 Trazodone HCl (Desyrel) 50 mg PRN QHS PRN PO INSOMNIA 02/27/21 07:30 03/14/21 20:08 Lactobacillus Rhamnosus (Culturelle) 1 cap BID PO 02/27/21 09:00 03/14/21 20:09 Quetiapine Fumarate (SEROquel) 37.5 mg TID PO 02/28/21 21:00 03/01/21 19:04 DC 03/01/21 14:23 Olanzapine (ZyPREXA) 2.5 mg 0900,1300,1700 PO 03/02/21 09:00 03/14/21 16:12 Memantine (Namenda) 10 mg BID PO 03/03/21 21:00 03/14/21 20:09 Sertraline HCl (Zoloft) 25 mg DAILY PO 03/04/21 09:00 03/06/21 12:00 DC 03/06/21 08:16 Sertraline HCl (Zoloft) 50 mg DAILY PO 03/07/21 09:00 03/09/21 17:09 DC 03/09/21 09:13 Sertraline HCl (Zoloft) 75 mg DAILY PO 03/10/21 09:00 03/14/21 17:48 DC 03/14/21 06:36 Divalproex Sodium (Depakote Sprinkles) 125 mg TIDWMEALS PO 03/12/21 08:00 03/14/21 16:12 Mirtazapine (Remeron) 15 mg QHS PO 03/12/21 21:00 03/14/21 20:09 Sertraline HCl (Zoloft) 100 mg DAILY PO 03/15/21 09:00 I have reviewed the current psychotropics carefully including drug interactions. Risk benefit ratio favors no change other than as noted in my dictated progress note. Diagnosis: Problems: (1) Dementia in Alzheimer's disease with early onset with behavioral disturbance (2) Major neurocognitive disorder (3) Dementia in Alzheimer's disease with delusions (4) Dementia in Alzheimer's disease with depression (5) Dementia, vascular, with delusions (6) Dementia, vascular, with depression (7) Impulse control disorder (8) Anxiety disorder DUGLAS SMALL MD March 14, 2021 21:57
[2021-03-15 06:04] VITALS: BP 102/59
[2021-03-15] MEDS: LEVOTHYROXINE 25 MCG TABLET. PO SCH (06:08)
--- NOTE | 2021-03-15 06:54 | PDOC ---
Exam Note: Carlos Note: This note is a late entry for 03/12/2021 covers elements not covered in my initial note. Subjective: The patient was seen individually in the evening of 03/12/2021 with Brittny HERNDON, discussed and reviewed the chart. The patient slept 5-1/4 hours previous night. No yelling in the morning but in the evening she was agitated, fixated on wanting her dinner in bed. She takes meds with encouragement. UA has reflex to culture & sensitivity. Review of Systems: Ambulation impaired in wheelchair. No CV, , pulmonary, eye, ENT system symptoms on review. Mental Status Exam: The patient is oriented to herself and situation. Speech is coherent. Abstraction is fair. Computation is impaired. Language function intact. Attention span is short. Mood and affect withdrawn. Laboratory Data: Reviewed. Impression: Bipolar disorder, mixed. Major neurocognitive disorder Alzheimer vascular with delusion, depression, behavioral disturbance. Impulse control disorder unspecified. Anxiety disorder unspecified. Plan: Continue rest psychotropics unchanged. The patient slept 5-1/4 hours previous night. We will increase Remeron to 15 mg h.s. Assessment: Vital Signs/I&O: Vital Signs Date Time Temp Pulse Resp B/P (MAP) Pulse Ox O2 Delivery O2 Flow Rate FiO2 03/15/21 06:04 97.3 86 16 102/59 (73) 96 03/14/21 06:21 Room Air I & O 03/14/21 03/14/21 03/15/21 15:00 23:00 07:00 Intake Total 240 ml 200 ml Balance 240 ml 200 ml Current Medications: Meds: Current Medications Medications (Trade) Dose Ordered Sig/[place] Route PRN Reason Start Time Stop Time Status Last Admin Dose Admin Acetaminophen (Tylenol) 650 mg PRN Q6HRS PRN PO MILD PAIN / TEMP > 100.3'F 02/26/21 22:00 Bisacodyl (Dulcolax Supp) 10 mg PRN DAILY PRN RC 2nd CHOICE CONSTIPATION 02/26/21 22:00 Docusate Sodium (Colace) 100 mg DAILY PO 02/27/21 09:00 03/14/21 06:37 Famotidine (Pepcid) 20 mg QHS PO 02/27/21 21:00 03/14/21 20:08 Gabapentin (Neurontin) 100 mg QHS PO 02/27/21 21:00 03/14/21 20:08 Lactase (Lactaid) 3,000 unit TID PO 02/27/21 09:00 03/14/21 20:08 Levothyroxine Sodium (Synthroid) 25 mcg DAILY06 PO 02/27/21 06:00 03/15/21 06:08 Melatonin (Melatonin) 3 mg QHS PO 02/27/21 21:00 03/14/21 20:09 Memantine (Namenda) 5 mg BID PO 02/27/21 09:00 03/03/21 16:00 DC 03/03/21 08:13 Mirtazapine (Remeron) 7.5 mg QHS PO 02/27/21 21:00 03/12/21 18:07 DC 03/11/21 20:50 Oxycodone/ Acetaminophen (Percocet 10/325) 1 tab PRN Q6HRS PRN PO MOD-SEV PAIN 02/26/21 22:00 03/11/21 20:50 Quetiapine Fumarate (SEROquel) 25 mg TID PO 02/27/21 09:00 02/28/21 17:34 DC 02/28/21 14:31 Cephalexin HCl (Keflex) 250 mg TID PO 02/27/21 09:00 02/28/21 10:12 DC 02/28/21 08:13 Non-Formulary Medication (Mag Hydrox/Al Hydrox/Simeth (Mag-Al Plus Suspension)) 15 ml PRN QHS PRN PO DYSPEPSIA 02/26/21 22:00 UNV Multi-Ingredient Ointment (Analgesic [place]) 1 hector PRN QID PRN TP MUSCLE PAIN 02/26/21 22:30 Ondansetron HCl (Zofran Odt) 4 mg PRN Q8HRS PRN PO NAUSEA 02/26/21 22:30 Rivastigmine Tartrate (Exelon) 4.5 mg BIDWMEALS PO 02/27/21 08:00 03/14/21 16:11 Acetaminophen (Tylenol) 650 mg PRN Q6HRS PRN PO MILD PAIN / TEMP > 100.3'F 02/26/21 22:15 UNV Al Hydroxide/Mg Hydroxide (Mylanta Plus Xs) 15 ml PRN AFTMEALHC PRN PO DYSPEPSIA 02/26/21 22:15 Magnesium Hydroxide (Milk Of Magnesia) 2,400 mg PRN QHS PRN PO 1ST CHOICE CONSTIPATION 02/26/21 22:15 Olanzapine (ZyPREXA ZYDIS) 2.5 mg PRN Q2HR PRN PO PSYCHOSIS 02/27/21 07:30 03/12/21 20:02 Trazodone HCl (Desyrel) 50 mg PRN QHS PRN PO INSOMNIA 02/27/21 07:30 03/14/21 20:08 Lactobacillus Rhamnosus (Culturelle) 1 cap BID PO 02/27/21 09:00 03/14/21 20:09 Quetiapine Fumarate (SEROquel) 37.5 mg TID PO 02/28/21 21:00 03/01/21 19:04 DC 03/01/21 14:23 Olanzapine (ZyPREXA) 2.5 mg 0900,1300,1700 PO 03/02/21 09:00 03/14/21 16:12 Memantine (Namenda) 10 mg BID PO 03/03/21 21:00 03/14/21 20:09 Sertraline HCl (Zoloft) 25 mg DAILY PO 03/04/21 09:00 03/06/21 12:00 DC 03/06/21 08:16 Sertraline HCl (Zoloft) 50 mg DAILY PO 03/07/21 09:00 03/09/21 17:09 DC 03/09/21 09:13 Sertraline HCl (Zoloft) 75 mg DAILY PO 03/10/21 09:00 03/14/21 17:48 DC 03/14/21 06:36 Divalproex Sodium (Depakote Sprinkles) 125 mg TIDWMEALS PO 03/12/21 08:00 03/14/21 16:12 Mirtazapine (Remeron) 15 mg QHS PO 03/12/21 21:00 03/14/21 20:09 Sertraline HCl (Zoloft) 100 mg DAILY PO 03/15/21 09:00 I have reviewed the current psychotropics carefully including drug interactions. Risk benefit ratio favors no change other than as noted in my dictated progress note. Diagnosis: Problems: (1) Dementia, vascular, with delusions (2) Dementia in Alzheimer's disease with depression (3) Dementia in Alzheimer's disease with delusions (4) Major neurocognitive disorder (5) Dementia in Alzheimer's disease with early onset with behavioral disturbance (6) Impulse control disorder (7) Dementia, vascular, with depression (8) Anxiety disorder DUGLAS SMALL MD March 15, 2021 06:54
[2021-03-15 07:04] LABS: BASO % 0 % (0-3); EOS # 0.2 x10^3/uL (0.0-0.7); EOS % 3 % (0-3); HEMATOCRIT 29.1 % (36.0-47.0); HEMOGLOBIN 9.4 g/dL (12.0-15.5); LYMPH # 2.2 x10^3/uL (1.0-4.8); LYMPH % 26 % (24-48); MEAN CORPUSCULAR HEMOGLOBIN 26 pg (25-35); MEAN CORPUSCULAR HGB CONC 32 g/dL (31-37); MEAN CORPUSCULAR VOLUME 81 fL (79-100); MONO # 0.6 x10^3/uL (0.0-1.1); MONO % 7 % (0-9); NEUT # 5.5 x10^3uL (1.8-7.7); NEUT % 64 % (31-73); PLATELET COUNT 355 x10^3/uL (140-400); RED BLOOD COUNT 3.59 x10^6/uL (3.50-5.40); RED CELL DISTRIBUTION WIDTH 18.4 % (11.5-14.5); WHITE BLOOD COUNT 8.6 x10^3/uL (4.0-11.0)
[2021-03-15 07:15] LABS: ALBUMIN 1.8 g/dL (3.4-5.0); ALBUMIN/GLOBULIN RATIO 0.5 (1.0-1.7); CALCIUM 7.9 mg/dL (8.5-10.1); CREATININE 0.8 mg/dL (0.6-1.0); POTASSIUM 3.8 mmol/L (3.5-5.1); TOTAL BILIRUBIN 0.2 mg/dL (0.2-1.0); TOTAL PROTEIN 5.7 g/dL (6.4-8.2)
[2021-03-15 07:22] LABS: VAL ACID 33 mcg/mL (50-100)
--- NOTE | 2021-03-15 07:26 | PDOC ---
Exam Note: Carlos Note: This note is a late entry for 03/13/2021 covers elements not covered in my initial note. Subjective: The patient was seen individually in the evening of 03/13/2021 with Robert HERNDON, discussed and reviewed the chart. The patient slept 6-3/4 hours previous night. She was quite agitated previous day. She slept till 3 p.m. on 03/13, otherwise pleasant. Review of Systems: Ambulation impaired in wheelchair. No CV, , pulmonary, eye, ENT system symptoms on review. Mental Status Exam: The patient is oriented to herself and situation. I met with her in the dayroom. She is in a wheelchair, pleasant, verbal, interactive, smiling, not agitated, aggressive or yelling. Speech is coherent. Abstraction is fair. Computation is impaired. Language function intact. Attention span is short. Mood and affect withdrawn. Laboratory Data: Reviewed. Impression: Bipolar disorder, mixed. Major neurocognitive disorder Alzheimer vascular with delusion, depression, behavioral disturbance. Impulse control disorder unspecified. Anxiety disorder unspecified. Plan: Continue rest psychotropics unchanged. Assessment: Vital Signs/I&O: Vital Signs Date Time Temp Pulse Resp B/P (MAP) Pulse Ox O2 Delivery O2 Flow Rate FiO2 03/15/21 06:04 97.3 86 16 102/59 (73) 96 03/14/21 06:21 Room Air I & O 03/14/21 03/14/21 03/15/21 14:59 22:59 06:59 Intake Total 240 ml 200 ml Balance 240 ml 200 ml Labs: Laboratory Tests Test 03/15/21 06:41 White Blood Count 8.6 x10^3/uL (4.0-11.0) Red Blood Count 3.59 x10^6/uL (3.50-5.40) Hemoglobin 9.4 g/dL (12.0-15.5) L Hematocrit 29.1 % (36.0-47.0) L Mean Corpuscular Volume 81 fL (79-100) Mean Corpuscular Hemoglobin 26 pg (25-35) Mean Corpuscular Hemoglobin Concent 32 g/dL (31-37) Red Cell Distribution Width 18.4 % (11.5-14.5) H Platelet Count 355 x10^3/uL (140-400) Neutrophils (%) (Auto) 64 % (31-73) Lymphocytes (%) (Auto) 26 % (24-48) Monocytes (%) (Auto) 7 % (0-9) Eosinophils (%) (Auto) 3 % (0-3) Basophils (%) (Auto) 0 % (0-3) Neutrophils # (Auto) 5.5 x10^3uL (1.8-7.7) Lymphocytes # (Auto) 2.2 x10^3/uL (1.0-4.8) Monocytes # (Auto) 0.6 x10^3/uL (0.0-1.1) Eosinophils # (Auto) 0.2 x10^3/uL (0.0-0.7) Basophils # (Auto) 0.0 x10^3/uL (0.0-0.2) Sodium Level 143 mmol/L (136-145) Potassium Level 3.8 mmol/L (3.5-5.1) Chloride Level 108 mmol/L (98-107) H Carbon Dioxide Level 28 mmol/L (21-32) Anion Gap 7 (6-14) Blood Urea Nitrogen 14 mg/dL (7-20) Creatinine 0.8 mg/dL (0.6-1.0) Estimated GFR (Cockcroft-Gault) 68.0 BUN/Creatinine Ratio 18 (6-20) Glucose Level 79 mg/dL (70-99) Calcium Level 7.9 mg/dL (8.5-10.1) L Total Bilirubin 0.2 mg/dL (0.2-1.0) Aspartate Amino Transferase (AST) 10 U/L (15-37) L Alanine Aminotransferase (ALT) 8 U/L (14-59) L Alkaline Phosphatase 72 U/L (46-116) Total Protein 5.7 g/dL (6.4-8.2) L Albumin 1.8 g/dL (3.4-5.0) L Albumin/Globulin Ratio 0.5 (1.0-1.7) L Valproic Acid Level 33 mcg/mL (50-100) L Valproic Acid Last Dose Date 03/14/21 Valproic Acid Last Dose Time 2100 Current Medications: Meds: Laboratory Tests Test 03/15/21 06:41 White Blood Count 8.6 x10^3/uL Red Blood Count 3.59 x10^6/uL Hemoglobin 9.4 g/dL Hematocrit 29.1 % Mean Corpuscular Volume 81 fL Mean Corpuscular Hemoglobin 26 pg Mean Corpuscular Hemoglobin Concent 32 g/dL Red Cell Distribution Width 18.4 % Platelet Count 355 x10^3/uL Neutrophils (%) (Auto) 64 % Lymphocytes (%) (Auto) 26 % Monocytes (%) (Auto) 7 % Eosinophils (%) (Auto) 3 % Basophils (%) (Auto) 0 % Neutrophils # (Auto) 5.5 x10^3uL Lymphocytes # (Auto) 2.2 x10^3/uL Monocytes # (Auto) 0.6 x10^3/uL Eosinophils # (Auto) 0.2 x10^3/uL Basophils # (Auto) 0.0 x10^3/uL Sodium Level 143 mmol/L Potassium Level 3.8 mmol/L Chloride Level 108 mmol/L Carbon Dioxide Level 28 mmol/L Anion Gap 7 Blood Urea Nitrogen 14 mg/dL Creatinine 0.8 mg/dL Estimated GFR (Cockcroft-Gault) 68.0 BUN/Creatinine Ratio 18 Glucose Level 79 mg/dL Calcium Level 7.9 mg/dL Total Bilirubin 0.2 mg/dL Aspartate Amino Transf (AST/SGOT) 10 U/L Alanine Aminotransferase (ALT/SGPT) 8 U/L Alkaline Phosphatase 72 U/L Total Protein 5.7 g/dL Albumin 1.8 g/dL Albumin/Globulin Ratio 0.5 Valproic Acid (Depakene) Level 33 mcg/mL Valproic Acid Last Dose Date 03/14/21 Valproic Acid Last Dose Time 2100 Current Medications Medications (Trade) Dose Ordered Sig/Magdalena Route PRN Reason Start Time Stop Time Status Last Admin Dose Admin Acetaminophen (Tylenol) 650 mg PRN Q6HRS PRN PO MILD PAIN / TEMP > 100.3'F 02/26/21 22:00 Bisacodyl (Dulcolax Supp) 10 mg PRN DAILY PRN RC 2nd CHOICE CONSTIPATION 02/26/21 22:00 Docusate Sodium (Colace) 100 mg DAILY PO 02/27/21 09:00 03/14/21 06:37 Famotidine (Pepcid) 20 mg QHS PO 02/27/21 21:00 03/14/21 20:08 Gabapentin (Neurontin) 100 mg QHS PO 02/27/21 21:00 03/14/21 20:08 Lactase (Lactaid) 3,000 unit TID PO 02/27/21 09:00 03/14/21 20:08 Levothyroxine Sodium (Synthroid) 25 mcg DAILY06 PO 02/27/21 06:00 03/15/21 06:08 Melatonin (Melatonin) 3 mg QHS PO 02/27/21 21:00 03/14/21 20:09 Memantine (Namenda) 5 mg BID PO 02/27/21 09:00 03/03/21 16:00 DC 03/03/21 08:13 Mirtazapine (Remeron) 7.5 mg QHS PO 02/27/21 21:00 03/12/21 18:07 DC 03/11/21 20:50 Oxycodone/ Acetaminophen (Percocet 10/325) 1 tab PRN Q6HRS PRN PO MOD-SEV PAIN 02/26/21 22:00 03/11/21 20:50 Quetiapine Fumarate (SEROquel) 25 mg TID PO 02/27/21 09:00 02/28/21 17:34 DC 02/28/21 14:31 Cephalexin HCl (Keflex) 250 mg TID PO 02/27/21 09:00 02/28/21 10:12 DC 02/28/21 08:13 Non-Formulary Medication (Mag Hydrox/Al Hydrox/Simeth (Mag-Al Plus Suspension)) 15 ml PRN QHS PRN PO DYSPEPSIA 02/26/21 22:00 UNV Multi-Ingredient Ointment (Analgesic [place]) 1 hector PRN QID PRN TP MUSCLE PAIN 02/26/21 22:30 Ondansetron HCl (Zofran Odt) 4 mg PRN Q8HRS PRN PO NAUSEA 02/26/21 22:30 Rivastigmine Tartrate (Exelon) 4.5 mg BIDWMEALS PO 02/27/21 08:00 03/14/21 16:11 Acetaminophen (Tylenol) 650 mg PRN Q6HRS PRN PO MILD PAIN / TEMP > 100.3'F 02/26/21 22:15 UNV Al Hydroxide/Mg Hydroxide (Mylanta Plus Xs) 15 ml PRN AFTMEALHC PRN PO DYSPEPSIA 02/26/21 22:15 Magnesium Hydroxide (Milk Of Magnesia) 2,400 mg PRN QHS PRN PO 1ST CHOICE CONSTIPATION 02/26/21 22:15 Olanzapine (ZyPREXA ZYDIS) 2.5 mg PRN Q2HR PRN PO PSYCHOSIS 02/27/21 07:30 03/12/21 20:02 Trazodone HCl (Desyrel) 50 mg PRN QHS PRN PO INSOMNIA 02/27/21 07:30 03/14/21 20:08 Lactobacillus Rhamnosus (Culturelle) 1 cap BID PO 02/27/21 09:00 03/14/21 20:09 Quetiapine Fumarate (SEROquel) 37.5 mg TID PO 02/28/21 21:00 03/01/21 19:04 DC 03/01/21 14:23 Olanzapine (ZyPREXA) 2.5 mg 0900,1300,1700 PO 03/02/21 09:00 03/14/21 16:12 Memantine (Namenda) 10 mg BID PO 03/03/21 21:00 03/14/21 20:09 Sertraline HCl (Zoloft) 25 mg DAILY PO 03/04/21 09:00 03/06/21 12:00 DC 03/06/21 08:16 Sertraline HCl (Zoloft) 50 mg DAILY PO 03/07/21 09:00 03/09/21 17:09 DC 03/09/21 09:13 Sertraline HCl (Zoloft) 75 mg DAILY PO 03/10/21 09:00 03/14/21 17:48 DC 03/14/21 06:36 Divalproex Sodium (Depakote Sprinkles) 125 mg TIDWMEALS PO 03/12/21 08:00 03/14/21 16:12 Mirtazapine (Remeron) 15 mg QHS PO 03/12/21 21:00 03/14/21 20:09 Sertraline HCl (Zoloft) 100 mg DAILY PO 03/15/21 09:00 I have reviewed the current psychotropics carefully including drug interactions. Risk benefit ratio favors no change other than as noted in my dictated progress note. Diagnosis: Problems: (1) Dementia, vascular, with delusions (2) Bipolar disorder, current episode mixed, severe, with psychotic features (3) Dementia in Alzheimer's disease with depression (4) Dementia in Alzheimer's disease with delusions (5) Major neurocognitive disorder (6) Dementia in Alzheimer's disease with early onset with behavioral disturbance (7) Impulse control disorder (8) Dementia, vascular, with depression (9) Anxiety disorder DUGLAS SMALL MD March 15, 2021 07:26
--- NOTE | 2021-03-15 07:51 | PDOC ---
Exam Note: Carlos Note: This note is a late entry for 03/14/2021 covers elements not covered in my initial note. Subjective: The patient was seen individually in the evening of 03/14/2021 with Brittny HERNDON, discussed and reviewed the chart. The patient slept 7-1/4 hours previous night. She is somewhat resistive with medications. She takes it later with encouragement. She was irritable previous evening. She has done reasonably well today. No yelling. Review of Systems: Ambulation impaired in wheelchair. No CV, , pulmonary, eye, ENT system symptoms on review. Mental Status Exam: The patient is awake, alert, and oriented to herself and situation. Speech has some latency, coherent. She was pleasant, smiling as I met with her. Abstraction is fair. Computation is impaired. Language function intact. Attention span is short. Mood and affect withdrawn. Laboratory Data: Reviewed. Impression: Bipolar disorder, mixed. Major neurocognitive disorder Alzheimer vascular with delusion, depression, behavioral disturbance. Impulse control disorder unspecified. Anxiety disorder unspecified. Plan: Continue rest psychotropics unchanged. Assessment: Vital Signs/I&O: Vital Signs Date Time Temp Pulse Resp B/P (MAP) Pulse Ox O2 Delivery O2 Flow Rate FiO2 03/15/21 06:04 97.3 86 16 102/59 (73) 96 03/14/21 06:21 Room Air I & O 03/14/21 03/14/21 03/15/21 15:00 23:00 07:00 Intake Total 240 ml 200 ml Balance 240 ml 200 ml Labs: Laboratory Tests Test 03/15/21 06:41 White Blood Count 8.6 x10^3/uL (4.0-11.0) Red Blood Count 3.59 x10^6/uL (3.50-5.40) Hemoglobin 9.4 g/dL (12.0-15.5) L Hematocrit 29.1 % (36.0-47.0) L Mean Corpuscular Volume 81 fL (79-100) Mean Corpuscular Hemoglobin 26 pg (25-35) Mean Corpuscular Hemoglobin Concent 32 g/dL (31-37) Red Cell Distribution Width 18.4 % (11.5-14.5) H Platelet Count 355 x10^3/uL (140-400) Neutrophils (%) (Auto) 64 % (31-73) Lymphocytes (%) (Auto) 26 % (24-48) Monocytes (%) (Auto) 7 % (0-9) Eosinophils (%) (Auto) 3 % (0-3) Basophils (%) (Auto) 0 % (0-3) Neutrophils # (Auto) 5.5 x10^3uL (1.8-7.7) Lymphocytes # (Auto) 2.2 x10^3/uL (1.0-4.8) Monocytes # (Auto) 0.6 x10^3/uL (0.0-1.1) Eosinophils # (Auto) 0.2 x10^3/uL (0.0-0.7) Basophils # (Auto) 0.0 x10^3/uL (0.0-0.2) Sodium Level 143 mmol/L (136-145) Potassium Level 3.8 mmol/L (3.5-5.1) Chloride Level 108 mmol/L (98-107) H Carbon Dioxide Level 28 mmol/L (21-32) Anion Gap 7 (6-14) Blood Urea Nitrogen 14 mg/dL (7-20) Creatinine 0.8 mg/dL (0.6-1.0) Estimated GFR (Cockcroft-Gault) 68.0 BUN/Creatinine Ratio 18 (6-20) Glucose Level 79 mg/dL (70-99) Calcium Level 7.9 mg/dL (8.5-10.1) L Total Bilirubin 0.2 mg/dL (0.2-1.0) Aspartate Amino Transferase (AST) 10 U/L (15-37) L Alanine Aminotransferase (ALT) 8 U/L (14-59) L Alkaline Phosphatase 72 U/L (46-116) Total Protein 5.7 g/dL (6.4-8.2) L Albumin 1.8 g/dL (3.4-5.0) L Albumin/Globulin Ratio 0.5 (1.0-1.7) L Valproic Acid Level 33 mcg/mL (50-100) L Valproic Acid Last Dose Date 03/14/21 Valproic Acid Last Dose Time 2100 Current Medications: Meds: Laboratory Tests Test 03/15/21 06:41 White Blood Count 8.6 x10^3/uL Red Blood Count 3.59 x10^6/uL Hemoglobin 9.4 g/dL Hematocrit 29.1 % Mean Corpuscular Volume 81 fL Mean Corpuscular Hemoglobin 26 pg Mean Corpuscular Hemoglobin Concent 32 g/dL Red Cell Distribution Width 18.4 % Platelet Count 355 x10^3/uL Neutrophils (%) (Auto) 64 % Lymphocytes (%) (Auto) 26 % Monocytes (%) (Auto) 7 % Eosinophils (%) (Auto) 3 % Basophils (%) (Auto) 0 % Neutrophils # (Auto) 5.5 x10^3uL Lymphocytes # (Auto) 2.2 x10^3/uL Monocytes # (Auto) 0.6 x10^3/uL Eosinophils # (Auto) 0.2 x10^3/uL Basophils # (Auto) 0.0 x10^3/uL Sodium Level 143 mmol/L Potassium Level 3.8 mmol/L Chloride Level 108 mmol/L Carbon Dioxide Level 28 mmol/L Anion Gap 7 Blood Urea Nitrogen 14 mg/dL Creatinine 0.8 mg/dL Estimated GFR (Cockcroft-Gault) 68.0 BUN/Creatinine Ratio 18 Glucose Level 79 mg/dL Calcium Level 7.9 mg/dL Total Bilirubin 0.2 mg/dL Aspartate Amino Transf (AST/SGOT) 10 U/L Alanine Aminotransferase (ALT/SGPT) 8 U/L Alkaline Phosphatase 72 U/L Total Protein 5.7 g/dL Albumin 1.8 g/dL Albumin/Globulin Ratio 0.5 Valproic Acid (Depakene) Level 33 mcg/mL Valproic Acid Last Dose Date 03/14/21 Valproic Acid Last Dose Time 2100 Current Medications Medications (Trade) Dose Ordered Sig/Magdalena Route PRN Reason Start Time Stop Time Status Last Admin Dose Admin Acetaminophen (Tylenol) 650 mg PRN Q6HRS PRN PO MILD PAIN / TEMP > 100.3'F 02/26/21 22:00 Bisacodyl (Dulcolax Supp) 10 mg PRN DAILY PRN RC 2nd CHOICE CONSTIPATION 02/26/21 22:00 Docusate Sodium (Colace) 100 mg DAILY PO 02/27/21 09:00 03/14/21 06:37 Famotidine (Pepcid) 20 mg QHS PO 02/27/21 21:00 03/14/21 20:08 Gabapentin (Neurontin) 100 mg QHS PO 02/27/21 21:00 5/2/21 20:08 Lactase (Lactaid) 3,000 unit TID PO 02/27/21 09:00 03/14/21 20:08 Levothyroxine Sodium (Synthroid) 25 mcg DAILY06 PO 02/27/21 06:00 03/15/21 06:08 Melatonin (Melatonin) 3 mg QHS PO 02/27/21 21:00 03/14/21 20:09 Memantine (Namenda) 5 mg BID PO 02/27/21 09:00 03/03/21 16:00 DC 03/03/21 08:13 Mirtazapine (Remeron) 7.5 mg QHS PO 02/27/21 21:00 03/12/21 18:07 DC 03/11/21 20:50 Oxycodone/ Acetaminophen (Percocet 10/325) 1 tab PRN Q6HRS PRN PO MOD-SEV PAIN 02/26/21 22:00 03/11/21 20:50 Quetiapine Fumarate (SEROquel) 25 mg TID PO 02/27/21 09:00 02/28/21 17:34 DC 02/28/21 14:31 Cephalexin HCl (Keflex) 250 mg TID PO 02/27/21 09:00 02/28/21 10:12 DC 02/28/21 08:13 Non-Formulary Medication (Mag Hydrox/Al Hydrox/Simeth (Mag-Al Plus Suspension)) 15 ml PRN QHS PRN PO DYSPEPSIA 02/26/21 22:00 UNV Multi-Ingredient Ointment (Analgesic [place]) 1 hector PRN QID PRN TP MUSCLE PAIN 02/26/21 22:30 Ondansetron HCl (Zofran Odt) 4 mg PRN Q8HRS PRN PO NAUSEA 02/26/21 22:30 Rivastigmine Tartrate (Exelon) 4.5 mg BIDWMEALS PO 02/27/21 08:00 03/14/21 16:11 Acetaminophen (Tylenol) 650 mg PRN Q6HRS PRN PO MILD PAIN / TEMP > 100.3'F 02/26/21 22:15 UNV Al Hydroxide/Mg Hydroxide (Mylanta Plus Xs) 15 ml PRN AFTMEALHC PRN PO DYSPEPSIA 02/26/21 22:15 Magnesium Hydroxide (Milk Of Magnesia) 2,400 mg PRN QHS PRN PO 1ST CHOICE CONSTIPATION 02/26/21 22:15 Olanzapine (ZyPREXA ZYDIS) 2.5 mg PRN Q2HR PRN PO PSYCHOSIS 02/27/21 07:30 03/12/21 20:02 Trazodone HCl (Desyrel) 50 mg PRN QHS PRN PO INSOMNIA 02/27/21 07:30 03/14/21 20:08 Lactobacillus Rhamnosus (Culturelle) 1 cap BID PO 02/27/21 09:00 03/14/21 20:09 Quetiapine Fumarate (SEROquel) 37.5 mg TID PO 02/28/21 21:00 03/01/21 19:04 DC 03/01/21 14:23 Olanzapine (ZyPREXA) 2.5 mg 0900,1300,1700 PO 03/02/21 09:00 03/14/21 16:12 Memantine (Namenda) 10 mg BID PO 03/03/21 21:00 03/14/21 20:09 Sertraline HCl (Zoloft) 25 mg DAILY PO 03/04/21 09:00 03/06/21 12:00 DC 03/06/21 08:16 Sertraline HCl (Zoloft) 50 mg DAILY PO 03/07/21 09:00 03/09/21 17:09 DC 03/09/21 09:13 Sertraline HCl (Zoloft) 75 mg DAILY PO 03/10/21 09:00 03/14/21 17:48 DC 03/14/21 06:36 Divalproex Sodium (Depakote Sprinkles) 125 mg TIDWMEALS PO 03/12/21 08:00 03/14/21 16:12 Mirtazapine (Remeron) 15 mg QHS PO 03/12/21 21:00 03/14/21 20:09 Sertraline HCl (Zoloft) 100 mg DAILY PO 03/15/21 09:00 I have reviewed the current psychotropics carefully including drug interactions. Risk benefit ratio favors no change other than as noted in my dictated progress note. Diagnosis: Problems: (1) Dementia, vascular, with delusions (2) Bipolar disorder, current episode mixed, severe, with psychotic features (3) Dementia in Alzheimer's disease with depression (4) Dementia in Alzheimer's disease with delusions (5) Major neurocognitive disorder (6) Dementia in Alzheimer's disease with early onset with behavioral disturbance (7) Impulse control disorder (8) Dementia, vascular, with depression (9) Anxiety disorder DUGLAS SMALL MD March 15, 2021 07:50
[2021-03-15] MEDS: LACTASE 3,000 UNIT TABLET PO SCH ×3 (08:15→20:25)
[2021-03-15] MEDS: DIVALPROEX 125 MG CAP.SPRINK PO SCH ×3 (08:15→17:16)
[2021-03-15] MEDS: RIVASTIGMINE. 1.5 MG CAPSULE. PO SCH ×2 (08:15→17:17)
[2021-03-15] MEDS: OLANZapine 2.5 MG TABLET PO SCH ×4 (08:16→20:26)
[2021-03-15] MEDS: LACTOBACILLUS RHAMNOSUS GG 1 CAPSULE. PO SCH ×2 (08:16→20:26)
[2021-03-15] MEDS: DOCUSATE SODIUM 100 MG CAPSULE PO SCH (08:16)
[2021-03-15] MEDS: SERTRALINE 100 MG TABLET. PO SCH (08:16)
[2021-03-15] MEDS: MEMANTINE 10 MG TABLET. PO SCH ×2 (08:16→20:26)
--- NOTE | 2021-03-15 12:58 | TX PLAN ---
Interdisciplinary Tx Plan Admission Information Feb 26, 2021 at 19:52 Legal Status (on Admission): Voluntary DPOA/Guardian Name: Kayla Briggs Contact Other Contact Name: MELISSA Alas Other Contact Verified Code Status: Full Code Allergies: Coded Allergies: NSAIDS (Non-Steroidal Anti-Inflamma (Verified Allergy, Intermediate, gi upset-peptic ulcer dx, 08/27/15) aspirin (Verified Allergy, Intermediate, gi upset/hx ulcers, 08/27/15) Diagnoses Primary Diagnosis: (1) Dementia, vascular, with delusions (2) Bipolar disorder, current episode mixed, severe, with psychotic features (3) Dementia in Alzheimer's disease with depression (4) Dementia in Alzheimer's disease with delusions (5) Major neurocognitive disorder (6) Dementia in Alzheimer's disease with early onset with behavioral disturbance (7) Impulse control disorder (8) Dementia, vascular, with depression (9) Anxiety disorder Reasons for Admission: Aggressive, Agitated, Sig. Change Appetite, Angry, Confusion/Disoriented, Poor impulse control Problem in Patient's Words: Per dtr/DPOA, Kayla, pt has started yelling out at her facility following her hospitalizations for UTIs. She never has had this behavior before, but she does have an extensive history in her younger days of being very attention seeking and telling multiple fabricated stories for reasons unknown. Also, per Kayla, pt has been on Tramadol and she believes that she is addicted and that it is like a narcotic to Usha. Kayla feels that Usha craves it. She would like to see her off of the Tramadol. Further, Kayla believes that pt does not drink enough water and that she has muscle spasms that could be some of the cause to her yelling out. Kayla believes that she needs to drink more water or ice chips and possibly be prescribed Quinine. Additional Admission Comments: Per intake record, pt has increased agitation, refusing to eat/drink/take medications, irritable, uncooperative, labile mood, yelling out. Problems Active Problems: Yelling out, agitation, confusion, poor impulse control, angry Inactive Problems: None noted at this time. Pt Strengths/Limitations Ability for [place]: Poor Cognitive Functioning/Ability: Poor Communication Skills/Ability: Fair Financial Resources: Fair Insight/Judgement: Poor Intellectual Ability: Poor Physical Health: Poor Social Skills: Fair Stability in Family: Fair Stability in School/Work: Fair Verbal Skills: Fair Discharge Criteria Discharge Criteria: Adequate arrangements @DC, Verbal commit med comply, Improved behavior, Improved mood/thought Other Discharge Comments: None noted at this time. Preliminary Discharge Plan Preliminary DC Plan: Current Living Arrange. Special Precautions Fall Risk: High Initial D/C Plan Plan is to return to [facility]. Identified Discharge Needs: None noted at this time. Currently Utilized Resources Currently Utilized Resources/P: PCP is Dr. Peraza Psychiatry is Nurse Practitioner, Peter Facility is [facility] SW at [facility] is [place] Referrals Community Resources: None noted at this time. Identified Problems/Hx/Goals Objectives/Short-Term Goals Short Term Goals: Control abnormal behavior, Improved Social Skills, Medication Stabilization, Monitor Med Effects, Promote Coping Skill Short Term Goals in Patient's: To feel better. Per Jayar/Kayla FLORES, she would like for pt to be off of Tramadol. Also, Kayla states that pt has muscle spasms that could contribute to her yelling out. She feels that Quinine could possibly be beneficial, but at the minimum pt should be requested to drink plenty of water. Kayla feels that these things could help prevent her from calling out in an attention seeking way that she was doing at her facility. Interventions/Frequency Staff Interventions/Frequency&: Psychiatry to assess pt three times per week for medication maagement. Nursing to assess pt behaviors, monitor medications, and complete 15 minute checks daily. Social work to see pt at least two times weekly to aid in return to placement. Activities to encourage pt to participate in group activities daily. 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 She was then caught for extorting money from a pt and lost her job. Education: Usha dropped out of high school in the 10th grade to get . Community Follow-up PCP Psychiatry Community Provider/Family Inpu: Jayar/MARK, Kayla, is aware of pt hospitalization. Kayla provided pt inforamation and is available for further input as needed. Treatment Plan Explained Patient/Supervisor Felting had this treatment plan explained to him/her as indicated by the signature below and has been given the opportunity to ask questions and make suggestions: Date: Patient/Supervisor Felting Signature: Status Update Update Pt is sleeping an average of 7 hours at night. Pt is eating about 40% of her meals. Pt still has some yelling out, but is better than at time of admission. It is noted that pt needs quite a bit of coaxing to get her to eat. She will attend activities group often with prompts needed most of the time. She really enjoys music groups. Pt appears to have some negative thought processing as when given a compliment she responds with a negative self statement. UA will be taken again today, as at last draw it was contaminated. Zyprexa will be given four times a day now vs the three that was scheduled. The dosage will not change. Pt will return to [facility] once stable. [address] March 15, 2021 12:58
[2021-03-15 15:47] VITALS: BP 121/76
[2021-03-15] MEDS: MIRTAZAPINE 15 MG TABLET PO SCH (20:24)
[2021-03-15] MEDS: FAMOTIDINE 20 MG TABLET PO SCH (20:25)
[2021-03-15] MEDS: GABAPENTIN 100 MG CAPSULE. PO SCH (20:26)
[2021-03-15] MEDS: MELATONIN 3 MG TABLET PO SCH (20:26)
--- NOTE | 2021-03-15 21:54 | PDOC ---
Exam Note: Carlos Note: Please also refer to the separate dictated note~for this date of service dictated separately.~Patient seen individually. Discussed the patient with Nursing staff reviewed the chart.~Reviewed interim history and current functioning. Reviewed vital signs,~Labs/ Radiology~and current medications noted below. Continue current treatment with the changes noted in the dictated addendum note Assessment: Vital Signs/I&O: Vital Signs Date Time Temp Pulse Resp B/P (MAP) Pulse Ox O2 Delivery O2 Flow Rate FiO2 03/15/21 15:47 97.4 82 17 121/76 (91) 97 03/14/21 06:21 Room Air I & O 03/14/21 03/14/21 03/15/21 15:00 23:00 07:00 Intake Total 240 ml 200 ml Balance 240 ml 200 ml Labs: Laboratory Tests Test 03/15/21 06:41 White Blood Count 8.6 x10^3/uL (4.0-11.0) Red Blood Count 3.59 x10^6/uL (3.50-5.40) Hemoglobin 9.4 g/dL (12.0-15.5) L Hematocrit 29.1 % (36.0-47.0) L Mean Corpuscular Volume 81 fL (79-100) Mean Corpuscular Hemoglobin 26 pg (25-35) Mean Corpuscular Hemoglobin Concent 32 g/dL (31-37) Red Cell Distribution Width 18.4 % (11.5-14.5) H Platelet Count 355 x10^3/uL (140-400) Neutrophils (%) (Auto) 64 % (31-73) Lymphocytes (%) (Auto) 26 % (24-48) Monocytes (%) (Auto) 7 % (0-9) Eosinophils (%) (Auto) 3 % (0-3) Basophils (%) (Auto) 0 % (0-3) Neutrophils # (Auto) 5.5 x10^3uL (1.8-7.7) Lymphocytes # (Auto) 2.2 x10^3/uL (1.0-4.8) Monocytes # (Auto) 0.6 x10^3/uL (0.0-1.1) Eosinophils # (Auto) 0.2 x10^3/uL (0.0-0.7) Basophils # (Auto) 0.0 x10^3/uL (0.0-0.2) Sodium Level 143 mmol/L (136-145) Potassium Level 3.8 mmol/L (3.5-5.1) Chloride Level 108 mmol/L (98-107) H Carbon Dioxide Level 28 mmol/L (21-32) Anion Gap 7 (6-14) Blood Urea Nitrogen 14 mg/dL (7-20) Creatinine 0.8 mg/dL (0.6-1.0) Estimated GFR (Cockcroft-Gault) 68.0 BUN/Creatinine Ratio 18 (6-20) Glucose Level 79 mg/dL (70-99) Calcium Level 7.9 mg/dL (8.5-10.1) L Total Bilirubin 0.2 mg/dL (0.2-1.0) Aspartate Amino Transferase (AST) 10 U/L (15-37) L Alanine Aminotransferase (ALT) 8 U/L (14-59) L Alkaline Phosphatase 72 U/L (46-116) Total Protein 5.7 g/dL (6.4-8.2) L Albumin 1.8 g/dL (3.4-5.0) L Albumin/Globulin Ratio 0.5 (1.0-1.7) L Valproic Acid Level 33 mcg/mL (50-100) L Valproic Acid Last Dose Date 03/14/21 Valproic Acid Last Dose Time 2100 Current Medications: Meds: Laboratory Tests Test 03/15/21 06:41 White Blood Count 8.6 x10^3/uL Red Blood Count 3.59 x10^6/uL Hemoglobin 9.4 g/dL Hematocrit 29.1 % Mean Corpuscular Volume 81 fL Mean Corpuscular Hemoglobin 26 pg Mean Corpuscular Hemoglobin Concent 32 g/dL Red Cell Distribution Width 18.4 % Platelet Count 355 x10^3/uL Neutrophils (%) (Auto) 64 % Lymphocytes (%) (Auto) 26 % Monocytes (%) (Auto) 7 % Eosinophils (%) (Auto) 3 % Basophils (%) (Auto) 0 % Neutrophils # (Auto) 5.5 x10^3uL Lymphocytes # (Auto) 2.2 x10^3/uL Monocytes # (Auto) 0.6 x10^3/uL Eosinophils # (Auto) 0.2 x10^3/uL Basophils # (Auto) 0.0 x10^3/uL Sodium Level 143 mmol/L Potassium Level 3.8 mmol/L Chloride Level 108 mmol/L Carbon Dioxide Level 28 mmol/L Anion Gap 7 Blood Urea Nitrogen 14 mg/dL Creatinine 0.8 mg/dL Estimated GFR (Cockcroft-Gault) 68.0 BUN/Creatinine Ratio 18 Glucose Level 79 mg/dL Calcium Level 7.9 mg/dL Total Bilirubin 0.2 mg/dL Aspartate Amino Transf (AST/SGOT) 10 U/L Alanine Aminotransferase (ALT/SGPT) 8 U/L Alkaline Phosphatase 72 U/L Total Protein 5.7 g/dL Albumin 1.8 g/dL Albumin/Globulin Ratio 0.5 Valproic Acid (Depakene) Level 33 mcg/mL Valproic Acid Last Dose Date 03/14/21 Valproic Acid Last Dose Time 2100 Current Medications Medications (Trade) Dose Ordered Sig/[place] Route PRN Reason Start Time Stop Time Status Last Admin Dose Admin Acetaminophen (Tylenol) 650 mg PRN Q6HRS PRN PO MILD PAIN / TEMP > 100.3'F 02/26/21 22:00 Bisacodyl (Dulcolax Supp) 10 mg PRN DAILY PRN RC 2nd CHOICE CONSTIPATION 02/26/21 22:00 Docusate Sodium (Colace) 100 mg DAILY PO 02/27/21 09:00 03/15/21 08:16 Famotidine (Pepcid) 20 mg QHS PO 02/27/21 21:00 03/15/21 20:25 Gabapentin (Neurontin) 100 mg QHS PO 02/27/21 21:00 03/15/21 20:26 Lactase (Lactaid) 3,000 unit TID PO 02/27/21 09:00 03/15/21 20:25 Levothyroxine Sodium (Synthroid) 25 mcg DAILY06 PO 02/27/21 06:00 03/15/21 06:08 Melatonin (Melatonin) 3 mg QHS PO 02/27/21 21:00 03/15/21 20:26 Memantine (Namenda) 5 mg BID PO 02/27/21 09:00 03/03/21 16:00 DC 03/03/21 08:13 Mirtazapine (Remeron) 7.5 mg QHS PO 02/27/21 21:00 03/12/21 18:07 DC 03/11/21 20:50 Oxycodone/ Acetaminophen (Percocet 10/325) 1 tab PRN Q6HRS PRN PO MOD-SEV PAIN 02/26/21 22:00 03/11/21 20:50 Quetiapine Fumarate (SEROquel) 25 mg TID PO 02/27/21 09:00 02/28/21 17:34 DC 02/28/21 14:31 Cephalexin HCl (Keflex) 250 mg TID PO 02/27/21 09:00 02/28/21 10:12 DC 02/28/21 08:13 Non-Formulary Medication (Mag Hydrox/Al Hydrox/Simeth (Mag-Al Plus Suspension)) 15 ml PRN QHS PRN PO DYSPEPSIA 02/26/21 22:00 UNV Multi-Ingredient Ointment (Analgesic [place]) 1 hector PRN QID PRN TP MUSCLE PAIN 02/26/21 22:30 Ondansetron HCl (Zofran Odt) 4 mg PRN Q8HRS PRN PO NAUSEA 02/26/21 22:30 Rivastigmine Tartrate (Exelon) 4.5 mg BIDWMEALS PO 02/27/21 08:00 03/15/21 17:17 Acetaminophen (Tylenol) 650 mg PRN Q6HRS PRN PO MILD PAIN / TEMP > 100.3'F 02/26/21 22:15 UNV Al Hydroxide/Mg Hydroxide (Mylanta Plus Xs) 15 ml PRN AFTMEALHC PRN PO DYSPEPSIA 02/26/21 22:15 Magnesium Hydroxide (Milk Of Magnesia) 2,400 mg PRN QHS PRN PO 1ST CHOICE CONSTIPATION 02/26/21 22:15 Olanzapine (ZyPREXA ZYDIS) 2.5 mg PRN Q2HR PRN PO PSYCHOSIS 02/27/21 07:30 03/12/21 20:02 Trazodone HCl (Desyrel) 50 mg PRN QHS PRN PO INSOMNIA 02/27/21 07:30 03/14/21 20:08 Lactobacillus Rhamnosus (Culturelle) 1 cap BID PO 02/27/21 09:00 03/15/21 20:26 Quetiapine Fumarate (SEROquel) 37.5 mg TID PO 02/28/21 21:00 03/01/21 19:04 DC 03/01/21 14:23 Olanzapine (ZyPREXA) 2.5 mg 0900,1300,1700 PO 03/02/21 09:00 03/15/21 14:50 DC 03/15/21 12:27 Memantine (Namenda) 10 mg BID PO 03/03/21 21:00 03/15/21 20:26 Sertraline HCl (Zoloft) 25 mg DAILY PO 03/04/21 09:00 03/06/21 12:00 DC 03/06/21 08:16 Sertraline HCl (Zoloft) 50 mg DAILY PO 03/07/21 09:00 03/09/21 17:09 DC 03/09/21 09:13 Sertraline HCl (Zoloft) 75 mg DAILY PO 03/10/21 09:00 03/14/21 17:48 DC 03/14/21 06:36 Divalproex Sodium (Depakote Sprinkles) 125 mg TIDWMEALS PO 03/12/21 08:00 03/15/21 17:16 Mirtazapine (Remeron) 15 mg QHS PO 03/12/21 21:00 03/15/21 20:24 Sertraline HCl (Zoloft) 100 mg DAILY PO 03/15/21 09:00 03/15/21 08:16 Olanzapine (ZyPREXA) 2.5 mg QID PO 03/15/21 17:00 03/15/21 20:26 Current Medications Medications (Trade) Dose Ordered Sig/[place] Route PRN Reason Start Time Stop Time Status Last Admin Dose Admin Sertraline HCl (Zoloft) 100 mg DAILY PO 03/15/21 09:00 03/15/21 08:16 Olanzapine (ZyPREXA) 2.5 mg QID PO 03/15/21 17:00 03/15/21 20:26 I have reviewed the current psychotropics carefully including drug interactions. Risk benefit ratio favors no change other than as noted in my dictated progress note. 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
[2021-03-16 04:18] VITALS: BP 101/62
[2021-03-16] MEDS: LEVOTHYROXINE 25 MCG TABLET. PO SCH (06:00)
[2021-03-16] MEDS: MEMANTINE 10 MG TABLET. PO SCH ×2 (08:45→20:24)
[2021-03-16] MEDS: RIVASTIGMINE. 1.5 MG CAPSULE. PO SCH ×2 (08:45→17:19)
[2021-03-16] MEDS: LACTOBACILLUS RHAMNOSUS GG 1 CAPSULE. PO SCH ×2 (08:45→20:24)
[2021-03-16] MEDS: LACTASE 3,000 UNIT TABLET PO SCH ×2 (08:46→17:19)
[2021-03-16] MEDS: DOCUSATE SODIUM 100 MG CAPSULE PO SCH (08:46)
[2021-03-16] MEDS: OLANZapine 2.5 MG TABLET PO SCH ×4 (08:46→20:24)
[2021-03-16] MEDS: DIVALPROEX 125 MG CAP.SPRINK PO SCH ×3 (08:46→17:19)
[2021-03-16] MEDS: SERTRALINE 100 MG TABLET. PO SCH (08:46)
[2021-03-16 15:28] VITALS: BP 129/82
[2021-03-16] MEDS: MELATONIN 3 MG TABLET PO SCH (20:24)
[2021-03-16] MEDS: FAMOTIDINE 20 MG TABLET PO SCH (20:24)
[2021-03-16] MEDS: GABAPENTIN 100 MG CAPSULE. PO SCH (20:24)
[2021-03-16] MEDS: MIRTAZAPINE 15 MG TABLET PO SCH (20:24)
--- NOTE | 2021-03-16 22:45 | PDOC ---
Exam Note: Carlos Note: Please also refer to the separate dictated note~for this date of service dictated separately.~Patient seen individually. Discussed the patient with Nursing staff reviewed the chart.~Reviewed interim history and current functioning. Reviewed vital signs,~Labs/ Radiology~and current medications noted below. Continue current treatment with the changes noted in the dictated addendum note Assessment: Vital Signs/I&O: Vital Signs Date Time Temp Pulse Resp B/P (MAP) Pulse Ox O2 Delivery O2 Flow Rate FiO2 03/16/21 15:28 97.8 75 16 129/82 (98) 98 03/14/21 06:21 Room Air I & O 03/15/21 03/15/21 03/16/21 14:59 22:59 06:59 Intake Total 120 ml Balance 120 ml Current Medications: Meds: Current Medications Medications (Trade) Dose Ordered Sig/[place] Route PRN Reason Start Time Stop Time Status Last Admin Dose Admin Acetaminophen (Tylenol) 650 mg PRN Q6HRS PRN PO MILD PAIN / TEMP > 100.3'F 02/26/21 22:00 Bisacodyl (Dulcolax Supp) 10 mg PRN DAILY PRN RC 2nd CHOICE CONSTIPATION 02/26/21 22:00 Docusate Sodium (Colace) 100 mg DAILY PO 02/27/21 09:00 03/16/21 08:46 Famotidine (Pepcid) 20 mg QHS PO 02/27/21 21:00 03/16/21 20:24 Gabapentin (Neurontin) 100 mg QHS PO 02/27/21 21:00 03/16/21 20:24 Lactase (Lactaid) 3,000 unit TID PO 02/27/21 09:00 03/16/21 12:41 DC 03/16/21 08:46 Levothyroxine Sodium (Synthroid) 25 mcg DAILY06 PO 02/27/21 06:00 03/16/21 06:00 Melatonin (Melatonin) 3 mg QHS PO 02/27/21 21:00 03/16/21 20:24 Memantine (Namenda) 5 mg BID PO 02/27/21 09:00 03/03/21 16:00 DC 03/03/21 08:13 Mirtazapine (Remeron) 7.5 mg QHS PO 02/27/21 21:00 03/12/21 18:07 DC 03/11/21 20:50 Oxycodone/ Acetaminophen (Percocet 10/325) 1 tab PRN Q6HRS PRN PO MOD-SEV PAIN 02/26/21 22:00 03/11/21 20:50 Quetiapine Fumarate (SEROquel) 25 mg TID PO 02/27/21 09:00 02/28/21 17:34 DC 02/28/21 14:31 Cephalexin HCl (Keflex) 250 mg TID PO 02/27/21 09:00 02/28/21 10:12 DC 02/28/21 08:13 Non-Formulary Medication (Mag Hydrox/Al Hydrox/Simeth (Mag-Al Plus Suspension)) 15 ml PRN QHS PRN PO DYSPEPSIA 02/26/21 22:00 UNV Multi-Ingredient Ointment (Analgesic [place]) 1 hector PRN QID PRN TP MUSCLE PAIN 02/26/21 22:30 Ondansetron HCl (Zofran Odt) 4 mg PRN Q8HRS PRN PO NAUSEA 02/26/21 22:30 Rivastigmine Tartrate (Exelon) 4.5 mg BIDWMEALS PO 02/27/21 08:00 03/16/21 17:19 Acetaminophen (Tylenol) 650 mg PRN Q6HRS PRN PO MILD PAIN / TEMP > 100.3'F 02/26/21 22:15 UNV Al Hydroxide/Mg Hydroxide (Mylanta Plus Xs) 15 ml PRN AFTMEALHC PRN PO DYSPEPSIA 02/26/21 22:15 Magnesium Hydroxide (Milk Of Magnesia) 2,400 mg PRN QHS PRN PO 1ST CHOICE CONSTIPATION 02/26/21 22:15 Olanzapine (ZyPREXA ZYDIS) 2.5 mg PRN Q2HR PRN PO PSYCHOSIS 02/27/21 07:30 03/12/21 20:02 Trazodone HCl (Desyrel) 50 mg PRN QHS PRN PO INSOMNIA 02/27/21 07:30 03/14/21 20:08 Lactobacillus Rhamnosus (Culturelle) 1 cap BID PO 02/27/21 09:00 03/16/21 20:24 Quetiapine Fumarate (SEROquel) 37.5 mg TID PO 02/28/21 21:00 03/01/21 19:04 DC 03/01/21 14:23 Olanzapine (ZyPREXA) 2.5 mg 0900,1300,1700 PO 03/02/21 09:00 03/15/21 14:50 DC 03/15/21 12:27 Memantine (Namenda) 10 mg BID PO 03/03/21 21:00 03/16/21 20:24 Sertraline HCl (Zoloft) 25 mg DAILY PO 03/04/21 09:00 03/06/21 12:00 DC 03/06/21 08:16 Sertraline HCl (Zoloft) 50 mg DAILY PO 03/07/21 09:00 03/09/21 17:09 DC 03/09/21 09:13 Sertraline HCl (Zoloft) 75 mg DAILY PO 03/10/21 09:00 03/14/21 17:48 DC 03/14/21 06:36 Divalproex Sodium (Depakote Sprinkles) 125 mg TIDWMEALS PO 03/12/21 08:00 03/16/21 17:19 Mirtazapine (Remeron) 15 mg QHS PO 03/12/21 21:00 03/16/21 20:24 Sertraline HCl (Zoloft) 100 mg DAILY PO 03/15/21 09:00 03/16/21 08:46 Olanzapine (ZyPREXA) 2.5 mg QID PO 03/15/21 17:00 03/16/21 20:24 Lactase (Lactaid) 3,000 unit TIDWMEALS PO 03/16/21 17:00 03/16/21 17:19 Current Medications Medications (Trade) Dose Ordered Sig/[place] Route PRN Reason Start Time Stop Time Status Last Admin Dose Admin Lactase (Lactaid) 3,000 unit TIDWMEALS PO 03/16/21 17:00 03/16/21 17:19 I have reviewed the current psychotropics carefully including drug interactions. Risk benefit ratio favors no change other than as noted in my dictated progress note. Diagnosis: Problems: (1) Dementia, vascular, with delusions (2) Dementia in Alzheimer's disease with depression (3) Dementia in Alzheimer's disease with delusions (4) Major neurocognitive disorder (5) Dementia in Alzheimer's disease with early onset with behavioral disturbance (6) Impulse control disorder (7) Dementia, vascular, with depression (8) Anxiety disorder DUGLAS SMALL MD March 16, 2021 22:45
[2021-03-16 22:55] LABS: BACTERIA,URINE MOD /HPF (0-FEW); BILIRUBIN,URINE NEG (NEG); CLARITY,URINE HAZY; COLOR,URINE YELLOW; GLUCOSE,URINE NEG (NEG); NITRITE,URINE NEG (NEG); RBC,URINE 0 /HPF (0-2); SQUAMOUS EPITHELIAL CELL,UR OCC /LPF; WBC,URINE >40 /HPF (0-4)
[2021-03-17] MEDS: LEVOTHYROXINE 25 MCG TABLET. PO SCH (05:38)
[2021-03-17 06:21] VITALS: BP 127/66
--- NOTE | 2021-03-17 07:53 | PDOC ---
Exam Note: Carlos Note: This note is a late entry for 03/15/2021 covers elements not covered in my initial note. Subjective: The patient was reviewed in the morning of 03/15/2021 for a treatment team meeting with Jennifer Krishnamurthy, Clarissa Blood and Caron (group social worker), Laureen, activity therapy and Robert HERNDON, discussed and reviewed the chart. The patient slept 8-3/4 hours previous night, average sleep 7 hours. Appetite is 40%. Over the weekend the patient spent in bed somewhat resistive to medications. She attended 3 groups over the past one week. We are assessing for UTI and Zyprexa was increased due to her mood lability. We will also check valproic acid level. Review of Systems: Ambulation impaired in wheelchair. No CV, , pulmonary, eye, ENT system symptoms on review. Mental Status Exam: The patient is oriented to herself. She was in other patients room oblivious of where she was and that is where I met with her. Insight, judgment, recent memory is impaired, remote is better. Language function intact. Attention span is short. Mood and affect remains somewhat withdrawn. Laboratory Data: Reviewed. Impression: Bipolar disorder, mixed. Major neurocognitive disorder Alzheimer vascular with delusion, depression, behavioral disturbance. Impulse control disorder unspecified. Anxiety disorder unspecified. Plan: Continue rest psychotropics unchanged. Assessment: Vital Signs/I&O: Vital Signs Date Time Temp Pulse Resp B/P (MAP) Pulse Ox O2 Delivery O2 Flow Rate FiO2 03/17/21 06:21 97.6 81 16 127/66 (86) 97 03/14/21 06:21 Room Air I & O 03/16/21 03/16/21 03/17/21 14:59 22:59 06:59 Intake Total 480 ml 300 ml Balance 480 ml 300 ml Labs: Laboratory Tests Test 03/16/21 21:45 Urine Collection Type Void Urine Color Yellow Urine Clarity Hazy Urine pH 6.0 Urine Specific [place] 1.020 Urine Protein Neg (NEG-TRACE) Urine Glucose (UA) Neg mg/dL (NEG) Urine Ketones (Stick) Trace mg/dL (NEG) Urine Blood Neg (NEG) Urine Nitrite Neg (NEG) Urine Bilirubin Neg (NEG) Urine Urobilinogen Dipstick 1.0 mg/dL (0.2 mg/dL) Urine Leukocyte Esterase Mod (NEG) Urine RBC 0 /HPF (0-2) Urine WBC >40 /HPF (0-4) Urine Squamous Epithelial Cells Occ /LPF Urine Bacteria Mod /HPF (0-FEW) Current Medications: Meds: Laboratory Tests Test 03/16/21 21:45 Urine Collection Type Void Urine Color Yellow Urine Clarity Hazy Urine pH 6.0 Urine Specific [place] 1.020 Urine Protein Neg Urine Glucose (UA) Neg mg/dL Urine Ketones (Stick) Trace mg/dL Urine Blood Neg Urine Nitrite Neg Urine Bilirubin Neg Urine Urobilinogen Dipstick 1.0 mg/dL Urine Leukocyte Esterase Mod Urine RBC 0 /HPF Urine WBC >40 /HPF Urine Squamous Epithelial Cells Occ /LPF Urine Bacteria Mod /HPF Current Medications Medications (Trade) Dose Ordered Sig/[place] Route PRN Reason Start Time Stop Time Status Last Admin Dose Admin Acetaminophen (Tylenol) 650 mg PRN Q6HRS PRN PO MILD PAIN / TEMP > 100.3'F 02/26/21 22:00 Bisacodyl (Dulcolax Supp) 10 mg PRN DAILY PRN RC 2nd CHOICE CONSTIPATION 02/26/21 22:00 Docusate Sodium (Colace) 100 mg DAILY PO 02/27/21 09:00 03/16/21 08:46 Famotidine (Pepcid) 20 mg QHS PO 02/27/21 21:00 03/16/21 20:24 Gabapentin (Neurontin) 100 mg QHS PO 02/27/21 21:00 03/16/21 20:24 Lactase (Lactaid) 3,000 unit TID PO 02/27/21 09:00 03/16/21 12:41 DC 03/16/21 08:46 Levothyroxine Sodium (Synthroid) 25 mcg DAILY06 PO 02/27/21 06:00 03/17/21 05:38 Melatonin (Melatonin) 3 mg QHS PO 02/27/21 21:00 03/16/21 20:24 Memantine (Namenda) 5 mg BID PO 02/27/21 09:00 03/03/21 16:00 DC 03/03/21 08:13 Mirtazapine (Remeron) 7.5 mg QHS PO 02/27/21 21:00 03/12/21 18:07 DC 03/11/21 20:50 Oxycodone/ Acetaminophen (Percocet 10/325) 1 tab PRN Q6HRS PRN PO MOD-SEV PAIN 02/26/21 22:00 03/11/21 20:50 Quetiapine Fumarate (SEROquel) 25 mg TID PO 02/27/21 09:00 02/28/21 17:34 DC 02/28/21 14:31 Cephalexin HCl (Keflex) 250 mg TID PO 02/27/21 09:00 02/28/21 10:12 DC 02/28/21 08:13 Non-Formulary Medication (Mag Hydrox/Al Hydrox/Simeth (Mag-Al Plus Suspension)) 15 ml PRN QHS PRN PO DYSPEPSIA 02/26/21 22:00 UNV Multi-Ingredient Ointment (Analgesic [place]) 1 hector PRN QID PRN TP MUSCLE PAIN 02/26/21 22:30 Ondansetron HCl (Zofran Odt) 4 mg PRN Q8HRS PRN PO NAUSEA 02/26/21 22:30 Rivastigmine Tartrate (Exelon) 4.5 mg BIDWMEALS PO 02/27/21 08:00 03/16/21 17:19 Acetaminophen (Tylenol) 650 mg PRN Q6HRS PRN PO MILD PAIN / TEMP > 100.3'F 02/26/21 22:15 UNV Al Hydroxide/Mg Hydroxide (Mylanta Plus Xs) 15 ml PRN AFTMEALHC PRN PO DYSPEPSIA 02/26/21 22:15 Magnesium Hydroxide (Milk Of Magnesia) 2,400 mg PRN QHS PRN PO 1ST CHOICE CONSTIPATION 02/26/21 22:15 Olanzapine (ZyPREXA ZYDIS) 2.5 mg PRN Q2HR PRN PO PSYCHOSIS 02/27/21 07:30 03/12/21 20:02 Trazodone HCl (Desyrel) 50 mg PRN QHS PRN PO INSOMNIA 02/27/21 07:30 03/14/21 20:08 Lactobacillus Rhamnosus (Culturelle) 1 cap BID PO 02/27/21 09:00 03/16/21 20:24 Quetiapine Fumarate (SEROquel) 37.5 mg TID PO 02/28/21 21:00 03/01/21 19:04 DC 03/01/21 14:23 Olanzapine (ZyPREXA) 2.5 mg 0900,1300,1700 PO 03/02/21 09:00 03/15/21 14:50 DC 03/15/21 12:27 Memantine (Namenda) 10 mg BID PO 03/03/21 21:00 03/16/21 20:24 Sertraline HCl (Zoloft) 25 mg DAILY PO 03/04/21 09:00 03/06/21 12:00 DC 03/06/21 08:16 Sertraline HCl (Zoloft) 50 mg DAILY PO 03/07/21 09:00 03/09/21 17:09 DC 03/09/21 09:13 Sertraline HCl (Zoloft) 75 mg DAILY PO 03/10/21 09:00 03/14/21 17:48 DC 03/14/21 06:36 Divalproex Sodium (Depakote Sprinkles) 125 mg TIDWMEALS PO 03/12/21 08:00 03/16/21 17:19 Mirtazapine (Remeron) 15 mg QHS PO 03/12/21 21:00 03/16/21 20:24 Sertraline HCl (Zoloft) 100 mg DAILY PO 03/15/21 09:00 03/16/21 08:46 Olanzapine (ZyPREXA) 2.5 mg QID PO 03/15/21 17:00 03/16/21 20:24 Lactase (Lactaid) 3,000 unit TIDWMEALS PO 03/16/21 17:00 03/16/21 17:19 Current Medications Medications (Trade) Dose Ordered Sig/[place] Route PRN Reason Start Time Stop Time Status Last Admin Dose Admin Lactase (Lactaid) 3,000 unit TIDWMEALS PO 03/16/21 17:00 03/16/21 17:19 I have reviewed the current psychotropics carefully including drug interactions. Risk benefit ratio favors no change other than as noted in my dictated progress note. 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
[2021-03-17] MEDS: SERTRALINE 100 MG TABLET. PO SCH (11:47)
[2021-03-17] MEDS: LACTASE 3,000 UNIT TABLET PO SCH ×3 (11:47→17:32)
[2021-03-17] MEDS: RIVASTIGMINE. 1.5 MG CAPSULE. PO SCH ×2 (11:47→17:32)
[2021-03-17] MEDS: LACTOBACILLUS RHAMNOSUS GG 1 CAPSULE. PO SCH ×2 (11:47→20:28)
[2021-03-17] MEDS: MEMANTINE 10 MG TABLET. PO SCH ×2 (11:47→20:28)
[2021-03-17] MEDS: OLANZapine 2.5 MG TABLET PO SCH ×4 (11:48→20:28)
[2021-03-17] MEDS: DOCUSATE SODIUM 100 MG CAPSULE PO SCH (11:48)
[2021-03-17] MEDS: DIVALPROEX 125 MG CAP.SPRINK PO SCH ×3 (11:48→17:32)
[2021-03-17 16:12] VITALS: BP 133/81
[2021-03-17] MEDS: GABAPENTIN 100 MG CAPSULE. PO SCH (20:28)
[2021-03-17] MEDS: FAMOTIDINE 20 MG TABLET PO SCH (20:28)
[2021-03-17] MEDS: MIRTAZAPINE 15 MG TABLET PO SCH (20:28)
[2021-03-17] MEDS: MELATONIN 3 MG TABLET PO SCH (20:28)
--- NOTE | 2021-03-17 21:55 | PDOC ---
Exam Note: Carlos Note: Please also refer to the separate dictated note~for this date of service dictated separately.~Patient seen individually. Discussed the patient with Nursing staff reviewed the chart.~Reviewed interim history and current functioning. Reviewed vital signs,~Labs/ Radiology~and current medications noted below. Continue current treatment with the changes noted in the dictated addendum note Assessment: Vital Signs/I&O: Vital Signs Date Time Temp Pulse Resp B/P (MAP) Pulse Ox O2 Delivery O2 Flow Rate FiO2 03/17/21 16:12 97.2 86 18 133/81 (98) 99 Room Air I & O 03/16/21 03/16/21 03/17/21 15:00 23:00 07:00 Intake Total 480 ml 300 ml Balance 480 ml 300 ml Current Medications: Meds: Current Medications Medications (Trade) Dose Ordered Sig/[place] Route PRN Reason Start Time Stop Time Status Last Admin Dose Admin Acetaminophen (Tylenol) 650 mg PRN Q6HRS PRN PO MILD PAIN / TEMP > 100.3'F 02/26/21 22:00 Bisacodyl (Dulcolax Supp) 10 mg PRN DAILY PRN RC 2nd CHOICE CONSTIPATION 02/26/21 22:00 Docusate Sodium (Colace) 100 mg DAILY PO 02/27/21 09:00 03/17/21 11:48 Famotidine (Pepcid) 20 mg QHS PO 02/27/21 21:00 03/17/21 20:28 Gabapentin (Neurontin) 100 mg QHS PO 02/27/21 21:00 03/17/21 20:28 Lactase (Lactaid) 3,000 unit TID PO 02/27/21 09:00 03/16/21 12:41 DC 03/16/21 08:46 Levothyroxine Sodium (Synthroid) 25 mcg DAILY06 PO 02/27/21 06:00 03/17/21 05:38 Melatonin (Melatonin) 3 mg QHS PO 02/27/21 21:00 03/17/21 20:28 Memantine (Namenda) 5 mg BID PO 02/27/21 09:00 03/03/21 16:00 DC 03/03/21 08:13 Mirtazapine (Remeron) 7.5 mg QHS PO 02/27/21 21:00 03/12/21 18:07 DC 03/11/21 20:50 Oxycodone/ Acetaminophen (Percocet 10/325) 1 tab PRN Q6HRS PRN PO MOD-SEV PAIN 02/26/21 22:00 03/11/21 20:50 Quetiapine Fumarate (SEROquel) 25 mg TID PO 02/27/21 09:00 02/28/21 17:34 DC 02/28/21 14:31 Cephalexin HCl (Keflex) 250 mg TID PO 02/27/21 09:00 02/28/21 10:12 DC 02/28/21 08:13 Non-Formulary Medication (Mag Hydrox/Al Hydrox/Simeth (Mag-Al Plus Suspension)) 15 ml PRN QHS PRN PO DYSPEPSIA 02/26/21 22:00 UNV Multi-Ingredient Ointment (Analgesic [place]) 1 hector PRN QID PRN TP MUSCLE PAIN 02/26/21 22:30 Ondansetron HCl (Zofran Odt) 4 mg PRN Q8HRS PRN PO NAUSEA 02/26/21 22:30 Rivastigmine Tartrate (Exelon) 4.5 mg BIDWMEALS PO 02/27/21 08:00 03/17/21 17:32 Acetaminophen (Tylenol) 650 mg PRN Q6HRS PRN PO MILD PAIN / TEMP > 100.3'F 02/26/21 22:15 UNV Al Hydroxide/Mg Hydroxide (Mylanta Plus Xs) 15 ml PRN AFTMEALHC PRN PO DYSPEPSIA 02/26/21 22:15 Magnesium Hydroxide (Milk Of Magnesia) 2,400 mg PRN QHS PRN PO 1ST CHOICE CONSTIPATION 02/26/21 22:15 Olanzapine (ZyPREXA ZYDIS) 2.5 mg PRN Q2HR PRN PO PSYCHOSIS 02/27/21 07:30 03/12/21 20:02 Trazodone HCl (Desyrel) 50 mg PRN QHS PRN PO INSOMNIA 02/27/21 07:30 03/14/21 20:08 Lactobacillus Rhamnosus (Culturelle) 1 cap BID PO 02/27/21 09:00 03/17/21 20:28 Quetiapine Fumarate (SEROquel) 37.5 mg TID PO 02/28/21 21:00 03/01/21 19:04 DC 03/01/21 14:23 Olanzapine (ZyPREXA) 2.5 mg 0900,1300,1700 PO 03/02/21 09:00 03/15/21 14:50 DC 03/15/21 12:27 Memantine (Namenda) 10 mg BID PO 03/03/21 21:00 03/17/21 20:28 Sertraline HCl (Zoloft) 25 mg DAILY PO 03/04/21 09:00 03/06/21 12:00 DC 03/06/21 08:16 Sertraline HCl (Zoloft) 50 mg DAILY PO 03/07/21 09:00 03/09/21 17:09 DC 03/09/21 09:13 Sertraline HCl (Zoloft) 75 mg DAILY PO 03/10/21 09:00 03/14/21 17:48 DC 03/14/21 06:36 Divalproex Sodium (Depakote Sprinkles) 125 mg TIDWMEALS PO 03/12/21 08:00 03/17/21 17:32 Mirtazapine (Remeron) 15 mg QHS PO 03/12/21 21:00 03/17/21 20:28 Sertraline HCl (Zoloft) 100 mg DAILY PO 03/15/21 09:00 03/17/21 11:47 Olanzapine (ZyPREXA) 2.5 mg QID PO 03/15/21 17:00 03/17/21 20:28 Lactase (Lactaid) 3,000 unit TIDWMEALS PO 03/16/21 17:00 03/17/21 17:32 I have reviewed the current psychotropics carefully including drug interactions. Risk benefit ratio favors no change other than as noted in my dictated progress note. Diagnosis: Problems: (1) Dementia, vascular, with delusions (2) Bipolar disorder, current episode mixed, severe, with psychotic features (3) Dementia in Alzheimer's disease with depression (4) Dementia in Alzheimer's disease with delusions (5) Major neurocognitive disorder (6) Dementia in Alzheimer's disease with early onset with behavioral disturbance (7) Impulse control disorder (8) Dementia, vascular, with depression (9) Anxiety disorder DUGLAS SMALL MD March 17, 2021 21:55
[2021-03-18] MEDS: LEVOTHYROXINE 25 MCG TABLET. PO SCH (06:17)
[2021-03-18 06:41] VITALS: BP 102/60
--- NOTE | 2021-03-18 07:05 | PDOC ---
Exam Note: Carlos Note: This note is a late entry for 03/16/2021 covers elements not covered in my initial note. Subjective: The patient was seen individually in the evening of 03/16/2021 with Cliff HERNDON, discussed and reviewed the chart. The patient slept 7-1/2 hours previous night. Overall the patient sits in a wheelchair, eyes closed. This is where I met with her. She was resistive to a.m. medications, took her 5 p.m. medication and did alright. Review of Systems: Ambulation impaired in wheelchair. No CV, , pulmonary, eye, ENT system symptoms on review. Mental Status Exam: The patient is oriented to herself. She was little irritable as I met with her but redirected. Insight, judgment, recent memory is impaired, remote is better. Language function intact. Attention span is short. Mood and affect remains somewhat withdrawn. Laboratory Data: Reviewed. Impression: Bipolar disorder, mixed. Major neurocognitive disorder Alzheimer vascular with delusion, depression, behavioral disturbance. Impulse control disorder unspecified. Anxiety disorder unspecified. Plan: Continue rest psychotropics unchanged. Assessment: Vital Signs/I&O: Vital Signs Date Time Temp Pulse Resp B/P (MAP) Pulse Ox O2 Delivery O2 Flow Rate FiO2 03/18/21 06:41 98.4 62 20 102/60 (74) 96 Room Air I & O 03/17/21 03/17/21 03/18/21 15:00 23:00 07:00 Intake Total 0 ml 240 ml Balance 0 ml 240 ml Current Medications: Meds: Current Medications Medications (Trade) Dose Ordered Sig/Magdalena Route PRN Reason Start Time Stop Time Status Last Admin Dose Admin Acetaminophen (Tylenol) 650 mg PRN Q6HRS PRN PO MILD PAIN / TEMP > 100.3'F 02/26/21 22:00 Bisacodyl (Dulcolax Supp) 10 mg PRN DAILY PRN RC 2nd CHOICE CONSTIPATION 02/26/21 22:00 Docusate Sodium (Colace) 100 mg DAILY PO 02/27/21 09:00 03/17/21 11:48 Famotidine (Pepcid) 20 mg QHS PO 02/27/21 21:00 03/17/21 20:28 Gabapentin (Neurontin) 100 mg QHS PO 02/27/21 21:00 03/17/21 20:28 Lactase (Lactaid) 3,000 unit TID PO 02/27/21 09:00 03/16/21 12:41 DC 03/16/21 08:46 Levothyroxine Sodium (Synthroid) 25 mcg DAILY06 PO 02/27/21 06:00 03/18/21 06:17 Melatonin (Melatonin) 3 mg QHS PO 02/27/21 21:00 03/17/21 20:28 Memantine (Namenda) 5 mg BID PO 02/27/21 09:00 03/03/21 16:00 DC 03/03/21 08:13 Mirtazapine (Remeron) 7.5 mg QHS PO 02/27/21 21:00 03/12/21 18:07 DC 03/11/21 20:50 Oxycodone/ Acetaminophen (Percocet 10/325) 1 tab PRN Q6HRS PRN PO MOD-SEV PAIN 02/26/21 22:00 03/11/21 20:50 Quetiapine Fumarate (SEROquel) 25 mg TID PO 02/27/21 09:00 02/28/21 17:34 DC 02/28/21 14:31 Cephalexin HCl (Keflex) 250 mg TID PO 02/27/21 09:00 02/28/21 10:12 DC 02/28/21 08:13 Non-Formulary Medication (Mag Hydrox/Al Hydrox/Simeth (Mag-Al Plus Suspension)) 15 ml PRN QHS PRN PO DYSPEPSIA 02/26/21 22:00 UNV Multi-Ingredient Ointment (Analgesic [place]) 1 hector PRN QID PRN TP MUSCLE PAIN 02/26/21 22:30 Ondansetron HCl (Zofran Odt) 4 mg PRN Q8HRS PRN PO NAUSEA 02/26/21 22:30 Rivastigmine Tartrate (Exelon) 4.5 mg BIDWMEALS PO 02/27/21 08:00 03/17/21 17:32 Acetaminophen (Tylenol) 650 mg PRN Q6HRS PRN PO MILD PAIN / TEMP > 100.3'F 02/26/21 22:15 UNV Al Hydroxide/Mg Hydroxide (Mylanta Plus Xs) 15 ml PRN AFTMEALHC PRN PO DYSPEPSIA 02/26/21 22:15 Magnesium Hydroxide (Milk Of Magnesia) 2,400 mg PRN QHS PRN PO 1ST CHOICE CONSTIPATION 02/26/21 22:15 Olanzapine (ZyPREXA ZYDIS) 2.5 mg PRN Q2HR PRN PO PSYCHOSIS 02/27/21 07:30 03/12/21 20:02 Trazodone HCl (Desyrel) 50 mg PRN QHS PRN PO INSOMNIA 02/27/21 07:30 03/14/21 20:08 Lactobacillus Rhamnosus (Culturelle) 1 cap BID PO 02/27/21 09:00 03/17/21 20:28 Quetiapine Fumarate (SEROquel) 37.5 mg TID PO 02/28/21 21:00 03/01/21 19:04 DC 03/01/21 14:23 Olanzapine (ZyPREXA) 2.5 mg 0900,1300,1700 PO 03/02/21 09:00 03/15/21 14:50 DC 03/15/21 12:27 Memantine (Namenda) 10 mg BID PO 03/03/21 21:00 03/17/21 20:28 Sertraline HCl (Zoloft) 25 mg DAILY PO 03/04/21 09:00 03/06/21 12:00 DC 03/06/21 08:16 Sertraline HCl (Zoloft) 50 mg DAILY PO 03/07/21 09:00 03/09/21 17:09 DC 03/09/21 09:13 Sertraline HCl (Zoloft) 75 mg DAILY PO 03/10/21 09:00 03/14/21 17:48 DC 03/14/21 06:36 Divalproex Sodium (Depakote Sprinkles) 125 mg TIDWMEALS PO 03/12/21 08:00 03/17/21 17:32 Mirtazapine (Remeron) 15 mg QHS PO 03/12/21 21:00 03/17/21 20:28 Sertraline HCl (Zoloft) 100 mg DAILY PO 03/15/21 09:00 03/17/21 11:47 Olanzapine (ZyPREXA) 2.5 mg QID PO 03/15/21 17:00 03/17/21 20:28 Lactase (Lactaid) 3,000 unit TIDWMEALS PO 03/16/21 17:00 03/17/21 17:32 I have reviewed the current psychotropics carefully including drug interactions. Risk benefit ratio favors no change other than as noted in my dictated progress note. Diagnosis: Problems: (1) Dementia in Alzheimer's disease with depression (2) Dementia in Alzheimer's disease with delusions (3) Major neurocognitive disorder (4) Dementia in Alzheimer's disease with early onset with behavioral disturbance (5) Dementia, vascular, with delusions (6) Dementia with behavioral disturbance (7) Impulse control disorder (8) Dementia, vascular, with depression (9) Anxiety disorder DUGLAS SMALL MD March 18, 2021 07:05
--- NOTE | 2021-03-18 07:45 | PDOC ---
Exam Note: Carlos Note: This note is a late entry for 03/17/2021 covers elements not covered in my initial note. Subjective: The patient was seen individually in the evening of 03/17/2021 with Mili HERNDON, discussed and reviewed the chart. The patient slept 7-1/2 hours previous night. She did well previous night, compliant with her medications at night but refused them today. She took them crushed in pudding. UA has reflex to culture. We will await this. She was yelling the evening, wanting snacks because she refused supper. I addressed this with her at some length in her room. Review of Systems: Ambulation impaired in wheelchair. No CV, , pulmonary, eye, ENT system symptoms on review. Mental Status Exam: The patient is oriented to herself. Insight, judgment, recent memory is impaired, remote is better. Language function intact. Attention span is short. Mood and affect remains withdrawn. Laboratory Data: Reviewed. Impression: Bipolar disorder, mixed. Major neurocognitive disorder Alzheimer vascular with delusion, depression, behavioral disturbance. Impulse control disorder unspecified. Anxiety disorder unspecified. Plan: Continue rest psychotropics unchanged. Assessment: Vital Signs/I&O: Vital Signs Date Time Temp Pulse Resp B/P (MAP) Pulse Ox O2 Delivery O2 Flow Rate FiO2 03/18/21 06:41 98.4 62 20 102/60 (74) 96 Room Air I & O 03/17/21 03/17/21 03/18/21 15:00 23:00 07:00 Intake Total 0 ml 240 ml Balance 0 ml 240 ml Current Medications: Meds: Current Medications Medications (Trade) Dose Ordered Sig/Magdalena Route PRN Reason Start Time Stop Time Status Last Admin Dose Admin Acetaminophen (Tylenol) 650 mg PRN Q6HRS PRN PO MILD PAIN / TEMP > 100.3'F 02/26/21 22:00 Bisacodyl (Dulcolax Supp) 10 mg PRN DAILY PRN RC 2nd CHOICE CONSTIPATION 02/26/21 22:00 Docusate Sodium (Colace) 100 mg DAILY PO 02/27/21 09:00 03/17/21 11:48 Famotidine (Pepcid) 20 mg QHS PO 02/27/21 21:00 03/17/21 20:28 Gabapentin (Neurontin) 100 mg QHS PO 02/27/21 21:00 03/17/21 20:28 Lactase (Lactaid) 3,000 unit TID PO 02/27/21 09:00 03/16/21 12:41 DC 03/16/21 08:46 Levothyroxine Sodium (Synthroid) 25 mcg DAILY06 PO 02/27/21 06:00 03/18/21 06:17 Melatonin (Melatonin) 3 mg QHS PO 02/27/21 21:00 03/17/21 20:28 Memantine (Namenda) 5 mg BID PO 02/27/21 09:00 03/03/21 16:00 DC 03/03/21 08:13 Mirtazapine (Remeron) 7.5 mg QHS PO 02/27/21 21:00 03/12/21 18:07 DC 03/11/21 20:50 Oxycodone/ Acetaminophen (Percocet 10/325) 1 tab PRN Q6HRS PRN PO MOD-SEV PAIN 02/26/21 22:00 03/11/21 20:50 Quetiapine Fumarate (SEROquel) 25 mg TID PO 02/27/21 09:00 02/28/21 17:34 DC 02/28/21 14:31 Cephalexin HCl (Keflex) 250 mg TID PO 02/27/21 09:00 02/28/21 10:12 DC 02/28/21 08:13 Non-Formulary Medication (Mag Hydrox/Al Hydrox/Simeth (Mag-Al Plus Suspension)) 15 ml PRN QHS PRN PO DYSPEPSIA 02/26/21 22:00 UNV Multi-Ingredient Ointment (Analgesic [place]) 1 hector PRN QID PRN TP MUSCLE PAIN 02/26/21 22:30 Ondansetron HCl (Zofran Odt) 4 mg PRN Q8HRS PRN PO NAUSEA 02/26/21 22:30 Rivastigmine Tartrate (Exelon) 4.5 mg BIDWMEALS PO 02/27/21 08:00 03/17/21 17:32 Acetaminophen (Tylenol) 650 mg PRN Q6HRS PRN PO MILD PAIN / TEMP > 100.3'F 02/26/21 22:15 UNV Al Hydroxide/Mg Hydroxide (Mylanta Plus Xs) 15 ml PRN AFTMEALHC PRN PO DYSPEPSIA 02/26/21 22:15 Magnesium Hydroxide (Milk Of Magnesia) 2,400 mg PRN QHS PRN PO 1ST CHOICE CONSTIPATION 02/26/21 22:15 Olanzapine (ZyPREXA ZYDIS) 2.5 mg PRN Q2HR PRN PO PSYCHOSIS 02/27/21 07:30 03/12/21 20:02 Trazodone HCl (Desyrel) 50 mg PRN QHS PRN PO INSOMNIA 02/27/21 07:30 03/14/21 20:08 Lactobacillus Rhamnosus (Culturelle) 1 cap BID PO 02/27/21 09:00 03/17/21 20:28 Quetiapine Fumarate (SEROquel) 37.5 mg TID PO 02/28/21 21:00 03/01/21 19:04 DC 03/01/21 14:23 Olanzapine (ZyPREXA) 2.5 mg 0900,1300,1700 PO 03/02/21 09:00 03/15/21 14:50 DC 03/15/21 12:27 Memantine (Namenda) 10 mg BID PO 03/03/21 21:00 03/17/21 20:28 Sertraline HCl (Zoloft) 25 mg DAILY PO 03/04/21 09:00 03/06/21 12:00 DC 03/06/21 08:16 Sertraline HCl (Zoloft) 50 mg DAILY PO 03/07/21 09:00 03/09/21 17:09 DC 03/09/21 09:13 Sertraline HCl (Zoloft) 75 mg DAILY PO 03/10/21 09:00 03/14/21 17:48 DC 03/14/21 06:36 Divalproex Sodium (Depakote Sprinkles) 125 mg TIDWMEALS PO 03/12/21 08:00 03/17/21 17:32 Mirtazapine (Remeron) 15 mg QHS PO 03/12/21 21:00 03/17/21 20:28 Sertraline HCl (Zoloft) 100 mg DAILY PO 03/15/21 09:00 03/17/21 11:47 Olanzapine (ZyPREXA) 2.5 mg QID PO 03/15/21 17:00 03/17/21 20:28 Lactase (Lactaid) 3,000 unit TIDWMEALS PO 03/16/21 17:00 03/17/21 17:32 I have reviewed the current psychotropics carefully including drug interactions. Risk benefit ratio favors no change other than as noted in my dictated progress note. Diagnosis: Problems: (1) Dementia, vascular, with delusions (2) Bipolar disorder, current episode mixed, severe, with psychotic features (3) Dementia in Alzheimer's disease with depression (4) Dementia in Alzheimer's disease with delusions (5) Major neurocognitive disorder (6) Dementia in Alzheimer's disease with early onset with behavioral disturbance (7) Dementia with behavioral disturbance (8) Impulse control disorder (9) Dementia, vascular, with depression (10) Anxiety disorder DUGLAS SMALL MD March 18, 2021 07:44
[2021-03-18] MEDS: LACTASE 3,000 UNIT TABLET PO SCH ×4 (07:57→17:29)
[2021-03-18] MEDS: DIVALPROEX 125 MG CAP.SPRINK PO SCH ×4 (07:57→17:30)
[2021-03-18] MEDS: DOCUSATE SODIUM 100 MG CAPSULE PO SCH ×2 (07:57→11:45)
[2021-03-18] MEDS: SERTRALINE 100 MG TABLET. PO SCH ×2 (07:57→11:45)
[2021-03-18] MEDS: RIVASTIGMINE. 1.5 MG CAPSULE. PO SCH ×3 (07:57→17:30)
[2021-03-18] MEDS: OLANZapine 2.5 MG TABLET PO SCH ×5 (07:58→20:28)
[2021-03-18] MEDS: LACTOBACILLUS RHAMNOSUS GG 1 CAPSULE. PO SCH ×3 (07:58→20:28)
[2021-03-18] MEDS: MEMANTINE 10 MG TABLET. PO SCH ×3 (07:58→20:28)
[2021-03-18 15:51] VITALS: BP 106/67
[2021-03-18] MEDS: GABAPENTIN 100 MG CAPSULE. PO SCH (20:28)
[2021-03-18] MEDS: FAMOTIDINE 20 MG TABLET PO SCH (20:28)
[2021-03-18] MEDS: MELATONIN 3 MG TABLET PO SCH (20:28)
[2021-03-18] MEDS: MIRTAZAPINE 15 MG TABLET PO SCH (20:28)
[2021-03-19] MEDS: LEVOTHYROXINE 25 MCG TABLET. PO SCH (05:54)
[2021-03-19 06:00] VITALS: BP 144/79
--- NOTE | 2021-03-19 08:00 | PDOC ---
Exam Note: Carlos Note: This note is a late entry for 03/18/2021 covers elements not covered in my initial note. Subjective: The patient was seen individually in the evening of 03/18/2021 with Magali HERNDON, discussed and reviewed the chart. The patient slept 7-1/4 hours previous night. She remains anxious, confused, restless, frequently wanting to be back in bed. Urine C&S is pending. She refused a.m. medications. Valproic acid level on 03/15 was 33 on Depakote Sprinkle 125 mg 3 times a day. We will increase to 250 mg 3 times a day. Check CBC, CMP, valproic acid level in 3 days. Continue rest unchanged. Review of Systems: Ambulation impaired in wheelchair. No CV, , pulmonary, eye, ENT system symptoms on review. Mental Status Exam: The patient is oriented to herself. Insight, judgment, recent memory is impaired, remote is better. Language function intact. Attention span is short. Mood and affect remains withdrawn. Laboratory Data: Reviewed. Impression: Bipolar disorder, mixed with psychotic features. Major neurocognitive disorder Alzheimer vascular with delusion, depression, behavioral disturbance. Impulse control disorder unspecified. Anxiety disorder unspecified. Plan: Continue rest psychotropics unchanged. Assessment: Vital Signs/I&O: Vital Signs Date Time Temp Pulse Resp B/P (MAP) Pulse Ox O2 Delivery O2 Flow Rate FiO2 03/19/21 06:00 96.1 71 20 144/79 (100) 98 03/18/21 15:51 Room Air I & O 03/18/21 03/18/21 03/19/21 14:59 22:59 06:59 Intake Total 400 ml 320 ml Balance 400 ml 320 ml Current Medications: Meds: Current Medications Medications (Trade) Dose Ordered Sig/Magdalena Route PRN Reason Start Time Stop Time Status Last Admin Dose Admin Acetaminophen (Tylenol) 650 mg PRN Q6HRS PRN PO MILD PAIN / TEMP > 100.3'F 02/26/21 22:00 Bisacodyl (Dulcolax Supp) 10 mg PRN DAILY PRN RC 2nd CHOICE CONSTIPATION 02/26/21 22:00 Docusate Sodium (Colace) 100 mg DAILY PO 02/27/21 09:00 03/17/21 11:48 Famotidine (Pepcid) 20 mg QHS PO 02/27/21 21:00 03/18/21 20:28 Gabapentin (Neurontin) 100 mg QHS PO 02/27/21 21:00 03/18/21 20:28 Lactase (Lactaid) 3,000 unit TID PO 02/27/21 09:00 03/16/21 12:41 DC 03/16/21 08:46 Levothyroxine Sodium (Synthroid) 25 mcg DAILY06 PO 02/27/21 06:00 03/19/21 05:54 Melatonin (Melatonin) 3 mg QHS PO 02/27/21 21:00 03/18/21 20:28 Memantine (Namenda) 5 mg BID PO 02/27/21 09:00 03/03/21 16:00 DC 03/03/21 08:13 Mirtazapine (Remeron) 7.5 mg QHS PO 02/27/21 21:00 03/12/21 18:07 DC 03/11/21 20:50 Oxycodone/ Acetaminophen (Percocet 10/325) 1 tab PRN Q6HRS PRN PO MOD-SEV PAIN 02/26/21 22:00 03/11/21 20:50 Quetiapine Fumarate (SEROquel) 25 mg TID PO 02/27/21 09:00 02/28/21 17:34 DC 02/28/21 14:31 Cephalexin HCl (Keflex) 250 mg TID PO 02/27/21 09:00 02/28/21 10:12 DC 02/28/21 08:13 Non-Formulary Medication (Mag Hydrox/Al Hydrox/Simeth (Mag-Al Plus Suspension)) 15 ml PRN QHS PRN PO DYSPEPSIA 02/26/21 22:00 UNV Multi-Ingredient Ointment (Analgesic [place]) 1 hector PRN QID PRN TP MUSCLE PAIN 02/26/21 22:30 Ondansetron HCl (Zofran Odt) 4 mg PRN Q8HRS PRN PO NAUSEA 02/26/21 22:30 Rivastigmine Tartrate (Exelon) 4.5 mg BIDWMEALS PO 02/27/21 08:00 03/18/21 17:30 Acetaminophen (Tylenol) 650 mg PRN Q6HRS PRN PO MILD PAIN / TEMP > 100.3'F 4/16/21 22:15 UNV Al Hydroxide/Mg Hydroxide (Mylanta Plus Xs) 15 ml PRN AFTMEALHC PRN PO DYSPEPSIA 02/26/21 22:15 Magnesium Hydroxide (Milk Of Magnesia) 2,400 mg PRN QHS PRN PO 1ST CHOICE CONSTIPATION 02/26/21 22:15 Olanzapine (ZyPREXA ZYDIS) 2.5 mg PRN Q2HR PRN PO PSYCHOSIS 02/27/21 07:30 03/12/21 20:02 Trazodone HCl (Desyrel) 50 mg PRN QHS PRN PO INSOMNIA 02/27/21 07:30 03/14/21 20:08 Lactobacillus Rhamnosus (Culturelle) 1 cap BID PO 02/27/21 09:00 03/18/21 20:28 Quetiapine Fumarate (SEROquel) 37.5 mg TID PO 02/28/21 21:00 03/01/21 19:04 DC 03/01/21 14:23 Olanzapine (ZyPREXA) 2.5 mg 0900,1300,1700 PO 03/02/21 09:00 03/15/21 14:50 DC 03/15/21 12:27 Memantine (Namenda) 10 mg BID PO 03/03/21 21:00 03/18/21 20:28 Sertraline HCl (Zoloft) 25 mg DAILY PO 03/04/21 09:00 03/06/21 12:00 DC 03/06/21 08:16 Sertraline HCl (Zoloft) 50 mg DAILY PO 03/07/21 09:00 03/09/21 17:09 DC 03/09/21 09:13 Sertraline HCl (Zoloft) 75 mg DAILY PO 03/10/21 09:00 03/14/21 17:48 DC 03/14/21 06:36 Divalproex Sodium (Depakote Sprinkles) 125 mg TIDWMEALS PO 03/12/21 08:00 03/18/21 22:29 DC 03/18/21 17:30 Mirtazapine (Remeron) 15 mg QHS PO 03/12/21 21:00 03/18/21 20:28 Sertraline HCl (Zoloft) 100 mg DAILY PO 03/15/21 09:00 03/17/21 11:47 Olanzapine (ZyPREXA) 2.5 mg QID PO 03/15/21 17:00 03/18/21 20:28 Lactase (Lactaid) 3,000 unit TIDWMEALS PO 03/16/21 17:00 03/18/21 17:29 Divalproex Sodium (Depakote Sprinkles) 250 mg TIDWMEALS PO 03/19/21 08:00 I have reviewed the current psychotropics carefully including drug interactions. Risk benefit ratio favors no change other than as noted in my dictated progress note. Diagnosis: Problems: (1) Dementia, vascular, with delusions (2) Dementia in Alzheimer's disease with depression (3) Dementia in Alzheimer's disease with delusions (4) Major neurocognitive disorder (5) Dementia in Alzheimer's disease with early onset with behavioral disturbance (6) Impulse control disorder (7) Dementia, vascular, with depression (8) Anxiety disorder (9) Bipolar disorder, current episode mixed, severe, with psychotic features DUGLAS SMALL MD March 19, 2021 08:00
[2021-03-19] MEDS: LACTASE 3,000 UNIT TABLET PO SCH ×3 (08:24→17:15)
[2021-03-19] MEDS: MEMANTINE 10 MG TABLET. PO SCH ×2 (08:24→20:33)
[2021-03-19] MEDS: OLANZapine 2.5 MG TABLET PO SCH ×4 (08:24→20:33)
[2021-03-19] MEDS: DIVALPROEX 125 MG CAP.SPRINK PO SCH ×3 (08:24→17:14)
[2021-03-19] MEDS: RIVASTIGMINE. 1.5 MG CAPSULE. PO SCH ×2 (08:24→17:14)
[2021-03-19] MEDS: LACTOBACILLUS RHAMNOSUS GG 1 CAPSULE. PO SCH ×2 (08:24→20:32)
[2021-03-19] MEDS: DOCUSATE SODIUM 100 MG CAPSULE PO SCH (08:25)
[2021-03-19] MEDS: SERTRALINE 100 MG TABLET. PO SCH (08:25)
[2021-03-19 15:55] VITALS: BP 129/84
[2021-03-19] MEDS: AMOXICILLIN 250 MG CAPSULE PO SCH (20:32)
[2021-03-19] MEDS: MELATONIN 3 MG TABLET PO SCH (20:33)
[2021-03-19] MEDS: GABAPENTIN 100 MG CAPSULE. PO SCH (20:33)
[2021-03-19] MEDS: FAMOTIDINE 20 MG TABLET PO SCH (20:33)
[2021-03-19] MEDS: MIRTAZAPINE 15 MG TABLET PO SCH (20:33)
--- NOTE | 2021-03-19 21:54 | PDOC ---
Exam Note: Carlos Note: Please also refer to the separate dictated note~for this date of service dictated separately.~Patient seen individually. Discussed the patient with Nursing staff reviewed the chart.~Reviewed interim history and current functioning. Reviewed vital signs,~Labs/ Radiology~and current medications noted below. Continue current treatment with the changes noted in the dictated addendum note Assessment: Vital Signs/I&O: Vital Signs Date Time Temp Pulse Resp B/P (MAP) Pulse Ox O2 Delivery O2 Flow Rate FiO2 03/19/21 15:55 97.3 83 16 129/84 (99) 99 03/18/21 15:51 Room Air I & O 03/18/21 03/18/21 03/19/21 15:00 23:00 07:00 Intake Total 400 ml 320 ml Balance 400 ml 320 ml Current Medications: Meds: Current Medications Medications (Trade) Dose Ordered Sig/Magdalena Route PRN Reason Start Time Stop Time Status Last Admin Dose Admin Acetaminophen (Tylenol) 650 mg PRN Q6HRS PRN PO MILD PAIN / TEMP > 100.3'F 02/26/21 22:00 Bisacodyl (Dulcolax Supp) 10 mg PRN DAILY PRN RC 2nd CHOICE CONSTIPATION 02/26/21 22:00 Docusate Sodium (Colace) 100 mg DAILY PO 02/27/21 09:00 03/19/21 08:25 Famotidine (Pepcid) 20 mg QHS PO 02/27/21 21:00 03/19/21 20:33 Gabapentin (Neurontin) 100 mg QHS PO 02/27/21 21:00 03/19/21 20:33 Lactase (Lactaid) 3,000 unit TID PO 02/27/21 09:00 03/16/21 12:41 DC 03/16/21 08:46 Levothyroxine Sodium (Synthroid) 25 mcg DAILY06 PO 02/27/21 06:00 03/19/21 05:54 Melatonin (Melatonin) 3 mg QHS PO 02/27/21 21:00 03/19/21 20:33 Memantine (Namenda) 5 mg BID PO 02/27/21 09:00 03/03/21 16:00 DC 03/03/21 08:13 Mirtazapine (Remeron) 7.5 mg QHS PO 02/27/21 21:00 03/12/21 18:07 DC 03/11/21 20:50 Oxycodone/ Acetaminophen (Percocet 10/325) 1 tab PRN Q6HRS PRN PO MOD-SEV PAIN 02/26/21 22:00 03/11/21 20:50 Quetiapine Fumarate (SEROquel) 25 mg TID PO 02/27/21 09:00 02/28/21 17:34 DC 02/28/21 14:31 Cephalexin HCl (Keflex) 250 mg TID PO 02/27/21 09:00 02/28/21 10:12 DC 02/28/21 08:13 Non-Formulary Medication (Mag Hydrox/Al Hydrox/Simeth (Mag-Al Plus Suspension)) 15 ml PRN QHS PRN PO DYSPEPSIA 02/26/21 22:00 UNV Multi-Ingredient Ointment (Analgesic [place]) 1 hector PRN QID PRN TP MUSCLE PAIN 02/26/21 22:30 Ondansetron HCl (Zofran Odt) 4 mg PRN Q8HRS PRN PO NAUSEA 02/26/21 22:30 Rivastigmine Tartrate (Exelon) 4.5 mg BIDWMEALS PO 02/27/21 08:00 03/19/21 17:14 Acetaminophen (Tylenol) 650 mg PRN Q6HRS PRN PO MILD PAIN / TEMP > 100.3'F 02/26/21 22:15 UNV Al Hydroxide/Mg Hydroxide (Mylanta Plus Xs) 15 ml PRN AFTMEALHC PRN PO DYSPEPSIA 02/26/21 22:15 Magnesium Hydroxide (Milk Of Magnesia) 2,400 mg PRN QHS PRN PO 1ST CHOICE CONSTIPATION 02/26/21 22:15 Olanzapine (ZyPREXA ZYDIS) 2.5 mg PRN Q2HR PRN PO PSYCHOSIS 02/27/21 07:30 03/12/21 20:02 Trazodone HCl (Desyrel) 50 mg PRN QHS PRN PO INSOMNIA 02/27/21 07:30 03/14/21 20:08 Lactobacillus Rhamnosus (Culturelle) 1 cap BID PO 02/27/21 09:00 03/19/21 20:32 Quetiapine Fumarate (SEROquel) 37.5 mg TID PO 02/28/21 21:00 03/01/21 19:04 DC 03/01/21 14:23 Olanzapine (ZyPREXA) 2.5 mg 0900,1300,1700 PO 03/02/21 09:00 03/15/21 14:50 DC 03/15/21 12:27 Memantine (Namenda) 10 mg BID PO 03/03/21 21:00 03/19/21 20:33 Sertraline HCl (Zoloft) 25 mg DAILY PO 03/04/21 09:00 03/06/21 12:00 DC 03/06/21 08:16 Sertraline HCl (Zoloft) 50 mg DAILY PO 03/07/21 09:00 03/09/21 17:09 DC 03/09/21 09:13 Sertraline HCl (Zoloft) 75 mg DAILY PO 03/10/21 09:00 03/14/21 17:48 DC 03/14/21 06:36 Divalproex Sodium (Depakote Sprinkles) 125 mg TIDWMEALS PO 03/12/21 08:00 03/18/21 22:29 DC 03/18/21 17:30 Mirtazapine (Remeron) 15 mg QHS PO 03/12/21 21:00 03/19/21 20:33 Sertraline HCl (Zoloft) 100 mg DAILY PO 03/15/21 09:00 03/19/21 08:25 Olanzapine (ZyPREXA) 2.5 mg QID PO 03/15/21 17:00 03/19/21 20:33 Lactase (Lactaid) 3,000 unit TIDWMEALS PO 03/16/21 17:00 03/19/21 17:15 Divalproex Sodium (Depakote Sprinkles) 250 mg TIDWMEALS PO 03/19/21 08:00 03/19/21 17:14 Amoxicillin (Amoxil) 500 mg [id number] PO 03/19/21 21:00 03/26/21 22:00 03/19/21 20:32 Current Medications Medications (Trade) Dose Ordered Sig/Magdalena Route PRN Reason Start Time Stop Time Status Last Admin Dose Admin Divalproex Sodium (Depakote Sprinkles) 250 mg TIDWMEALS PO 03/19/21 08:00 03/19/21 17:14 Amoxicillin (Amoxil) 500 mg [id number] PO 03/19/21 21:00 03/26/21 22:00 03/19/21 20:32 I have reviewed the current psychotropics carefully including drug interactions. Risk benefit ratio favors no change other than as noted in my dictated progress note. Diagnosis: Problems: (1) Dementia, vascular, with delusions (2) Bipolar disorder, current episode mixed, severe, with psychotic features (3) Dementia in Alzheimer's disease with depression (4) Dementia in Alzheimer's disease with delusions (5) Major neurocognitive disorder (6) Dementia in Alzheimer's disease with early onset with behavioral disturbance (7) Impulse control disorder (8) Dementia, vascular, with depression (9) Anxiety disorder DUGLAS SMALL MD March 19, 2021 21:54
[2021-03-20 06:04] VITALS: BP 111/68
[2021-03-20] MEDS: LEVOTHYROXINE 25 MCG TABLET. PO SCH (06:15)
[2021-03-20] MEDS: RIVASTIGMINE. 1.5 MG CAPSULE. PO SCH ×2 (09:33→17:46)
[2021-03-20] MEDS: MEMANTINE 10 MG TABLET. PO SCH ×2 (09:34→19:47)
[2021-03-20] MEDS: LACTASE 3,000 UNIT TABLET PO SCH ×3 (09:34→17:46)
[2021-03-20] MEDS: SERTRALINE 100 MG TABLET. PO SCH (09:34)
[2021-03-20] MEDS: OLANZapine 2.5 MG TABLET PO SCH ×4 (09:34→19:47)
[2021-03-20] MEDS: AMOXICILLIN 250 MG CAPSULE PO SCH ×3 (09:34→19:47)
[2021-03-20] MEDS: DIVALPROEX 125 MG CAP.SPRINK PO SCH ×3 (09:34→17:46)
[2021-03-20] MEDS: DOCUSATE SODIUM 100 MG CAPSULE PO SCH (09:34)
[2021-03-20] MEDS: LACTOBACILLUS RHAMNOSUS GG 1 CAPSULE. PO SCH ×2 (09:34→19:47)
[2021-03-20 16:05] VITALS: BP 121/76
[2021-03-20] MEDS: FAMOTIDINE 20 MG TABLET PO SCH (19:47)
[2021-03-20] MEDS: GABAPENTIN 100 MG CAPSULE. PO SCH (19:47)
[2021-03-20] MEDS: MIRTAZAPINE 15 MG TABLET PO SCH (19:47)
[2021-03-20] MEDS: MELATONIN 3 MG TABLET PO SCH (19:47)
--- NOTE | 2021-03-21 01:55 | PN ---
DATE: 03/20/2021 SUBJECTIVE: The patient was seen today, met with the staff. Chart reviewed and also covering for Dr. Arriaga. Staff reports no major behavior problems except being resistive to care at times. Staff reports no falls. No other medical issues. OBSERVATION VITAL SIGNS: Temperature 97.6, blood pressure 111/68, pulse 79, respirations 16, O2 sat 98%. Slept about 6 hours last night. Her appetite is fair. CURRENT MEDICATIONS: Depakote 250 mg 3 times a day, olanzapine 2.5 mg 4 times a day, Zoloft 100 mg daily, mirtazapine 15 mg at night, Namenda 10 mg twice a day, melatonin 3 mg at night, gabapentin 100 mg at night, Exelon 4.5 mg twice a day, trazodone 50 mg at night p.r.n. LABORATORY DATA: The patient's lab reviewed. The patient's Depakote level was 33. ASSESSMENT: 1. Bipolar disorder, mixed with psychotic features. 2. Major neurocognitive disorder, most likely Alzheimer's versus vascular with behavior problems. PLAN: To continue with the treatment. LENGTH OF STAY: Seven days. DYLAN DR: Yvette TID: [id number] MTDD
[2021-03-21] MEDS: LEVOTHYROXINE 25 MCG TABLET. PO SCH (05:56)
[2021-03-21 06:14] VITALS: BP 102/65
[2021-03-21] MEDS: LACTASE 3,000 UNIT TABLET PO SCH ×3 (07:17→17:11)
[2021-03-21] MEDS: AMOXICILLIN 250 MG CAPSULE PO SCH ×3 (08:10→19:54)
[2021-03-21] MEDS: RIVASTIGMINE. 1.5 MG CAPSULE. PO SCH ×2 (08:10→17:11)
[2021-03-21] MEDS: DOCUSATE SODIUM 100 MG CAPSULE PO SCH (08:10)
[2021-03-21] MEDS: LACTOBACILLUS RHAMNOSUS GG 1 CAPSULE. PO SCH ×2 (08:10→19:54)
[2021-03-21] MEDS: MEMANTINE 10 MG TABLET. PO SCH ×2 (08:10→19:54)
[2021-03-21] MEDS: OLANZapine 2.5 MG TABLET PO SCH ×4 (08:10→19:54)
[2021-03-21] MEDS: DIVALPROEX 125 MG CAP.SPRINK PO SCH ×3 (08:11→17:10)
[2021-03-21] MEDS: SERTRALINE 100 MG TABLET. PO SCH (08:11)
[2021-03-21 16:17] VITALS: BP 125/73
[2021-03-21] MEDS: GABAPENTIN 100 MG CAPSULE. PO SCH (19:54)
[2021-03-21] MEDS: MELATONIN 3 MG TABLET PO SCH (19:54)
[2021-03-21] MEDS: MIRTAZAPINE 15 MG TABLET PO SCH (19:54)
[2021-03-21] MEDS: FAMOTIDINE 20 MG TABLET PO SCH (19:54)
--- NOTE | 2021-03-22 02:40 | PN ---
DATE: 03/21/2021 SUBJECTIVE: The patient was seen today, met with the staff, chart reviewed, and also covering for Dr. Arriaga. The patient's behavior has improved. She is compliant with the medications, has not presented with any major problem, but she has been resistant to care at times. The patient is not having any other major medical issues. OBSERVATION: VITAL SIGNS: Temperature 96.8, blood pressure 102/65, pulse 65, respirations 20, O2 sat 100%. GENERAL: Slept about 6 hours last night. The patient's appetite is fair. CURRENT MEDICATIONS: Include Depakote 250 mg 3 times a day, olanzapine 2.5 mg 4 times a day, Zoloft 100 mg daily, mirtazapine 15 mg at night, Namenda 10 mg twice a day, melatonin 3 mg at night, gabapentin 100 mg at night and Exelon 4.5 mg twice a day. She is also on trazodone 50 mg at night p.r.n. for sleep. LABORATORY DATA: Reviewed. ASSESSMENT: Bipolar disorder, mixed with psychotic features and also major neurocognitive disorder, most likely Alzheimer's versus vascular with behavior problems. PLAN: To continue with the treatment, to return to [facility] in [place] when she is stable. LENGTH OF STAY: Seven to ten days. [address]: Yvette TID: [id number] MTDD
[2021-03-22] MEDS: LEVOTHYROXINE 25 MCG TABLET. PO SCH (05:42)
[2021-03-22 06:33] VITALS: BP 97/59
[2021-03-22 07:10] LABS: BASO % 0 % (0-3); EOS # 0.3 x10^3/uL (0.0-0.7); EOS % 4 % (0-3); HEMATOCRIT 31.6 % (36.0-47.0); HEMOGLOBIN 10.1 g/dL (12.0-15.5); LYMPH # 2.4 x10^3/uL (1.0-4.8); LYMPH % 34 % (24-48); MEAN CORPUSCULAR HEMOGLOBIN 26 pg (25-35); MEAN CORPUSCULAR HGB CONC 32 g/dL (31-37); MEAN CORPUSCULAR VOLUME 81 fL (79-100); MONO # 0.5 x10^3/uL (0.0-1.1); MONO % 6 % (0-9); NEUT # 3.9 x10^3uL (1.8-7.7); NEUT % 56 % (31-73); PLATELET COUNT 363 x10^3/uL (140-400); RED BLOOD COUNT 3.89 x10^6/uL (3.50-5.40); RED CELL DISTRIBUTION WIDTH 18.7 % (11.5-14.5); WHITE BLOOD COUNT 7.1 x10^3/uL (4.0-11.0)
[2021-03-22 07:15] LABS: ALBUMIN 1.9 g/dL (3.4-5.0); ALBUMIN/GLOBULIN RATIO 0.5 (1.0-1.7); ALK PHOS 64 U/L (46-116); ALT (SGPT) 6 U/L (14-59); ANION GAP 6 (6-14); AST (SGOT) 12 U/L (15-37); BLOOD UREA NITROGEN 13 mg/dL (7-20); BUN/CREATININE RATIO 16 (6-20); CALCIUM 7.7 mg/dL (8.5-10.1); CARBON DIOXIDE 31 mmol/L (21-32); CHLORIDE 108 mmol/L (98-107); CREATININE 0.8 mg/dL (0.6-1.0); GLUCOSE 80 mg/dL (70-99); POTASSIUM 4.5 mmol/L (3.5-5.1); SODIUM 145 mmol/L (136-145); TOTAL BILIRUBIN 0.1 mg/dL (0.2-1.0); TOTAL PROTEIN 5.5 g/dL (6.4-8.2)
[2021-03-22 07:40] LABS: VAL ACID 63 mcg/mL (50-100)
[2021-03-22] MEDS: OLANZapine 2.5 MG TABLET PO SCH ×4 (09:10→20:28)
[2021-03-22] MEDS: SERTRALINE 100 MG TABLET. PO SCH (09:10)
[2021-03-22] MEDS: DOCUSATE SODIUM 100 MG CAPSULE PO SCH (09:10)
[2021-03-22] MEDS: MEMANTINE 10 MG TABLET. PO SCH ×2 (09:10→20:28)
[2021-03-22] MEDS: AMOXICILLIN 250 MG CAPSULE PO SCH ×3 (09:10→20:28)
[2021-03-22] MEDS: RIVASTIGMINE. 1.5 MG CAPSULE. PO SCH ×2 (09:10→17:23)
[2021-03-22] MEDS: LACTASE 3,000 UNIT TABLET PO SCH ×3 (09:11→17:23)
[2021-03-22] MEDS: LACTOBACILLUS RHAMNOSUS GG 1 CAPSULE. PO SCH ×2 (09:11→20:28)
[2021-03-22] MEDS: DIVALPROEX 125 MG CAP.SPRINK PO SCH ×3 (09:11→17:23)
--- NOTE | 2021-03-22 15:50 | TX PLAN ---
ASIA [address] 03/22/21 1550: Interdisciplinary Tx Plan Admission Information Feb 26, 2021 at 19:52 Legal Status (on Admission): Voluntary DPOA/Guardian Name: Kayla Briggs Contact Other Contact Name: MELISSA Alas Other Contact Verified Code Status: Full Code Allergies: Coded Allergies: NSAIDS (Non-Steroidal Anti-Inflamma (Verified Allergy, Intermediate, gi upset-peptic ulcer dx, 08/27/15) aspirin (Verified Allergy, Intermediate, gi upset/hx ulcers, 08/27/15) Diagnoses Primary Diagnosis: (1) Dementia, vascular, with delusions (2) Bipolar disorder, current episode mixed, severe, with psychotic features (3) Dementia in Alzheimer's disease with depression (4) Dementia in Alzheimer's disease with delusions (5) Major neurocognitive disorder (6) Dementia in Alzheimer's disease with early onset with behavioral disturbance (7) Impulse control disorder (8) Dementia, vascular, with depression (9) Anxiety disorder Reasons for Admission: Aggressive, Agitated, Sig. Change Appetite, Angry, Confusion/Disoriented, Poor impulse control Problem in Patient's Words: Per dtr/DPOA, Kayla, pt has started yelling out at her facility following her hospitalizations for UTIs. She never has had this behavior before, but she does have an extensive history in her younger days of being very attention seeking and telling multiple fabricated stories for reasons unknown. Also, per Kayla, pt has been on Tramadol and she believes that she is addicted and that it is like a narcotic to Usha. Kayla feels that Usha craves it. She would like to see her off of the Tramadol. Further, Kayla believes that pt does not drink enough water and that she has muscle spasms that could be some of the cause to her yelling out. Kayla believes that she needs to drink more water or ice chips and possibly be prescribed Quinine. Additional Admission Comments: Per intake record, pt has increased agitation, refusing to eat/drink/take medications, irritable, uncooperative, labile mood, yelling out. Problems Active Problems: Yelling out, agitation, confusion, poor impulse control, angry Inactive Problems: None noted at this time. Pt Strengths/Limitations Ability for [place]: Poor Cognitive Functioning/Ability: Poor Communication Skills/Ability: Fair Financial Resources: Fair Insight/Judgement: Poor Intellectual Ability: Poor Physical Health: Poor Social Skills: Fair Stability in Family: Fair Stability in School/Work: Fair Verbal Skills: Fair Discharge Criteria Discharge Criteria: Adequate arrangements @DC, Verbal commit med comply, Improved behavior, Improved mood/thought Other Discharge Comments: None noted at this time. Preliminary Discharge Plan Preliminary DC Plan: Current Living Arrange. Special Precautions Fall Risk: High Initial D/C Plan Plan is to return to [facility]. Identified Discharge Needs: None noted at this time. Currently Utilized Resources Currently Utilized Resources/P: PCP is Dr. Peraza Psychiatry is Nurse Practitioner, Peter Facility is [facility] SW at [facility] is [place] Referrals Community Resources: None noted at this time. Identified Problems/Hx/Goals Objectives/Short-Term Goals Short Term Goals: Control abnormal behavior, Improved Social Skills, Medication Stabilization, Monitor Med Effects, Promote Coping Skill Short Term Goals in Patient's: To feel better. Per Dtr/DPOA, Kayla, she would like for pt to be off of Tramadol. Also, Kayla states that pt has muscle spasms that could contribute to her yelling out. She feels that Quinine could possibly be beneficial, but at the minimum pt should be requested to drink plenty of water. Kayla feels that these things could help prevent her from calling out in an attention seeking way that she was doing at her facility. Interventions/Frequency Staff Interventions/Frequency&: Psychiatry to assess pt three times per week for medication maagement. Nursing to assess pt behaviors, monitor medications, and complete 15 minute checks daily. Social work to see pt at least two times weekly to aid in return to placement. Activities to encourage pt to participate in group activities daily. 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 She was then caught for extorting money from a pt and lost her job. Education: Usha dropped out of high school in the 10th grade to get . Community Follow-up PCP Psychiatry Community Provider/Family Inpu: Dtr/DPOA, Kayla, is aware of pt hospitalization. Kayla provided pt inforamation and is available for further input as needed. 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 Pt has started antibiotics for UTI and scheduled to finish them on 03/25/21. Valproic acid level within therapeutic range. Pt mostly pleasant with occasional refusal of medications. Pt eventually compliant with meds. Pt enjoys snacks and asks for them often. Pt will attend groups and is pleasant when in attendance. Pt did not attend group last week as much as she did the week before. Pt enjoys propelling herself in the hallway and can often be found sitting next to the windows soaking up the sunshine. Once stable, pt will return to [facility]. MELODY HANKINS MD 03/27/21 1626: Interdisciplinary Tx Plan Admission Information Allergies: Coded Allergies: NSAIDS (Non-Steroidal Anti-Inflamma (Verified Allergy, Intermediate, gi upset-peptic ulcer dx, 08/27/15) aspirin (Verified Allergy, Intermediate, gi upset/hx ulcers, 08/27/15) ASIA WAY March 22, 2021 15:50 MELODY HANKINS MD March 27, 2021 16:26
[2021-03-22 16:10] VITALS: BP 140/75
[2021-03-22] MEDS: FAMOTIDINE 20 MG TABLET PO SCH (20:28)
[2021-03-22] MEDS: GABAPENTIN 100 MG CAPSULE. PO SCH (20:28)
[2021-03-22] MEDS: MELATONIN 3 MG TABLET PO SCH (20:28)
[2021-03-22] MEDS: MIRTAZAPINE 15 MG TABLET PO SCH (20:29)
--- NOTE | 2021-03-23 00:02 | PN ---
DATE: 03/22/2021 SUBJECTIVE: The patient was seen today, met with the staff. Chart reviewed and also covering for Dr. Arriaga and also participated in the treatment review meeting today. The patient is doing fairly well, still resistive to care. No recent fall. She tends to be withdrawn most of the time, but pleasant. The patient was also treated for her UTI. The patient is planned for discharge soon. PHYSICAL EXAMINATION: VITAL SIGNS: Temperature 97.2, blood pressure 97/59, pulse 76, respirations 18, O2 sat 97%. GENERAL: Slept about 7 hours last night. CURRENT MEDICATIONS: Includes Depakote 250 mg t.i.d. p.o., Zoloft 100 mg daily, mirtazapine 15 mg at night, Namenda 10 mg twice a day, melatonin 3 mg at night, gabapentin 100 mg at night and Exelon 4.5 mg twice a day. The patient is also on trazodone 50 mg at night p.r.n. for sleep and also olanzapine 2.5 mg q. 4 times daily. The patient is not having any major side effects. LABORATORY DATA: The patient's lab reviewed. ASSESSMENT: 1. Bipolar disorder, mixed with psychotic features. 2. Major neurocognitive disorder, most likely Alzheimer's versus vascular with behavior problems. PLAN: To continue with the treatment. The patient's plan to return to [facility]. LENGTH OF STAY: Seven days. EJ DR: Yvette TID: [id number] MTDJus
[2021-03-23] MEDS: LEVOTHYROXINE 25 MCG TABLET. PO SCH (05:35)
[2021-03-23 06:14] VITALS: BP 95/68
[2021-03-23] MEDS: LACTOBACILLUS RHAMNOSUS GG 1 CAPSULE. PO SCH ×2 (09:03→20:16)
[2021-03-23] MEDS: MEMANTINE 10 MG TABLET. PO SCH ×2 (09:03→20:17)
[2021-03-23] MEDS: AMOXICILLIN 250 MG CAPSULE PO SCH ×3 (09:03→20:16)
[2021-03-23] MEDS: RIVASTIGMINE. 1.5 MG CAPSULE. PO SCH ×2 (09:03→17:27)
[2021-03-23] MEDS: DIVALPROEX 125 MG CAP.SPRINK PO SCH ×3 (09:03→17:27)
[2021-03-23] MEDS: OLANZapine 2.5 MG TABLET PO SCH ×4 (09:03→20:17)
[2021-03-23] MEDS: LACTASE 3,000 UNIT TABLET PO SCH ×3 (09:03→17:27)
[2021-03-23] MEDS: SERTRALINE 100 MG TABLET. PO SCH (09:03)
[2021-03-23] MEDS: DOCUSATE SODIUM 100 MG CAPSULE PO SCH (09:03)
[2021-03-23 16:26] VITALS: BP 119/76
[2021-03-23] MEDS: GABAPENTIN 100 MG CAPSULE. PO SCH (20:16)
[2021-03-23] MEDS: FAMOTIDINE 20 MG TABLET PO SCH (20:16)
[2021-03-23] MEDS: MIRTAZAPINE 15 MG TABLET PO SCH (20:16)
[2021-03-23] MEDS: MELATONIN 3 MG TABLET PO SCH (20:16)
[2021-03-24] MEDS: LEVOTHYROXINE 25 MCG TABLET. PO SCH (05:41)
[2021-03-24 06:04] VITALS: BP 124/79
--- NOTE | 2021-03-24 09:46 | PN ---
DATE: 03/23/2021 SUBJECTIVE: The patient was seen today, met with the staff, chart was reviewed, and also covering for Dr. Arriaga. The patient continues to show improvement, still resistant to care at times. The patient has had no recent falls. The patient tends to withdraw to herself. The patient also treated for UTI. OBSERVATION: VITAL SIGNS: Temperature 97.0, blood pressure 119/76, pulse 74, respirations 16, O2 sat 92%. The patient is averaging about 6 to 7 hours at night of sleep. MEDICATIONS: The patient's current medications include Depakote 250 mg t.i.d. p.o., Zoloft 100 mg daily, mirtazapine 15 mg at night, Namenda 10 mg twice a day, melatonin 3 mg at night, gabapentin 100 mg at night and Exelon 4.5 mg twice a day. The patient is also on trazodone 50 mg at night p.r.n. for sleep and olanzapine 2.5 mg 4 times daily. The patient is not having any side effects. LABORATORY DATA: The patient's labs reviewed. ASSESSMENT: 1. Bipolar disorder, mixed, with psychotic features. 2. Major neurocognitive disorder, most likely Alzheimer's versus vascular with behavior problems. PLAN: To continue with the treatment. The patient is expected to be discharged soon to return to [facility]. TEMO DR: Yvette TID: [id number]
[2021-03-24] MEDS: DOCUSATE SODIUM 100 MG CAPSULE PO SCH ×2 (11:41→12:00)
[2021-03-24] MEDS: MEMANTINE 10 MG TABLET. PO SCH ×3 (11:41→20:16)
[2021-03-24] MEDS: SERTRALINE 100 MG TABLET. PO SCH ×2 (11:41→12:00)
[2021-03-24] MEDS: RIVASTIGMINE. 1.5 MG CAPSULE. PO SCH ×3 (11:41→17:39)
[2021-03-24] MEDS: DIVALPROEX 125 MG CAP.SPRINK PO SCH ×4 (11:42→17:39)
[2021-03-24] MEDS: LACTASE 3,000 UNIT TABLET PO SCH ×4 (11:42→17:39)
[2021-03-24] MEDS: LACTOBACILLUS RHAMNOSUS GG 1 CAPSULE. PO SCH ×3 (11:42→20:15)
[2021-03-24] MEDS: OLANZapine 2.5 MG TABLET PO SCH ×5 (11:42→20:16)
[2021-03-24] MEDS: AMOXICILLIN 250 MG CAPSULE PO SCH ×4 (11:42→20:16)
[2021-03-24 16:31] VITALS: BP 112/61
[2021-03-24] MEDS: MIRTAZAPINE 15 MG TABLET PO SCH (20:16)
[2021-03-24] MEDS: FAMOTIDINE 20 MG TABLET PO SCH (20:16)
[2021-03-24] MEDS: MELATONIN 3 MG TABLET PO SCH (20:16)
[2021-03-24] MEDS: GABAPENTIN 100 MG CAPSULE. PO SCH (20:16)
--- NOTE | 2021-03-25 01:54 | PN ---
DATE: 03/24/2021 SUBJECTIVE: The patient was seen today, met with the staff. Chart was reviewed and also covering for Dr. Arriaga. Staff reports no major behavior problems. The patient is calm, cooperative and compliant with medications. The patient is not admitting to any major medical problems. OBSERVATION: VITAL SIGNS: Temperature 96.9, blood pressure 124/79, pulse 75, respirations 16, O2 sat 96%. Slept about 7 hours last night. LABORATORY DATA: The patient's lab reviewed. CURRENT MEDICATIONS: Include Depakote 250 mg 3 times a day, olanzapine 2.5 mg 4 times a day, Zoloft 100 mg daily, mirtazapine 15 mg at night, Namenda 10 mg twice a day, melatonin 3 mg at night, gabapentin 100 mg at night, Exelon 4.5 mg twice a day. The patient is also on trazodone and olanzapine as p.r.n. ASSESSMENT: 1. Bipolar disorder, mixed with psychotic features. 2. Major neurocognitive disorder, most likely Alzheimer's versus vascular with behavior problems. PLAN: To continue with the treatment. The patient will be discharged to [facility] when she is stable. CHRISTIAN DR: JUAN/anna TID: [id number]
[2021-03-25 05:31] VITALS: BP 132/58
[2021-03-25] MEDS: LEVOTHYROXINE 25 MCG TABLET. PO SCH (05:45)
[2021-03-25] MEDS: LACTASE 3,000 UNIT TABLET PO SCH ×3 (08:00→17:12)
[2021-03-25] MEDS: DOCUSATE SODIUM 100 MG CAPSULE PO SCH (09:00)
[2021-03-25] MEDS: LACTOBACILLUS RHAMNOSUS GG 1 CAPSULE. PO SCH ×2 (09:00→20:29)
[2021-03-25] MEDS: AMOXICILLIN 250 MG CAPSULE PO SCH ×3 (09:29→20:29)
[2021-03-25] MEDS: SERTRALINE 100 MG TABLET. PO SCH (09:30)
[2021-03-25] MEDS: OLANZapine 2.5 MG TABLET PO SCH ×4 (09:30→20:29)
[2021-03-25] MEDS: RIVASTIGMINE. 1.5 MG CAPSULE. PO SCH ×2 (09:30→17:12)
[2021-03-25] MEDS: DIVALPROEX 125 MG CAP.SPRINK PO SCH ×3 (09:30→17:12)
[2021-03-25] MEDS: MEMANTINE 10 MG TABLET. PO SCH ×2 (09:30→20:29)
[2021-03-25 16:16] VITALS: BP 113/60
[2021-03-25] MEDS: MELATONIN 3 MG TABLET PO SCH (20:29)
[2021-03-25] MEDS: FAMOTIDINE 20 MG TABLET PO SCH (20:29)
[2021-03-25] MEDS: GABAPENTIN 100 MG CAPSULE. PO SCH (20:29)
[2021-03-25] MEDS: MIRTAZAPINE 15 MG TABLET PO SCH (20:30)
--- NOTE | 2021-03-26 04:36 | PN ---
DATE: 03/25/2021 SUBJECTIVE: The patient was seen today, met with the staff. Chart reviewed and also covering for Dr. Arriaga. Staff reports no major behavior problems. She is medication compliant. OBSERVATION: VITAL SIGNS: Temperature 96.9, blood pressure 132/58, pulse is 67, respirations 18, O2 sat 100%. Slept about 6-1/2 hours last night. LABORATORY DATA: Patient's lab reviewed. CURRENT MEDICATIONS: Include Depakote 250 mg 3 times a day, olanzapine 2.5 mg q.4 times daily, Zoloft 100 mg daily, mirtazapine 15 mg at night and Namenda 10 mg twice a day, gabapentin 100 mg at night, Exelon 4.5 mg twice a day and melatonin 3 mg at night. ASSESSMENT: 1. Bipolar disorder, mixed with psychotic features. 2. Major neurocognitive disorder, most likely Alzheimer versus vascular with behavior problems. PLAN: To continue with the treatment. The patient is planned for discharge to [facility]. LENGTH OF STAY: Three to five days. CHRISTIAN DR: Yvette TID: [id number]
[2021-03-26 05:41] VITALS: BP 121/70
[2021-03-26] MEDS: LEVOTHYROXINE 25 MCG TABLET. PO SCH (05:48)
[2021-03-26] MEDS: DIVALPROEX 125 MG CAP.SPRINK PO SCH ×4 (08:00→17:26)
[2021-03-26] MEDS: OLANZapine 2.5 MG TABLET PO SCH ×4 (08:34→19:47)
[2021-03-26] MEDS: MEMANTINE 10 MG TABLET. PO SCH ×2 (08:34→19:46)
[2021-03-26] MEDS: DOCUSATE SODIUM 100 MG CAPSULE PO SCH (08:34)
[2021-03-26] MEDS: SERTRALINE 100 MG TABLET. PO SCH ×2 (08:35→19:47)
[2021-03-26] MEDS: RIVASTIGMINE. 1.5 MG CAPSULE. PO SCH ×2 (08:35→17:26)
[2021-03-26] MEDS: LACTASE 3,000 UNIT TABLET PO SCH ×3 (08:35→17:26)
[2021-03-26] MEDS: LACTOBACILLUS RHAMNOSUS GG 1 CAPSULE. PO SCH ×2 (08:35→19:47)
[2021-03-26 15:53] VITALS: BP 130/79
[2021-03-26] MEDS: FAMOTIDINE 20 MG TABLET PO SCH (19:46)
[2021-03-26] MEDS: MIRTAZAPINE 15 MG TABLET PO SCH (19:47)
[2021-03-26] MEDS: GABAPENTIN 100 MG CAPSULE. PO SCH (19:47)
[2021-03-26] MEDS: MELATONIN 3 MG TABLET PO SCH (19:48)
--- NOTE | 2021-03-27 01:34 | PN ---
DATE: 03/26/2021 SUBJECTIVE: The patient was seen today met with the staff. Chart reviewed and also covering for Dr. Arriaga. Staff reports no major problems except refusing her medications. OBSERVATION: VITAL SIGNS: Temperature 96.6, blood pressure 121/70, pulse 83, respirations 20, O2 sat 99%. Slept about 6 hours last night. The patient's appetite is fair. MEDICATIONS: Depakote 250 mg 3 times daily and Zoloft 100 mg to be given at night. Also, mirtazapine 15 mg at night and Namenda 10 mg b.i.d. p.o. She is also on Exelon 4.5 mg twice a day and melatonin 3 mg at night. The patient is not having any side effects. ASSESSMENT: 1. Bipolar disorder, mixed with psychotic features. 2. Major neurocognitive disorder, most likely Alzheimer's versus vascular with behavior problems. PLAN: To continue with the treatment. LENGTH OF STAY: Three to five days. The patient is planned for discharge [facility]. SHARON DR: Yvette TID: [id number]
[2021-03-27] MEDS: LEVOTHYROXINE 25 MCG TABLET. PO SCH (05:49)
[2021-03-27 05:54] VITALS: BP 101/62
[2021-03-27] MEDS: RIVASTIGMINE. 1.5 MG CAPSULE. PO SCH ×2 (08:00→16:24)
[2021-03-27] MEDS: DIVALPROEX 125 MG CAP.SPRINK PO SCH ×3 (08:00→16:24)
[2021-03-27] MEDS: LACTASE 3,000 UNIT TABLET PO SCH ×3 (08:00→16:23)
[2021-03-27] MEDS: OLANZapine 2.5 MG TABLET PO SCH ×4 (08:00→19:30)
[2021-03-27] MEDS: MEMANTINE 10 MG TABLET. PO SCH ×2 (08:00→19:31)
[2021-03-27] MEDS: DOCUSATE SODIUM 100 MG CAPSULE PO SCH (08:00)
[2021-03-27] MEDS: LACTOBACILLUS RHAMNOSUS GG 1 CAPSULE. PO SCH ×2 (08:00→19:31)
[2021-03-27 15:49] VITALS: BP 110/74
[2021-03-27] MEDS: MELATONIN 3 MG TABLET PO SCH (19:30)
[2021-03-27] MEDS: SERTRALINE 100 MG TABLET. PO SCH (19:30)
[2021-03-27] MEDS: FAMOTIDINE 20 MG TABLET PO SCH (19:30)
[2021-03-27] MEDS: MIRTAZAPINE 15 MG TABLET PO SCH (19:31)
[2021-03-27] MEDS: GABAPENTIN 100 MG CAPSULE. PO SCH (19:31)
--- NOTE | 2021-03-28 00:05 | PN ---
DATE: 03/27/2021 DATE OF SERVICE: 03/27/2021 SUBJECTIVE: The patient was seen today, met with the staff. Chart reviewed and also covering for Dr. Arriaga. The patient's behavior remains the same, calm, cooperative, compliant with medications. No major behavior problems today. PHYSICAL EXAMINATION: VITAL SIGNS: Temperature 98.4, blood pressure 101/62, pulse 82, respirations 18, O2 sat 98%. Slept about 8 hours last night. The patient's appetite is fair. LABORATORY DATA: The patient's lab reviewed and also reviewed her medications. She is not having any side effects. ASSESSMENT: 1. Bipolar disorder, mixed with psychotic features. 2. Major neurocognitive disorder, most likely Alzheimer's versus vascular with behavior problems. PLAN: To continue with the treatment. LENGTH OF STAY: 3 to 4 days. The patient is planned for discharge to return to [facility]. KE DR: Yevtte TID: [id number]
[2021-03-28] MEDS: LEVOTHYROXINE 25 MCG TABLET. PO SCH (06:00)
[2021-03-28 06:04] VITALS: BP 117/80
[2021-03-28] MEDS: DOCUSATE SODIUM 100 MG CAPSULE PO SCH (09:19)
[2021-03-28] MEDS: DIVALPROEX 125 MG CAP.SPRINK PO SCH ×3 (09:19→17:50)
[2021-03-28] MEDS: MEMANTINE 10 MG TABLET. PO SCH ×2 (09:19→19:45)
[2021-03-28] MEDS: OLANZapine 2.5 MG TABLET PO SCH ×4 (09:20→19:46)
[2021-03-28] MEDS: LACTOBACILLUS RHAMNOSUS GG 1 CAPSULE. PO SCH ×2 (09:20→19:45)
[2021-03-28] MEDS: LACTASE 3,000 UNIT TABLET PO SCH ×3 (09:20→17:51)
[2021-03-28] MEDS: RIVASTIGMINE. 1.5 MG CAPSULE. PO SCH ×2 (09:22→17:51)
[2021-03-28 16:00] VITALS: BP 132/71
[2021-03-28] MEDS: FAMOTIDINE 20 MG TABLET PO SCH (19:46)
[2021-03-28] MEDS: GABAPENTIN 100 MG CAPSULE. PO SCH (19:46)
[2021-03-28] MEDS: MIRTAZAPINE 15 MG TABLET PO SCH (19:46)
[2021-03-28] MEDS: MELATONIN 3 MG TABLET PO SCH (19:46)
[2021-03-28] MEDS: SERTRALINE 100 MG TABLET. PO SCH (19:46)
--- NOTE | 2021-03-28 23:58 | PN ---
DATE: 03/28/2021 SUBJECTIVE: The patient was seen today. I met with the staff, chart reviewed, and also covering for Dr. Arriaga. The patient's behavior has improved. She is calm, cooperative and compliant with the medications. The patient is able to hold a reasonable conversation today. OBSERVATION: VITAL SIGNS: Temperature 97.0, blood pressure 117/80, pulse 70, respirations 16, O2 sat 99%. GENERAL: Slept about 7 hours last night. The patient's appetite improved. The patient is on wheelchair. No falls. MEDICATIONS: Reviewed. LABORATORY DATA: Reviewed. ALLERGIES: Currently, not experiencing any side effects from the medications. ASSESSMENT: 1. Bipolar disorder, mixed with psychotic features. 2. Major neurocognitive disorder, most likely Alzheimer's versus vascular with behavior problems. PLAN: To continue with the treatment. LENGTH OF STAY: Three to four days and plan for discharge this week. JUAN/FATUMA/CHEYENNE DR: Yvette TID: [id number]
[2021-03-29 05:57] VITALS: BP 115/52
[2021-03-29] MEDS: LEVOTHYROXINE 25 MCG TABLET. PO SCH (06:19)
[2021-03-29] MEDS: LACTASE 3,000 UNIT TABLET PO SCH ×3 (12:00→17:15)
[2021-03-29] MEDS: DIVALPROEX 125 MG CAP.SPRINK PO SCH ×3 (12:00→17:15)
[2021-03-29] MEDS: RIVASTIGMINE. 1.5 MG CAPSULE. PO SCH ×2 (12:30→17:15)
[2021-03-29] MEDS: DOCUSATE SODIUM 100 MG CAPSULE PO SCH (12:31)
[2021-03-29] MEDS: LACTOBACILLUS RHAMNOSUS GG 1 CAPSULE. PO SCH ×2 (12:31→20:34)
[2021-03-29] MEDS: OLANZapine 2.5 MG TABLET PO SCH ×4 (12:31→20:34)
[2021-03-29] MEDS: MEMANTINE 10 MG TABLET. PO SCH ×2 (12:31→20:34)
--- NOTE | 2021-03-29 12:59 | TX PLAN ---
Interdisciplinary Tx Plan Admission Information Feb 26, 2021 at 19:52 Legal Status (on Admission): Voluntary DPOA/Guardian Name: Kayla Briggs Contact Other Contact Name: MELISSA Alas Other Contact Verified Code Status: Full Code Allergies: Coded Allergies: NSAIDS (Non-Steroidal Anti-Inflamma (Verified Allergy, Intermediate, gi upset-peptic ulcer dx, 08/27/15) aspirin (Verified Allergy, Intermediate, gi upset/hx ulcers, 08/27/15) Diagnoses Primary Diagnosis: (1) Dementia, vascular, with delusions (2) Bipolar disorder, current episode mixed, severe, with psychotic features (3) Dementia in Alzheimer's disease with depression (4) Dementia in Alzheimer's disease with delusions (5) Major neurocognitive disorder (6) Dementia in Alzheimer's disease with early onset with behavioral disturbance (7) Impulse control disorder (8) Dementia, vascular, with depression (9) Anxiety disorder Reasons for Admission: Aggressive, Agitated, Sig. Change Appetite, Angry, Confusion/Disoriented, Poor impulse control Problem in Patient's Words: Per dtr/DPOA, Kayla, pt has started yelling out at her facility following her hospitalizations for UTIs. She never has had this behavior before, but she does have an extensive history in her younger days of being very attention seeking and telling multiple fabricated stories for reasons unknown. Also, per Kayla, pt has been on Tramadol and she believes that she is addicted and that it is like a narcotic to Usha. Kayla feels that Usha craves it. She would like to see her off of the Tramadol. Further, Kayla believes that pt does not drink enough water and that she has muscle spasms that could be some of the cause to her yelling out. Kayla believes that she needs to drink more water or ice chips and possibly be prescribed Quinine. Additional Admission Comments: Per intake record, pt has increased agitation, refusing to eat/drink/take medications, irritable, uncooperative, labile mood, yelling out. Problems Active Problems: Yelling out, agitation, confusion, poor impulse control, angry Inactive Problems: None noted at this time. Pt Strengths/Limitations Ability for [place]: Poor Cognitive Functioning/Ability: Poor Communication Skills/Ability: Fair Financial Resources: Fair Insight/Judgement: Poor Intellectual Ability: Poor Physical Health: Poor Social Skills: Fair Stability in Family: Fair Stability in School/Work: Fair Verbal Skills: Fair Discharge Criteria Discharge Criteria: Adequate arrangements @DC, Verbal commit med comply, Improved behavior, Improved mood/thought Other Discharge Comments: None noted at this time. Preliminary Discharge Plan Preliminary DC Plan: Current Living Arrange. Special Precautions Fall Risk: High Initial D/C Plan Plan is to return to [facility]. Identified Discharge Needs: None noted at this time. Currently Utilized Resources Currently Utilized Resources/P: PCP is Dr. Peraza Psychiatry is Nurse Practitioner, Peter Facility is [facility] SW at [facility] is [place] Referrals Community Resources: None noted at this time. Identified Problems/Hx/Goals Objectives/Short-Term Goals Short Term Goals: Control abnormal behavior, Improved Social Skills, Medication Stabilization, Monitor Med Effects, Promote Coping Skill Short Term Goals in Patient's: To feel better. Per Jayar/Kayla FLORES, she would like for pt to be off of Tramadol. Also, Kayla states that pt has muscle spasms that could contribute to her yelling out. She feels that Quinine could possibly be beneficial, but at the minimum pt should be requested to drink plenty of water. Kayla feels that these things could help prevent her from calling out in an attention seeking way that she was doing at her facility. Interventions/Frequency Staff Interventions/Frequency&: Psychiatry to assess pt three times per week for medication maagement. Nursing to assess pt behaviors, monitor medications, and complete 15 minute checks daily. Social work to see pt at least two times weekly to aid in return to placement. Activities to encourage pt to participate in group activities daily. 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 She was then caught for extorting money from a pt and lost her job. Education: Usha dropped out of high school in the 10th grade to get . Community Follow-up PCP Psychiatry Community Provider/Family Inpu: Jayar/MARK, Kayla, is aware of pt hospitalization. Kayla provided pt inforamation and is available for further input as needed. Treatment Plan Explained Patient/Trip Motor Operator had this treatment plan explained to him/her as indicated by the signature below and has been given the opportunity to ask questions and make suggestions: Date: Patient/Trip Motor Operator Signature: Status Update Update Pt doing better with eating as she eats about 80% of her meals. She has been averaging about 7 hours of sleep per night. Pt has finished antibiotics for UTI. Pt is disorganized, but pleasant. She is not as labile and irritable. Pt has been calm and mostly cooperative. She does, however, sometimes resist her medications and will be sneaky with hiding them or refusing to take them; i ndicating that she can't take them on an empty stomach. Pt held a conversation with the doctor that was sensible. Pt appears to be doing better overall. Pt estimated to d/c back to [facility] this week. ASIA WAY March 29, 2021 12:59
[2021-03-29 15:52] VITALS: BP 113/53
[2021-03-29] MEDS: GABAPENTIN 100 MG CAPSULE. PO SCH (20:34)
[2021-03-29] MEDS: MIRTAZAPINE 15 MG TABLET PO SCH (20:34)
[2021-03-29] MEDS: MELATONIN 3 MG TABLET PO SCH (20:34)
[2021-03-29] MEDS: FAMOTIDINE 20 MG TABLET PO SCH (20:34)
[2021-03-29] MEDS: SERTRALINE 100 MG TABLET. PO SCH (20:34)
--- NOTE | 2021-03-30 03:07 | PN ---
DATE: 03/29/2021 SUBJECTIVE: This is the dictation for Declan Lopez acct:[id number]. Patient was seen today, met with the staff, chart reviewed and also covering for Dr. Arriaga. Staff reports that still hyperverbal, grandiose, flight of ideas and also concrete thinking. The patient struggles to communicate because of his circumstantial thinking. The patient also rigid in some mannerisms. The patient does not make eye contact. OBSERVATION: VITAL SIGNS: Temperature 97.8, blood pressure 135/20; pulse 72, repeat pulse 52; respirations 20, O2 sat 100%. Slept about 6 hours last night. The patient's appetite is good. The patient's medications reviewed, not having any side effects. The patient's lab reviewed. ASSESSMENT: 1. Intermittent explosive disorder, unspecified. 2. Mood disorder, unspecified. 3. Cognitive disorder, mild. 4. Rule out bipolar disorder, mixed. PLAN: To continue with the treatment. LENGTH OF STAY: Ten to [address]: Yvette TID: [id number] This the dictation for Declan Lopez Acct.:[id number] MTDD
--- NOTE | 2021-03-30 03:14 | PN ---
DATE: 03/29/2021 SUBJECTIVE: The patient was seen today, met with the staff, chart reviewed. Also, covering for Dr. Arriaga. Staff reports that she has been calm, cooperative, but resisted to medications. The patient did not have any falls. OBSERVATION: VITAL SIGNS: Temperature 97.0, blood pressure 115/52, pulse 72, respirations 16, O2 sat 98%. Slept about 8 hours last night. The patient's appetite is fair. MEDICATIONS: The patient's medications reviewed and not having any side effects. LABORATORY DATA: The patient's lab reviewed. ASSESSMENT: 1. Bipolar disorder, mixed with psychotic features. 2. Major neurocognitive disorder, most likely Alzheimer's versus vascular with behavior problems. PLAN: To continue with the treatment. LENGTH OF STAY: Three to four days. CHRISTIAN DR: Yvette TID: [id number]
[2021-03-30 06:05] VITALS: BP 106/51
[2021-03-30] MEDS: LEVOTHYROXINE 25 MCG TABLET. PO SCH (06:13)
[2021-03-30] MEDS: DIVALPROEX 125 MG CAP.SPRINK PO SCH ×3 (08:00→17:49)
[2021-03-30] MEDS: LACTASE 3,000 UNIT TABLET PO SCH ×4 (08:00→17:49)
[2021-03-30] MEDS: OLANZapine 2.5 MG TABLET PO SCH ×4 (09:00→20:43)
[2021-03-30] MEDS: LACTOBACILLUS RHAMNOSUS GG 1 CAPSULE. PO SCH ×2 (12:45→20:44)
[2021-03-30] MEDS: RIVASTIGMINE. 1.5 MG CAPSULE. PO SCH ×2 (12:45→17:48)
[2021-03-30] MEDS: DOCUSATE SODIUM 100 MG CAPSULE PO SCH ×2 (12:45→12:46)
[2021-03-30] MEDS: MEMANTINE 10 MG TABLET. PO SCH ×3 (12:45→20:43)
[2021-03-30 16:00] VITALS: BP 103/70
[2021-03-30] MEDS: GABAPENTIN 100 MG CAPSULE. PO SCH (20:44)
[2021-03-30] MEDS: MELATONIN 3 MG TABLET PO SCH (20:44)
[2021-03-30] MEDS: FAMOTIDINE 20 MG TABLET PO SCH (20:44)
[2021-03-30] MEDS: MIRTAZAPINE 15 MG TABLET PO SCH (20:44)
[2021-03-30] MEDS: SERTRALINE 100 MG TABLET. PO SCH (20:44)
[2021-03-31 05:51] VITALS: BP 103/49
[2021-03-31] MEDS: LEVOTHYROXINE 25 MCG TABLET. PO SCH (06:03)
[2021-03-31] MEDS: MEMANTINE 10 MG TABLET. PO SCH ×2 (11:36→21:15)
[2021-03-31] MEDS: LACTOBACILLUS RHAMNOSUS GG 1 CAPSULE. PO SCH ×2 (11:36→21:15)
[2021-03-31] MEDS: RIVASTIGMINE. 1.5 MG CAPSULE. PO SCH ×2 (11:36→18:14)
[2021-03-31] MEDS: DIVALPROEX 125 MG CAP.SPRINK PO SCH ×3 (11:37→18:14)
[2021-03-31] MEDS: OLANZapine 2.5 MG TABLET PO SCH ×4 (11:37→21:15)
[2021-03-31] MEDS: LACTASE 3,000 UNIT TABLET PO SCH ×3 (11:37→18:14)
[2021-03-31] MEDS: DOCUSATE SODIUM 100 MG CAPSULE PO SCH (11:37)
[2021-03-31 16:06] VITALS: BP 113/70
[2021-03-31] MEDS: MELATONIN 3 MG TABLET PO SCH (21:15)
[2021-03-31] MEDS: SERTRALINE 100 MG TABLET. PO SCH (21:15)
[2021-03-31] MEDS: GABAPENTIN 100 MG CAPSULE. PO SCH (21:15)
[2021-03-31] MEDS: MIRTAZAPINE 15 MG TABLET PO SCH (21:15)
[2021-03-31] MEDS: FAMOTIDINE 20 MG TABLET PO SCH (21:15)
--- NOTE | 2021-04-01 00:50 | PN ---
DATE: 03/31/2021 SUBJECTIVE: The patient was seen today, met with the staff, chart reviewed. Staff reports that she is making progress. She is compliant with the treatment. No major behavior problems. OBSERVATION: VITAL SIGNS: Temperature 98.7, blood pressure 103/49, pulse 75, respirations 18, O2 sat 97%. GENERAL: Slept about 6-1/2 hours last night. The patient's sleep and appetite have improved. The patient's medications reviewed, not having any side effects. The patient's behavior improved overall. LABORATORY DATA: The patient's lab reviewed. ASSESSMENT: 1. Bipolar disorder, mixed with psychotic features. 2. Major neurocognitive disorder, most likely Alzheimer's versus vascular with behavior problems. PLAN: To continue with the treatment. LENGTH OF STAY: Three-four days. AUNG DR: Yvette TID: [id number]
[2021-04-01] MEDS ORDERED: LACT1CAP19 PO (01:45)
[2021-04-01] MEDS ORDERED: DIVA125C2 PO (01:45)
[2021-04-01] MEDS ORDERED: OLAN2.5T3 PO (01:46)
[2021-04-01] MEDS ORDERED: MAGN24003 PO (01:46)
[2021-04-01] MEDS ORDERED: OLAN5TAB99 PO (01:47)
[2021-04-01] MEDS ORDERED: SERT100T PO (01:48)
[2021-04-01] MEDS ORDERED: TRAZ-120 PO (01:48)
--- NOTE | 2021-04-01 03:39 | PN ---
DATE: 03/30/2021 SUBJECTIVE: The patient was seen today by Telehealth, and discussed with the staff and chart reviewed. Staff reports no major behavioral problems. She is calm, cooperative and also she tends to isolate herself. OBSERVATION: VITAL SIGNS: Stable. The patient's sleep and appetite have improved. MEDICATIONS: The patient's medications reviewed, no side effects. LABORATORY DATA: The patient's lab reviewed. ASSESSMENT: Bipolar disorder, mixed with psychotic features; major neurocognitive disorder, most likely Alzheimer's versus vascular with behavior problems. PLAN: To continue with the treatment. LENGTH OF STAY: 3 to 4 days[address] JUAN/CHEYENNE DR: Yvette TID: [id number]
[2021-04-01] MEDS: LEVOTHYROXINE 25 MCG TABLET. PO SCH (05:33)
[2021-04-01 05:42] VITALS: BP 115/71
[2021-04-01] MEDS: OLANZapine 2.5 MG TABLET PO SCH (09:31)
[2021-04-01] MEDS: DIVALPROEX 125 MG CAP.SPRINK PO SCH (09:31)
[2021-04-01] MEDS: MEMANTINE 10 MG TABLET. PO SCH (09:31)
[2021-04-01] MEDS: DOCUSATE SODIUM 100 MG CAPSULE PO SCH (09:31)
[2021-04-01] MEDS: LACTASE 3,000 UNIT TABLET PO SCH (09:31)
[2021-04-01] MEDS: LACTOBACILLUS RHAMNOSUS GG 1 CAPSULE. PO SCH (09:31)
[2021-04-01] MEDS: RIVASTIGMINE. 1.5 MG CAPSULE. PO SCH (09:31)
--- NOTE | 2021-04-01 20:24 | DS ---
DATE OF DISCHARGE: 04/01/2021 DISCHARGE DIAGNOSES: 1. Bipolar disorder, mixed with psychotic features. 2. Major neurocognitive disorder, Alzheimer's, vascular with delusion, depression and behavioral disturbances. 3. Anxiety disorder, unspecified. 4. Impulse control disorder, unspecified. AXIS II: None. AXIS III: Anemia, hypertension, hypothyroidism, gastroesophageal reflux disease, COVID positive status in 10/2020. REASON FOR ADMISSION: This 85-year-old male was referred from [facility] with a diagnosis of major neurocognitive disorder with delusions and behavior problems. She also has been diagnosed with bipolar disorder. She has been increasingly agitated, refusing to eat, drink, or take her medications, uncooperative, labile mood, yelling out. The patient constantly calling out throughout the night. The patient apparently had a UTI, treated with Keflex at the skilled nursing, but still behavior persisted. The patient was unmanageable at the facility also very destructive. HOSPITAL COURSE: The patient had a physical exam, routine lab work including CBC, chem profile, urinalysis, which were all within normal range except for hemoglobin of 10.1. The patient's thyroxine was 7.7. The patient's hemoglobin A1c was 5.1. The patient's liver enzymes were within normal range. The patient's HDL cholesterol was 30. The patient's urinalysis showed protein, leukocyte esterase and RBCs and also white cells. The patient was involved in treatment including individual therapy, group therapy and activity therapy. The patient was treated with Zoloft 100 mg at night, Depakote sprinkles 250 mg 3 times a day, olanzapine 25 mg q.i.d., mirtazapine 15 mg at night, Namenda 10 mg twice a day, melatonin 3 mg at night, gabapentin 100 mg at night, Pepcid 20 mg at night, Colace 100 mg daily, Exelon 4.5 mg twice a day. The patient was also on p.r.n. medications including olanzapine and Percocet. The patient was also on levothyroxine 25 mcg daily. The patient continued to show improvement. AFTERCARE PLANS: The patient at the time of discharge, medically stable. Not experiencing any major behavior problems. The patient did not express any suicidal or homicidal thoughts. The patient will return to [facility] and continue with the current medications. Continue to see a psychiatrist and a primary care doctor. JUAN/ROBERT DR: Yvette TID: [id number]
--- NOTE | 2021-04-07 07:30 | PDOC ---
Exam Note: Carlos Note: This note is a late entry for 03/19/2021 covers elements not covered in my initial note. Subjective: This note was initially completed on 03/19/2021 but cannot be retrieved in the electronic medical system and is being re-dictated today 04/06/2021. The patient was seen individually in the evening of 03/19/2021 with Cliff HERNDON, discussed and reviewed the chart. She is doing reasonably well. She is compliant with medications. She was in bed as I met with her. Review of Systems: Ambulation impaired in wheelchair. No CV, , pulmonary, eye, ENT system symptoms on review. Mental Status Exam: The patient is oriented to herself. Insight, judgment, recent memory is impaired, remote is better. Language function intact. Attention span is short. Mood and affect remains withdrawn. Laboratory Data: Reviewed. Impression: Bipolar disorder, mixed. Major neurocognitive disorder Alzheimer vascular with delusion, depression, behavioral disturbance. Impulse control disorder unspecified. Anxiety disorder unspecified. Plan: Continue rest psychotropics unchanged. Dr. Aragon will cover for me starting from 03/20/2021 at 8 a.m. till 04/04/2021 at 8 p.m. Current Medications: Meds: Current Medications Medications (Trade) Dose Ordered Sig/Magdalena Route PRN Reason Start Time Stop Time Status Last Admin Dose Admin Acetaminophen (Tylenol) 650 mg PRN Q6HRS PRN PO MILD PAIN / TEMP > 100.3'F 02/26/21 22:00 04/01/21 10:14 DC 03/22/21 05:42 Bisacodyl (Dulcolax Supp) 10 mg PRN DAILY PRN 2nd CHOICE CONSTIPATION 02/26/21 22:00 04/01/21 10:14 DC Docusate Sodium (Colace) 100 mg DAILY PO 02/27/21 09:00 04/01/21 10:14 DC 04/01/21 09:31 Famotidine (Pepcid) 20 mg QHS PO 02/27/21 21:00 04/01/21 10:14 DC 03/31/21 21:15 Gabapentin (Neurontin) 100 mg QHS PO 02/27/21 21:00 04/01/21 10:14 DC 03/31/21 21:15 Lactase (Lactaid) 3,000 unit TID PO 02/27/21 09:00 03/16/21 12:41 DC 03/16/21 08:46 Levothyroxine Sodium (Synthroid) 25 mcg DAILY06 PO 02/27/21 06:00 04/01/21 10:14 DC 04/01/21 05:33 Melatonin (Melatonin) 3 mg QHS PO 02/27/21 21:00 04/01/21 10:14 DC 03/31/21 21:15 Memantine (Namenda) 5 mg BID PO 02/27/21 09:00 03/03/21 16:00 DC 03/03/21 08:13 Mirtazapine (Remeron) 7.5 mg QHS PO 02/27/21 21:00 03/12/21 18:07 DC 03/11/21 20:50 Oxycodone/ Acetaminophen (Percocet 10/325) 1 tab PRN Q6HRS PRN PO MOD-SEV PAIN 02/26/21 22:00 04/01/21 10:14 DC 03/11/21 20:50 Quetiapine Fumarate (SEROquel) 25 mg TID PO 02/27/21 09:00 02/28/21 17:34 DC 02/28/21 14:31 Cephalexin HCl (Keflex) 250 mg TID PO 02/27/21 09:00 02/28/21 10:12 DC 02/28/21 08:13 Non-Formulary Medication (Mag Hydrox/Al Hydrox/Simeth (Mag-Al Plus Suspension)) 15 ml PRN QHS PRN PO DYSPEPSIA 02/26/21 22:00 UNV Multi-Ingredient Ointment (Analgesic [place]) 1 hector PRN QID PRN TP MUSCLE PAIN 02/26/21 22:30 04/01/21 10:14 DC Ondansetron HCl (Zofran Odt) 4 mg PRN Q8HRS PRN PO NAUSEA 02/26/21 22:30 04/01/21 10:14 DC Rivastigmine Tartrate (Exelon) 4.5 mg BIDWMEALS PO 02/27/21 08:00 04/01/21 10:14 DC 04/01/21 09:31 Acetaminophen (Tylenol) 650 mg PRN Q6HRS PRN PO MILD PAIN / TEMP > 100.3'F 02/26/21 22:15 UNV Al Hydroxide/Mg Hydroxide (Mylanta Plus Xs) 15 ml PRN AFTMEALHC PRN PO DYSPEPSIA 02/26/21 22:15 04/01/21 10:14 DC Magnesium Hydroxide (Milk Of Magnesia) 2,400 mg PRN QHS PRN PO 1ST CHOICE CONSTIPATION 02/26/21 22:15 04/01/21 10:14 DC Olanzapine (ZyPREXA ZYDIS) 2.5 mg PRN Q2HR PRN PO PSYCHOSIS 02/27/21 07:30 04/01/21 10:14 DC 03/12/21 20:02 Trazodone HCl (Desyrel) 50 mg PRN QHS PRN PO INSOMNIA 02/27/21 07:30 04/01/21 10:14 DC 03/14/21 20:08 Lactobacillus Rhamnosus (Culturelle) 1 cap BID PO 02/27/21 09:00 04/01/21 10:14 DC 04/01/21 09:31 Quetiapine Fumarate (SEROquel) 37.5 mg TID PO 02/28/21 21:00 03/01/21 19:04 DC 03/01/21 14:23 Olanzapine (ZyPREXA) 2.5 mg 0900,1300,1700 PO 03/02/21 09:00 03/15/21 14:50 DC 03/15/21 12:27 Memantine (Namenda) 10 mg BID PO 03/03/21 21:00 04/01/21 10:14 DC 04/01/21 09:31 Sertraline HCl (Zoloft) 25 mg DAILY PO 03/04/21 09:00 03/06/21 12:00 DC 03/06/21 08:16 Sertraline HCl (Zoloft) 50 mg DAILY PO 03/07/21 09:00 03/09/21 17:09 DC 03/09/21 09:13 Sertraline HCl (Zoloft) 75 mg DAILY PO 03/10/21 09:00 03/14/21 17:48 DC 03/14/21 06:36 Divalproex Sodium (Depakote Sprinkles) 125 mg TIDWMEALS PO 03/12/21 08:00 03/18/21 22:29 DC 03/18/21 17:30 Mirtazapine (Remeron) 15 mg QHS PO 03/12/21 21:00 04/01/21 10:14 DC 03/31/21 21:15 Sertraline HCl (Zoloft) 100 mg DAILY PO 03/15/21 09:00 03/26/21 15:55 DC 03/26/21 08:35 Olanzapine (ZyPREXA) 2.5 mg QID PO 03/15/21 17:00 04/01/21 10:14 DC 04/01/21 09:31 Lactase (Lactaid) 3,000 unit TIDWMEALS PO 03/16/21 17:00 04/01/21 10:14 DC 04/01/21 09:31 Divalproex Sodium (Depakote Sprinkles) 250 mg TIDWMEALS PO 03/19/21 08:00 04/01/21 10:14 DC 04/01/21 09:31 Amoxicillin (Amoxil) 500 mg [id number] PO 03/19/21 21:00 03/21/21 15:34 DC 03/21/21 12:15 Amoxicillin (Amoxil) 250 mg [id number] PO 03/21/21 21:00 03/25/21 22:00 DC 03/25/21 20:29 Sertraline HCl (Zoloft) 100 mg HS PO 03/26/21 21:00 04/01/21 10:14 DC 03/31/21 21:15 I have reviewed the current psychotropics carefully including drug interactions. Risk benefit ratio favors no change other than as noted in my dictated progress note. Diagnosis: Problems: (1) Dementia, vascular, with delusions (2) Bipolar disorder, current episode mixed, severe, with psychotic features (3) Dementia in Alzheimer's disease with depression (4) Dementia in Alzheimer's disease with delusions (5) Major neurocognitive disorder (6) Dementia in Alzheimer's disease with early onset with behavioral disturbance (7) Impulse control disorder (8) Anxiety disorder DUGLAS SMALL MD April 07, 2021 07:30
== END 2021-04-01 09:45 | DRG 885 ==
LOC: GEROPSY 19:52
PROVIDERS: ADMIT Psychiatry & Neurology Psychiatry; ATTEND Psychiatry & Neurology Psychiatry
DX: F31.64 Bipolar disorder, current episode mixed, severe, with psychotic features (principal); F01.51 Vascular dementia, unspecified severity, with behavioral disturbance; E43 Unspecified severe protein-calorie malnutrition; F63.81 Intermittent explosive disorder; F02.81 Dementia in other diseases classified elsewhere, unspecified severity, with behavioral disturbance; N39.0 Urinary tract infection, site not specified; E03.9 Hypothyroidism, unspecified; F41.9 Anxiety disorder, unspecified; G30.9 Alzheimer's disease, unspecified; I10 Essential (primary) hypertension; J44.9 Chronic obstructive pulmonary disease, unspecified; M17.0 Bilateral primary osteoarthritis of knee; Z79.890 Hormone replacement therapy; Z79.899 Other long term (current) drug therapy; Z86.16 Personal history of COVID-19; Z87.891 Personal history of nicotine dependence; K21.9 Gastro-esophageal reflux disease without esophagitis; Z88.8 Allergy status to other drugs, medicaments and biological substances; D64.9 Anemia, unspecified; Z68.20 Body mass index [BMI] 20.0-20.9, adult
CPT/HCPCS: 36415; 80053; 80061; 80164; 81001; 82306; 82607; 83036; 83540; 83550; 83735; 84436; 84443; 84480; 85025; 85379; 86592; 87077; 87086; 87186; U0003